=== PATIENT | female | born 1940 | race Caucasian/White ===

== ENCOUNTER 2018-05-27 18:06 | Emergency (ER) | payer MEDICARE, MEDICAID ==
--- NOTE | 2018-05-27 18:27 | EDM.PDOC ---
ED HPI GENERAL MEDICAL PROBLEM - General Chief Complaint: Head Injury Stated Complaint: PT FELL AND CUT HER HEAD Time Seen by Provider: 05/27/18 18:15 Source of Information: Reports: Patient History Limitations: Reports: No Limitations - History of Present Illness INITIAL COMMENTS - FREE TEXT/NARRATIVE: HISTORY AND PHYSICAL: History of present illness: Patient is a 77-year-old female who presents to the emergency room with her caregiver after falling and hitting her head. The patient was trying to take herself to the bathroom when she tripped while making a turn around the corner and fell and hit her head. The caregiver stated this was witnessed and she did not lose any consciousness. The patient does have a goose egg above the right eyebrow with a small 1 cm laceration. She is a resident at the [facility] as she does have some developmental delays. Unsure of her last tetanus. Denies any fever, chills, chest pain, shortness of breath or cough. Denies any abdominal pain, nausea, vomiting, diarrhea or constipation. Review of systems: As per history of present illness and below otherwise all systems reviewed and negative. Past medical history: As per history of present illness and as reviewed below otherwise noncontributory. Surgical history: As per history of present illness and as reviewed below otherwise noncontributory. Social history: No reported history of drug or alcohol abuse. Family history: As per history of present illness and as reviewed below otherwise noncontributory. Physical exam: General: Well-developed and well-nourished 77-year-old female. Alert and appropriate for self. Nontoxic appearing and in no acute distress. HEENT: Large goose egg noted above the right eyebrow with a 1 cm laceration in the center. normocephalic, pupils equal and reactive bilaterally, negative for conjunctival pallor or scleral icterus, mucous membranes moist, throat clear, neck supple, nontender, trachea midline. No drooling or trismus noted. No meningeal signs Lungs: Clear to auscultation, breath sounds equal bilaterally, chest nontender. Heart: S1S2, regular rate and rhythm without overt murmur Abdomen: Soft, nondistended, nontender. Negative for masses or hepatosplenomegaly. Negative for costovertebral tenderness. Pelvis: Stable nontender. Genitourinary: Deferred. Rectal: Deferred. Skin: 1 cm laceration noted above the right eyebrow. There is a large area of swelling with erythema, goose egg, above right eyebrow. Intact, warm, dry. No lesions or rashes noted. C-spine/Back: No pinpoint vertebral tenderness upon palpation. No crepitus, step -offs or obvious deformities. Patient does have kyphosis, normal variance. She is ambulatory into the emergency room using her 4 wheeled rolling walker. She denies any urinary or fecal incontinence. No numbness or tingling to her distal extremities. Extremities: Atraumatic, negative for cords or calf pain. Neurovascular unremarkable. Neuro: Awake, alert, oriented. Cranial nerves II through XII unremarkable. Cerebellum unremarkable. Motor and sensory unremarkable throughout. Exam nonfocal. Notes: Patient is alert and appropriate for self and does answer questions with yes and no. The caregiver that she has not been complaining of any pain other than the area which is swollen above the right eyebrow. Will CT the head and cervical spine. Head CT shows no acute intracranial findings. There is some right periorbital soft tissue swelling. No acute fracture or traumatic malalignment. There is some degenerative disc changes. Wound care provided with chlorahexadin. Applied Dermabond to the laceration without any difficulty. Head injury instructions were reviewed with the front elevator operator and patient. Discharged to home. Denies any further questions or concerns. Diagnostics: CT of the head and C-spine Therapeutics: Tdap, wound care, Dermabond Prescription: None Impression: Head Injury Laceration Plan: 1. Please continue to follow the head injury instructions that were reviewed with you and printed in your discharge packet. 2. Keep the area clean and dry. You may apply ice to the area for comfort. 3. Tylenol and/or ibuprofen as needed for pain management. 4. Follow-up with your primary care provider in the next 1-2 days. Return to the ED as needed and as discussed. Definitive disposition and diagnosis as appropriate pending reevaluation and review of above. - Related Data Allergies Allergy/AdvReac Type Severity Reaction Status Date / Time No Known Allergies Allergy Verified 03/30/18 04:57 Home Meds: Home Meds Alendronate Sodium [Fosamax] 70 mg PO WEEKLY 04/24/15 [History] Ascorbic Acid [Vitamin C] 500 mg PO DAILY 04/24/15 [History] Calcium Carbonate/Vitamin D3 [Calcium 600-Vit D3 400 Tablet] 2 tab PO DAILY [History] Lisinopril [Prinivil] 20 mg PO DAILY 04/24/15 [History] Multivitamin [Multi-Vitamin Daily] 1 tab PO DAILY 04/24/15 [History] Oxybutynin Chloride 5 mg PO DAILY 04/24/15 [History] predniSONE [Prednisone] 2.5 mg PO BID 12/14/15 [History] Past Medical History HEENT History: Reports: Impaired Vision, Other (See Below) Other HEENT History: wears glasses; recurrent nasal drainage; hyperopia; astigmatism Cardiovascular History: Reports: Hypertension Respiratory History: Reports: None Gastrointestinal History: Reports: None Genitourinary History: Reports: None Other Genitourinary History: Bladder hyperactivity VENDER History: Reports: None Musculoskeletal History: Reports: Other (See Below) Other Musculoskeletal History: drop foot Neurological History: Reports: Cerebral Palsy Psychiatric History: Reports: Other (See Below) Other Psychiatric History: speech impairment Endocrine/Metabolic History: Reports: None Hematologic History: Reports: None Immunologic History: Reports: None Oncologic (Cancer) History: Reports: Uterine Dermatologic History: Reports: None - Past Surgical History Cardiovascular Surgical History: Reports: None GI Surgical History: Reports: Appendectomy Female Surgical History: Reports: Breast Biopsy, Hysterectomy Endocrine Surgical History: Reports: None Musculoskeletal Surgical History: Reports: Arthroscopic Procedure, Hip Replacement, ORIF Other Oncologic Surgeries/Procedures: Hysterectomy Social & Family History - Family History Family Medical History: Noncontributory ED ROS GENERAL - Review of Systems Review Of Systems: ROS reveals no pertinent complaints other than HPI. ED EXAM, HEAD INJURY - Physical Exam Exam: See Below (See dictation) Course - Orders/Labs/Meds Orders: Active Orders 24 hr Category Date Time Status Vaccines to be Administered [RC] PER UNIT ROUTINE Care 05/27/18 18:33 Active Cervical Spine wo Cont [CT] Stat Exams 05/27/18 18:33 Taken Head wo Cont [CT] Stat Exams 05/27/18 18:33 Taken Meds: Medications Discontinued Medications Generic Name Dose Route Start Last Admin Trade Name Freq PRN Reason Stop Dose Admin Diphtheria/Tetanus/Acell Pertussis 0.5 ml 05/27/18 18:33 05/27/18 19:14 Adacel IM 09/21/18 18:34 0.5 ml .ONCE ONE Administration Octyl Cyanoacrylate 1 applic 05/27/18 18:33 05/27/18 19:14 Dermabond Mini TOP 05/27/18 18:34 1 applic ONETIME ONE Administration Departure - Departure Time of Disposition: 20:32 Disposition: Home, Self-Care 01 Clinical Impression: Head injury Qualifiers: Encounter type: initial encounter Qualified Code(s): S09.90XA - Unspecified injury of head, initial encounter Facial laceration Qualifiers: Encounter type: initial encounter Qualified Code(s): S01.81XA - Laceration without foreign body of other part of head, initial encounter - Discharge Information Instructions: Head Injury, Adult, [id number], Laceration Care, Adult, Easy-to -Read Referrals: PCP,None [Primary Care Provider] - Forms: ED Department Discharge Additional Instructions: The following information is given to patients seen in the emergency department who are being discharged to home. This information is to outline your options for follow-up care. We provide all patients seen in our emergency department with a follow-up referral. The need for follow-up, as well as the timing and circumstances, are variable depending upon the specifics of your emergency department visit. If you don't have a primary care physician on staff, we will provide you with a referral. We always advise you to contact your personal physician following an emergency department visit to inform them of the circumstance of the visit and for follow-up with them and/or the need for any referrals to a consulting specialist. The emergency department will also refer you to a specialist when appropriate. This referral assures that you have the opportunity for follow-up care with a specialist. All of these measure are taken in an effort to provide you with optimal care, which includes your follow-up. Under all circumstances we always encourage you to contact your private physician who remains a resource for coordinating your care. When calling for follow-up care, please make the office aware that this follow-up is from your recent emergency room visit. If for any reason you are refused follow-up, please contact the [facility] Emergency Department at and asked to speak to the emergency department charge nurse. [facility] [address] [place] [id number] [facility] [address] [place] [id number] 1. Please continue to follow the head injury instructions that were reviewed with you and printed in your discharge packet. 2. Keep the area clean and dry. You may apply ice to the area for comfort. 3. Tylenol and/or ibuprofen as needed for pain management. 4. Follow-up with your primary care provider in the next 1-2 days. Return to the ED as needed and as discussed. - My Orders Last 24 Hours: My Active Orders 05/27/18 18:33 Vaccines to be Administered [RC] PER UNIT ROUTINE Cervical Spine wo Cont [CT] Stat Head wo Cont [CT] Stat - Assessment/Plan Last 24 Hours: My Active Orders 05/27/18 18:33 Vaccines to be Administered [RC] PER UNIT ROUTINE Cervical Spine wo Cont [CT] Stat Head wo Cont [CT] Stat
[2018-05-27] MEDS ORDERED: Diphtheria,Pertussis(Acell),Tetanus Vaccine 0.5 ML Syringe IM ONE (18:33)
[2018-05-27] MEDS ORDERED: Octyl 2-Cyanoacrylate 1 APPLIC TUBE TOP ONE (18:33)
[2018-05-27 22:26] VITALS: BP 163/76
--- NOTE | 2018-05-30 10:36 | CT ---
EXAM DATE: 05/27/18 PATIENT'S AGE: 77 Patient: MYRA TOWNSEND Facility: [place], [place] Site . Site : 1940 Study: CT Head [id number]/21/2018 7:28:52 PM Ordering Physician: Doctor Morris Final Report: INDICATION: Fall. Right periorbital contusion. TECHNIQUE: Head CT without contrast. COMPARISON: [address] FINDINGS: CSF spaces: Moderately prominent for age sulci, particularly right frontal lobe. Ventricles are within normal limits. Brain parenchyma: There are nonspecific low attenuation white matter changes consistent with chronic microvascular disease. No sign of mass, hemorrhage, or midline shift. Skull base and calvarium: The visualized paranasal sinuses and mastoid air cells are clear. The visualized orbits are grossly unremarkable. No skull fractures. Right periorbital soft tissue swelling. IMPRESSION: 1. No acute intracranial findings. 2. Nonspecific white matter disease, typical of chronic microvascular disease. 3. Right periorbital soft tissue swelling. Please note that all CT scans at this facility use dose modulation, iterative reconstruction, and/or weight-based dosing when appropriate to reduce radiation dose to as low as reasonably achievable. Dictated by Fito Clancy MD @ May 27 2018 7:42PM (Electronic Signature) Report Signed by Proxy. MTDD
--- NOTE | 2018-05-30 10:37 | CT ---
EXAM DATE: 05/27/18 PATIENT'S AGE: 77 Patient: MYRA TOWNSEND Facility: [place], [place] Site . Site : 1940 Study: CT Spine Cervical [id number]/21/2018 7:29:31 PM Ordering Physician: Doctor Morris Final Report: INDICATION: Pain after fall. TECHNIQUE: Multi detector noncontrast images posterior fossa to thoracic inlet. FINDINGS: Diffuse moderately severe degenerative disk and facet changes. Mild grade 1 anterolisthesis C4 on C5. No acute fracture or traumatic malalignment. Multiple levels of neural foraminal narrowing due to osteophytes and facet arthrosis. This is more prominent on the right and most pronounced C3 for, C4-5 and C5-C6. No critical central canal stenosis appreciated. Lung apices are unremarkable. IMPRESSION: 1. No acute fracture or traumatic malalignment. 2. Moderately prominent degenerative disk and facet changes. Grade 1 anterolisthesis C4-5. Several foci of right-sided neural foraminal osteophytic narrowing. Please note that all CT scans at this facility use dose modulation, iterative reconstruction, and/or weight-based dosing when appropriate to reduce radiation dose to as low as reasonably achievable. Dictated by Fito Clancy MD @ May 27 2018 7:45PM (Electronic Signature) Report Signed by Proxy. RADHAMES
== END 2018-05-27 20:50 | disposition home or self-care (01) ==
LOC: MW.ED 18:06
DX: S09.90XA Unspecified injury of head, initial encounter (principal); S01.81XA Laceration without foreign body of other part of head, initial encounter; I10 Essential (primary) hypertension; Z23 Encounter for immunization; Z79.899 Other long term (current) drug therapy; W01.198A Fall on same level from slipping, tripping and stumbling with subsequent striking against other object, initial encounter; Y92.002 Bathroom of unspecified non-institutional (private) residence as the place of occurrence of the external cause
CPT/HCPCS: 12011; 70450; 72125; 90471; 90715; 99283; A9270

== ENCOUNTER 2019-12-03 09:14 | Observation (INO) | payer MEDICARE, MEDICAID ==
--- NOTE | 2019-12-03 09:42 | CR ---
Chest: Frontal portable view of the chest was obtained. Comparison: Prior chest x-ray of 12/14/15. Heart is slightly enlarged. Tortuous thoracic aorta is noted. Minimal left basilar atelectasis is present. Lungs show no acute parenchymal change. Bony structures are osteopenic. Impression: 1. Findings as described above. 2. Nothing acute is seen on portable chest x-ray. Diagnostic code #2 Study was dictated in MDT
[2019-12-03 10:01] LABS: BLOOD UREA NITROGEN,BUN 21 mg/dL (7.0-18.0); CARBON DIOXIDE,CO2 30.7 mmol/L (21.0-32.0); CHLORIDE,CL 97 mmol/L (98-107); GLUCOSE RANDOM 174 mg/dL (74-106); POTASSIUM,K 3.8 mmol/L (3.5-5.1); SODIUM,NA 135 mmol/L (136-145)
--- NOTE | 2019-12-03 10:14 | EDM.PDOC ---
ED HPI GENERAL MEDICAL PROBLEM - General Chief Complaint: Syncope Stated Complaint: SYNCOPAL EPISODE Time Seen by Provider: 12/03/19 09:21 Source of Information: Reports: Patient, Family Advocate History Limitations: Reports: No Limitations - History of Present Illness INITIAL COMMENTS - FREE TEXT/NARRATIVE: 79-year-old female presents to the emergency room history of being found unresponsive in the bathroom for about 4 minutes. Onset: Today Duration: Minutes:, Improving Location: Reports: Head Severity: Moderate Improves with: Reports: None Worsens with: Reports: None Context: Reports: Activity Associated Symptoms: Reports: No Other Symptoms, Syncope - Related Data Allergies Allergy/AdvReac Type Severity Reaction Status Date / Time No Known Allergies Allergy Verified 03/30/18 04:57 Home Meds: Home Meds Ascorbic Acid [Vitamin C] 500 mg PO DAILY 04/24/15 [History] Calcium Carbonate/Vitamin D3 [Calcium 600-Vit D3 400 Tablet] 2 tab PO DAILY [History] Lisinopril [Prinivil] 20 mg PO DAILY 04/24/15 [History] Multivitamin [Multi-Vitamin Daily] 1 tab PO DAILY 04/24/15 [History] predniSONE [Prednisone] 2.5 mg PO BID 12/14/15 [History] Past Medical History HEENT History: Reports: Impaired Vision, Other (See Below) Other HEENT History: wears glasses; recurrent nasal drainage; hyperopia; astigmatism Cardiovascular History: Reports: Hypertension Respiratory History: Reports: None Gastrointestinal History: Reports: None Genitourinary History: Reports: None Other Genitourinary History: Bladder hyperactivity [employer] History: Reports: None Musculoskeletal History: Reports: Other (See Below) Other Musculoskeletal History: drop foot Neurological History: Reports: Cerebral Palsy Psychiatric History: Reports: Other (See Below) Other Psychiatric History: speech impairment Endocrine/Metabolic History: Reports: None Hematologic History: Reports: None Immunologic History: Reports: None Oncologic (Cancer) History: Reports: Uterine Dermatologic History: Reports: None - Infectious Disease History Infectious Disease History: Reports: None - Past Surgical History Cardiovascular Surgical History: Reports: None GI Surgical History: Reports: Appendectomy Female Surgical History: Reports: Breast Biopsy, Hysterectomy Endocrine Surgical History: Reports: None Musculoskeletal Surgical History: Reports: Arthroscopic Procedure, Hip Replacement, ORIF Other Oncologic Surgeries/Procedures: Hysterectomy Social & Family History - Family History Family Medical History: Noncontributory ED ROS GENERAL - Review of Systems Review Of Systems: See Below Constitutional: Reports: Weakness HEENT: Reports: No Symptoms Respiratory: Reports: No Symptoms Cardiovascular: Reports: No Symptoms Endocrine: Reports: No Symptoms GI/Abdominal: Reports: No Symptoms : Reports: No Symptoms Musculoskeletal: Reports: No Symptoms Skin: Reports: No Symptoms Neurological: Reports: No Symptoms Psychiatric: Reports: No Symptoms Hematologic/Lymphatic: Reports: No Symptoms Immunologic: Reports: No Symptoms - Physical Exam Exam: See Below Exam Limited By: No Limitations General Appearance: Alert, WD/WN, No Apparent Distress Eye Exam: Bilateral Eye: Normal Fundi, Normal Inspection Ears: Normal External Exam, Normal Canal, Normal TMs Nose: Normal Inspection, Normal Mucosa Throat/Mouth: Normal Inspection, Normal Lips, Normal Oropharynx, Normal Voice Head Exam: Atraumatic, Normocephalic Neck: Normal Inspection, Supple Respiratory/Chest: No Respiratory Distress, Lungs Clear, No Accessory Muscle Use Cardiovascular: Normal Peripheral Pulses GI/Abdominal: Normal Bowel Sounds, Soft, No Distention, No Abnormal Bruit (Female) Exam: Normal External Exam, Normal Speculum Exam Rectal (Female) Exam: Deferred Neuro Exam (Abbreviated): Alert, Oriented, CN II-XII Intact, Normal Reflexes, No Motor/Sensory Deficits Back Exam: Normal Inspection, Full Range of Motion Extremities: Normal Inspection, Normal Range of Motion, No Pedal Edema, Normal Capillary Refill Psychiatric: Normal Affect, Normal Mood Skin Exam: Warm, Dry, Intact Course - Vital Signs Last Recorded V/S: Last Vital Signs Temp 96.7 F L 12/03/19 10:14 Pulse 78 12/03/19 11:11 Resp 14 12/03/19 11:11 BP 111/45 L 12/03/19 11:11 Pulse Ox 93 L 12/03/19 11:11 - Orders/Labs/Meds Orders: Active Orders 24 hr Category Date Time Status EKG Documentation Completion [RC] STAT Care 12/03/19 09:19 Active CULTURE URINE [RM] Stat Lab 12/03/19 09:40 Received cefTRIAXone [Rocephin in Dextrose,Iso-Osm 1 GM/50 ML] 1 Med 12/03/19 11:36 Active gm Premix Bag 1 bag IV ONETIME Medication Orders Ceftriaxone Sodium/Dextrose 1 (gm/ Premix) 50 mls @ 100 mls/hr IV ONETIME ONE Stop: 12/03/19 12:05 Labs: Laboratory Tests 12/03/19 12/03/19 12/03/19 Range/Units 09:13 09:13 09:13 WBC 13.43 H (4.0-11.0) K/uL RBC 4.47 (4.30-5.90) M/uL Hgb 14.0 (12.0-16.0) g/dL Hct 42.1 (36.0-46.0) % MCV 94.2 (80.0-98.0) fL MCH 31.3 (27.0-32.0) pg MCHC 33.3 (31.0-37.0) g/dL RDW Std Deviation 45.8 (28.0-62.0) fl RDW Coeff of Erik 13 (11.0-15.0) % Plt Count 258 (150-400) K/uL MPV 8.90 (7.40-12.00) fL Neut % (Auto) 30.9 L (48.0-80.0) % Lymph % (Auto) 59.3 H (16.0-40.0) % [place] % (Auto) 7.7 (0.0-15.0) % Eos % (Auto) 1.8 (0.0-7.0) % Baso % (Auto) 0.3 (0.0-1.5) % Neut # (Auto) 4.2 (1.4-5.7) K/uL Lymph # (Auto) 8.0 H (0.6-2.4) K/uL [place] # (Auto) 1.0 H (0.0-0.8) K/uL Eos # (Auto) 0.2 (0.0-0.7) K/uL Baso # (Auto) 0.0 (0.0-0.1) K/uL Nucleated RBC % 0.0 /100WBC Nucleated RBCs # 0 K/uL INR 0.93 Sodium 135 L (136-145) mmol/L Potassium 3.8 (3.5-5.1) mmol/L Chloride 97 L (98-107) mmol/L Carbon Dioxide 30.7 (21.0-32.0) mmol/L BUN 21 H (7.0-18.0) mg/dL Creatinine 0.8 (0.6-1.0) mg/dL Est Cr Clr Drug Dosing 46.40 mL/min Estimated GFR (MDRD) > 60.0 ml/min Glucose 174 H (74-106) mg/dL Calcium 9.5 (8.5-10.1) mg/dL Total Bilirubin 0.5 (0.2-1.0) mg/dL AST 17 (15-37) IU/L ALT 25 (14-63) IU/L Alkaline Phosphatase 52 (46-116) U/L Troponin I < 0.050 (0.000-0.056) ng/mL Total Protein 6.4 (6.4-8.2) g/dL Albumin 3.4 (3.4-5.0) g/dL Globulin 3.0 (2.6-4.0) g/dL Albumin/Globulin Ratio 1.1 (0.9-1.6) Urine Color Urine Appearance Urine pH (5.0-8.0) Ur Specific [place] (1.001-1.035) Urine Protein (NEGATIVE) mg/dL Urine Glucose (UA) (NEGATIVE) mg/dL Urine Ketones (NEGATIVE) mg/dL Urine Occult Blood (NEGATIVE) Urine Nitrite (NEGATIVE) Urine Bilirubin (NEGATIVE) Urine Urobilinogen (<2.0) EU/dL Ur Leukocyte Esterase (NEGATIVE) U Hyaline Cast (Auto) (0-2/LPF) Urine RBC (0-2/HPF) Urine WBC (0-5/HPF) Ur Epithelial Cells (NONE-FEW) Urine Bacteria (NEGATIVE) Urine Mucus (NONE-MOD) Urine Yeast 12/03/19 Range/Units 09:40 WBC (4.0-11.0) K/uL RBC (4.30-5.90) M/uL Hgb (12.0-16.0) g/dL Hct (36.0-46.0) % MCV (80.0-98.0) fL MCH (27.0-32.0) pg MCHC (31.0-37.0) g/dL RDW Std Deviation (28.0-62.0) fl RDW Coeff of Erik (11.0-15.0) % Plt Count (150-400) K/uL MPV (7.40-12.00) fL Neut % (Auto) (48.0-80.0) % Lymph % (Auto) (16.0-40.0) % [place] % (Auto) (0.0-15.0) % Eos % (Auto) (0.0-7.0) % Baso % (Auto) (0.0-1.5) % Neut # (Auto) (1.4-5.7) K/uL Lymph # (Auto) (0.6-2.4) K/uL [place] # (Auto) (0.0-0.8) K/uL Eos # (Auto) (0.0-0.7) K/uL Baso # (Auto) (0.0-0.1) K/uL Nucleated RBC % /100WBC Nucleated RBCs # K/uL INR Sodium (136-145) mmol/L Potassium (3.5-5.1) mmol/L Chloride (98-107) mmol/L Carbon Dioxide (21.0-32.0) mmol/L BUN (7.0-18.0) mg/dL Creatinine (0.6-1.0) mg/dL Est Cr Clr Drug Dosing mL/min Estimated GFR (MDRD) ml/min Glucose (74-106) mg/dL Calcium (8.5-10.1) mg/dL Total Bilirubin (0.2-1.0) mg/dL AST (15-37) IU/L ALT (14-63) IU/L Alkaline Phosphatase (46-116) U/L Troponin I (0.000-0.056) ng/mL Total Protein (6.4-8.2) g/dL Albumin (3.4-5.0) g/dL Globulin (2.6-4.0) g/dL Albumin/Globulin Ratio (0.9-1.6) Urine Color YELLOW Urine Appearance SLT CLOUDY Urine pH 6.0 (5.0-8.0) Ur Specific [place] 1.025 (1.001-1.035) Urine Protein NEGATIVE (NEGATIVE) mg/dL Urine Glucose (UA) NEGATIVE (NEGATIVE) mg/dL Urine Ketones NEGATIVE (NEGATIVE) mg/dL Urine Occult Blood TRACE-INTACT H (NEGATIVE) Urine Nitrite POSITIVE H (NEGATIVE) Urine Bilirubin NEGATIVE (NEGATIVE) Urine Urobilinogen 0.2 (<2.0) EU/dL Ur Leukocyte Esterase MODERATE H (NEGATIVE) U Hyaline Cast (Auto) RARE (0-2/LPF) Urine RBC 0-1 (0-2/HPF) Urine WBC 25-35 (0-5/HPF) Ur Epithelial Cells RARE (NONE-FEW) Urine Bacteria 1+ H (NEGATIVE) Urine Mucus LIGHT (NONE-MOD) Urine Yeast OCCASIONAL Meds: Medications Generic Name Dose Route Start Last Admin Trade Name Freq PRN Reason Stop Dose Admin Ceftriaxone Sodium/Dextrose 1 50 mls @ 100 mls/hr 12/03/19 11:36 gm/ Premix IV 12/03/19 12:05 ONETIME ONE Discontinued Medications Generic Name Dose Route Start Last Admin Trade Name Freq PRN Reason Stop Dose Admin Ceftriaxone Sodium 1 gm/ 50 mls @ 200 mls/hr 12/03/19 11:32 Sodium Chloride IV 12/03/19 11:46 ONETIME ONE Departure - Departure Time of Disposition: 11:39 Disposition: Refer to Observation Clinical Impression: Syncope - Discharge Information Referrals: PCP,None [Primary Care Provider] - Forms: ED Department Discharge Sepsis Event Note - Focused Exam Vital Signs: Vital Signs Temp Pulse Resp BP Pulse Ox 12/03/19 11:11 78 14 111/45 L 93 L 12/03/19 10:14 96.7 F L 78 14 111/44 L 95 12/03/19 09:19 96.3 F L 70 13 114/78 93 L Date Exam was Performed: 12/03/19 Time Exam was Performed: 11:37 - My Orders Last 24 Hours: My Active Orders 12/03/19 09:19 EKG Documentation Completion [RC] STAT 12/03/19 09:40 CULTURE URINE [RM] Stat 12/03/19 11:36 cefTRIAXone [Rocephin in Dextrose,Iso-Osm 1 GM/50 ML] 1 gm Premix Bag 1 bag IV ONETIME - Assessment/Plan Last 24 Hours: My Active Orders 12/03/19 09:19 EKG Documentation Completion [RC] STAT 12/03/19 09:40 CULTURE URINE [RM] Stat 12/03/19 11:36 cefTRIAXone [Rocephin in Dextrose,Iso-Osm 1 GM/50 ML] 1 gm Premix Bag 1 bag IV ONETIME
--- NOTE | 2019-12-03 11:00 | CT ---
Head CT Technique: Multiple axial sections through the brain were obtained. Intravenous contrast was not utilized. Comparison: Prior head CT study of 10/26/19. Findings: Ventricles along with basal cisterns and sulci over the convexities are moderately prominent. Mild diminished density is noted within the periventricular white matter which is felt compatible with small vessel ischemic demyelination change. No other abnormal parenchymal densities are seen. No evidence of intracranial hemorrhage. No midline shift or mass effect is seen. Owing window settings were reviewed. No acute findings are seen within the visualized paranasal sinuses or visualized mastoid sinuses. No acute calvarial abnormality is appreciated. Impression: 1. Senescent change as described above. 2. Nothing acute is appreciated on noncontrast head CT exam. 3. No significant change is appreciated from previous head CT exam. Diagnostic code #2 Study was dictated in MDT
[2019-12-03] MEDS ORDERED: cefTRIAXone 1 GM in Sodium Chloride 0.9% 50 ML IV ONE (11:32)
[2019-12-03] MEDS ORDERED: cefTRIAXone 1 GM in Premix Bag 1 BAG IV ONE (11:36)
[2019-12-03] MEDS ORDERED: Sodium Chloride 0.9% 1,000 ML IV ONE (12:39)
--- NOTE | 2019-12-03 12:43 | PCM.HP.2 ---
H&P History of Present Illness - General Date of Service: 12/03/19 Admit Problem/Dx: Admission Diagnosis/Problem Admission Diagnosis/Problem Syncope and collapse - History of Present Illness Initial Comments - Free Text/Narative: 79 yo female resident of [facility] who was brought to the ED after being found down in the bathroom and unresposive for 4 minutes. Patient ws noted to have a bruise over her left eye. She denies any fevers, shortness of breath or pain. - Related Data Allergies/Adverse Reactions: Allergies Allergy/AdvReac Type Severity Reaction Status Date / Time No Known Allergies Allergy Verified 12/03/19 12:39 Home Medications: Home Meds Ascorbic Acid [Vitamin C] 500 mg PO DAILY 04/24/15 [History] Calcium Carbonate/Vitamin D3 [Calcium 600-Vit D3 400 Tablet] 2 tab PO DAILY [History] Lisinopril [Prinivil] 20 mg PO DAILY 04/24/15 [History] Multivitamin [Multi-Vitamin Daily] 1 tab PO DAILY 04/24/15 [History] predniSONE [Prednisone] 2.5 mg PO BID 12/14/15 [History] Past Medical History HEENT History: Reports: Impaired Vision, Other (See Below) Other HEENT History: wears glasses; recurrent nasal drainage; hyperopia; astigmatism Cardiovascular History: Reports: Hypertension Respiratory History: Reports: None Gastrointestinal History: Reports: None Genitourinary History: Reports: None Other Genitourinary History: Bladder hyperactivity 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 Musculoskeletal History: Reports: Other (See Below) Other Musculoskeletal History: drop foot Neurological History: Reports: Cerebral Palsy Psychiatric History: Reports: Other (See Below) Other Psychiatric History: speech impairment Endocrine/Metabolic History: Reports: None Hematologic History: Reports: None Immunologic History: Reports: None Oncologic (Cancer) History: Reports: Uterine Dermatologic History: Reports: None - Infectious Disease History Infectious Disease History: Reports: None - Past Surgical History Cardiovascular Surgical History: Reports: None GI Surgical History: Reports: Appendectomy Female Surgical History: Reports: Breast Biopsy, Hysterectomy Endocrine Surgical History: Reports: None Musculoskeletal Surgical History: Reports: Arthroscopic Procedure, Hip Replacement, ORIF Other Oncologic Surgeries/Procedures: Hysterectomy Social & Family History - Family History Family Medical History: Noncontributory - Tobacco Use Smoking Status *Q: Never Smoker Second Hand Smoke Exposure: No - Recreational Drug Use Recreational Drug Use: No H&P Review of Systems - Review of Systems: Review Of Systems: Comprehensive ROS is negative, except as noted in HPI. Exam - Vital Signs Vital Signs: Last Vital Signs Temp 35.8 C L 12/03/19 12:40 Pulse 93 12/03/19 12:40 Resp 17 12/03/19 12:40 BP 155/69 H 12/03/19 12:40 Pulse Ox 96 12/03/19 12:40 Weight: 47.355 kg - Exam General: Alert, Cooperative HEENT: Mucosa Moist & [place], Other (mild edema above left eye) Cardiovascular: Regular Rate, Regular Rhythm GI/Abdominal Exam: Soft, Non-Tender Extremities: Non-Tender, No Pedal Edema Skin: Warm, Dry, Intact Neurological: Cranial Nerves Intact. No: Focal Deficit - Patient Data Lab Results Last 24 hrs: Laboratory Results - last 24 hr 12/03/19 12/03/19 12/03/19 Range/Units 09:13 09:13 09:13 WBC 13.43 H (4.0-11.0) K/uL RBC 4.47 (4.30-5.90) M/uL Hgb 14.0 (12.0-16.0) g/dL Hct 42.1 (36.0-46.0) % MCV 94.2 (80.0-98.0) fL MCH 31.3 (27.0-32.0) pg MCHC 33.3 (31.0-37.0) g/dL RDW Std Deviation 45.8 (28.0-62.0) fl RDW Coeff of Erik 13 (11.0-15.0) % Plt Count 258 (150-400) K/uL MPV 8.90 (7.40-12.00) fL Neut % (Auto) 30.9 L (48.0-80.0) % Lymph % (Auto) 59.3 H (16.0-40.0) % [place] % (Auto) 7.7 (0.0-15.0) % Eos % (Auto) 1.8 (0.0-7.0) % Baso % (Auto) 0.3 (0.0-1.5) % Neut # (Auto) 4.2 (1.4-5.7) K/uL Lymph # (Auto) 8.0 H (0.6-2.4) K/uL [place] # (Auto) 1.0 H (0.0-0.8) K/uL Eos # (Auto) 0.2 (0.0-0.7) K/uL Baso # (Auto) 0.0 (0.0-0.1) K/uL Nucleated RBC % 0.0 /100WBC Nucleated RBCs # 0 K/uL INR 0.93 Sodium 135 L (136-145) mmol/L Potassium 3.8 (3.5-5.1) mmol/L Chloride 97 L (98-107) mmol/L Carbon Dioxide 30.7 (21.0-32.0) mmol/L BUN 21 H (7.0-18.0) mg/dL Creatinine 0.8 (0.6-1.0) mg/dL Est Cr Clr Drug Dosing 46.40 mL/min Estimated GFR (MDRD) > 60.0 ml/min Glucose 174 H (74-106) mg/dL Calcium 9.5 (8.5-10.1) mg/dL Total Bilirubin 0.5 (0.2-1.0) mg/dL AST 17 (15-37) IU/L ALT 25 (14-63) IU/L Alkaline Phosphatase 52 (46-116) U/L Troponin I < 0.050 (0.000-0.056) ng/mL Total Protein 6.4 (6.4-8.2) g/dL Albumin 3.4 (3.4-5.0) g/dL Globulin 3.0 (2.6-4.0) g/dL Albumin/Globulin Ratio 1.1 (0.9-1.6) Urine Color Urine Appearance Urine pH (5.0-8.0) Ur Specific [place] (1.001-1.035) Urine Protein (NEGATIVE) mg/dL Urine Glucose (UA) (NEGATIVE) mg/dL Urine Ketones (NEGATIVE) mg/dL Urine Occult Blood (NEGATIVE) Urine Nitrite (NEGATIVE) Urine Bilirubin (NEGATIVE) Urine Urobilinogen (<2.0) EU/dL Ur Leukocyte Esterase (NEGATIVE) U Hyaline Cast (Auto) (0-2/LPF) Urine RBC (0-2/HPF) Urine WBC (0-5/HPF) Ur Epithelial Cells (NONE-FEW) Urine Bacteria (NEGATIVE) Urine Mucus (NONE-MOD) Urine Yeast 12/03/19 Range/Units 09:40 WBC (4.0-11.0) K/uL RBC (4.30-5.90) M/uL Hgb (12.0-16.0) g/dL Hct (36.0-46.0) % MCV (80.0-98.0) fL MCH (27.0-32.0) pg MCHC (31.0-37.0) g/dL RDW Std Deviation (28.0-62.0) fl RDW Coeff of Erik (11.0-15.0) % Plt Count (150-400) K/uL MPV (7.40-12.00) fL Neut % (Auto) (48.0-80.0) % Lymph % (Auto) (16.0-40.0) % [place] % (Auto) (0.0-15.0) % Eos % (Auto) (0.0-7.0) % Baso % (Auto) (0.0-1.5) % Neut # (Auto) (1.4-5.7) K/uL Lymph # (Auto) (0.6-2.4) K/uL [place] # (Auto) (0.0-0.8) K/uL Eos # (Auto) (0.0-0.7) K/uL Baso # (Auto) (0.0-0.1) K/uL Nucleated RBC % /100WBC Nucleated RBCs # K/uL INR Sodium (136-145) mmol/L Potassium (3.5-5.1) mmol/L Chloride (98-107) mmol/L Carbon Dioxide (21.0-32.0) mmol/L BUN (7.0-18.0) mg/dL Creatinine (0.6-1.0) mg/dL Est Cr Clr Drug Dosing mL/min Estimated GFR (MDRD) ml/min Glucose (74-106) mg/dL Calcium (8.5-10.1) mg/dL Total Bilirubin (0.2-1.0) mg/dL AST (15-37) IU/L ALT (14-63) IU/L Alkaline Phosphatase (46-116) U/L Troponin I (0.000-0.056) ng/mL Total Protein (6.4-8.2) g/dL Albumin (3.4-5.0) g/dL Globulin (2.6-4.0) g/dL Albumin/Globulin Ratio (0.9-1.6) Urine Color YELLOW Urine Appearance SLT CLOUDY Urine pH 6.0 (5.0-8.0) Ur Specific [place] 1.025 (1.001-1.035) Urine Protein NEGATIVE (NEGATIVE) mg/dL Urine Glucose (UA) NEGATIVE (NEGATIVE) mg/dL Urine Ketones NEGATIVE (NEGATIVE) mg/dL Urine Occult Blood TRACE-INTACT H (NEGATIVE) Urine Nitrite POSITIVE H (NEGATIVE) Urine Bilirubin NEGATIVE (NEGATIVE) Urine Urobilinogen 0.2 (<2.0) EU/dL Ur Leukocyte Esterase MODERATE H (NEGATIVE) U Hyaline Cast (Auto) RARE (0-2/LPF) Urine RBC 0-1 (0-2/HPF) Urine WBC 25-35 (0-5/HPF) Ur Epithelial Cells RARE (NONE-FEW) Urine Bacteria 1+ H (NEGATIVE) Urine Mucus LIGHT (NONE-MOD) Urine Yeast OCCASIONAL Result Diagrams: 12/03/19 09:13 12/03/19 09:13 Sepsis Event Note - Evaluation Sepsis Screening Result: No Definite Risk - Focused Exam Vital Signs: Vital Signs Temp Pulse Resp BP Pulse Ox 12/03/19 12:40 35.8 C L 93 17 155/69 H 96 12/03/19 11:11 78 14 111/45 L 93 L 12/03/19 10:14 35.9 C L 78 14 111/44 L 95 12/03/19 09:19 35.7 C L 70 13 114/78 93 L Date Exam was Performed: 12/03/19 Time Exam was Performed: 12:41 Problem List Initiated/Reviewed/Updated: Yes Orders Last 24hrs: Active Orders 24 hr Category Date Time Status Admission Status [Patient Status] [ADT] Stat ADT 12/03/19 11:40 Active Antiembolic Devices [RC] PER UNIT ROUTINE Care 12/03/19 12:40 Ordered EKG Documentation Completion [RC] STAT Care 12/03/19 09:19 Active Oxygen Therapy [RC] PRN Care 12/03/19 12:39 Ordered VTE/DVT Education [RC] PER UNIT ROUTINE Care 12/03/19 12:39 Ordered Vital Signs [RC] Q4H Care 12/03/19 12:39 Ordered Regular Diet [DIET] Diet 12/03/19 Breakfast Ordered BASIC METABOLIC PANEL,BMP [CHEM] AM Lab 12/04/19 05:11 Ordered CBC WITH AUTO DIFF [HEME] AM Lab 12/04/19 05:11 Ordered CULTURE URINE [RM] Stat Lab 12/03/19 09:40 Received Sodium Chloride 0.9% [Normal Saline] 1,000 ml Med 12/03/19 12:39 Ordered IV .Bolus Sequential Compression Device [OM.PC] Per Unit Routine Oth 12/03/19 12:40 Ordered Resuscitation Status Routine Resus Stat 12/03/19 12:39 Ordered Medication Orders Sodium Chloride (Normal Saline) 1,000 mls @ 125 mls/hr IV .Bolus ONE Stop: 12/03/19 20:38 Assessment/Plan Comment:: 79 yo female admitted for suspected fall and syncopal event. We will monitor overnight on telemetry. UTI was treated with Rocephin.
[2019-12-04 06:44] LABS: BLOOD UREA NITROGEN,BUN 18 mg/dL (7.0-18.0); CARBON DIOXIDE,CO2 27.4 mmol/L (21.0-32.0); CHLORIDE,CL 101 mmol/L (98-107); GLUCOSE RANDOM 87 mg/dL (74-106); POTASSIUM,K 3.6 mmol/L (3.5-5.1); SODIUM,NA 136 mmol/L (136-145)
[2019-12-04] MEDS ORDERED: cefTRIAXone 1 GM in Premix Bag 1 BAG IV SCH (10:00)
--- NOTE | 2019-12-04 10:09 | PCM.DCSUM1 ---
Discharge Summary - Hospital Course Brief History: 79 yo female resident of [facility] emergency department who was brought to the ED after being found down in the bathroom and unresposive for 4 minutes. Patient ws noted to have a bruise over her left eye. She denies any fevers, shortness of breath or pain. Diagnosis: Stroke: No - Discharge Data Discharge Date: 12/04/19 Discharge Disposition: DC/Tfer to [place] [id number] Condition: Stable - Referral to Home Health Primary Care Physician: PCP None - Discharge Plan Prescriptions/Med Rec: levoFLOXacin [Levaquin] 500 mg PO DAILY #3 tab Home Medications: Home Meds Ascorbic Acid [Vitamin C] 500 mg PO DAILY 04/24/15 [History] Calcium Carbonate/Vitamin D3 [Calcium 600-Vit D3 400 Tablet] 2 tab PO DAILY [History] Multivitamin [Multi-Vitamin Daily] 1 tab PO DAILY 04/24/15 [History] predniSONE [Prednisone] 2.5 mg PO BID 12/14/15 [History] Lisinopril/Hydrochlorothiazide [Lisinopril-Hctz 20-12.5 mg Tab] 1 each PO DAILY 12/03/19 [History] levoFLOXacin [Levaquin] 500 mg PO DAILY #3 tab 12/04/19 [Rx] Patient Handouts: Urinary Tract Infection, Adult, [id number], Levofloxacin tablets, Syncope, [id number] Referrals: [facility] [Outside] Jabari Teran MD [Physician] - 12/11/19 10:00 am - Discharge Summary/Plan Comment DC Time >30 min.: No Discharge Summary/Plan Comment: Admitting Diagonses: Syncope UTI Discharge Diagnoses: UTI Tracey was admitted after being found down in the bathroom. She was brought to the ED, found to have significant UTI, started on Rocephin. She was treated with IVFs. Today she is doing much better. UC is still pending. VS stable, NO orthostasis noted. BP elevated 160, will restart home medications. She will be continued on Levaquin 500 mg for 3 more days, will follow UC and if need to change therapy. She is to return to ED or clinic if concerns should arise. Follow up with PCP in 1 week. - Patient Data Vitals - Most Recent: Last Vital Signs Temp 97.6 F 12/04/19 08:00 Pulse 87 12/04/19 08:00 Resp 18 12/04/19 08:00 BP 163/74 H 12/04/19 08:00 Pulse Ox 96 12/04/19 08:00 Weight - Most Recent: 47.355 kg I&O - Last 24 hours: Intake & Output 12/03/19 12/04/19 12/04/19 22:59 06:59 14:59 Intake Total 200 30 Output Total 100 150 Balance 100 -120 Lab Results - Last 24 hrs: Laboratory Results - last 24 hr 12/04/19 12/04/19 Range/Units 05:55 05:55 WBC 10.58 (4.0-11.0) K/uL RBC 4.05 L (4.30-5.90) M/uL Hgb 12.7 (12.0-16.0) g/dL Hct 37.9 (36.0-46.0) % MCV 93.6 (80.0-98.0) fL MCH 31.4 (27.0-32.0) pg MCHC 33.5 (31.0-37.0) g/dL RDW Std Deviation 45.2 (28.0-62.0) fl RDW Coeff of Erik 13 (11.0-15.0) % Plt Count 222 (150-400) K/uL MPV 9.10 (7.40-12.00) fL Neut % (Auto) 48.3 (48.0-80.0) % Lymph % (Auto) 42.0 H (16.0-40.0) % [place] % (Auto) 7.6 (0.0-15.0) % Eos % (Auto) 1.6 (0.0-7.0) % Baso % (Auto) 0.5 (0.0-1.5) % Neut # (Auto) 5.1 (1.4-5.7) K/uL Lymph # (Auto) 4.4 H (0.6-2.4) K/uL [place] # (Auto) 0.8 (0.0-0.8) K/uL Eos # (Auto) 0.2 (0.0-0.7) K/uL Baso # (Auto) 0.1 (0.0-0.1) K/uL Nucleated RBC % 0.0 /100WBC Nucleated RBCs # 0 K/uL Sodium 136 (136-145) mmol/L Potassium 3.6 (3.5-5.1) mmol/L Chloride 101 (98-107) mmol/L Carbon Dioxide 27.4 (21.0-32.0) mmol/L BUN 18 (7.0-18.0) mg/dL Creatinine 0.6 (0.6-1.0) mg/dL Est Cr Clr Drug Dosing 55.90 mL/min Estimated GFR (MDRD) > 60.0 ml/min Glucose 87 (74-106) mg/dL Calcium 8.5 (8.5-10.1) mg/dL Med Orders - Current: Current Medications Ceftriaxone Sodium/Dextrose 1 (gm/ Premix) 50 mls @ 100 mls/hr IV Q24H [facility] Non-Formulary Medication (Lisinopril/Hydrochlorothiazide [Lisinopril-Hctz 20- 12.5 Mg Tab]) 1 each PO DAILY [facility] Prednisone (Prednisone) 2.5 mg PO BID SUE Discontinued Medications Ceftriaxone Sodium 1 gm/ (Sodium Chloride) 50 mls @ 200 mls/hr IV ONETIME ONE Stop: 12/03/19 11:46 Last Admin: 12/03/19 11:41 Dose: Not Given Ceftriaxone Sodium/Dextrose 1 (gm/ Premix) 50 mls @ 100 mls/hr IV ONETIME ONE Stop: 12/03/19 12:05 Last Admin: 12/03/19 11:41 Dose: 100 mls/hr Sodium Chloride (Normal Saline) 1,000 mls @ 125 mls/hr IV .Bolus ONE Stop: 12/03/19 20:38 Last Admin: 12/03/19 13:15 Dose: 125 mls/hr
[2019-12-04] MEDS ORDERED: predniSONE 20 MG Tab PO SCH (10:15)
[2019-12-04] MEDS ORDERED: Non-Formulary Medication 1 Each (Lisinopril/Hydrochlorothiazide [Lisinopril-Hctz 20-12.5 M PO SCH (10:15)
[2019-12-04] MEDS ORDERED: Lisinopril 10 MG Tab PO SCH (10:30)
[2019-12-04] MEDS ORDERED: Hydrochlorothiazide 12.5 MG Cap PO SCH (10:30)
[2019-12-04] MEDS ORDERED: predniSONE 5 MG Tab PO SCH (10:35)
[2019-12-04 11:50] VITALS: BP 159/83; PULSE 93
--- NOTE | 2019-12-05 11:48 | PCM.SN ---
- Free Text/Narrative Note: returns with E coli resistant to Levaquin. Called [facility], spoke with Janny. Laila sent to and pharmacy. They will stop using Levaquin.
== END 2019-12-04 13:18 ==
LOC: MW.ED 09:14 → MW.MS 12:08
PROVIDERS: ADMIT Internal Medicine; ATTEND Internal Medicine
DX: N39.0 Urinary tract infection, site not specified (principal); I10 Essential (primary) hypertension; Z79.899 Other long term (current) drug therapy
CPT/HCPCS: 36415; 70450; 71045; 80048; 80053; 81001; 84484; 85025; 85610; 87086; 87088; 87186; 93005; 96365; 99285; A9270; J0696; J7030; J7512; 96376; G0378

== ENCOUNTER 2020-01-14 08:28 | Inpatient (IN) | payer MEDICARE, MEDICAID ==
[2020-01-14] MEDS ORDERED: Sodium Chloride 0.9% 10 ML Syringe FLUSH PRN (08:45)
[2020-01-14] MEDS ORDERED: Sodium Chloride 0.9% 2.5 ML Syringe FLUSH PRN (08:45)
--- NOTE | 2020-01-14 09:08 | EDM.PDOC ---
ED HPI GENERAL MEDICAL PROBLEM - General Chief Complaint: Syncope Stated Complaint: PT PASSED OUT AT HOME. BROUGHT VIA AMBULANCE Time Seen by Provider: 01/14/20 09:05 Source of Information: Reports: Patient, Other (Home caregiver) History Limitations: Reports: No Limitations - History of Present Illness INITIAL COMMENTS - FREE TEXT/NARRATIVE: Patient was brushing her teeth and became unresponsive. Patient did not pass out but was unable to speak for a few minutes. The ambulance was called and by the time the ambulance presented the patient was back to her baseline. Duration: Minutes: Location: Reports: Head Quality: Reports: Ache Severity: Moderate Improves with: Reports: None Worsens with: Reports: None Context: Reports: Activity Associated Symptoms: Reports: Confusion - Related Data Allergies Allergy/AdvReac Type Severity Reaction Status Date / Time No Known Allergies Allergy Verified 01/14/20 08:38 Home Meds: Home Meds Calcium Carbonate/Vitamin D3 [Calcium 600-Vit D3 400 Tablet] 2 tab PO DAILY [History] Multivitamin [Multi-Vitamin Daily] 1 tab PO DAILY 04/24/15 [History] predniSONE [Prednisone] 2.5 mg PO ASDIRECTED 12/14/15 [History] Lisinopril/Hydrochlorothiazide [Lisinopril-Hctz 20-12.5 mg Tab] 1 each PO DAILY 12/03/19 [History] Calcium Carb, Citrate/Vit D3 [Citracal + D ER] 600 mg PO BID 01/14/20 [History] Polyethylene Glycol [Polyox Wsr-301] 1 dose PO ASDIRECTED 01/14/20 [History] Past Medical History HEENT History: Reports: Impaired Vision, Other (See Below) Other HEENT History: wears glasses; recurrent nasal drainage; hyperopia; astigmatism Cardiovascular History: Reports: Hypertension Respiratory History: Reports: None Gastrointestinal History: Reports: None Genitourinary History: Reports: None Other Genitourinary History: Bladder hyperactivity 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: 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: 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 Musculoskeletal History: Reports: Other (See Below) Other Musculoskeletal History: drop foot Neurological History: Reports: Cerebral Palsy Psychiatric History: Reports: Other (See Below) Other Psychiatric History: speech impairment Endocrine/Metabolic History: Reports: None Hematologic History: Reports: None Immunologic History: Reports: None Oncologic (Cancer) History: Reports: Uterine Dermatologic History: Reports: None - Infectious Disease History Infectious Disease History: Reports: None - Past Surgical History HEENT Surgical History: Reports: None Cardiovascular Surgical History: Reports: None Respiratory Surgical History: Reports: None GI Surgical History: Reports: Appendectomy Female Surgical History: Reports: Breast Biopsy, Hysterectomy Endocrine Surgical History: Reports: None Neurological Surgical History: Reports: None Musculoskeletal Surgical History: Reports: Arthroscopic Procedure, Hip Replacement, ORIF Oncologic Surgical History: Reports: Other (See Below) Other Oncologic Surgeries/Procedures: Hysterectomy Dermatological Surgical History: Reports: None Social & Family History - Family History Family Medical History: Noncontributory - Tobacco Use Smoking Status *Q: Never Smoker - Caffeine Use Caffeine Use: Reports: None - Recreational Drug Use Recreational Drug Use: No ED ROS GENERAL - Review of Systems Review Of Systems: See Below Constitutional: Reports: No Symptoms HEENT: Reports: No Symptoms Respiratory: Reports: No Symptoms Cardiovascular: Reports: No Symptoms Endocrine: Reports: No Symptoms GI/Abdominal: Reports: No Symptoms : Reports: No Symptoms Musculoskeletal: Reports: No Symptoms Skin: Reports: No Symptoms Neurological: Reports: Confusion, Syncope, Weakness Psychiatric: Reports: No Symptoms Hematologic/Lymphatic: Reports: No Symptoms Immunologic: Reports: No Symptoms - Physical Exam Exam: See Below Exam Limited By: No Limitations General Appearance: Alert, WD/WN, No Apparent Distress Eye Exam: Bilateral Eye: Normal Fundi, Normal Inspection Ears: Normal External Exam, Normal Canal Nose: Normal Inspection, Normal Mucosa Throat/Mouth: Normal Inspection, Normal Lips, Normal Teeth Head Exam: Atraumatic, Normocephalic Neck: Normal Inspection, Supple, Non-Tender Respiratory/Chest: No Respiratory Distress, Lungs Clear, Normal Breath Sounds, No Accessory Muscle Use, Chest Non-Tender Cardiovascular: Normal Peripheral Pulses, Regular Rate, Rhythm, No JVD, No Murmur GI/Abdominal: Normal Bowel Sounds, Soft, Non-Tender, No Distention, No Abnormal Bruit (Female) Exam: Deferred Rectal (Female) Exam: Deferred Neuro Exam (Abbreviated): Alert, Oriented, CN II-XII Intact, Normal Cognition Back Exam: Normal Inspection, Full Range of Motion Extremities: Normal Inspection, Normal Range of Motion Psychiatric: Normal Affect, Normal Mood Skin Exam: Warm, Intact, Normal Color EKG INTERPRETATION EKG Date: 01/14/20 Time: 10:34 [place]: Normal QRS: Normal ST-T: Normal QT: Normal Course - Vital Signs Text/Narrative:: 79-year-old female presents to the emergency room with syncopal episode. Patient became unresponsive approximately 5 minutes was taken to the emergency room. Patient is now at her baseline. Patient has a history of multiple falls and is followed by neurologist. At this time she did not fall. Patient's CAT scan shows no acute changes. Patient CBC, electrolytes, EKG are all normal as well as chest x-ray. I have discussed the case with the hospitalist on-call patient will be admitted for observation/telemetry with a diagnosis of syncope possible TIA Last Recorded V/S: Last Vital Signs Temp 96.7 F L 01/14/20 08:36 Pulse 73 01/14/20 10:00 Resp 18 01/14/20 10:00 BP 120/56 L 01/14/20 10:00 Pulse Ox 97 01/14/20 10:00 - Orders/Labs/Meds Orders: Active Orders 24 hr Category Date Time Status EKG Documentation Completion [RC] STAT Care 01/14/20 08:44 Active UA RFX RHEA AND CULT IF INDIC [URIN] Stat Lab 01/14/20 08:43 Ordered Sodium Chloride 0.9% [Saline Flush] Med 01/14/20 08:45 Active 10 ml FLUSH ASDIRECTED PRN Sodium Chloride 0.9% [Saline Flush] Med 01/14/20 08:45 Active 2.5 ml FLUSH ASDIRECTED PRN Saline Lock Insert [OM.PC] Stat Oth 01/14/20 08:45 Ordered Medication Orders Sodium Chloride (Saline Flush) 10 ml FLUSH ASDIRECTED PRN PRN Reason: Keep Vein Open Sodium Chloride (Saline Flush) 2.5 ml FLUSH ASDIRECTED PRN PRN Reason: Keep Vein Open Labs: Laboratory Tests 01/14/20 01/14/20 Range/Units 08:47 08:47 WBC 10.80 (4.0-11.0) K/uL RBC 4.55 (4.30-5.90) M/uL Hgb 14.4 (12.0-16.0) g/dL Hct 41.6 (36.0-46.0) % MCV 91.4 (80.0-98.0) fL MCH 31.6 (27.0-32.0) pg MCHC 34.6 (31.0-37.0) g/dL RDW Std Deviation 43.3 (28.0-62.0) fl RDW Coeff of Erik 13 (11.0-15.0) % Plt Count 216 (150-400) K/uL MPV 9.70 (7.40-12.00) fL Add Manual Diff YES Neutrophils % (Manual) 42 L (48.0-80.0) % Lymphocytes % (Manual) 45 H (16.0-40.0) % Monocytes % (Manual) 9 (0.0-15.0) % Eosinophils % (Manual) 4 (0.0-7.0) % Nucleated RBC % 0.0 /100WBC Absolute Seg Neuts 4.5 (1.4-5.7) Lymphocytes # (Manual) 4.9 H (0.6-2.4) Monocytes # (Manual) 1.0 H (0.0-0.8) Eosinophils # (Manual) 0.4 (0.0-0.7) Nucleated RBCs # 0 K/uL Reactive Lymphocytes FEW Clumped Platelets FEW Sodium 130 L (136-145) mmol/L Potassium 3.6 (3.5-5.1) mmol/L Chloride 95 L (98-107) mmol/L Carbon Dioxide 25.5 (21.0-32.0) mmol/L BUN 21 H (7.0-18.0) mg/dL Creatinine 0.7 (0.6-1.0) mg/dL Est Cr Clr Drug Dosing 46.04 mL/min Estimated GFR (MDRD) > 60.0 ml/min Glucose 127 H (74-106) mg/dL Calcium 9.1 (8.5-10.1) mg/dL Total Bilirubin 0.6 (0.2-1.0) mg/dL AST 23 (15-37) IU/L ALT 26 (14-63) IU/L Alkaline Phosphatase 58 (46-116) U/L Troponin I < 0.050 (0.000-0.056) ng/mL Total Protein 6.4 (6.4-8.2) g/dL Albumin 3.3 L (3.4-5.0) g/dL Globulin 3.1 (2.6-4.0) g/dL Albumin/Globulin Ratio 1.1 (0.9-1.6) Meds: Medications Generic Name Dose Route Start Last Admin Trade Name Freq PRN Reason Stop Dose Admin Sodium Chloride 10 ml 01/14/20 08:45 Saline Flush FLUSH ASDIRECTED PRN Keep Vein Open Sodium Chloride 2.5 ml 01/14/20 08:45 Saline Flush FLUSH ASDIRECTED PRN Keep Vein Open Departure - Departure Time of Disposition: 10:35 Disposition: Refer to Observation Condition: Good Clinical Impression: Syncope, TIA (transient ischemic attack) - Discharge Information Referrals: PCP,None [Primary Care Provider] - Forms: ED Department Discharge Sepsis Event Note - Evaluation Sepsis Screening Result: No Definite Risk - Focused Exam Vital Signs: Vital Signs Temp Pulse Resp BP Pulse Ox 01/14/20 10:00 73 18 120/56 L 97 01/14/20 09:30 76 18 138/75 97 01/14/20 09:00 72 18 120/73 98 01/14/20 08:36 96.7 F L 75 17 146/77 H 95 Date Exam was Performed: 01/14/20 Time Exam was Performed: 10:34 - My Orders Last 24 Hours: My Active Orders 01/14/20 08:43 UA RFX RHEA AND CULT IF INDIC [URIN] Stat 01/14/20 08:44 EKG Documentation Completion [RC] STAT 01/14/20 08:45 Sodium Chloride 0.9% [Saline Flush] 10 ml FLUSH ASDIRECTED PRN Sodium Chloride 0.9% [Saline Flush] 2.5 ml FLUSH ASDIRECTED PRN Saline Lock Insert [OM.PC] Stat - Assessment/Plan Last 24 Hours: My Active Orders 01/14/20 08:43 UA RFX RHEA AND CULT IF INDIC [URIN] Stat 01/14/20 08:44 EKG Documentation Completion [RC] STAT 01/14/20 08:45 Sodium Chloride 0.9% [Saline Flush] 10 ml FLUSH ASDIRECTED PRN Sodium Chloride 0.9% [Saline Flush] 2.5 ml FLUSH ASDIRECTED PRN Saline Lock Insert [OM.PC] Stat
--- NOTE | 2020-01-14 09:18 | CR ---
Chest: Portable view of the chest was obtained. Comparison: Prior chest x-ray of 12/03/19. Heart size is slightly enlarged. Tortuous thoracic aorta is noted. Lungs show no acute parenchymal change. Old right-sided rib fracture is noted. Scoliosis is noted within the spine. Impression: 1. Findings as noted above. 2. Nothing acute is seen. Diagnostic code #2 This report was dictated in MDT
[2020-01-14 09:22] LABS: BLOOD UREA NITROGEN,BUN 21 mg/dL (7.0-18.0); CARBON DIOXIDE,CO2 25.5 mmol/L (21.0-32.0); CHLORIDE,CL 95 mmol/L (98-107); GLUCOSE RANDOM 127 mg/dL (74-106); POTASSIUM,K 3.6 mmol/L (3.5-5.1); SODIUM,NA 130 mmol/L (136-145)
--- NOTE | 2020-01-14 09:40 | CT ---
Head CT Technique: Multiple axial sections through the brain were obtained. Intravenous contrast was not utilized. Comparison: Prior head CT study of 10/26/19. Findings: Ventricles along with basal cisterns and sulci over the convexities are moderately prominent. Mild diminished density is noted within the periventricular white matter compatible with small vessel ischemic demyelination change. No evidence of intracranial hemorrhage. No midline shift or mass-effect is appreciated. Bone window settings were reviewed. Defect noted within the inferior right orbital floor compatible with blowout fracture. This appears to be old. No acute calvarial abnormality is appreciated. Impression: 1. Senescent change as noted above. 2. Old inferior orbital floor blowout fracture. 3. No acute intracranial abnormality is appreciated. Diagnostic code #2 This report was dictated in MDT
--- NOTE | 2020-01-14 11:22 | PCM.HP.2 ---
H&P History of Present Illness - General Date of Service: 01/14/20 Admit Problem/Dx: Admission Diagnosis/Problem Admission Diagnosis/Problem Syncope - History of Present Illness Initial Comments - Free Text/Narative: 79-year-old female with PMH of frequent falls, cerebral palsy, HTN, UTI presents to the emergency room with syncopal episode. Patient became unresponsive approximately 5 minutes while she was brushing her teeth this AM, no falls were noted.. EMS was called and patient was taken to the emergency room. Patient was at her baseline by the time she was in the ER. Patient has a history of multiple falls and is followed by neurologist. At this time she did not fall. Patient's CAT scan shows no acute changes. Patient CBC, electrolytes, EKG are all normal as well as chest x-ray. Patient was admitted for observation/telemetry for further management. - Related Data Allergies/Adverse Reactions: Allergies Allergy/AdvReac Type Severity Reaction Status Date / Time No Known Allergies Allergy Verified 01/14/20 15:27 Home Medications: Home Meds Calcium Carbonate/Vitamin D3 [Calcium 600-Vit D3 400 Tablet] 2 tab PO DAILY [History] Multivitamin [Multi-Vitamin Daily] 1 tab PO DAILY 04/24/15 [History] predniSONE [Prednisone] 2.5 mg PO ASDIRECTED 12/14/15 [History] Lisinopril/Hydrochlorothiazide [Lisinopril-Hctz 20-12.5 mg Tab] 1 each PO DAILY 12/03/19 [History] Calcium Carb, Citrate/Vit D3 [Citracal + D ER] 600 mg PO BID 01/14/20 [History] Polyethylene Glycol [Polyox Wsr-301] 1 dose PO ASDIRECTED 01/14/20 [History] Past Medical History HEENT History: Reports: Impaired Vision, Other (See Below) Other HEENT History: wears glasses; recurrent nasal drainage; hyperopia; astigmatism Cardiovascular History: Reports: Hypertension Respiratory History: Reports: None Gastrointestinal History: Reports: None Genitourinary History: Reports: None Other Genitourinary History: Bladder hyperactivity VASCULAR RADIOLOGIST History: Reports: None Musculoskeletal History: Reports: Other (See Below) Other Musculoskeletal History: drop foot Neurological History: Reports: Cerebral Palsy Psychiatric History: Reports: Other (See Below) Other Psychiatric History: speech impairment Endocrine/Metabolic History: Reports: None Hematologic History: Reports: None Immunologic History: Reports: None Oncologic (Cancer) History: Reports: Uterine Dermatologic History: Reports: None - Infectious Disease History Infectious Disease History: Reports: None - Past Surgical History HEENT Surgical History: Reports: None Cardiovascular Surgical History: Reports: None Respiratory Surgical History: Reports: None GI Surgical History: Reports: Appendectomy Female Surgical History: Reports: Breast Biopsy, Hysterectomy Endocrine Surgical History: Reports: None Neurological Surgical History: Reports: None Musculoskeletal Surgical History: Reports: Arthroscopic Procedure, Hip Replacement, ORIF Oncologic Surgical History: Reports: Other (See Below) Other Oncologic Surgeries/Procedures: Hysterectomy Dermatological Surgical History: Reports: None Social & Family History - Family History Family Medical History: Noncontributory - Tobacco Use Smoking Status *Q: Never Smoker - Caffeine Use Caffeine Use: Reports: None - Recreational Drug Use Recreational Drug Use: No H&P Review of Systems - Review of Systems: Review Of Systems: See Below General: Denies: Fever, Chills, Malaise Pulmonary: Denies: Shortness of Breath, Wheezing, Pleuritic Chest Pain Cardiovascular: Denies: Chest Pain, Palpitations, Dyspnea on Exertion Gastrointestinal: Denies: Abdominal Pain, Anorexia, Black Stool Genitourinary: Denies: Dysuria, Frequency, Burning Musculoskeletal: Denies: Neck Pain, Shoulder Pain, Arm Pain Skin: Denies: Cyanosis, Jaundice, Mottled Psychiatric: Denies: Confusion, Depression, Mood Lability, Anxiety Exam - Exam Exam: See Below - Vital Signs Vital Signs: Last Vital Signs Temp 35.9 C L 01/14/20 08:36 Pulse 73 01/14/20 10:00 Resp 18 01/14/20 10:00 BP 120/56 L 01/14/20 10:00 Pulse Ox 97 01/14/20 10:00 Weight: 50.3 kg - Exam General: Alert, Oriented Neck: Supple, Trachea Midline Cardiovascular: Regular Rate, Regular Rhythm, Normal S1, Normal S2 GI/Abdominal Exam: Normal Bowel Sounds, Soft, Non-Tender Back Exam: Normal Inspection, Full Range of Motion Neuro Extensive - Mental Status: Alert, Oriented x3, Normal Mood/Affect, Normal Cognition Neuro Extensive - Motor, Sensory, Reflexes: CN II-XII Intact, Normal Reflexes - Patient Data Lab Results Last 24 hrs: Laboratory Results - last 24 hr 05/06/2501/14/20 01/14/20 Range/Units 08:47 08:47 10:06 WBC 10.80 (4.0-11.0) K/uL RBC 4.55 (4.30-5.90) M/uL Hgb 14.4 (12.0-16.0) g/dL Hct 41.6 (36.0-46.0) % MCV 91.4 (80.0-98.0) fL MCH 31.6 (27.0-32.0) pg MCHC 34.6 (31.0-37.0) g/dL RDW Std Deviation 43.3 (28.0-62.0) fl RDW Coeff of Erik 13 (11.0-15.0) % Plt Count 216 (150-400) K/uL MPV 9.70 (7.40-12.00) fL Add Manual Diff YES Neutrophils % (Manual) 42 L (48.0-80.0) % Lymphocytes % (Manual) 45 H (16.0-40.0) % Monocytes % (Manual) 9 (0.0-15.0) % Eosinophils % (Manual) 4 (0.0-7.0) % Nucleated RBC % 0.0 /100WBC Absolute Seg Neuts 4.5 (1.4-5.7) Lymphocytes # (Manual) 4.9 H (0.6-2.4) Monocytes # (Manual) 1.0 H (0.0-0.8) Eosinophils # (Manual) 0.4 (0.0-0.7) Nucleated RBCs # 0 K/uL Reactive Lymphocytes FEW Clumped Platelets FEW Sodium 130 L (136-145) mmol/L Potassium 3.6 (3.5-5.1) mmol/L Chloride 95 L (98-107) mmol/L Carbon Dioxide 25.5 (21.0-32.0) mmol/L BUN 21 H (7.0-18.0) mg/dL Creatinine 0.7 (0.6-1.0) mg/dL Est Cr Clr Drug Dosing 46.04 mL/min Estimated GFR (MDRD) > 60.0 ml/min Glucose 127 H (74-106) mg/dL Calcium 9.1 (8.5-10.1) mg/dL Total Bilirubin 0.6 (0.2-1.0) mg/dL AST 23 (15-37) IU/L ALT 26 (14-63) IU/L Alkaline Phosphatase 58 (46-116) U/L Troponin I < 0.050 (0.000-0.056) ng/mL Total Protein 6.4 (6.4-8.2) g/dL Albumin 3.3 L (3.4-5.0) g/dL Globulin 3.1 (2.6-4.0) g/dL Albumin/Globulin Ratio 1.1 (0.9-1.6) Urine Color YELLOW Urine Appearance SLT CLOUDY Urine pH 6.0 (5.0-8.0) Ur Specific [place] 1.025 (1.001-1.035) Urine Protein NEGATIVE (NEGATIVE) mg/dL Urine Glucose (UA) NEGATIVE (NEGATIVE) mg/dL Urine Ketones NEGATIVE (NEGATIVE) mg/dL Urine Occult Blood NEGATIVE (NEGATIVE) Urine Nitrite POSITIVE H (NEGATIVE) Urine Bilirubin NEGATIVE (NEGATIVE) Urine Urobilinogen 0.2 (<2.0) EU/dL Ur Leukocyte Esterase TRACE H (NEGATIVE) Urine RBC 0-3 (0-2/HPF) Urine WBC 8-12 (0-5/HPF) Ur Epithelial Cells OCCASIONAL (NONE-FEW) Urine Bacteria 3+ H (NEGATIVE) Result Diagrams: 01/14/20 08:47 01/14/20 08:47 Sepsis Event Note - Evaluation Sepsis Screening Result: No Definite Risk - Focused Exam Vital Signs: Vital Signs Temp Pulse Resp BP Pulse Ox 01/14/20 10:00 73 18 120/56 L 97 01/14/20 09:30 76 18 138/75 97 01/14/20 09:00 72 18 120/73 98 01/14/20 08:36 35.9 C L 75 17 146/77 H 95 Date Exam was Performed: 01/14/20 Time Exam was Performed: 18:52 - Problem List (1) Unresponsive SNOMED Code(s): 446611650 ICD Code: R41.89 - OTH SYMPTOMS AND SIGNS W COGNITIVE FUNCTIONS AND AWARENESS Status: Acute Current Visit: Yes (2) UTI (urinary tract infection) SNOMED Code(s): 66478353 ICD Code: N39.0 - URINARY TRACT INFECTION, SITE NOT SPECIFIED Status: Acute Current Visit: Yes Problem List Initiated/Reviewed/Updated: Yes Orders Last 24hrs: Active Orders 24 hr Category Date Time Status Admission Status [Patient Status] [ADT] Stat ADT 01/14/20 10:36 Active Ambulate [RC] PER UNIT ROUTINE Care 01/14/20 11:15 Ordered Antiembolic Devices [RC] PER UNIT ROUTINE Care 01/14/20 11:16 Ordered EKG Documentation Completion [RC] STAT Care 01/14/20 08:44 Active Oxygen Therapy [RC] PRN Care 01/14/20 11:14 Ordered VTE/DVT Education [RC] PER UNIT ROUTINE Care 01/14/20 11:14 Ordered Vital Signs [RC] Q4H Care 01/14/20 11:14 Ordered Regular Diet [DIET] Diet 01/14/20 Lunch Ordered Ang Head wo Cont [MR] Routine Exams 01/14/20 11:20 Ordered Ang Neck w Cont [MR] Routine Exams 01/14/20 11:21 Ordered Brain wo Cont [MR] Routine Exams 01/14/20 11:20 Ordered CULTURE BLOOD [BC] Routine Lab 01/14/20 11:19 Ordered CULTURE URINE [RM] Routine Lab 01/14/20 11:17 Ordered CULTURE URINE [RM] Stat Lab 01/14/20 10:06 Received Sodium Chloride 0.9% [Saline Flush] Med 01/14/20 08:45 Active 10 ml FLUSH ASDIRECTED PRN Sodium Chloride 0.9% [Saline Flush] Med 01/14/20 08:45 Active 2.5 ml FLUSH ASDIRECTED PRN cefTRIAXone [Rocephin] 1 gm Med 01/14/20 11:30 Ordered Sodium Chloride 0.9% [Normal Saline] 50 ml IV Q24H Saline Lock Insert [OM.PC] Stat Oth 01/14/20 08:45 Ordered Sequential Compression Device [OM.PC] Per Unit Routine Oth 01/14/20 11:15 Ordered Medication Orders Ceftriaxone Sodium/Dextrose 1 (gm/ Premix) 50 mls @ 100 mls/hr IV Q24H SUE Sodium Chloride (Saline Flush) 10 ml FLUSH ASDIRECTED PRN PRN Reason: Keep Vein Open Sodium Chloride (Saline Flush) 2.5 ml FLUSH ASDIRECTED PRN PRN Reason: Keep Vein Open Assessment/Plan Comment:: 79 y/o F admitted for transient unresponsiveness, unclear if she actually had an syncopal episode, denied any falls Patient had similar presentation during last admission, bowles she was treated for UTI Patients UA is significant for UTI, troponin negative Will start IV Rocephin, start IV fluids for hydration Obtain urine and blood cultures Given her presentation there is an concern for TIA, CT head negative, will obtain MRI brain and head to r/o stroke. Puree diet Fall precautions
[2020-01-14] MEDS: Sodium Chloride 0.9% 1,000 ML IV SCH (12:27)
[2020-01-14] MEDS: cefTRIAXone 1 GM in Premix Bag 1 BAG IV SCH (12:30)
[2020-01-14] MEDS ORDERED: Polyethylene Glycol 3350 Powder 17 GM Packet PO PRN (13:15)
[2020-01-14 13:37] LABS: HEMOGLOBIN A1C 5.3 % (4.5-6.2)
[2020-01-14] MEDS: Aspirin 81 MG Tab.Chew PO SCH (14:55)
[2020-01-14] MEDS ORDERED: CALCIUM CARB CITRATE PO SCH (21:00)
[2020-01-14] MEDS ORDERED: VIT D3 PO SCH (21:00)
[2020-01-15] MEDS: Sodium Chloride 0.9% 1,000 ML IV SCH ×2 (02:49→14:07)
[2020-01-15 06:35] LABS: BLOOD UREA NITROGEN,BUN 17 mg/dL (7.0-18.0); CHLORIDE,CL 100 mmol/L (98-107); GLUCOSE RANDOM 92 mg/dL (74-106); POTASSIUM,K 3.6 mmol/L (3.5-5.1); SODIUM,NA 134 mmol/L (136-145)
[2020-01-15] MEDS ORDERED: Magnesium Sulfate/Water 4 GM in Premix Bag 1 BAG IV ONE (07:55)
--- NOTE | 2020-01-15 09:29 | PCM.PN ---
- General Info Date of Service: 01/15/20 Admission Dx/Problem (Free Text): Admission Diagnosis/Problem Admission Diagnosis/Problem Syncope Subjective Update: Alert and doing well this morning, no complaints. Functional Status: Reports: Pain Controlled, Tolerating Diet, Ambulating - Review of Systems HEENT: Reports: No Symptoms. Denies: Headaches Pulmonary: Reports: No Symptoms. Denies: Shortness of Breath Cardiovascular: Reports: No Symptoms. Denies: Chest Pain Gastrointestinal: Reports: No Symptoms. Denies: Abdominal Pain, Nausea, Vomiting Genitourinary: Reports: No Symptoms. Denies: Dysuria, Frequency, Burning Skin: Reports: No Symptoms Neurological: Reports: No Symptoms Psychiatric: Reports: No Symptoms - Patient Data Vitals - Most Recent: Last Vital Signs Temp 97.7 F 01/15/20 08:00 Pulse 78 01/15/20 08:00 Resp 18 01/15/20 08:00 BP 138/64 01/15/20 08:00 Pulse Ox 94 L 01/15/20 08:00 Weight - Most Recent: 50.3 kg I&O - Last 24 Hours: Intake & Output 01/14/20 01/15/20 01/15/20 22:59 06:59 14:59 Intake Total 480 1437 Output Total 100 Balance 480 1337 Lab Results Last 24 Hours: Laboratory Results - last 24 hr 01/14/20 01/14/20 01/14/20 Range/Units 08:47 08:47 08:47 WBC (4.0-11.0) K/uL RBC (4.30-5.90) M/uL Hgb (12.0-16.0) g/dL Hct (36.0-46.0) % MCV (80.0-98.0) fL MCH (27.0-32.0) pg MCHC (31.0-37.0) g/dL RDW Std Deviation (28.0-62.0) fl RDW Coeff of Erik (11.0-15.0) % Plt Count (150-400) K/uL MPV (7.40-12.00) fL Neut % (Auto) (48.0-80.0) % Lymph % (Auto) (16.0-40.0) % [place] % (Auto) (0.0-15.0) % Eos % (Auto) (0.0-7.0) % Baso % (Auto) (0.0-1.5) % Neut # (Auto) (1.4-5.7) K/uL Lymph # (Auto) (0.6-2.4) K/uL [place] # (Auto) (0.0-0.8) K/uL Eos # (Auto) (0.0-0.7) K/uL Baso # (Auto) (0.0-0.1) K/uL Neutrophils % (Manual) 42 L (48.0-80.0) % Lymphocytes % (Manual) 45 H (16.0-40.0) % Monocytes % (Manual) 9 (0.0-15.0) % Eosinophils % (Manual) 4 (0.0-7.0) % Nucleated RBC % /100WBC Absolute Seg Neuts 4.5 (1.4-5.7) Lymphocytes # (Manual) 4.9 H (0.6-2.4) Monocytes # (Manual) 1.0 H (0.0-0.8) Eosinophils # (Manual) 0.4 (0.0-0.7) Nucleated RBCs # K/uL Reactive Lymphocytes FEW Clumped Platelets FEW Sodium (136-145) mmol/L Potassium (3.5-5.1) mmol/L Chloride (98-107) mmol/L Carbon Dioxide (21.0-32.0) mmol/L BUN (7.0-18.0) mg/dL Creatinine (0.6-1.0) mg/dL Est Cr Clr Drug Dosing mL/min Estimated GFR (MDRD) ml/min Glucose (74-106) mg/dL Hemoglobin A1c 5.3 (4.5-6.2) % Calcium (8.5-10.1) mg/dL Phosphorus (2.6-4.7) mg/dL Magnesium (1.8-2.4) mg/dL TSH 3rd Generation 2.76 (0.36-3.74) uIU/mL Urine Color Urine Appearance Urine pH (5.0-8.0) Ur Specific [place] (1.001-1.035) Urine Protein (NEGATIVE) mg/dL Urine Glucose (UA) (NEGATIVE) mg/dL Urine Ketones (NEGATIVE) mg/dL Urine Occult Blood (NEGATIVE) Urine Nitrite (NEGATIVE) Urine Bilirubin (NEGATIVE) Urine Urobilinogen (<2.0) EU/dL Ur Leukocyte Esterase (NEGATIVE) Urine RBC (0-2/HPF) Urine WBC (0-5/HPF) Ur Epithelial Cells (NONE-FEW) Urine Bacteria (NEGATIVE) 01/14/20 01/15/20 01/15/20 Range/Units 10:06 05:19 05:19 WBC 9.03 (4.0-11.0) K/uL RBC 3.99 L (4.30-5.90) M/uL Hgb 12.5 (12.0-16.0) g/dL Hct 37.3 (36.0-46.0) % MCV 93.5 (80.0-98.0) fL MCH 31.3 (27.0-32.0) pg MCHC 33.5 (31.0-37.0) g/dL RDW Std Deviation 45.0 (28.0-62.0) fl RDW Coeff of Erik 13 (11.0-15.0) % Plt Count 210 (150-400) K/uL MPV 9.00 (7.40-12.00) fL Neut % (Auto) 35.0 L (48.0-80.0) % Lymph % (Auto) 54.2 H (16.0-40.0) % [place] % (Auto) 9.1 (0.0-15.0) % Eos % (Auto) 1.6 (0.0-7.0) % Baso % (Auto) 0.1 (0.0-1.5) % Neut # (Auto) 3.2 (1.4-5.7) K/uL Lymph # (Auto) 4.9 H (0.6-2.4) K/uL [place] # (Auto) 0.8 (0.0-0.8) K/uL Eos # (Auto) 0.1 (0.0-0.7) K/uL Baso # (Auto) 0.0 (0.0-0.1) K/uL Neutrophils % (Manual) (48.0-80.0) % Lymphocytes % (Manual) (16.0-40.0) % Monocytes % (Manual) (0.0-15.0) % Eosinophils % (Manual) (0.0-7.0) % Nucleated RBC % 0.0 /100WBC Absolute Seg Neuts (1.4-5.7) Lymphocytes # (Manual) (0.6-2.4) Monocytes # (Manual) (0.0-0.8) Eosinophils # (Manual) (0.0-0.7) Nucleated RBCs # 0 K/uL Reactive Lymphocytes Clumped Platelets Sodium 134 L (136-145) mmol/L Potassium 3.6 (3.5-5.1) mmol/L Chloride 100 (98-107) mmol/L Carbon Dioxide 28.0 (21.0-32.0) mmol/L BUN 17 (7.0-18.0) mg/dL Creatinine 0.6 (0.6-1.0) mg/dL Est Cr Clr Drug Dosing 59.15 mL/min Estimated GFR (MDRD) > 60.0 ml/min Glucose 92 (74-106) mg/dL Hemoglobin A1c (4.5-6.2) % Calcium 7.9 L (8.5-10.1) mg/dL Phosphorus 3.3 (2.6-4.7) mg/dL Magnesium 1.5 L (1.8-2.4) mg/dL TSH 3rd Generation (0.36-3.74) uIU/mL Urine Color YELLOW Urine Appearance SLT CLOUDY Urine pH 6.0 (5.0-8.0) Ur Specific [place] 1.025 (1.001-1.035) Urine Protein NEGATIVE (NEGATIVE) mg/dL Urine Glucose (UA) NEGATIVE (NEGATIVE) mg/dL Urine Ketones NEGATIVE (NEGATIVE) mg/dL Urine Occult Blood NEGATIVE (NEGATIVE) Urine Nitrite POSITIVE H (NEGATIVE) Urine Bilirubin NEGATIVE (NEGATIVE) Urine Urobilinogen 0.2 (<2.0) EU/dL Ur Leukocyte Esterase TRACE H (NEGATIVE) Urine RBC 0-3 (0-2/HPF) Urine WBC 8-12 (0-5/HPF) Ur Epithelial Cells OCCASIONAL (NONE-FEW) Urine Bacteria 3+ H (NEGATIVE) Med Orders - Current: Current Medications Aspirin (Aspirin) 81 mg PO DAILY [facility] Last Admin: 01/14/20 14:55 Dose: 81 mg Calcium Carbonate (Caltrate 600+D 1500 Mg-400 Units) 2 tab PO BID [facility] Ceftriaxone Sodium/Dextrose 1 (gm/ Premix) 50 mls @ 100 mls/hr IV Q24H SUE Last Admin: 01/14/20 12:30 Dose: 100 mls/hr Sodium Chloride (Normal Saline) 1,000 mls @ 100 mls/hr IV ASDIRECTED SUE Last Admin: 01/15/20 02:49 Dose: 100 mls/hr Magnesium Sulfate 4 gm/ Premix 100 mls @ 50 mls/hr IV ONETIME ONE Stop: 01/15/20 09:54 Last Admin: 01/15/20 08:42 Dose: 50 mls/hr Multivitamins/Minerals/Vitamin C (Tab-A-Cris) 1 tab PO DAILY SUE Polyethylene Glycol (Miralax) 17 gm PO DAILY PRN PRN Reason: CONSTIPATION Sodium Chloride (Saline Flush) 10 ml FLUSH ASDIRECTED PRN PRN Reason: Keep Vein Open Sodium Chloride (Saline Flush) 2.5 ml FLUSH ASDIRECTED PRN PRN Reason: Keep Vein Open - Exam General: Alert, Oriented, Cooperative, No Acute Distress Neck: Supple Lungs: Clear to Auscultation, Normal Respiratory Effort Cardiovascular: Regular Rate, Regular Rhythm GI/Abdominal Exam: Normal Bowel Sounds, Soft, Non-Tender Extremities: Normal Inspection, Normal Range of Motion, Non-Tender, No Pedal Edema Neurological: No New Focal Deficit Psy/Mental Status: Alert, Normal Affect, Normal Mood Sepsis Event Note - Evaluation Sepsis Screening Result: No Definite Risk - Focused Exam Vital Signs: Vital Signs Temp Pulse Resp BP Pulse Ox 01/15/20 08:00 97.7 F 78 18 138/64 94 L 01/15/20 04:00 97.7 F 84 16 149/70 H 95 01/14/20 23:51 97.5 F 86 16 135/90 95 Date Exam was Performed: 01/15/20 Time Exam was Performed: 11:27 - Problem List & Annotations (1) Syncope SNOMED Code(s): 055812134 Code(s): R55 - SYNCOPE AND COLLAPSE Status: Acute Current Visit: Yes (2) UTI (urinary tract infection) SNOMED Code(s): 99352028 Code(s): N39.0 - URINARY TRACT INFECTION, SITE NOT SPECIFIED Status: Acute Current Visit: Yes (3) Cerebral palsy SNOMED Code(s): 012653303 Code(s): G80.9 - CEREBRAL PALSY, UNSPECIFIED Status: Chronic Current Visit: Yes (4) HTN (hypertension) SNOMED Code(s): 14053085 Code(s): I10 - ESSENTIAL (PRIMARY) HYPERTENSION Status: Chronic Current Visit: Yes - Problem List Review Problem List Initiated/Reviewed/Updated: Yes - My Orders Last 24 Hours: My Active Orders 01/15/20 07:55 Magnesium Sulfate/Water [Magnesium Sulfate in Water Premix] 4 gm Premix Bag 1 bag IV ONETIME - Plan Plan:: 79 y/o F admitted for transient unresponsiveness, unclear if she actually had an syncopal episode, denied any falls 1. Syncopal episode - MRI, MRA brain and neck ordered for this morning. - No focal neurological deficits noted - ECHO pending as well - Syncope likely related to dehydration and UTI 2. UTI - Continue Rocephin - UC pending 3. Dehydration - IVFs given overnight. Will DC today, appears euvolemic 4. HTN: - Stable, holding Lisinopril/ HCTZ today. - Likely stop HCTZ due to dehydration and hyponatremia. May be contributing to syncope. VTE prophylaxis: SCDs Dispo: likely in am, awaiting UC results and MRI studies.
[2020-01-15] MEDS: Aspirin 81 MG Tab.Chew PO SCH (09:31)
[2020-01-15] MEDS: Calcium Carbonate/Vitamin D3 1500 MG-400 Units Tab PO SCH ×2 (09:32→20:39)
[2020-01-15] MEDS: Multivitamin Tab PO SCH (09:32)
[2020-01-15] MEDS: cefTRIAXone 1 GM in Premix Bag 1 BAG IV SCH (11:34)
--- NOTE | 2020-01-15 12:37 | PCM.SN.2 ---
- Free Text/Narrative Note: Notified by nursing, 09/09 BC returned positive. Will Add Vancomycin now. Re draw BC and make inpatient as length of stay to be greater than 2 days and need for continued IV antibiotics for bacteremia. new treatment plan discussed with Dr Rai.
[2020-01-15] MEDS ORDERED: Gadobenate Dimeglumine 529 MG/ML 20 ML SDV IVPUSH STA (13:54)
--- NOTE | 2020-01-15 15:26 | MR ---
MR angiogram of brain Technique: [id number] MR angiogram study was obtained centered to the [place]. Reconstructed MIP images were obtained in multiple planes. Findings: Dominant left vertebral artery is noted. Basilar artery is supplied by the left vertebral artery. Left side of the posterior cerebral artery supplied by the basilar artery. Posterior cerebral artery on the right side is supplied by the anterior circulation. Both middle cerebral arteries appear to be patent. Anterior cerebral arteries appear to be patent. Impression: 1. Normal variant involving the posterior circulation as described above. 2. Other portions of the MR angiogram study of the brain centered to the [place] appear within normal limits. Diagnostic code #2 This report was dictated in MDT
--- NOTE | 2020-01-15 15:26 | MR ---
MR angiogram of neck Technique: MR angiogram study was obtained of the neck. Intravenous contrast was utilized. Motion artifact is present. Findings: Common carotid arteries appear patent. Carotid bulbs appear patent. Internal cerebral arteries are patent into the carotid siphon. Proximal external carotid arteries are also patent. Dominant left vertebral artery is seen with smaller right vertebral artery. No discrete stenosis is seen within the dominant vertebral artery. Size of the right vertebral artery is too small to completely exclude stenosis. Impression: 1. Small right vertebral artery believed to be normal variant. Size of this artery interferes with good visualization on the MR angiogram and difficult to exclude stenosis within this artery. 2. Other portions of the MR angiogram study of the neck are unremarkable. Diagnostic code #2 This report was dictated in MDT
--- NOTE | 2020-01-15 15:26 | MR ---
MRI brain Technique: T1 sagittal and coronal; T1, T2and diffusion axial. No FLAIR axial images were obtained. Comparison: Prior head CT study of 01/14/20. Findings: Ventricles along with basal cisterns and sulci over the convexities are moderately prominent. Dominant left vertebral artery is again seen. Normal flow void is seen within the major cerebral arteries within the skull base. No acute diffusion abnormalities are appreciated. Minimal increased signal within the periventricular white matter seen compatible with small vessel ischemic demyelination change. No other abnormal signal is appreciated within the brain parenchyma. Impression: 1. Senescent change as noted above. 2. No acute diffusion abnormalities are appreciated. Diagnostic code #2 This report was dictated in MDT
[2020-01-15] MEDS ORDERED: Lisinopril 10 MG Tab PO ONE (22:59)
[2020-01-16 06:05] LABS: BLOOD UREA NITROGEN,BUN 10 mg/dL (7.0-18.0); CARBON DIOXIDE,CO2 25.8 mmol/L (21.0-32.0); CHLORIDE,CL 102 mmol/L (98-107); GLUCOSE RANDOM 89 mg/dL (74-106); POTASSIUM,K 3.7 mmol/L (3.5-5.1); SODIUM,NA 133 mmol/L (136-145)
--- NOTE | 2020-01-16 07:51 | PCM.PN ---
- General Info Date of Service: 01/16/20 Admission Dx/Problem (Free Text): Admission Diagnosis/Problem Admission Diagnosis/Problem Syncope Subjective Update: Sitting up in the chair, denies pain. Watching TV. No concerns today. - Review of Systems General: Reports: No Symptoms. Denies: Weakness, Fatigue HEENT: Reports: No Symptoms Pulmonary: Reports: No Symptoms. Denies: Shortness of Breath, Cough Cardiovascular: Reports: No Symptoms. Denies: Chest Pain Gastrointestinal: Reports: No Symptoms. Denies: Abdominal Pain, Nausea, Vomiting Musculoskeletal: Reports: No Symptoms Skin: Reports: No Symptoms Neurological: Reports: No Symptoms Psychiatric: Reports: No Symptoms - Patient Data Vitals - Most Recent: Last Vital Signs Temp 98.0 F 01/16/20 03:53 Pulse 80 01/16/20 03:53 Resp 16 01/16/20 03:53 BP 137/63 01/16/20 03:53 Pulse Ox 96 01/16/20 03:53 Weight - Most Recent: 50.3 kg I&O - Last 24 Hours: Intake & Output 01/15/20 01/16/20 01/16/20 22:59 06:59 14:59 Intake Total 240 737 Output Total 340 250 Balance -100 487 Lab Results Last 24 Hours: Laboratory Results - last 24 hr 01/16/20 01/16/20 Range/Units 05:23 05:23 WBC 8.82 (4.0-11.0) K/uL RBC 3.75 L (4.30-5.90) M/uL Hgb 11.9 L (12.0-16.0) g/dL Hct 35.3 L (36.0-46.0) % MCV 94.1 (80.0-98.0) fL MCH 31.7 (27.0-32.0) pg MCHC 33.7 (31.0-37.0) g/dL RDW Std Deviation 45.6 (28.0-62.0) fl RDW Coeff of Erik 13 (11.0-15.0) % Plt Count 195 (150-400) K/uL MPV 8.90 (7.40-12.00) fL Add Manual Diff YES Neutrophils % (Manual) 53 (48.0-80.0) % Lymphocytes % (Manual) 42 H (16.0-40.0) % Monocytes % (Manual) 5 (0.0-15.0) % Nucleated RBC % 0.0 /100WBC Absolute Seg Neuts 4.7 (1.4-5.7) Lymphocytes # (Manual) 3.7 H (0.6-2.4) Monocytes # (Manual) 0.4 (0.0-0.8) Nucleated RBCs # 0 K/uL Sodium 133 L (136-145) mmol/L Potassium 3.7 (3.5-5.1) mmol/L Chloride 102 (98-107) mmol/L Carbon Dioxide 25.8 (21.0-32.0) mmol/L BUN 10 (7.0-18.0) mg/dL Creatinine 0.6 (0.6-1.0) mg/dL Est Cr Clr Drug Dosing 59.15 mL/min Estimated GFR (MDRD) > 60.0 ml/min Glucose 89 (74-106) mg/dL Calcium 7.2 L (8.5-10.1) mg/dL Magnesium 2.1 (1.8-2.4) mg/dL Darrion Results Last 24 Hours: Microbiology 01/14/20 10:06 Urine Culture - Final Urine, Voided Escherichia Coli Normal Urogenital Leslie 01/14/20 11:56 Aerobic Blood Culture - Preliminary Blood Anaerobic Blood Culture - Final 01/14/20 11:44 Aerobic Blood Culture - Preliminary Blood NO GROWTH AFTER 1 DAY Anaerobic Blood Culture - Preliminary NO GROWTH AFTER 1 DAY Med Orders - Current: Current Medications Aspirin (Aspirin) 81 mg PO DAILY [facility] Last Admin: 01/15/20 09:31 Dose: 81 mg Calcium Carbonate (Caltrate 600+D 1500 Mg-400 Units) 2 tab PO BID [facility] Last Admin: 01/15/20 20:39 Dose: 2 tab Ceftriaxone Sodium/Dextrose 1 (gm/ Premix) 50 mls @ 100 mls/hr IV Q24H [facility] Last Admin: 01/15/20 11:34 Dose: 100 mls/hr Sodium Chloride (Normal Saline) 1,000 mls @ 30 mls/hr IV ASDIRECTED [facility] Last Admin: 01/15/20 14:07 Dose: 30 mls/hr Vancomycin HCl 0.75 gm/ Sodium (Chloride) 250 mls @ 166.667 mls/hr IV Q12H [facility] Last Admin: 01/16/20 01:01 Dose: 166.667 mls/hr Lisinopril (Prinivil) 20 mg PO DAILY [facility] Multivitamins/Minerals/Vitamin C (Tab-A-Cris) 1 tab PO DAILY [facility] Last Admin: 01/15/20 09:32 Dose: 1 tab Polyethylene Glycol (Miralax) 17 gm PO DAILY PRN PRN Reason: CONSTIPATION Sodium Chloride (Saline Flush) 10 ml FLUSH ASDIRECTED PRN PRN Reason: Keep Vein Open Sodium Chloride (Saline Flush) 2.5 ml FLUSH ASDIRECTED PRN PRN Reason: Keep Vein Open Vancomycin HCl (Pharmacy To Dose - Vancomycin) 1 dose .XX ASDIRECTED [facility] Discontinued Medications Gadobenate Dimeglumine (Multihance) 20 ml IVPUSH ONETIME STA Stop: 01/15/20 13:55 Last Admin: 01/15/20 13:55 Dose: 10 ml Sodium Chloride (Normal Saline) 1,000 mls @ 100 mls/hr IV ASDIRECTED [facility] Last Admin: 01/15/20 02:49 Dose: 100 mls/hr Magnesium Sulfate 4 gm/ Premix 100 mls @ 50 mls/hr IV ONETIME ONE Stop: 01/15/20 09:54 Last Admin: 01/15/20 08:42 Dose: 50 mls/hr Vancomycin HCl 0.75 gm/ Sodium (Chloride) 250 mls @ 166.667 mls/hr IV Q12H [facility] Last Admin: 01/15/20 14:02 Dose: 166.667 mls/hr Vancomycin HCl 0.75 gm/ Sodium (Chloride) 250 mls @ 166.667 mls/hr IV Q12H [facility] Last Admin: 01/15/20 16:13 Dose: Not Given Lisinopril (Prinivil) 20 mg PO ONETIME ONE Stop: 01/15/20 23:00 Last Admin: 01/16/20 00:38 Dose: 20 mg - Exam General: Alert, Cooperative, No Acute Distress. No: Oriented (at baseline) Lungs: Clear to Auscultation, Normal Respiratory Effort Cardiovascular: Regular Rate, Regular Rhythm GI/Abdominal Exam: Normal Bowel Sounds, Soft, Non-Tender Extremities: Normal Inspection, Normal Range of Motion, Non-Tender, No Pedal Edema Neurological: No New Focal Deficit Psy/Mental Status: Alert, Normal Affect, Normal Mood Sepsis Event Note - Evaluation Sepsis Screening Result: No Definite Risk - Focused Exam Vital Signs: Vital Signs Temp Pulse Resp BP BP Pulse Ox 01/16/20 03:53 98.0 F 80 16 137/63 96 01/16/20 00:38 150/98 H 01/15/20 23:14 97.6 F 84 17 150/98 H 95 01/15/20 20:30 88 17 191/89 H 96 Date Exam was Performed: 01/16/20 Time Exam was Performed: 08:32 - Problem List & Annotations (1) Bacteremia SNOMED Code(s): 9694913 Code(s): R78.81 - BACTEREMIA Status: Acute Current Visit: Yes (2) Syncope SNOMED Code(s): 607059581 Code(s): R55 - SYNCOPE AND COLLAPSE Status: Acute Current Visit: Yes (3) UTI (urinary tract infection) SNOMED Code(s): 41533199 Code(s): N39.0 - URINARY TRACT INFECTION, SITE NOT SPECIFIED Status: Acute Current Visit: Yes (4) Cerebral palsy SNOMED Code(s): 831901780 Code(s): G80.9 - CEREBRAL PALSY, UNSPECIFIED Status: Chronic Current Visit: Yes (5) HTN (hypertension) SNOMED Code(s): 28219768 Code(s): I10 - ESSENTIAL (PRIMARY) HYPERTENSION Status: Chronic Current Visit: Yes - Problem List Review Problem List Initiated/Reviewed/Updated: Yes - My Orders Last 24 Hours: My Active Orders 01/15/20 12:30 Sodium Chloride 0.9% [Normal Saline] 1,000 ml IV ASDIRECTED 01/15/20 12:32 Patient Status [ADT] Stat 01/15/20 12:34 Blood Culture x2 Reflex Set [OM.PC] Stat 01/15/20 12:45 Pharmacy to Dose - Vancomycin 1 dose .XX ASDIRECTED 01/15/20 14:10 CULTURE BLOOD [BC] Stat 01/15/20 14:30 CULTURE BLOOD [BC] Stat 01/16/20 02:00 Vancomycin 0.75 gm Sodium Chloride 0.9% [Normal Saline] 250 ml IV Q12H 01/16/20 09:00 lisinopriL [Prinivil] 20 mg PO DAILY - Plan Plan:: 79 y/o F admitted for transient unresponsiveness, unclear if she actually had an syncopal episode, denied any falls 1. Syncopal episode - MRI, MRA brain and neck negative for stroke or stenosis. - No focal neurological deficits noted - ECHO pending as well - Syncope likely related to dehydration and UTI 2. Bacteremia - 1/4 bottles positive with gram positive cocci in clusters. - Repeat BC obtained - Continue Vancomycin - Could be contaminated sample will monitor. 3. UTI - Continue Rocephin - UC Flouroquinolone resistant E coli. 4. HTN: - Elevated overnight Lisinopril 20 restarted - Likely stop HCTZ due to dehydration and hyponatremia. May be contributing to syncope. VTE prophylaxis: SCDs Dispo: 1-2 days pending repeat BC
[2020-01-16] MEDS: Calcium Carbonate/Vitamin D3 1500 MG-400 Units Tab PO SCH ×2 (08:40→20:59)
[2020-01-16] MEDS: Multivitamin Tab PO SCH (08:42)
[2020-01-16] MEDS: Aspirin 81 MG Tab.Chew PO SCH (08:42)
[2020-01-16] MEDS: Lisinopril 10 MG Tab PO SCH (08:44)
[2020-01-16] MEDS: cefTRIAXone 1 GM in Premix Bag 1 BAG IV SCH (11:20)
[2020-01-16] MEDS ORDERED: Ondansetron 4 MG/2 ML SDV IVPUSH PRN (13:48)
[2020-01-17] MEDS: Sodium Chloride 0.9% 1,000 ML IV SCH (05:16)
[2020-01-17 06:39] LABS: BLOOD UREA NITROGEN,BUN 4 mg/dL (7.0-18.0); CHLORIDE,CL 102 mmol/L (98-107); GLUCOSE RANDOM 93 mg/dL (74-106); POTASSIUM,K 3.9 mmol/L (3.5-5.1); SODIUM,NA 134 mmol/L (136-145)
--- NOTE | 2020-01-17 08:56 | PCM.PN ---
- General Info Date of Service: 01/17/20 Admission Dx/Problem (Free Text): Admission Diagnosis/Problem Admission Diagnosis/Problem Syncope Subjective Update: Doing well this morning, no concerns. Waiting for breakfast. Functional Status: Reports: Pain Controlled, Tolerating Diet - Review of Systems General: Reports: No Symptoms. Denies: Fatigue, Malaise HEENT: Reports: No Symptoms Pulmonary: Reports: No Symptoms. Denies: Shortness of Breath Cardiovascular: Reports: No Symptoms. Denies: Chest Pain Gastrointestinal: Reports: No Symptoms. Denies: Abdominal Pain, Nausea, Vomiting Musculoskeletal: Reports: No Symptoms Skin: Reports: No Symptoms Neurological: Reports: No Symptoms Psychiatric: Reports: No Symptoms - Patient Data Vitals - Most Recent: Last Vital Signs Temp 97.0 F 01/17/20 03:00 Pulse 83 01/17/20 03:00 Resp 18 01/17/20 03:00 BP 160/77 H 01/17/20 03:00 Pulse Ox 95 01/17/20 03:00 Weight - Most Recent: 50.3 kg I&O - Last 24 Hours: Intake & Output 01/16/20 01/17/20 01/17/20 22:59 06:59 14:59 Intake Total 730 750 Output Total 200 200 Balance 530 550 Lab Results Last 24 Hours: Laboratory Results - last 24 hr 01/17/20 01/17/20 Range/Units 05:37 05:37 WBC 7.44 (4.0-11.0) K/uL RBC 3.62 L (4.30-5.90) M/uL Hgb 11.1 L (12.0-16.0) g/dL Hct 34.3 L (36.0-46.0) % MCV 94.8 (80.0-98.0) fL MCH 30.7 (27.0-32.0) pg MCHC 32.4 (31.0-37.0) g/dL RDW Std Deviation 45.6 (28.0-62.0) fl RDW Coeff of Erik 13 (11.0-15.0) % Plt Count 184 (150-400) K/uL MPV 9.20 (7.40-12.00) fL Neut % (Auto) 40.8 L (48.0-80.0) % Lymph % (Auto) 47.3 H (16.0-40.0) % Ashley % (Auto) 9.8 (0.0-15.0) % Eos % (Auto) 2.0 (0.0-7.0) % Baso % (Auto) 0.1 (0.0-1.5) % Neut # (Auto) 3.0 (1.4-5.7) K/uL Lymph # (Auto) 3.5 H (0.6-2.4) K/uL Ashley # (Auto) 0.7 (0.0-0.8) K/uL Eos # (Auto) 0.2 (0.0-0.7) K/uL Baso # (Auto) 0.0 (0.0-0.1) K/uL Nucleated RBC % 0.0 /100WBC Nucleated RBCs # 0 K/uL Sodium 134 L (136-145) mmol/L Potassium 3.9 (3.5-5.1) mmol/L Chloride 102 (98-107) mmol/L Carbon Dioxide 25.0 (21.0-32.0) mmol/L BUN 4 L (7.0-18.0) mg/dL Creatinine 0.5 L (0.6-1.0) mg/dL Est Cr Clr Drug Dosing 70.98 mL/min Estimated GFR (MDRD) > 60.0 ml/min Glucose 93 (74-106) mg/dL Calcium 7.8 L (8.5-10.1) mg/dL Darrion Results Last 24 Hours: Microbiology 01/15/20 14:30 Aerobic Blood Culture - Preliminary Blood - Venous - Lab Draw Anaerobic Blood Culture - Preliminary NO GROWTH AFTER 1 DAY 01/15/20 14:10 Aerobic Blood Culture - Preliminary Blood - Venous NO GROWTH AFTER 1 DAY Anaerobic Blood Culture - Preliminary NO GROWTH AFTER 1 DAY 01/16/20 16:58 Anaerobic Blood Culture - Final Blood - Venous - Lab Draw 01/16/20 16:47 Anaerobic Blood Culture - Final Blood - Venous 01/14/20 11:44 Aerobic Blood Culture - Preliminary Blood NO GROWTH AFTER 2 DAYS Anaerobic Blood Culture - Preliminary NO GROWTH AFTER 2 DAYS 01/14/20 11:56 Aerobic Blood Culture - Preliminary Blood Anaerobic Blood Culture - Final 01/14/20 10:06 Urine Culture - Final Urine, Voided Escherichia Coli Normal Urogenital Leslie Med Orders - Current: Current Medications Aspirin (Aspirin) 81 mg PO DAILY [facility] Last Admin: 01/16/20 08:42 Dose: 81 mg Calcium Carbonate (Caltrate 600+D 1500 Mg-400 Units) 2 tab PO BID [facility] Last Admin: 01/16/20 20:59 Dose: 2 tab Ceftriaxone Sodium/Dextrose 1 (gm/ Premix) 50 mls @ 100 mls/hr IV Q24H [facility] Last Admin: 01/16/20 11:20 Dose: 100 mls/hr Sodium Chloride (Normal Saline) 1,000 mls @ 30 mls/hr IV ASDIRECTED [facility] Last Admin: 01/17/20 05:16 Dose: 30 mls/hr Vancomycin HCl 0.75 gm/ Sodium (Chloride) 250 mls @ 166.667 mls/hr IV Q12H [facility] Last Admin: 01/17/20 01:39 Dose: 166.667 mls/hr Lisinopril (Prinivil) 20 mg PO DAILY [facility] Last Admin: 01/16/20 08:44 Dose: 20 mg Multivitamins/Minerals/Vitamin C (Tab-A-Cris) 1 tab PO DAILY [facility] Last Admin: 01/16/20 08:42 Dose: 1 tab Ondansetron HCl (Zofran) 4 mg IVPUSH Q4H PRN PRN Reason: Nausea Polyethylene Glycol (Miralax) 17 gm PO DAILY PRN PRN Reason: CONSTIPATION Sodium Chloride (Saline Flush) 10 ml FLUSH ASDIRECTED PRN PRN Reason: Keep Vein Open Sodium Chloride (Saline Flush) 2.5 ml FLUSH ASDIRECTED PRN PRN Reason: Keep Vein Open Vancomycin HCl (Pharmacy To Dose - Vancomycin) 1 dose .XX ASDIRECTED [facility] Discontinued Medications Gadobenate Dimeglumine (Multihance) 20 ml IVPUSH ONETIME STA Stop: 01/15/20 13:55 Last Admin: 01/15/20 13:55 Dose: 10 ml Sodium Chloride (Normal Saline) 1,000 mls @ 100 mls/hr IV ASDIRECTED [facility] Last Admin: 01/15/20 02:49 Dose: 100 mls/hr Magnesium Sulfate 4 gm/ Premix 100 mls @ 50 mls/hr IV ONETIME ONE Stop: 01/15/20 09:54 Last Admin: 01/15/20 08:42 Dose: 50 mls/hr Vancomycin HCl 0.75 gm/ Sodium (Chloride) 250 mls @ 166.667 mls/hr IV Q12H [facility] Last Admin: 01/15/20 14:02 Dose: 166.667 mls/hr Vancomycin HCl 0.75 gm/ Sodium (Chloride) 250 mls @ 166.667 mls/hr IV Q12H [facility] Last Admin: 01/15/20 16:13 Dose: Not Given Lisinopril (Prinivil) 20 mg PO ONETIME ONE Stop: 01/15/20 23:00 Last Admin: 01/16/20 00:38 Dose: 20 mg Vancomycin HCl (Pharmacy To Dose - Vancomycin) 1 dose .XX ASDIRECTED [facility] - Exam General: Alert, Oriented, Cooperative, No Acute Distress Lungs: Clear to Auscultation, Normal Respiratory Effort Cardiovascular: Regular Rate, Regular Rhythm GI/Abdominal Exam: Normal Bowel Sounds, Soft, Non-Tender Extremities: Normal Inspection, Normal Range of Motion, Non-Tender, No Pedal Edema Psy/Mental Status: Alert, Normal Affect, Normal Mood Sepsis Event Note - Evaluation Sepsis Screening Result: No Definite Risk - Focused Exam Vital Signs: Vital Signs Temp Pulse Resp BP Pulse Ox 01/17/20 03:00 97.0 F 83 18 160/77 H 95 01/16/20 23:48 98.6 F 73 20 157/69 H 95 Date Exam was Performed: 01/17/20 Time Exam was Performed: 09:15 - Problem List & Annotations (1) Bacteremia SNOMED Code(s): 7701731 Code(s): R78.81 - BACTEREMIA Status: Acute Current Visit: Yes (2) Syncope SNOMED Code(s): 186056357 Code(s): R55 - SYNCOPE AND COLLAPSE Status: Acute Current Visit: Yes (3) UTI (urinary tract infection) SNOMED Code(s): 77925209 Code(s): N39.0 - URINARY TRACT INFECTION, SITE NOT SPECIFIED Status: Acute Current Visit: Yes (4) Cerebral palsy SNOMED Code(s): 738785811 Code(s): G80.9 - CEREBRAL PALSY, UNSPECIFIED Status: Chronic Current Visit: Yes (5) HTN (hypertension) SNOMED Code(s): 19411584 Code(s): I10 - ESSENTIAL (PRIMARY) HYPERTENSION Status: Chronic Current Visit: Yes - Problem List Review Problem List Initiated/Reviewed/Updated: Yes - My Orders Last 24 Hours: My Active Orders 01/16/20 09:00 lisinopriL [Prinivil] 20 mg PO DAILY 01/16/20 10:07 Lead Presser Discontinue [Cardiac Monitoring Discontinue] [RC] Click to Edit 01/16/20 13:48 Ondansetron [Zofran] 4 mg IVPUSH Q4H PRN 01/16/20 16:15 Pharmacy to Dose - Vancomycin 1 dose .XX ASDIRECTED 01/16/20 16:31 Blood Culture x2 Reflex Set [OM.PC] Stat 01/16/20 16:47 CULTURE BLOOD [BC] Stat 01/16/20 16:58 CULTURE BLOOD [BC] Stat 01/17/20 08:37 UA RFX DARRION AND CULT IF INDIC [URIN] Routine - Plan Plan:: 79 y/o F admitted for transient unresponsiveness, unclear if she actually had an syncopal episode, denied any falls 1. Syncopal episode - MRI, MRA brain and neck negative for stroke or stenosis. - No focal neurological deficits noted - ECHO pending as well - Syncope likely related to dehydration and UTI 2. Bacteremia - First set, likely contaminated, repeatd appear like possible contaminated sample as well. repeat set x 2 again. - Continue Vancomycin 3. UTI - Continue Rocephin - UC Flouroquinolone resistant E coli. 4. HTN: - Elevated overnight Lisinopril 20 restarted - Likely stop HCTZ due to dehydration and hyponatremia. May be contributing to syncope. VTE prophylaxis: SCDs Dispo: 1-2 days pending repeat BC
[2020-01-17] MEDS: Aspirin 81 MG Tab.Chew PO SCH (09:13)
[2020-01-17] MEDS: Lisinopril 10 MG Tab PO SCH (09:13)
[2020-01-17] MEDS: Calcium Carbonate/Vitamin D3 1500 MG-400 Units Tab PO SCH ×2 (09:14→21:07)
[2020-01-17] MEDS: Multivitamin Tab PO SCH (09:14)
[2020-01-17] MEDS: cefTRIAXone 1 GM in Premix Bag 1 BAG IV SCH (12:54)
[2020-01-18] MEDS: Lisinopril 10 MG Tab PO SCH (09:33)
[2020-01-18] MEDS: Calcium Carbonate/Vitamin D3 1500 MG-400 Units Tab PO SCH (09:36)
[2020-01-18] MEDS: Multivitamin Tab PO SCH (09:39)
[2020-01-18] MEDS: Aspirin 81 MG Tab.Chew PO SCH (09:39)
--- NOTE | 2020-01-18 09:49 | PCM.DCSUM1 ---
Discharge Summary - Hospital Course Brief History: 79-year-old female with PMH of frequent falls, cerebral palsy, HTN, UTI presents to the emergency room with syncopal episode. Patient became unresponsive approximately 5 minutes while she was brushing her teeth this AM, no falls were noted.. EMS was called and patient was taken to the emergency room. Patient was at her baseline by the time she was in the ER. Patient has a history of multiple falls and is followed by neurologist. At this time she did not fall. Patient's CAT scan shows no acute changes. Patient CBC, electrolytes, EKG are all normal as well as chest x-ray. Patient was admitted for observation/telemetry for further management. Diagnosis: Stroke: No Modified Dallas Scale: No Symptoms at All Modified Dallas Scale Score: 0 - Discharge Data Discharge Date: 01/18/20 Discharge Disposition: DC/Tfer to [facility] Condition: Good - Referral to Home Health Primary Care Physician: PCP None - Discharge Diagnosis/Problem(s) (1) Bacteremia SNOMED Code(s): 7687403 ICD Code: R78.81 - BACTEREMIA Status: Acute Current Visit: Yes (2) Syncope SNOMED Code(s): 868973847 ICD Code: R55 - SYNCOPE AND COLLAPSE Status: Acute Current Visit: Yes (3) UTI (urinary tract infection) SNOMED Code(s): 72952735 ICD Code: N39.0 - URINARY TRACT INFECTION, SITE NOT SPECIFIED Status: Acute Current Visit: Yes (4) Cerebral palsy SNOMED Code(s): 034123929 ICD Code: G80.9 - CEREBRAL PALSY, UNSPECIFIED Status: Chronic Current Visit: Yes (5) HTN (hypertension) SNOMED Code(s): 16953123 ICD Code: I10 - ESSENTIAL (PRIMARY) HYPERTENSION Status: Chronic Current Visit: Yes - Patient Summary/Data Hospital Course: Admitting Diagnoses: Syncope UTI Dehydration Discharge Diagnoses: UTI- E coli Dehydration- resolved Tracey was admitted secondary to syncopal episode at the [facility], she was then her normal self. Brought to the ED for further evaluation. Similar episode happened a month ago and resulted in an admission. She was found to have UTI, treated with Rocephin. BC grew out grain positive cocci, started on Vancomycin, BC further evaluated and it was noted to be contamination, no bacteremia noted and no further treatment needed for this.. Full TIA work up obtained due to syncope, which was negative. MRI/MRA head and neck no signs of CVA or stenosis. Syncope likely related to UTI and dehydration. HCTZ stopped due to hyponatremia and dehydration. Lisinopril continued, blood pressure elevates still to 180s, so Lisinopril increased to 40 mg daily. She had 5 days of Rocephin during her stay, no further antibiotics needed on discharge. She is to continue other home medications, but DC combination Lisinopril/HCTZ, taking plain Lisinopril from now on. Followup with PCP in 1 week. Return to ED or clinic if concerns should arise. - Patient Instructions Diet: Regular Diet as Tolerated Activity: As Tolerated, No Strenuous Activities Driving: Do Not Drive Showering/Bathing: May Shower Notify Provider of: Fever, Increased Pain, Swelling and Redness, Drainage, Nausea and/or Vomiting - Discharge Plan *PRESCRIPTION DRUG MONITORING PROGRAM REVIEWED*: No *COPY OF PRESCRIPTION DRUG MONITORING REPORT IN PATIENT TORIN: No Prescriptions/Med Rec: lisinopriL [Lisinopril] 40 mg PO DAILY #30 tablet Home Medications: Home Meds Calcium Carbonate/Vitamin D3 [Calcium 600-Vit D3 400 Tablet] 2 tab PO DAILY [History] Multivitamin [Multi-Vitamin Daily] 1 tab PO DAILY 04/24/15 [History] predniSONE [Prednisone] 2.5 mg PO ASDIRECTED 12/14/15 [History] Calcium Carb, Citrate/Vit D3 [Citracal + D ER] 600 mg PO BID 01/14/20 [History] Polyethylene Glycol [Polyox [id number]] 1 dose PO ASDIRECTED 01/14/20 [History] lisinopriL [Lisinopril] 40 mg PO DAILY #30 tablet 01/18/20 [Rx] Oxygen Therapy Mode: Room Air Patient Handouts: Urinary Tract Infection, Adult, [id number], Lisinopril tablets, Syncope, [id number] Referrals: Jabari Teran MD [Physician] - 01/24/20 1:45 pm ( Arrive 15 minutes early with a photo ID and insurance card. If you are not early , they will not see you. ) - Discharge Summary/Plan Comment DC Time >30 min.: No - Patient Data Vitals - Most Recent: Last Vital Signs Temp 97.7 F 01/18/20 03:00 Pulse 74 01/18/20 03:00 Resp 18 01/18/20 03:00 BP 153/67 H 01/18/20 09:33 Pulse Ox 94 L 01/18/20 03:00 Weight - Most Recent: 50.3 kg I&O - Last 24 hours: Intake & Output 01/17/20 01/18/20 01/18/20 22:59 06:59 14:59 Intake Total 780 400 Output Total 250 360 Balance 530 40 Lab Results - Last 24 hrs: Laboratory Results - last 24 hr 01/17/20 Range/Units 13:47 Vancomycin Trough 14.2 H (5.0-10.0) ug/mL RHEA Results - Last 24 hrs: Microbiology 01/15/20 14:30 Aerobic Blood Culture - Final Blood - Venous - Lab Draw Staphylococcus Haemolyticus Anaerobic Blood Culture - Preliminary NO GROWTH AFTER 2 DAYS 01/16/20 16:58 Aerobic Blood Culture - Preliminary Blood - Venous - Lab Draw NO GROWTH AFTER 1 DAY Anaerobic Blood Culture - Final 01/16/20 16:47 Aerobic Blood Culture - Preliminary Blood - Venous NO GROWTH AFTER 1 DAY Anaerobic Blood Culture - Final 01/15/20 14:10 Aerobic Blood Culture - Preliminary Blood - Venous NO GROWTH AFTER 2 DAYS Anaerobic Blood Culture - Preliminary NO GROWTH AFTER 2 DAYS 01/14/20 11:44 Aerobic Blood Culture - Preliminary Blood NO GROWTH AFTER 3 DAYS Anaerobic Blood Culture - Preliminary NO GROWTH AFTER 3 DAYS 01/14/20 11:56 Aerobic Blood Culture - Final Blood Anaerobic Blood Culture - Final Med Orders - Current: Current Medications Aspirin (Aspirin) 81 mg PO DAILY [facility] Last Admin: 01/18/20 09:39 Dose: 81 mg Calcium Carbonate (Caltrate 600+D 1500 Mg-400 Units) 2 tab PO BID [facility] Last Admin: 01/18/20 09:36 Dose: 2 tab Ceftriaxone Sodium/Dextrose 1 (gm/ Premix) 50 mls @ 100 mls/hr IV Q24H [facility] Last Admin: 01/17/20 12:54 Dose: 100 mls/hr Lisinopril (Prinivil) 20 mg PO DAILY [facility] Last Admin: 01/18/20 09:33 Dose: 20 mg Multivitamins/Minerals/Vitamin C (Tab-A-Cris) 1 tab PO DAILY [facility] Last Admin: 01/18/20 09:39 Dose: 1 tab Ondansetron HCl (Zofran) 4 mg IVPUSH Q4H PRN PRN Reason: Nausea Polyethylene Glycol (Miralax) 17 gm PO DAILY PRN PRN Reason: CONSTIPATION Sodium Chloride (Saline Flush) 10 ml FLUSH ASDIRECTED PRN PRN Reason: Keep Vein Open Sodium Chloride (Saline Flush) 2.5 ml FLUSH ASDIRECTED PRN PRN Reason: Keep Vein Open Discontinued Medications Gadobenate Dimeglumine (Multihance) 20 ml IVPUSH ONETIME STA Stop: 01/15/20 13:55 Last Admin: 01/15/20 13:55 Dose: 10 ml Sodium Chloride (Normal Saline) 1,000 mls @ 100 mls/hr IV ASDIRECTED [facility] Last Admin: 01/15/20 02:49 Dose: 100 mls/hr Magnesium Sulfate 4 gm/ Premix 100 mls @ 50 mls/hr IV ONETIME ONE Stop: 01/15/20 09:54 Last Admin: 01/15/20 08:42 Dose: 50 mls/hr Sodium Chloride (Normal Saline) 1,000 mls @ 30 mls/hr IV ASDIRECTED [facility] Last Admin: 01/17/20 05:16 Dose: 30 mls/hr Vancomycin HCl 0.75 gm/ Sodium (Chloride) 250 mls @ 166.667 mls/hr IV Q12H [facility] Last Admin: 01/15/20 14:02 Dose: 166.667 mls/hr Vancomycin HCl 0.75 gm/ Sodium (Chloride) 250 mls @ 166.667 mls/hr IV Q12H [facility] Last Admin: 01/15/20 16:13 Dose: Not Given Vancomycin HCl 0.75 gm/ Sodium (Chloride) 250 mls @ 166.667 mls/hr IV Q12H [facility] Last Admin: 01/17/20 14:57 Dose: Not Given Vancomycin HCl 1 gm/ Sodium (Chloride) 250 mls @ 166.667 mls/hr IV Q12H [facility] Last Admin: 01/18/20 01:56 Dose: 166.667 mls/hr Lisinopril (Prinivil) 20 mg PO ONETIME ONE Stop: 01/15/20 23:00 Last Admin: 01/16/20 00:38 Dose: 20 mg Vancomycin HCl (Pharmacy To Dose - Vancomycin) 1 dose .XX ASDIRECTED [facility] Vancomycin HCl (Pharmacy To Dose - Vancomycin) 1 dose .XX ASDIRECTED [facility] - Exam General: Reports: Alert, Cooperative, No Acute Distress. Denies: Oriented Lungs: Reports: Clear to Auscultation, Normal Respiratory Effort Cardiovascular: Reports: Regular Rate, Regular Rhythm GI/Abdominal Exam: Normal Bowel Sounds, Soft, Non-Tender Neurological: Reports: No New Focal Deficit Psy/Mental Status: Reports: Alert, Normal Affect, Normal Mood
[2020-01-18] MEDS: cefTRIAXone 1 GM in Premix Bag 1 BAG IV SCH (10:54)
[2020-01-18 12:26] VITALS: BP 140/63; PULSE 88
--- NOTE | 2020-01-18 15:32 | ECHO ---
EXAM DATE: 01/15/20 PATIENT'S AGE: 79 The ECHO report can be seen in this patient's EMR (Electronic Medical Record) in the REPORTS section. The report has also been scanned into PACS. [facility]
== END 2020-01-18 13:20 | DRG 690 ==
LOC: MW.ED 08:28 → MW.MS 10:56 → OBSVTOIN 01-15 12:32 → MW.MS 01-15 12:39
PROVIDERS: ADMIT Student in an Organized Health Care Education/Training Program; ATTEND Student in an Organized Health Care Education/Training Program
DX: R40.4 Transient alteration of awareness (principal); E87.1 Hypo-osmolality and hyponatremia; N39.0 Urinary tract infection, site not specified; E86.0 Dehydration; B96.20 Unspecified Escherichia coli [E. coli] as the cause of diseases classified elsewhere; H54.7 Unspecified visual loss; I10 Essential (primary) hypertension; N32.81 Overactive bladder; G80.9 Cerebral palsy, unspecified; Z90.49 Acquired absence of other specified parts of digestive tract; R47.9 Unspecified speech disturbances; Z85.42 Personal history of malignant neoplasm of other parts of uterus; Z90.710 Acquired absence of both cervix and uterus; Z96.649 Presence of unspecified artificial hip joint; Z79.52 Long term (current) use of systemic steroids; Z79.899 Other long term (current) drug therapy
CPT/HCPCS: 36415 ×2; 70450; 70544; 70548; 70551; 71045; 80048; 80053; 81001; 83036; 83735; 84100; 84443; 84484; 85025 ×2; 87040 ×2; 87077; 87086; 87186; 93005; 93306; 99285; A9270 ×4; J0696 ×2; J3475; J7030 ×2; 80202; 81003; 96361; 96365; 96366; 96367; 99284; A9577; G0378; J3370; J7050

== ENCOUNTER 2020-03-12 10:24 | Emergency (ER) | payer MEDICARE, MEDICAID ==
[2020-03-12] MEDS ORDERED: Sodium Chloride 0.9% 10 ML Syringe FLUSH PRN (10:50)
[2020-03-12] MEDS ORDERED: Sodium Chloride 0.9% 2.5 ML Syringe FLUSH PRN (10:50)
--- NOTE | 2020-03-12 11:14 | EDM.PDOC ---
ED HPI GENERAL MEDICAL PROBLEM - General History Limitations: Reports: Other (CP; non-verbal; ) <Eleanor Brand - Last Filed: 03/12/20 11:27> <Levy Rojas - Last Filed: 03/12/20 12:41> - General Chief Complaint: Syncope Stated Complaint: FELL/ HIT HEAD Time Seen by Provider: 03/12/20 10:32 - History of Present Illness INITIAL COMMENTS - FREE TEXT/NARRATIVE: 79-year-old female with significant past medical history of cerebral palsy, hypertension, frequent falls with history of UTI presenting this morning secondary to falling out of her chair while seated. Patient fell and was unwitnessed. However coworkers at [employer] suggested she was down for less than 1 minute and is concerned about hitting her head because "they heard it" . Patient was transferred here via EMS, c-collar placed, blood sugar in the field was 120; blood pressure was stable. At baseline patient does wear depends and has chronic history of incontinence. History: Patient has had numerous falls in the past year ; the last significant fall happening in January 23 of this year requiring admission; full work-up including head CT MRI brain MRI neck head; chest x-ray yielded no acute pathologies. 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 Echocardiogram also performed: Ejection fraction of 60 to 65%; grade 2 left ventricular diastolic filling; trace tricuspid valve regurg Right ventricular pressure 36.6 UTI + :treated w. Rocephin in-patient HCTZ dc...continued on Lisinopril per previous discharge BP this AM stable ER course: Patient mentating at baseline; not confused (Eleanor Brand) - Related Data Allergies Allergy/AdvReac Type Severity Reaction Status Date / Time No Known Allergies Allergy Verified 03/12/20 10:38 Home Meds: Home Meds Calcium Carbonate/Vitamin D3 [Calcium 600-Vit D3 400 Tablet] 2 tab PO DAILY 04/24/15 [History] Multivitamin [Multi-Vitamin Daily] 1 tab PO DAILY 04/24/15 [History] predniSONE [Prednisone] 2.5 mg PO ASDIRECTED 12/14/15 [History] Calcium Carb, Citrate/Vit D3 [Citracal + D ER] 600 mg PO BID 01/14/20 [History] Polyethylene Glycol [Polyox [id number]] 1 dose PO ASDIRECTED 01/14/20 [History] lisinopriL [Lisinopril] 40 mg PO DAILY #30 tablet 01/18/20 [Rx] Nitrofurantoin Monohyd/M-Cryst [Macrobid 100 mg Capsule] 100 mg PO BID #20 capsule 03/12/20 [Rx] Past Medical History HEENT History: Reports: Impaired Vision, Other (See Below) Other HEENT History: wears glasses; recurrent nasal drainage; hyperopia; astigmatism Cardiovascular History: Reports: Hypertension Respiratory History: Reports: None Gastrointestinal History: Reports: None Genitourinary History: Reports: None Other Genitourinary History: Bladder hyperactivity STRAIGHT CUTTER MACHINE History: Reports: None Musculoskeletal History: Reports: Other (See Below) Other Musculoskeletal History: drop foot Neurological History: Reports: Cerebral Palsy Psychiatric History: Reports: Other (See Below) Other Psychiatric History: speech impairment Endocrine/Metabolic History: Reports: None Hematologic History: Reports: None Immunologic History: Reports: None Oncologic (Cancer) History: Reports: Uterine Dermatologic History: Reports: None - Infectious Disease History Infectious Disease History: Reports: None - Past Surgical History HEENT Surgical History: Reports: None Cardiovascular Surgical History: Reports: None Respiratory Surgical History: Reports: None GI Surgical History: Reports: Appendectomy Female Surgical History: Reports: Breast Biopsy, Hysterectomy Endocrine Surgical History: Reports: None Neurological Surgical History: Reports: None Musculoskeletal Surgical History: Reports: Arthroscopic Procedure, Hip Replacement, ORIF Oncologic Surgical History: Reports: Other (See Below) Other Oncologic Surgeries/Procedures: Hysterectomy Dermatological Surgical History: Reports: None <Eleanor Brand - Last Filed: 03/12/20 11:27> Social & Family History - Family History Family Medical History: Noncontributory - Tobacco Use Smoking Status *Q: Unknown Ever Smoked - Caffeine Use Caffeine Use: Reports: None <Eleanor Brand - Last Filed: 03/12/20 11:27> ED ROS GENERAL - Review of Systems Review Of Systems: See Below Constitutional: Denies: Fever, Chills, Malaise HEENT: Reports: No Symptoms Respiratory: Reports: No Symptoms. Denies: Shortness of Breath, Wheezing, Pleuritic Chest Pain, Cough Cardiovascular: Reports: No Symptoms. Denies: Chest Pain, Edema Endocrine: Reports: No Symptoms GI/Abdominal: Denies: Abdominal Pain, Constipation, Diarrhea : Reports: Incontinence. Denies: Dysuria, Frequency, Pain, Urgency Musculoskeletal: Denies: Neck Pain, Shoulder Pain, Back Pain, Muscle Stiffness Skin: Denies: Rash Neurological: Reports: Pre-Existing Deficit, Trouble Speaking (baseline ). Denies: Headache Psychiatric: Reports: Other (baseline behavior and affect; consistent w. bedside social work report ). Denies: Agitation <Eleanor Brand - Last Filed: 03/12/20 11:27> ED EXAM, HEAD INJURY - Physical Exam Exam: See Below Exam Limited By: Other (baseline CP) General Appearance: Alert, No Apparent Distress Head: Atraumatic, Normocephalic. No: Scalp Lacerations, Scalp Swelling, Scalp Tenderness, Facial Ecchymosis, Facial Lacerations, Raccoon Eyes Nexus Criteria: No: Posterior, Midline Cervical Tenderness, Evidence of Intoxication, Altered Level of Consciousness, Focal Neurological Deficit, Painful Distraction Injuries Eyes: Bilateral Eye: PERRL Ears: Normal External Exam, Normal Canal, Hearing Grossly Normal, Normal TMs Nose: Normal Inspection, Normal Mucousa, No Blood Throat/Mouth: Normal Lips, Normal Teeth Neck: Non-Tender, Full Range of Motion, Normal Alignment, Normal Inspection Respiratory: No Respiratory Distress, Lungs Clear, Normal Breath Sounds Cardiovascular: Regular Rate, Rhythm, No Murmur GI/Abdominal Exam: Soft, Non-Tender (Female) Exam: Other (depends diaper on ; hx of incontinence ) Back Exam: Normal Inspection, Full Range of Motion Extremities: Normal Range of Motion, Non-Tender, No Pedal Edema, Other (left lower extremity :ankle support brace in place ) Neurologic: No Motor/Sensory Deficits, Alert, Other (no focal neurological dcecits appreciated ) - Jessy Coma Score Best Eye Response (Jessy): (4) Open Spontaneously Best Verbal Response (Jessy): (5) Oriented Best Motor Response ([place]): (6) Obeys Commands <Eleanor Brand - Last Filed: 03/12/20 11:27> EKG INTERPRETATION EKG Date: 07/07/20 Time: 11:16 Rhythm: NSR Rate (Beats/Min): 83 P-Wave: Present QRS: Normal ST-T: Normal QT: Normal <Eleanor Brand - Last Filed: 03/12/20 11:27> EKG Interpretation Comments: Mild LVH (Eleanor Brand) Course <Eleanor Brand - Last Filed: 03/12/20 11:27> <Levy Rojas - Last Filed: 03/12/20 12:41> - Vital Signs Text/Narrative:: Head CT ordered Per Nexus criteria : c-collar removed ; no midline and or paraspinal process/tenderness/step off appreciated (Eleanor Brand) I saw and examined the patient. I agree with the note written by the resident. Patient has negative CT per radiology normal H&H she had a recent echo that was unremarkable she has a urinary tract infection I will treat that with Macrobid she will be discharged home follow-up with primary care (Levy Rojas) Last Recorded V/S: Last Vital Signs Temp 35.8 C L 03/12/20 10:35 Pulse 82 03/12/20 10:35 Resp 17 03/12/20 10:35 BP 147/79 H 03/12/20 10:35 Pulse Ox 92 L 03/12/20 10:35 - Orders/Labs/Meds Orders: Active Orders 24 hr Category Date Time Status EKG 12 Lead [EKG Documentation Completion] [RC] ROUTINE Care 03/12/20 10:50 Active Sodium Chloride 0.9% [Saline Flush] Med 03/12/20 10:50 Active 10 ml FLUSH ASDIRECTED PRN Sodium Chloride 0.9% [Saline Flush] Med 03/12/20 10:50 Active 2.5 ml FLUSH ASDIRECTED PRN Saline Lock Insert [OM.PC] Stat Oth 03/12/20 10:51 Ordered Medication Orders Sodium Chloride (Saline Flush) 10 ml FLUSH ASDIRECTED PRN PRN Reason: Keep Vein Open Sodium Chloride (Saline Flush) 2.5 ml FLUSH ASDIRECTED PRN PRN Reason: Keep Vein Open Labs: Laboratory Tests 03/12/20 03/12/20 03/12/20 Range/Units 10:38 10:38 12:00 WBC 14.86 H (4.0-11.0) K/uL RBC 4.56 (4.30-5.90) M/uL Hgb 14.2 (12.0-16.0) g/dL Hct 42.7 (36.0-46.0) % MCV 93.6 (80.0-98.0) fL MCH 31.1 (27.0-32.0) pg MCHC 33.3 (31.0-37.0) g/dL RDW Std Deviation 46.6 (28.0-62.0) fl RDW Coeff of Erik 14 (11.0-15.0) % Plt Count 248 (150-400) K/uL MPV 9.60 (7.40-12.00) fL Neut % (Auto) 45.5 L (48.0-80.0) % Lymph % (Auto) 45.6 H (16.0-40.0) % [place] % (Auto) 7.5 (0.0-15.0) % Eos % (Auto) 1.1 (0.0-7.0) % Baso % (Auto) 0.3 (0.0-1.5) % Neut # (Auto) 6.7 H (1.4-5.7) K/uL Lymph # (Auto) 6.8 H (0.6-2.4) K/uL [place] # (Auto) 1.1 H (0.0-0.8) K/uL Eos # (Auto) 0.2 (0.0-0.7) K/uL Baso # (Auto) 0.1 (0.0-0.1) K/uL Nucleated RBC % 0.0 /100WBC Nucleated RBCs # 0 K/uL Sodium 133 L (136-145) mmol/L Potassium 4.4 (3.5-5.1) mmol/L Chloride 96 L (98-107) mmol/L Carbon Dioxide 30.7 (21.0-32.0) mmol/L BUN 34 H (7.0-18.0) mg/dL Creatinine 0.9 (0.6-1.0) mg/dL Est Cr Clr Drug Dosing 35.81 mL/min Estimated GFR (MDRD) > 60.0 ml/min Glucose 108 H (74-106) mg/dL Calcium 10.0 (8.5-10.1) mg/dL Total Bilirubin 0.3 (0.2-1.0) mg/dL AST 18 (15-37) IU/L ALT 27 (14-63) IU/L Alkaline Phosphatase 57 (46-116) U/L Total Protein 6.7 (6.4-8.2) g/dL Albumin 3.5 (3.4-5.0) g/dL Globulin 3.2 (2.6-4.0) g/dL Albumin/Globulin Ratio 1.1 (0.9-1.6) Urine Color YELLOW Urine Appearance SLT CLOUDY Urine pH 7.0 (5.0-8.0) Ur Specific [place] 1.020 (1.001-1.035) Urine Protein NEGATIVE (NEGATIVE) mg/dL Urine Glucose (UA) NEGATIVE (NEGATIVE) mg/dL Urine Ketones NEGATIVE (NEGATIVE) mg/dL Urine Occult Blood TRACE-INTACT H (NEGATIVE) Urine Nitrite POSITIVE H (NEGATIVE) Urine Bilirubin NEGATIVE (NEGATIVE) Urine Urobilinogen 0.2 (<2.0) EU/dL Ur Leukocyte Esterase SMALL H (NEGATIVE) Urine RBC 2-3 (0-2/HPF) Urine WBC 10-16 (0-5/HPF) Ur Epithelial Cells OCCASIONAL (NONE-FEW) Amorphous Sediment FEW (NEGATIVE) Urine Bacteria 3+ H (NEGATIVE) Urine Mucus FEW (NONE-MOD) Meds: Medications Generic Name Dose Route Start Last Admin Trade Name Freq PRN Reason Stop Dose Admin Sodium Chloride 10 ml 03/12/20 10:50 Saline Flush FLUSH ASDIRECTED PRN Keep Vein Open Sodium Chloride 2.5 ml 03/12/20 10:50 Saline Flush FLUSH ASDIRECTED PRN Keep Vein Open Departure <Eleanor Brand - Last Filed: 03/12/20 11:27> - Departure Time of Disposition: 12:39 Condition: Good - Discharge Information *PRESCRIPTION DRUG MONITORING PROGRAM REVIEWED*: Not Applicable *COPY OF PRESCRIPTION DRUG MONITORING REPORT IN PATIENT TORIN: Not Applicable <Levy Rojas - Last Filed: 03/12/20 12:41> - Departure Disposition: Home, Self-Care 01 Clinical Impression: UTI (urinary tract infection) Qualifiers: Urinary tract infection type: site unspecified - Discharge Information Prescriptions: Nitrofurantoin Monohyd/M-Cryst [Macrobid 100 mg Capsule] 100 mg PO BID #20 capsule Instructions: Syncope, [id number] Referrals: Jabari Teran MD [Primary Care Provider] - Forms: ED Department Discharge Additional Instructions: The following information is given to patients seen in the emergency department who are being discharged to home. This information is to outline your options for follow-up care. We provide all patients seen in our emergency department with a follow-up referral. The need for follow-up, as well as the timing and circumstances, are variable depending upon the specifics of your emergency department visit. If you don't have a primary care physician on staff, we will provide you with a referral. We always advise you to contact your personal physician following an emergency department visit to inform them of the circumstance of the visit and for follow-up with them and/or the need for any referrals to a consulting specialist. The emergency department will also refer you to a specialist when appropriate. This referral assures that you have the opportunity for follow-up care with a specialist. All of these measure are taken in an effort to provide you with optimal care, which includes your follow-up. Under all circumstances we always encourage you to contact your private physician who remains a resource for coordinating your care. When calling for follow-up care, please make the office aware that this follow-up is from your recent emergency room visit. If for any reason you are refused follow-up, please contact the [facility] Emergency Department at and asked to speak to the emergency department charge nurse. Sepsis Event Note (ED) - Evaluation Sepsis Screening Result: No Definite Risk <Eleanor Brand - Last Filed: 03/12/20 11:27> - Focused Exam Vital Signs: Vital Signs Temp Pulse Resp BP Pulse Ox 03/12/20 10:35 35.8 C L 82 17 147/79 H 92 L - My Orders Last 24 Hours: My Active Orders 03/12/20 10:50 Sodium Chloride 0.9% [Saline Flush] 10 ml FLUSH ASDIRECTED PRN Sodium Chloride 0.9% [Saline Flush] 2.5 ml FLUSH ASDIRECTED PRN 03/12/20 10:51 Saline Lock Insert [OM.PC] Stat - Assessment/Plan Last 24 Hours: My Active Orders 03/12/20 10:50 Sodium Chloride 0.9% [Saline Flush] 10 ml FLUSH ASDIRECTED PRN Sodium Chloride 0.9% [Saline Flush] 2.5 ml FLUSH ASDIRECTED PRN 03/12/20 10:51 Saline Lock Insert [OM.PC] Stat
[2020-03-12 11:18] LABS: BLOOD UREA NITROGEN,BUN 34 mg/dL (7.0-18.0); CARBON DIOXIDE,CO2 30.7 mmol/L (21.0-32.0); CHLORIDE,CL 96 mmol/L (98-107); GLUCOSE RANDOM 108 mg/dL (74-106); POTASSIUM,K 4.4 mmol/L (3.5-5.1); SODIUM,NA 133 mmol/L (136-145)
--- NOTE | 2020-03-12 11:45 | CT ---
Head CT Technique: Multiple axial sections through the brain were obtained. Intravenous contrast was not utilized. Comparison: Prior head CT study of 01/14/20. Findings: Ventricles along with basal cisterns and sulci over the convexities are moderately prominent. Mild diminished density is noted within the periventricular white matter most likely due to small vessel ischemic demyelination change. No other abnormal parenchymal densities are seen. No evidence of intracranial hemorrhage. No midline shift or mass-effect is seen. Bone window settings were reviewed. Visualized mastoid sinuses and visualized paranasal sinuses show nothing acute. No acute calvarial finding is appreciated. Impression: 1. Stable senescent change as noted above. 2. Nothing acute is appreciated. Diagnostic code #2 This report was dictated in MDT
[2020-03-12 13:24] VITALS: BP 118/60; PULSE 83
== END 2020-03-12 13:25 | disposition home or self-care (01) ==
LOC: MW.ED 10:24
DX: N39.0 Urinary tract infection, site not specified (principal); I10 Essential (primary) hypertension; Z79.899 Other long term (current) drug therapy; Z91.81 History of falling
CPT/HCPCS: 36415; 70450; 70450-26; 80053; 81001; 85025; 93005; 93010; 99284; 99284-25

== ENCOUNTER 2020-05-25 08:42 | Emergency (ER) | payer MEDICARE, MEDICAID ==
[2020-05-25] MEDS ORDERED: Sodium Chloride 0.9% 10 ML Syringe FLUSH PRN (08:48)
[2020-05-25] MEDS ORDERED: Sodium Chloride 0.9% 2.5 ML Syringe FLUSH PRN ×2 (08:48)
--- NOTE | 2020-05-25 08:54 | EDM.PDOC ---
ED HPI GENERAL MEDICAL PROBLEM - General Chief Complaint: Syncope Stated Complaint: PASSED OUT Time Seen by Provider: 05/25/20 08:45 - History of Present Illness INITIAL COMMENTS - FREE TEXT/NARRATIVE: History of present illness: Patient presents the ED via EMS for a syncopal episode she was seated on the toilet when she had approximately 1 minute of being unresponsive. This is happened to her before I saw her approximately a month and a half ago for a similar episode and she ended up having a urinary tract infection she currently has no complaints she is at her baseline mental status she is at an assisted living for people with cognitive issues. She is minimally verbal. 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 Review of systems: As per history of present illness and below otherwise all systems reviewed and negative. Past medical history: As per history of present illness and as reviewed below otherwise noncontributory. Surgical history: As per history of present illness and as reviewed below otherwise noncontributory. Social history: No reported history of drug or alcohol abuse. Family history: As per history of present illness and as reviewed below otherwise noncontributory. Physical exam: HEENT: Atraumatic, normocephalic, pupils reactive, negative for conjunctival pallor or scleral icterus, mucous membranes moist, throat clear, neck supple, nontender, trachea midline. Lungs: Clear to auscultation, breath sounds equal bilaterally, chest nontender. Heart: S1S2, regular, negative for clicks, rubs, or JVD. Abdomen: Soft, nondistended, nontender. Negative for masses or hepatosplenomegaly. Negative for costovertebral tenderness. Pelvis: Stable nontender. Genitourinary: Deferred. Rectal: Deferred. Extremities: Atraumatic, negative for cords or calf pain. Neurovascular unremarkable. Neuro: Awake, alert, oriented. Cranial nerves II through XII unremarkable. Cerebellum unremarkable. Motor and sensory unremarkable throughout. Exam nonfocal. Diagnostics: [] Therapeutics: [] Impression: Syncope Plan: EKG cardiac work-up urine and reassess [] Definitive disposition and diagnosis as appropriate pending reevaluation and review of above. - Related Data Allergies Allergy/AdvReac Type Severity Reaction Status Date / Time No Known Allergies Allergy Verified 03/12/20 10:38 Home Meds: Home Meds Multivitamin [Multi-Vitamin Daily] 1 tab PO DAILY 04/24/15 [History] predniSONE [Prednisone] 2.5 mg PO ASDIRECTED 12/14/15 [History] Calcium Carb, Citrate/Vit D3 [Citracal + D ER] 600 mg PO BID 01/14/20 [History] Polyethylene Glycol [Polyox [id number]] 1 dose PO ASDIRECTED 01/14/20 [History] lisinopriL [Lisinopril] 40 mg PO DAILY #30 tablet 01/18/20 [Rx] Nitrofurantoin Monohyd/M-Cryst [Macrobid 100 mg Capsule] 100 mg PO BID #20 capsule 05/25/20 [Rx] Past Medical History HEENT History: Reports: Impaired Vision, Other (See Below) Other HEENT History: wears glasses; recurrent nasal drainage; hyperopia; astigmatism Cardiovascular History: Reports: Hypertension Respiratory History: Reports: None Gastrointestinal History: Reports: None Genitourinary History: Reports: None Other Genitourinary History: Bladder hyperactivity RETICLE PRINTER History: 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: 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 Musculoskeletal History: Reports: Other (See Below) Other Musculoskeletal History: drop foot Neurological History: Reports: Cerebral Palsy Psychiatric History: Reports: Other (See Below) Other Psychiatric History: speech impairment Endocrine/Metabolic History: Reports: None Hematologic History: Reports: None Immunologic History: Reports: None Oncologic (Cancer) History: Reports: Uterine Dermatologic History: Reports: None - Infectious Disease History Infectious Disease History: Reports: None - Past Surgical History HEENT Surgical History: Reports: None Cardiovascular Surgical History: Reports: None Respiratory Surgical History: Reports: None GI Surgical History: Reports: Appendectomy Female Surgical History: Reports: Breast Biopsy, Hysterectomy Endocrine Surgical History: Reports: None Neurological Surgical History: Reports: None Musculoskeletal Surgical History: Reports: Arthroscopic Procedure, Hip Replacement, ORIF Oncologic Surgical History: Reports: Other (See Below) Other Oncologic Surgeries/Procedures: Hysterectomy Dermatological Surgical History: Reports: None Social & Family History - Family History Family Medical History: Noncontributory - Caffeine Use Caffeine Use: Reports: None ED ROS GENERAL - Review of Systems Review Of Systems: See Below ED EXAM, GENERAL - Physical Exam Exam: See Below EKG INTERPRETATION EKG Interpretation Comments: EKG is normal sinus rhythm rate of 70 bpm normal axis normal intervals normal EKG. read and interpreted by me Course - Vital Signs Text/Narrative:: Is a normal EKG her labs are unremarkable with the exception of what appears to be a urinary tract infection I will start on Macrobid return her home follow-up with primary care. Last Recorded V/S: Last Vital Signs Temp 35.7 C L 05/25/20 08:53 Pulse 80 05/25/20 09:25 Resp 16 05/25/20 09:25 BP 134/63 05/25/20 09:25 Pulse Ox 96 05/25/20 09:25 - Orders/Labs/Meds Orders: Active Orders 24 hr Category Date Time Status EKG Documentation Completion [RC] STAT Care 05/25/20 08:48 Active Sodium Chloride 0.9% [Saline Flush] Med 05/25/20 08:48 Active 10 ml FLUSH ASDIRECTED PRN Sodium Chloride 0.9% [Saline Flush] Med 05/25/20 08:48 Active 2.5 ml FLUSH ASDIRECTED PRN Sodium Chloride 0.9% [Saline Flush] Med 05/25/20 08:48 Active 2.5 ml FLUSH ASDIRECTED PRN Saline Lock Insert [OM.PC] Stat Oth 05/25/20 08:48 Ordered Medication Orders Sodium Chloride (Saline Flush) 2.5 ml FLUSH ASDIRECTED PRN PRN Reason: Keep Vein Open Last Admin: 05/25/20 09:12 Dose: 2.5 ml Documented by: [id number] Sodium Chloride (Saline Flush) 2.5 ml FLUSH ASDIRECTED PRN PRN Reason: Keep Vein Open Last Admin: 05/25/20 09:12 Dose: 2.5 ml Documented by: [id number] Sodium Chloride (Saline Flush) 10 ml FLUSH ASDIRECTED PRN PRN Reason: Keep Vein Open Last Admin: 05/25/20 09:12 Dose: 10 ml Documented by: [id number] Labs: Laboratory Tests 05/25/20 05/25/20 05/25/20 Range/Units 09:08 09:08 09:08 WBC 9.74 (4.0-11.0) K/uL RBC 4.37 (4.30-5.90) M/uL Hgb 13.5 (12.0-16.0) g/dL Hct 40.2 (36.0-46.0) % MCV 92.0 (80.0-98.0) fL MCH 30.9 (27.0-32.0) pg MCHC 33.6 (31.0-37.0) g/dL RDW Std Deviation 45.0 (28.0-62.0) fl RDW Coeff of Erik 14 (11.0-15.0) % Plt Count 216 (150-400) K/uL MPV 8.80 (7.40-12.00) fL Add Manual Diff YES Neutrophils % (Manual) 36 L (48.0-80.0) % Lymphocytes % (Manual) 52 H (16.0-40.0) % Monocytes % (Manual) 10 (0.0-15.0) % Eosinophils % (Manual) 2 (0.0-7.0) % Nucleated RBC % 0.0 /100WBC Absolute Seg Neuts 3.5 (1.4-5.7) Lymphocytes # (Manual) 5.1 H (0.6-2.4) Monocytes # (Manual) 1.0 H (0.0-0.8) Eosinophils # (Manual) 0.2 (0.0-0.7) Nucleated RBCs # 0 K/uL Sodium 131 L (136-145) mmol/L Potassium 3.8 (3.5-5.1) mmol/L Chloride 97 L (98-107) mmol/L Carbon Dioxide 25.3 (21.0-32.0) mmol/L BUN 19 H (7.0-18.0) mg/dL Creatinine 0.7 (0.6-1.0) mg/dL Est Cr Clr Drug Dosing 55.35 mL/min Estimated GFR (MDRD) > 60.0 ml/min Glucose 124 H (74-106) mg/dL Calcium 9.1 (8.5-10.1) mg/dL Total Bilirubin 0.5 (0.2-1.0) mg/dL AST 22 (15-37) IU/L ALT 35 (14-63) IU/L Alkaline Phosphatase 62 (46-116) U/L Troponin I < 0.050 (0.000-0.056) ng/mL Total Protein 6.2 L (6.4-8.2) g/dL Albumin 3.3 L (3.4-5.0) g/dL Globulin 2.9 (2.6-4.0) g/dL Albumin/Globulin Ratio 1.1 (0.9-1.6) Urine Color YELLOW Urine Appearance CLEAR Urine pH 6.5 (5.0-8.0) Ur Specific [place] 1.020 (1.001-1.035) Urine Protein TRACE H (NEGATIVE) mg/dL Urine Glucose (UA) NEGATIVE (NEGATIVE) mg/dL Urine Ketones NEGATIVE (NEGATIVE) mg/dL Urine Occult Blood TRACE-INTACT H (NEGATIVE) Urine Nitrite NEGATIVE (NEGATIVE) Urine Bilirubin NEGATIVE (NEGATIVE) Urine Urobilinogen 0.2 (<2.0) EU/dL Ur Leukocyte Esterase MODERATE H (NEGATIVE) Urine RBC 1-2 (0-2/HPF) Urine WBC 8-10 (0-5/HPF) Ur Epithelial Cells FEW (NONE-FEW) Urine Bacteria 1+ H (NEGATIVE) Meds: Medications Generic Name Dose Route Start Last Admin Trade Name Freq PRN Reason Stop Dose Admin Sodium Chloride 2.5 ml 05/25/20 08:48 05/25/20 09:12 Saline Flush FLUSH 2.5 ml ASDIRECTED PRN Administration Keep Vein Open Sodium Chloride 2.5 ml 05/25/20 08:48 05/25/20 09:12 Saline Flush FLUSH 2.5 ml ASDIRECTED PRN Administration Keep Vein Open Sodium Chloride 10 ml 05/25/20 08:48 05/25/20 09:12 Saline Flush FLUSH 10 ml ASDIRECTED PRN Administration Keep Vein Open Departure - Departure Time of Disposition: 10:11 Disposition: Home, Self-Care 01 Condition: Good Clinical Impression: Vasovagal syncope UTI (urinary tract infection) Qualifiers: Urinary tract infection type: site unspecified - Discharge Information *PRESCRIPTION DRUG MONITORING PROGRAM REVIEWED*: Not Applicable *COPY OF PRESCRIPTION DRUG MONITORING REPORT IN PATIENT TORIN: Not Applicable Prescriptions: Nitrofurantoin Monohyd/M-Cryst [Macrobid 100 mg Capsule] 100 mg PO BID #20 capsule Instructions: Urinary Tract Infection, Adult, Syncope Referrals: Mickey Shearer MD [Primary Care Provider] - Forms: ED Department Discharge Additional Instructions: The following information is given to patients seen in the emergency department who are being discharged to home. This information is to outline your options for follow-up care. We provide all patients seen in our emergency department with a follow-up referral. The need for follow-up, as well as the timing and circumstances, are variable depending upon the specifics of your emergency department visit. If you don't have a primary care physician on staff, we will provide you with a referral. We always advise you to contact your personal physician following an emergency department visit to inform them of the circumstance of the visit and for follow-up with them and/or the need for any referrals to a consulting specialist. The emergency department will also refer you to a specialist when appropriate. This referral assures that you have the opportunity for follow-up care with a specialist. All of these measure are taken in an effort to provide you with optimal care, which includes your follow-up. Under all circumstances we always encourage you to contact your private physician who remains a resource for coordinating your care. When calling for follow-up care, please make the office aware that this follow-up is from your recent emergency room visit. If for any reason you are refused follow-up, please contact the [facility] Emergency Department at and asked to speak to the emergency department charge nurse. Sepsis Event Note (ED) - Focused Exam Vital Signs: Vital Signs Temp Pulse Resp BP Pulse Ox 05/25/20 09:25 80 16 134/63 96 05/25/20 08:53 35.7 C L 75 14 132/77 94 L - My Orders Last 24 Hours: My Active Orders 05/25/20 08:48 EKG Documentation Completion [RC] STAT Sodium Chloride 0.9% [Saline Flush] 10 ml FLUSH ASDIRECTED PRN Sodium Chloride 0.9% [Saline Flush] 2.5 ml FLUSH ASDIRECTED PRN Sodium Chloride 0.9% [Saline Flush] 2.5 ml FLUSH ASDIRECTED PRN Saline Lock Insert [OM.PC] Stat - Assessment/Plan Last 24 Hours: My Active Orders 05/25/20 08:48 EKG Documentation Completion [RC] STAT Sodium Chloride 0.9% [Saline Flush] 10 ml FLUSH ASDIRECTED PRN Sodium Chloride 0.9% [Saline Flush] 2.5 ml FLUSH ASDIRECTED PRN Sodium Chloride 0.9% [Saline Flush] 2.5 ml FLUSH ASDIRECTED PRN Saline Lock Insert [OM.PC] Stat
--- NOTE | 2020-05-25 09:24 | CR ---
Chest: Portable view of the chest was obtained. Comparison: Prior chest x-ray of 01/14/20. Slight atelectasis within the lateral left costophrenic angle is noted. Increased density is noted within the right lung base most likely representing callus from healing right lower rib fracture. No acute parenchymal change is otherwise appreciated. Heart size is normal. Upper mediastinum is normal. Bony structures are osteopenic. Impression: 1. Nothing acute is appreciated. 2. Other findings as noted above. Diagnostic code #2 This report was dictated in MDT
[2020-05-25 09:47] LABS: BLOOD UREA NITROGEN,BUN 19 mg/dL (7.0-18.0); CARBON DIOXIDE,CO2 25.3 mmol/L (21.0-32.0); CHLORIDE,CL 97 mmol/L (98-107); GLUCOSE RANDOM 124 mg/dL (74-106); POTASSIUM,K 3.8 mmol/L (3.5-5.1); SODIUM,NA 131 mmol/L (136-145)
[2020-05-25 10:35] VITALS: BP 96/42; PULSE 78
== END 2020-05-25 10:25 | disposition home or self-care (01) ==
LOC: MW.ED 08:42
DX: R55 Syncope and collapse (principal); N39.0 Urinary tract infection, site not specified; I10 Essential (primary) hypertension; Z79.899 Other long term (current) drug therapy; G80.9 Cerebral palsy, unspecified
CPT/HCPCS: 36415; 71045; 71045-26; 80053; 81001; 84484; 85025; 93005; 99284-25

== ENCOUNTER 2020-08-21 09:58 | Observation (INO) | payer MEDICARE, MEDICAID ==
--- NOTE | 2020-08-21 10:19 | EDM.PDOC ---
ED HPI GENERAL MEDICAL PROBLEM - General Chief Complaint: General Stated Complaint: DEHYDRATION, NOT EATING Time Seen by Provider: 08/21/20 10:08 Source of Information: Reports: Patient History Limitations: Reports: No Limitations - History of Present Illness INITIAL COMMENTS - FREE TEXT/NARRATIVE: HISTORY AND PHYSICAL: History of present illness: Patient is an 79-year-old female who presents to the emergency room with her caregiver with complaints of decreased appetite/oral intake and generalized abdominal pain. The caregiver states she has not been eating or drinking much over the past 2 days and seems to have tenderness with palpation or touching of the abdomen. Caregiver also states that she will take her oral pills although it is taking her a long time to swallowing get things down. She is on a pured thickened diet, and has been having difficulty -versus possible concern of aspiration. Patient denies any fever, chills, headache, change in vision, syncope or near syncope. Denies any chest pain, back pain, shortness of breath or cough. Denies any abdominal pain, nausea, vomiting, diarrhea, constipation or dysuria. Has not noted any blood in urine or stool. Patient has been eating and drinking appropriately. History of cerebral palsy and hypertension. Lives at the [facility] Review of systems: As per history of present illness and below otherwise all systems reviewed and negative. Past medical history: As per history of present illness and as reviewed below otherwise noncontributory. Surgical history: As per history of present illness and as reviewed below otherwise noncontributory. Social history: See social history for further information Family history: As per history of present illness and as reviewed below otherwise noncontributory. Physical exam: General: Well developed and well nourished 79-year-old female. Alert and appropriate for self, nonverbal does live in a assisted. Nontoxic in appearance and in no acute distress. Vital signs are stable and have been reviewed by me. Nursing notes were reviewed. HEENT: Atraumatic, normocephalic, pupils equal and reactive bilaterally, negativ e for conjunctival pallor or scleral icterus, mucous membranes moist, TMs normal bilaterally, throat clear, neck supple, nontender, trachea midline. No drooling or trismus noted. No meningeal signs. No hot potato voice noted. Lungs: Diminished bases otherwise clear to auscultation, breath sounds equal bilaterally, chest nontender. Normal work of breathing, no accessory muscles used. Heart: S1S2, regular rate and rhythm without overt murmur Abdomen: Semi firm, nondistended, LUQ and epigastric tenderness (grimaces and moans with palpation). Negative for masses or hepatosplenomegaly. Negative for costovertebral tenderness. Pelvis: Stable nontender. Skin: Intact, warm, dry. No lesions or rashes noted. Hematologic: No petechiae or purpra. Mucosa appropriate color and normal nail bed color and refill. Extremities: Atraumatic, moves all extremities per self without difficulty or deficits, negative for cords or calf pain. Neurovascular unremarkable. Neuro: Awake, alert, oriented. Cranial nerves II through XII unremarkable. Cerebellum unremarkable. Motor and sensory unremarkable throughout. Exam nonfocal. Psychiatric: Mood and affect are appropriate. Normal thought process. Answering questions appropriately. Notes: Chest x-ray shows moderate patchy multifocal groundglass opacification, left greater than right. Possible small left effusion. The lung findings are new since the prior study and are probably inflammatory. Consider viral pneumonia including COVID-19 pneumonia if clinically appropriate. CT abdomen/pelvis shows bibasilar opacities could represent atelectasis, aspirat ion or inflammatory process such as pneumonia. The gallbladder is distended. There is numerous gallstones that appear to be within the gallbladder neck and cystic duct. However no definitive wall thickening or pericholecystic fluid. There is no extra hepatic duct dilatation. Influenza and COVID are negative. U/S shows lithiasis with stone in the gallbladder neck. No gallbladder wall thickening or pericholecystic fluid is demonstrated. Patient is reportedly nontender over the gallbladder. Horace Ziegler hospitalist on-call was consulted. She is agreeable to keeping this patient for further care and management of pneumonia. Will place patient on telemetry. Diagnostics: CBC, CMP, Lipase, Troponin, EKG, CXR, CT abd/pelvis, UA, gallbladder U/S, COVID/Influenza Therapeutics: IV fluids at 150 mls/hr, Rocephin, Toradol Impression: Pneumonia Cholelithiasis Plan: Observation admission to Med/Surg with telemetry Definitive disposition and diagnosis as appropriate pending reevaluation and review of above. Abdomen Pain Score (Numeric/FACES): 7 - Related Data Allergies Allergy/AdvReac Type Severity Reaction Status Date / Time No Known Allergies Allergy Verified 08/21/20 10:17 Home Meds: Home Meds Multivitamin [Multi-Vitamin Daily] 1 tab PO DAILY 04/24/15 [History] predniSONE [Prednisone] 2.5 mg PO BID 12/14/15 [History] Calcium Carb, Citrate/Vit D3 [Citracal + D ER] 1,200 mg PO DAILY 01/14/20 [History] Polyethylene Glycol [Polyox Wsr-301] 17 gm PO DAILY 01/14/20 [History] Ascorbic Acid [Vitamin C] 500 mg PO DAILY 08/21/20 [History] Celecoxib 200 mg PO DAILY PRN 08/21/20 [History] lisinopriL [Lisinopril] 20 mg PO DAILY 08/21/20 [History] Past Medical History HEENT History: Reports: Impaired Vision, Other (See Below) Other HEENT History: wears glasses; recurrent nasal drainage; hyperopia; astigmatism Cardiovascular History: Reports: Hypertension Respiratory History: Reports: None Gastrointestinal History: Reports: None Genitourinary History: Reports: None Other Genitourinary History: Bladder hyperactivity [employer] WORK[employer] History: Reports: None Musculoskeletal History: Reports: Other (See Below) Other Musculoskeletal History: drop foot Neurological History: Reports: Cerebral Palsy Psychiatric History: Reports: Other (See Below) Other Psychiatric History: speech impairment Endocrine/Metabolic History: Reports: None Hematologic History: Reports: None Immunologic History: Reports: None Oncologic (Cancer) History: Reports: Uterine Dermatologic History: Reports: None - Infectious Disease History Infectious Disease History: Reports: None - Past Surgical History HEENT Surgical History: Reports: None Cardiovascular Surgical History: Reports: None Respiratory Surgical History: Reports: None GI Surgical History: Reports: Appendectomy Female Surgical History: Reports: Breast Biopsy, Hysterectomy Endocrine Surgical History: Reports: None Neurological Surgical History: Reports: None Musculoskeletal Surgical History: Reports: Arthroscopic Procedure, Hip Replacement, ORIF Oncologic Surgical History: Reports: Other (See Below) Other Oncologic Surgeries/Procedures: Hysterectomy Dermatological Surgical History: Reports: None Social & Family History - Family History Family Medical History: No Pertinent Family History - Caffeine Use Caffeine Use: Reports: None ED ROS GENERAL - Review of Systems Review Of Systems: Comprehensive ROS is negative, except as noted in HPI. ED EXAM, GENERAL - Physical Exam Exam: See Below (See dictation) Course - Vital Signs Last Recorded V/S: Last Vital Signs Temp 98 F 08/21/20 10:17 Pulse 81 08/21/20 14:29 Resp 18 08/21/20 14:29 BP 158/66 H 08/21/20 14:29 Pulse Ox 95 08/21/20 14:29 - Orders/Labs/Meds Orders: Active Orders 24 hr Category Date Time Status Admission Status [Patient Status] [ADT] Stat ADT 08/21/20 15:47 Ordered EKG Documentation Completion [RC] AM Care 08/21/20 10:58 Active Sodium Chloride 0.9% [Normal Saline] 1,000 ml Med 08/21/20 10:58 Active IV STAT Sodium Chloride 0.9% [Saline Flush] Med 08/21/20 10:58 Active 10 ml FLUSH ASDIRECTED PRN Sodium Chloride 0.9% [Saline Flush] Med 08/21/20 10:58 Active 2.5 ml FLUSH ASDIRECTED PRN Saline Lock Insert [OM.PC] Stat Oth 08/21/20 10:58 Ordered Medication Orders Sodium Chloride (Normal Saline) 1,000 mls @ 125 mls/hr IV STAT ONE Stop: 08/21/20 18:57 Last Admin: 08/21/20 11:44 Dose: 125 mls/hr Documented by: ROSANA Sodium Chloride (Saline Flush) 10 ml FLUSH ASDIRECTED PRN PRN Reason: Keep Vein Open Last Admin: 08/21/20 11:44 Dose: 10 ml Documented by: ROSANA Sodium Chloride (Saline Flush) 2.5 ml FLUSH ASDIRECTED PRN PRN Reason: Keep Vein Open Last Admin: 08/21/20 11:44 Dose: 2.5 ml Documented by: ROSANA Labs: Laboratory Tests 08/21/20 08/21/20 08/21/20 Range/Units 11:25 11:25 11:25 WBC 13.11 H (4.0-11.0) K/uL RBC 3.98 L (4.30-5.90) M/uL Hgb 12.4 (12.0-16.0) g/dL Hct 38.0 (36.0-46.0) % MCV 95.5 (80.0-98.0) fL MCH 31.2 (27.0-32.0) pg MCHC 32.6 (31.0-37.0) g/dL RDW Std Deviation 53.3 (28.0-62.0) fl RDW Coeff of Erik 16 H (11.0-15.0) % Plt Count 229 (150-400) K/uL MPV 9.00 (7.40-12.00) fL Neut % (Auto) 66.3 (48.0-80.0) % Lymph % (Auto) 21.4 (16.0-40.0) % Tyler % (Auto) 12.0 (0.0-15.0) % Eos % (Auto) 0.2 (0.0-7.0) % Baso % (Auto) 0.1 (0.0-1.5) % Neut # (Auto) 8.7 H (1.4-5.7) K/uL Lymph # (Auto) 2.8 H (0.6-2.4) K/uL Tyler # (Auto) 1.6 H (0.0-0.8) K/uL Eos # (Auto) 0.0 (0.0-0.7) K/uL Baso # (Auto) 0.0 (0.0-0.1) K/uL Nucleated RBC % 0.0 /100WBC Nucleated RBCs # 0 K/uL Sodium 134 L (136-145) mmol/L Potassium 4.6 (3.5-5.1) mmol/L Chloride 96 L (98-107) mmol/L Carbon Dioxide 30.2 (21.0-32.0) mmol/L BUN 24 H (7.0-18.0) mg/dL Creatinine 1.0 (0.6-1.0) mg/dL Est Cr Clr Drug Dosing 30.52 mL/min Estimated GFR (MDRD) 53.3 ml/min Glucose 113 H (74-106) mg/dL Calcium 10.5 H (8.5-10.1) mg/dL Total Bilirubin 0.7 (0.2-1.0) mg/dL AST 31 (15-37) IU/L ALT 50 (14-63) IU/L Alkaline Phosphatase 95 (46-116) U/L Troponin I < 0.050 (0.000-0.056) ng/mL Total Protein 7.2 (6.4-8.2) g/dL Albumin 3.3 L (3.4-5.0) g/dL Globulin 3.9 (2.6-4.0) g/dL Albumin/Globulin Ratio 0.9 (0.9-1.6) Lipase 176 (73-393) U/L Urine Color Urine Appearance Urine pH (5.0-8.0) Ur Specific P[place] (1.001-1.035) Urine Protein (NEGATIVE) mg/dL Urine Glucose (UA) (NEGATIVE) mg/dL Urine Ketones (NEGATIVE) mg/dL Urine Occult Blood (NEGATIVE) Urine Nitrite (NEGATIVE) Urine Bilirubin (NEGATIVE) Urine Urobilinogen (<2.0) EU/dL Ur Leukocyte Esterase (NEGATIVE) Influenza Type A RNA (NEGATIVE) Influenza Type B RNA (NEGATIVE) SARS-CoV-2 RNA (JAE) (NEGATIVE) 08/21/20 08/21/20 Range/Units 12:20 14:13 WBC (4.0-11.0) K/uL RBC (4.30-5.90) M/uL Hgb (12.0-16.0) g/dL Hct (36.0-46.0) % MCV (80.0-98.0) fL MCH (27.0-32.0) pg MCHC (31.0-37.0) g/dL RDW Std Deviation (28.0-62.0) fl RDW Coeff of Erik (11.0-15.0) % Plt Count (150-400) K/uL MPV (7.40-12.00) fL Neut % (Auto) (48.0-80.0) % Lymph % (Auto) (16.0-40.0) % Tyler % (Auto) (0.0-15.0) % Eos % (Auto) (0.0-7.0) % Baso % (Auto) (0.0-1.5) % Neut # (Auto) (1.4-5.7) K/uL Lymph # (Auto) (0.6-2.4) K/uL Tyler # (Auto) (0.0-0.8) K/uL Eos # (Auto) (0.0-0.7) K/uL Baso # (Auto) (0.0-0.1) K/uL Nucleated RBC % /100WBC Nucleated RBCs # K/uL Sodium (136-145) mmol/L Potassium (3.5-5.1) mmol/L Chloride (98-107) mmol/L Carbon Dioxide (21.0-32.0) mmol/L BUN (7.0-18.0) mg/dL Creatinine (0.6-1.0) mg/dL Est Cr Clr Drug Dosing mL/min Estimated GFR (MDRD) ml/min Glucose (74-106) mg/dL Calcium (8.5-10.1) mg/dL Total Bilirubin (0.2-1.0) mg/dL AST (15-37) IU/L ALT (14-63) IU/L Alkaline Phosphatase (46-116) U/L Troponin I (0.000-0.056) ng/mL Total Protein (6.4-8.2) g/dL Albumin (3.4-5.0) g/dL Globulin (2.6-4.0) g/dL Albumin/Globulin Ratio (0.9-1.6) Lipase (73-393) U/L Urine Color YELLOW Urine Appearance CLEAR Urine pH 7.0 (5.0-8.0) Ur Specific P[place] 1.020 (1.001-1.035) Urine Protein NEGATIVE (NEGATIVE) mg/dL Urine Glucose (UA) NEGATIVE (NEGATIVE) mg/dL Urine Ketones 15 H (NEGATIVE) mg/dL Urine Occult Blood NEGATIVE (NEGATIVE) Urine Nitrite NEGATIVE (NEGATIVE) Urine Bilirubin NEGATIVE (NEGATIVE) Urine Urobilinogen 1.0 (<2.0) EU/dL Ur Leukocyte Esterase NEGATIVE (NEGATIVE) Influenza Type A RNA NEGATIVE (NEGATIVE) Influenza Type B RNA NEGATIVE (NEGATIVE) SARS-CoV-2 RNA (JAE) NEGATIVE (NEGATIVE) Meds: Medications Generic Name Dose Route Start Last Admin Trade Name Freq PRN Reason Stop Dose Admin Sodium Chloride 1,000 mls @ 125 mls/hr 08/21/20 10:58 08/21/20 11:44 Normal Saline IV 08/21/20 18:57 125 mls/hr STAT ONE Administration Sodium Chloride 10 ml 08/21/20 10:58 08/21/20 11:44 Saline Flush FLUSH 10 ml ASDIRECTED PRN Administration Keep Vein Open Sodium Chloride 2.5 ml 08/21/20 10:58 08/21/20 11:44 Saline Flush FLUSH 2.5 ml ASDIRECTED PRN Administration Keep Vein Open Discontinued Medications Generic Name Dose Route Start Last Admin Trade Name Freq PRN Reason Stop Dose Admin Ceftriaxone Sodium/Dextrose 1 50 mls @ 100 mls/hr 08/21/20 15:28 gm/ Premix IV 08/21/20 15:57 ONETIME ONE Iopamidol 100 ml 08/21/20 13:55 08/21/20 13:55 Isovue Multipack-370 (76%) IVPUSH 08/21/20 13:56 100 ml ONETIME STA Administration Ketorolac Tromethamine 15 mg 08/21/20 15:28 Toradol IVPUSH 08/21/20 15:29 NOW STA Departure - Departure Time of Disposition: 16:06 Disposition: Refer to Observation Clinical Impression: Pneumonia Qualifiers: Pneumonia type: due to unspecified organism Laterality: bilateral Lung location: lower lobe of lung Qualified Code(s): J18.9 - Pneumonia, unspecified organism Cholelithiasis Qualifiers: Cholelithiasis location: gallbladder Cholecystitis presence: without cholecystitis Biliary obstruction: without biliary obstruction Qualified Code(s): K80.20 - Calculus of gallbladder without cholecystitis without obstruction - Discharge Information Referrals: PCP,None [Primary Care Provider] - Forms: ED Department Discharge Sepsis Event Note (ED) - Focused Exam Vital Signs: Vital Signs Temp Pulse Resp BP Pulse Ox 08/21/20 14:29 81 18 158/66 H 95 08/21/20 11:46 96 16 150/53 H 95 08/21/20 10:17 98 F 97 16 91 L - My Orders Last 24 Hours: My Active Orders 08/21/20 10:58 EKG Documentation Completion [RC] AM Sodium Chloride 0.9% [Normal Saline] 1,000 ml IV STAT Sodium Chloride 0.9% [Saline Flush] 10 ml FLUSH ASDIRECTED PRN Sodium Chloride 0.9% [Saline Flush] 2.5 ml FLUSH ASDIRECTED PRN Saline Lock Insert [OM.PC] Stat 08/21/20 15:47 Admission Status [Patient Status] [ADT] Stat - Assessment/Plan Last 24 Hours: My Active Orders 08/21/20 10:58 EKG Documentation Completion [RC] AM Sodium Chloride 0.9% [Normal Saline] 1,000 ml IV STAT Sodium Chloride 0.9% [Saline Flush] 10 ml FLUSH ASDIRECTED PRN Sodium Chloride 0.9% [Saline Flush] 2.5 ml FLUSH ASDIRECTED PRN Saline Lock Insert [OM.PC] Stat 08/21/20 15:47 Admission Status [Patient Status] [ADT] Stat
[2020-08-21] MEDS ORDERED: Sodium Chloride 0.9% 1,000 ML IV ONE (10:58)
[2020-08-21] MEDS ORDERED: Sodium Chloride 0.9% 2.5 ML Syringe FLUSH PRN (10:58)
[2020-08-21] MEDS ORDERED: Sodium Chloride 0.9% 10 ML Syringe FLUSH PRN (10:58)
--- NOTE | 2020-08-21 11:53 | CR ---
INDICATION: Abdominal pain. No appetite COMPARISON: May 25, 2020 TECHNIQUE: Single-view portable chest radiograph FINDINGS: TUBES AND LINES: None. HEART AND MEDIASTINUM: Mildly enlarged heart unchanged appearance.. LUNGS AND PLEURAL SPACES: Moderate patchy multifocal ground-glass, left greater than right.Possible small left effusion. No pneumothorax. OSSEOUS STRUCTURES: Age-appropriate appearance. No acute focal finding. IMPRESSION: Moderate patchy multifocal ground-glass opacification, left greater than right. Possible small left effusion. The lung findings are new since the prior study and are probably inflammatory. Consider viral pneumonia including COVID-19 pneumonia if clinically appropriate. Dictated by John Lua MD @ Aug 21 2020 11:49AM Signed by Dr. John Lua @ Aug 21 2020 11:51AM
[2020-08-21 12:09] LABS: BLOOD UREA NITROGEN,BUN 24 mg/dL (7.0-18.0); CARBON DIOXIDE,CO2 30.2 mmol/L (21.0-32.0); CHLORIDE,CL 96 mmol/L (98-107); GLUCOSE RANDOM 113 mg/dL (74-106); POTASSIUM,K 4.6 mmol/L (3.5-5.1); SODIUM,NA 134 mmol/L (136-145)
[2020-08-21] MEDS ORDERED: Iopamidol 755 MG/ML 500 ML Multipack Bottle IVPUSH STA (13:55)
--- NOTE | 2020-08-21 13:57 | CT ---
INDICATION: Pain COMPARISON: None TECHNIQUE: CT examination of the abdomen and pelvis was performed following the uneventful intravenous administration of 100 cc of Isovue 370. Thin section axial images were obtained from the lung bases through the pubic symphysis. Oral contrast was not administered. Please note that all CT scans at this facility use dose modulation, iterative reconstruction, and/or weight-based dosing when appropriate to reduce radiation dose to as low as reasonably achievable. FINDINGS: LUNG BASES: Bibasilar opacities posteriorly could represent atelectasis, aspiration or pneumonia.Heart is enlarged with the lung bases. Hiatal hernia. LIVER/BILIARY SYSTEM:Liver normal in size. No biliary ductal dilatation. Gallbladder distended. There are stones identified in the gallbladder neck and possibly the cystic duct. No wall thickening or pericholecystic fluid. However, sonography is recommended for further evaluation. The extrahepatic duct is of normal caliber ADRENALS: Normal KIDNEYS, URETERS and BLADDER:A few tiny low-density lesions too small to characterize but likely small renal cysts. The bladder as visualized appears normal SPLEEN:Normal appearance. PANCREAS: Appears normal. RETROPERITONEUM and MESENTERY: There is no mass, adenopathy or aortic aneurysm. GASTROINTESTINAL SYSTEM: There is no evidence of diverticulitis, colitis, mechanical obstruction, or appendicitis. The small bowel as visualized appears normal.Fecal retention. Diverticulosis. PELVIS: Poorly seen due to streak artifact associated with left hip arthroplasty.. OSSEOUS STRUCTURES and ABDOMINAL WALL: Demineralization and degenerative change without acute fracture or destructive process.No significant anterior abdominal wall defect. OTHER: No free fluid or free air. IMPRESSION: 1. Bibasilar opacities could represent atelectasis, aspiration or an inflammatory process such as pneumonia. Enlarged heart. Hiatal hernia. 2. The gallbladder is distended. There are numerous stones that appear to be within the gallbladder neck and cystic duct. However, no definite wall thickening or pericholecystic fluid. No extrahepatic ductal dilatation. Sonography is advised to further evaluate this area. 3. Other incidental nonacute appearing findings in the abdomen and pelvis as discussed in the body of the report. Please note that all CT scans at this facility use dose modulation, iterative reconstruction, and/or weight-based dosing when appropriate to reduce radiation dose to as low as reasonably achievable. Dictated by John Lua MD @ Aug 21 2020 1:47PM Signed by Dr. John Lua @ Aug 21 2020 1:56PM
[2020-08-21 14:54] LABS: CORONAVIRUS COVID-19 NAA NEGATIVE (NEGATIVE); INFLUENZA A NAA NEGATIVE (NEGATIVE); INFLUENZA B NAA NEGATIVE (NEGATIVE)
[2020-08-21] MEDS ORDERED: Ketorolac 15 MG/ML SDV IVPUSH STA (15:28)
[2020-08-21] MEDS ORDERED: cefTRIAXone 1 GM in Premix Bag 1 BAG IV ONE (15:28)
--- NOTE | 2020-08-21 15:40 | US ---
INDICATION: Gallstones seen on CT. TECHNIQUE: Conventional two-dimensional grayscale ultrasound of the right upper quadrant. COMPARISON: Abdomen/pelvis CT of 08/21/2020. FINDINGS: Gallstones are again demonstrated, including a stone in the gallbladder neck. No gallbladder wall thickening or pericholecystic fluid is demonstrated. The patient is reportedly not tender over the gallbladder. No biliary ductal dilation is evident. The common bile duct measures 2 mm. The liver is normal in size, shape and echogenicity. The pancreas is obscured by gas. The right kidney is unremarkable. The visualized portion of the abdominal aorta and inferior vena cava are negative. IMPRESSION: 1. Cholelithiasis with stone in the gallbladder neck. 2. Pancreas obscured by gas. Dictated by Timoteo Payne MD @ Aug 21 2020 3:33PM Signed by Dr. Timoteo Payne @ Aug 21 2020 3:38PM
[2020-08-21] MEDS ORDERED: Celecoxib 100 MG Cap PO PRN (16:26)
--- NOTE | 2020-08-21 16:28 | PCM.HP.2 ---
<Eleanor Brand - Last Filed: 08/21/20 18:11> H&P History of Present Illness - General Date of Service: 08/21/20 Admit Problem/Dx: Admission Diagnosis/Problem Admission Diagnosis/Problem Pneumonia - History of Present Illness Initial Comments - Free Text/Narative: ED notes: 79-year-old female resident at [facility] , presented to the emergency room thia AM with her caregiver with complaints of decreased appetite/oral intake and generalized abdominal pain x . The caregiver states she has not been eating or drinking much over the past 2 days and seems to have tenderness with palpation or touching of the abdomen. Caregiver also states that she will take her oral pills although it is taking her a long time to swallowing get things down. She is on a pureed thickened diet, and has been having difficulty -versus possible concern of aspiration. Patient denies any fever, chills, headache, change in vision, syncope or near syncope. Denies any chest pain, back pain, shortness of breath or cough. Denies any abdominal pain, nausea, vomiting, diarrhea, constipation or dysuria. Has not noted any blood in urine or stool. Patient has been eating and drinking appropriately. ED course: Chest x-ray : moderate patchy multifocal groundglass opacification, left gr eater than right. COVID negative CT abdomen/pelvis shows bibasilar opacities could represent atelectasis, aspiration or inflammatory process such as pneumonia. The gallbladder is distended. There is numerous gallstones that appear to be within the gallbladder neck and cystic duct. However no definitive wall thickening or pericholecystic fluid. There is no extra hepatic duct dilatation. U/S shows lithiasis with stone in the gallbladder neck. No gallbladder wall thickening or pericholecystic fluid is demonstrated. Received Rocephin, Toradol Bedside: Abdomen Pain Score (Numeric/FACES): 7 - Related Data Allergies/Adverse Reactions: Allergies Allergy/AdvReac Type Severity Reaction Status Date / Time No Known Allergies Allergy Verified 08/21/20 17:30 Home Medications: Home Meds Multivitamin [Multi-Vitamin Daily] 1 tab PO DAILY 04/24/15 [History] Calcium Carb, Citrate/Vit D3 [Citracal + D ER] 1,200 mg PO DAILY 01/14/20 [History] Polyethylene Glycol [Polyox [id number]] 17 gm PO DAILY 01/14/20 [History] Ascorbic Acid [Vitamin C] 500 mg PO DAILY 08/21/20 [History] Celecoxib 200 mg PO DAILY PRN 08/21/20 [History] lisinopriL [Lisinopril] 20 mg PO DAILY 08/21/20 [History] predniSONE 2.5 mg PO BID 08/21/20 [History] Past Medical History HEENT History: Reports: Impaired Vision, Other (See Below) Other HEENT History: wears glasses; recurrent nasal drainage; hyperopia; astigmatism Cardiovascular History: Reports: Hypertension Respiratory History: Reports: None Gastrointestinal History: Reports: None Genitourinary History: Reports: None Other Genitourinary History: Bladder hyperactivity [employer] History: Reports: None Musculoskeletal History: Reports: Other (See Below) Other Musculoskeletal History: drop foot Neurological History: Reports: Cerebral Palsy Psychiatric History: Reports: Other (See Below) Other Psychiatric History: speech impairment Endocrine/Metabolic History: Reports: None Hematologic History: Reports: None Immunologic History: Reports: None Oncologic (Cancer) History: Reports: Uterine Dermatologic History: Reports: None - Infectious Disease History Infectious Disease History: Reports: None - Past Surgical History HEENT Surgical History: Reports: None Cardiovascular Surgical History: Reports: None Respiratory Surgical History: Reports: None GI Surgical History: Reports: Appendectomy Female Surgical History: Reports: Breast Biopsy, Hysterectomy Endocrine Surgical History: Reports: None Neurological Surgical History: Reports: None Musculoskeletal Surgical History: Reports: Arthroscopic Procedure, Hip Replacement, ORIF Oncologic Surgical History: Reports: Other (See Below) Other Oncologic Surgeries/Procedures: Hysterectomy Dermatological Surgical History: Reports: None Social & Family History - Family History Family Medical History: No Pertinent Family History - Tobacco Use Tobacco Use Status *Q: Never Tobacco User - Caffeine Use Caffeine Use: Reports: None - Recreational Drug Use Recreational Drug Use: No Exam - Vital Signs Vital Signs: Last Vital Signs Temp 98 F 08/21/20 10:17 Pulse 86 08/21/20 16:18 Resp 18 08/21/20 16:18 BP 153/64 H 08/21/20 16:18 Pulse Ox 95 08/21/20 16:18 Weight: 43.091 kg - Patient Data Lab Results Last 24 hrs: Laboratory Results - last 24 hr 08/21/20 08/21/20 08/21/20 Range/Units 11:25 11:25 11:25 WBC 13.11 H (4.0-11.0) K/uL RBC 3.98 L (4.30-5.90) M/uL Hgb 12.4 (12.0-16.0) g/dL Hct 38.0 (36.0-46.0) % MCV 95.5 (80.0-98.0) fL MCH 31.2 (27.0-32.0) pg MCHC 32.6 (31.0-37.0) g/dL RDW Std Deviation 53.3 (28.0-62.0) fl RDW Coeff of Erik 16 H (11.0-15.0) % Plt Count 229 (150-400) K/uL MPV 9.00 (7.40-12.00) fL Neut % (Auto) 66.3 (48.0-80.0) % Lymph % (Auto) 21.4 (16.0-40.0) % [place] % (Auto) 12.0 (0.0-15.0) % Eos % (Auto) 0.2 (0.0-7.0) % Baso % (Auto) 0.1 (0.0-1.5) % Neut # (Auto) 8.7 H (1.4-5.7) K/uL Lymph # (Auto) 2.8 H (0.6-2.4) K/uL [place] # (Auto) 1.6 H (0.0-0.8) K/uL Eos # (Auto) 0.0 (0.0-0.7) K/uL Baso # (Auto) 0.0 (0.0-0.1) K/uL Nucleated RBC % 0.0 /100WBC Nucleated RBCs # 0 K/uL Sodium 134 L (136-145) mmol/L Potassium 4.6 (3.5-5.1) mmol/L Chloride 96 L (98-107) mmol/L Carbon Dioxide 30.2 (21.0-32.0) mmol/L BUN 24 H (7.0-18.0) mg/dL Creatinine 1.0 (0.6-1.0) mg/dL Est Cr Clr Drug Dosing 30.52 mL/min Estimated GFR (MDRD) 53.3 ml/min Glucose 113 H (74-106) mg/dL Calcium 10.5 H (8.5-10.1) mg/dL Total Bilirubin 0.7 (0.2-1.0) mg/dL AST 31 (15-37) IU/L ALT 50 (14-63) IU/L Alkaline Phosphatase 95 (46-116) U/L Troponin I < 0.050 (0.000-0.056) ng/mL Total Protein 7.2 (6.4-8.2) g/dL Albumin 3.3 L (3.4-5.0) g/dL Globulin 3.9 (2.6-4.0) g/dL Albumin/Globulin Ratio 0.9 (0.9-1.6) Lipase 176 (73-393) U/L Urine Color Urine Appearance Urine pH (5.0-8.0) Ur Specific [place] (1.001-1.035) Urine Protein (NEGATIVE) mg/dL Urine Glucose (UA) (NEGATIVE) mg/dL Urine Ketones (NEGATIVE) mg/dL Urine Occult Blood (NEGATIVE) Urine Nitrite (NEGATIVE) Urine Bilirubin (NEGATIVE) Urine Urobilinogen (<2.0) EU/dL Ur Leukocyte Esterase (NEGATIVE) Influenza Type A RNA (NEGATIVE) Influenza Type B RNA (NEGATIVE) SARS-CoV-2 RNA (JAE) (NEGATIVE) 08/21/20 08/21/20 Range/Units 12:20 14:13 WBC (4.0-11.0) K/uL RBC (4.30-5.90) M/uL Hgb (12.0-16.0) g/dL Hct (36.0-46.0) % MCV (80.0-98.0) fL MCH (27.0-32.0) pg MCHC (31.0-37.0) g/dL RDW Std Deviation (28.0-62.0) fl RDW Coeff of Erik (11.0-15.0) % Plt Count (150-400) K/uL MPV (7.40-12.00) fL Neut % (Auto) (48.0-80.0) % Lymph % (Auto) (16.0-40.0) % [place] % (Auto) (0.0-15.0) % Eos % (Auto) (0.0-7.0) % Baso % (Auto) (0.0-1.5) % Neut # (Auto) (1.4-5.7) K/uL Lymph # (Auto) (0.6-2.4) K/uL [place] # (Auto) (0.0-0.8) K/uL Eos # (Auto) (0.0-0.7) K/uL Baso # (Auto) (0.0-0.1) K/uL Nucleated RBC % /100WBC Nucleated RBCs # K/uL Sodium (136-145) mmol/L Potassium (3.5-5.1) mmol/L Chloride (98-107) mmol/L Carbon Dioxide (21.0-32.0) mmol/L BUN (7.0-18.0) mg/dL Creatinine (0.6-1.0) mg/dL Est Cr Clr Drug Dosing mL/min Estimated GFR (MDRD) ml/min Glucose (74-106) mg/dL Calcium (8.5-10.1) mg/dL Total Bilirubin (0.2-1.0) mg/dL AST (15-37) IU/L ALT (14-63) IU/L Alkaline Phosphatase (46-116) U/L Troponin I (0.000-0.056) ng/mL Total Protein (6.4-8.2) g/dL Albumin (3.4-5.0) g/dL Globulin (2.6-4.0) g/dL Albumin/Globulin Ratio (0.9-1.6) Lipase (73-393) U/L Urine Color YELLOW Urine Appearance CLEAR Urine pH 7.0 (5.0-8.0) Ur Specific [place] 1.020 (1.001-1.035) Urine Protein NEGATIVE (NEGATIVE) mg/dL Urine Glucose (UA) NEGATIVE (NEGATIVE) mg/dL Urine Ketones 15 H (NEGATIVE) mg/dL Urine Occult Blood NEGATIVE (NEGATIVE) Urine Nitrite NEGATIVE (NEGATIVE) Urine Bilirubin NEGATIVE (NEGATIVE) Urine Urobilinogen 1.0 (<2.0) EU/dL Ur Leukocyte Esterase NEGATIVE (NEGATIVE) Influenza Type A RNA NEGATIVE (NEGATIVE) Influenza Type B RNA NEGATIVE (NEGATIVE) SARS-CoV-2 RNA (JAE) NEGATIVE (NEGATIVE) Result Diagrams: 08/21/20 11:25 08/21/20 11:25 Sepsis Event Note - Evaluation Sepsis Screening Result: No Definite Risk - Focused Exam Vital Signs: Vital Signs Temp Pulse Resp BP Pulse Ox 08/21/20 16:18 86 18 153/64 H 95 08/21/20 14:29 81 18 158/66 H 95 08/21/20 11:46 96 16 150/53 H 95 08/21/20 10:17 98 F 97 16 91 L Problem List Initiated/Reviewed/Updated: Yes Orders Last 24hrs: Active Orders 24 hr Category Date Time Status Admission Status [Patient Status] [ADT] Stat ADT 08/21/20 15:47 Active EKG Documentation Completion [RC] AM Care 08/21/20 10:58 Active Oxygen Therapy [RC] PRN Care 08/21/20 16:25 Ordered Up With Assistance [RC] ASDIRECTED Care 08/21/20 16:25 Ordered VTE/DVT Education [RC] PER UNIT ROUTINE Care 08/21/20 16:25 Ordered Vital Signs [RC] Q4H Care 08/21/20 16:25 Ordered Celecoxib [Celecoxib] Med 08/21/20 16:26 Ordered 200 mg PO DAILY PRN Sodium Chloride 0.9% [Normal Saline] 1,000 ml Med 08/21/20 10:58 Active IV STAT Sodium Chloride 0.9% [Saline Flush] Med 08/21/20 10:58 Active 10 ml FLUSH ASDIRECTED PRN Sodium Chloride 0.9% [Saline Flush] Med 08/21/20 10:58 Active 2.5 ml FLUSH ASDIRECTED PRN lisinopriL [Lisinopril] Med 08/22/20 09:00 Ordered 20 mg PO DAILY predniSONE Med 08/21/20 21:00 Ordered 2.5 mg PO BID Saline Lock Insert [OM.PC] Stat Oth 08/21/20 10:58 Ordered Medication Orders Sodium Chloride (Normal Saline) 1,000 mls @ 125 mls/hr IV STAT ONE Stop: 08/21/20 18:57 Last Admin: 08/21/20 11:44 Dose: 125 mls/hr Documented by: ROSANA Sodium Chloride (Saline Flush) 10 ml FLUSH ASDIRECTED PRN PRN Reason: Keep Vein Open Last Admin: 08/21/20 11:44 Dose: 10 ml Documented by: WUMAC Sodium Chloride (Saline Flush) 2.5 ml FLUSH ASDIRECTED PRN PRN Reason: Keep Vein Open Last Admin: 08/21/20 11:44 Dose: 2.5 ml Documented by: ROSANA Assessment/Plan Comment:: Assessment: 1. Leukocytosis in setting of CAP 2. Abdominal pain w. non-obstructing cholelithiasis 3. Mild hyponatremia 4. PMH: cerebral palsy, HTN, chronic UTI , frequent falls Plan Admit to observation. Full code. I/o;s per routine. Up with assistance Diet: pureed vitals per routine. IV fluids: NS 125 cc/hr 1. CAP: CXR: moderate patchy multifocal groundglass opacification ; Left > right COVID negative Received 1 gram of Rocephin in ED; add on IV azithromycin; continue to monitor o2 status requiring 0.5 Liter o2 2. Non-obstruction cholelithiasis: continue to monitor. no RUQ tenderness, negative Welch. LFT's unremarkble. Bilirubin nominal If pain worsens may consider repeat imaging <Sarah Ziegler - Last Filed: 08/21/20 23:14> H&P History of Present Illness - General Admit Problem/Dx: Admission Diagnosis/Problem Admission Diagnosis/Problem Pneumonia H&P Review of Systems - Review of Systems: Review Of Systems: See Below Exam - Exam Exam: See Below - Vital Signs Vital Signs: Last Vital Signs Temp 36.8 C 08/21/20 21:00 Pulse 58 L 08/21/20 21:00 Resp 18 08/21/20 21:00 BP 113/36 L 08/21/20 21:00 Pulse Ox 94 L 08/21/20 21:00 - Patient Data Lab Results Last 24 hrs: Laboratory Results - last 24 hr 08/21/20 08/21/20 08/21/20 Range/Units 11:25 11:25 11:25 WBC 13.11 H (4.0-11.0) K/uL RBC 3.98 L (4.30-5.90) M/uL Hgb 12.4 (12.0-16.0) g/dL Hct 38.0 (36.0-46.0) % MCV 95.5 (80.0-98.0) fL MCH 31.2 (27.0-32.0) pg MCHC 32.6 (31.0-37.0) g/dL RDW Std Deviation 53.3 (28.0-62.0) fl RDW Coeff of Erik 16 H (11.0-15.0) % Plt Count 229 (150-400) K/uL MPV 9.00 (7.40-12.00) fL Neut % (Auto) 66.3 (48.0-80.0) % Lymph % (Auto) 21.4 (16.0-40.0) % [place] % (Auto) 12.0 (0.0-15.0) % Eos % (Auto) 0.2 (0.0-7.0) % Baso % (Auto) 0.1 (0.0-1.5) % Neut # (Auto) 8.7 H (1.4-5.7) K/uL Lymph # (Auto) 2.8 H (0.6-2.4) K/uL [place] # (Auto) 1.6 H (0.0-0.8) K/uL Eos # (Auto) 0.0 (0.0-0.7) K/uL Baso # (Auto) 0.0 (0.0-0.1) K/uL Nucleated RBC % 0.0 /100WBC Nucleated RBCs # 0 K/uL Sodium 134 L (136-145) mmol/L Potassium 4.6 (3.5-5.1) mmol/L Chloride 96 L (98-107) mmol/L Carbon Dioxide 30.2 (21.0-32.0) mmol/L BUN 24 H (7.0-18.0) mg/dL Creatinine 1.0 (0.6-1.0) mg/dL Est Cr Clr Drug Dosing 30.52 mL/min Estimated GFR (MDRD) 53.3 ml/min Glucose 113 H (74-106) mg/dL Calcium 10.5 H (8.5-10.1) mg/dL Total Bilirubin 0.7 (0.2-1.0) mg/dL AST 31 (15-37) IU/L ALT 50 (14-63) IU/L Alkaline Phosphatase 95 (46-116) U/L Troponin I < 0.050 (0.000-0.056) ng/mL Total Protein 7.2 (6.4-8.2) g/dL Albumin 3.3 L (3.4-5.0) g/dL Globulin 3.9 (2.6-4.0) g/dL Albumin/Globulin Ratio 0.9 (0.9-1.6) Lipase 176 (73-393) U/L Urine Color Urine Appearance Urine pH (5.0-8.0) Ur Specific [place] (1.001-1.035) Urine Protein (NEGATIVE) mg/dL Urine Glucose (UA) (NEGATIVE) mg/dL Urine Ketones (NEGATIVE) mg/dL Urine Occult Blood (NEGATIVE) Urine Nitrite (NEGATIVE) Urine Bilirubin (NEGATIVE) Urine Urobilinogen (<2.0) EU/dL Ur Leukocyte Esterase (NEGATIVE) Influenza Type A RNA (NEGATIVE) Influenza Type B RNA (NEGATIVE) SARS-CoV-2 RNA (JAE) (NEGATIVE) 08/21/20 08/21/20 Range/Units 12:20 14:13 WBC (4.0-11.0) K/uL RBC (4.30-5.90) M/uL Hgb (12.0-16.0) g/dL Hct (36.0-46.0) % MCV (80.0-98.0) fL MCH (27.0-32.0) pg MCHC (31.0-37.0) g/dL RDW Std Deviation (28.0-62.0) fl RDW Coeff of Erik (11.0-15.0) % Plt Count (150-400) K/uL MPV (7.40-12.00) fL Neut % (Auto) (48.0-80.0) % Lymph % (Auto) (16.0-40.0) % [place] % (Auto) (0.0-15.0) % Eos % (Auto) (0.0-7.0) % Baso % (Auto) (0.0-1.5) % Neut # (Auto) (1.4-5.7) K/uL Lymph # (Auto) (0.6-2.4) K/uL [place] # (Auto) (0.0-0.8) K/uL Eos # (Auto) (0.0-0.7) K/uL Baso # (Auto) (0.0-0.1) K/uL Nucleated RBC % /100WBC Nucleated RBCs # K/uL Sodium (136-145) mmol/L Potassium (3.5-5.1) mmol/L Chloride (98-107) mmol/L Carbon Dioxide (21.0-32.0) mmol/L BUN (7.0-18.0) mg/dL Creatinine (0.6-1.0) mg/dL Est Cr Clr Drug Dosing mL/min Estimated GFR (MDRD) ml/min Glucose (74-106) mg/dL Calcium (8.5-10.1) mg/dL Total Bilirubin (0.2-1.0) mg/dL AST (15-37) IU/L ALT (14-63) IU/L Alkaline Phosphatase (46-116) U/L Troponin I (0.000-0.056) ng/mL Total Protein (6.4-8.2) g/dL Albumin (3.4-5.0) g/dL Globulin (2.6-4.0) g/dL Albumin/Globulin Ratio (0.9-1.6) Lipase (73-393) U/L Urine Color YELLOW Urine Appearance CLEAR Urine pH 7.0 (5.0-8.0) Ur Specific [place] 1.020 (1.001-1.035) Urine Protein NEGATIVE (NEGATIVE) mg/dL Urine Glucose (UA) NEGATIVE (NEGATIVE) mg/dL Urine Ketones 15 H (NEGATIVE) mg/dL Urine Occult Blood NEGATIVE (NEGATIVE) Urine Nitrite NEGATIVE (NEGATIVE) Urine Bilirubin NEGATIVE (NEGATIVE) Urine Urobilinogen 1.0 (<2.0) EU/dL Ur Leukocyte Esterase NEGATIVE (NEGATIVE) Influenza Type A RNA NEGATIVE (NEGATIVE) Influenza Type B RNA NEGATIVE (NEGATIVE) SARS-CoV-2 RNA (JAE) NEGATIVE (NEGATIVE) Result Diagrams: 08/21/20 11:25 08/21/20 11:25 Sepsis Event Note - Focused Exam Vital Signs: Vital Signs Temp Pulse Resp BP Pulse Ox 08/21/20 21:00 36.8 C 58 L 18 113/36 L 94 L 08/21/20 17:00 36.6 C 58 L 18 141/70 H 96 08/21/20 16:18 86 18 153/64 H 95 08/21/20 14:29 81 18 158/66 H 95 08/21/20 11:46 96 16 150/53 H 95 Orders Last 24hrs: Active Orders 24 hr Category Date Time Status Admission Status [Patient Status] [ADT] Stat ADT 08/21/20 15:47 Active Oxygen Therapy [RC] PRN Care 08/21/20 16:25 Active Telemetry Monitoring [Cardiac Monitoring] [RC] . Care 08/21/20 16:45 Active DIRECTED Up With Assistance [RC] ASDIRECTED Care 08/21/20 16:25 Active VTE/DVT Education [RC] PER UNIT ROUTINE Care 08/21/20 16:25 Active Vital Signs [RC] Q4H Care 08/21/20 16:25 Active Pureed Diet [DIET] Diet 08/22/20 Breakfast Active CBC WITH AUTO DIFF [HEME] AM Lab 08/22/20 05:11 Ordered COMPREHENSIVE METABOLIC PN,CMP [CHEM] AM Lab 08/22/20 05:11 Ordered COMPREHENSIVE METABOLIC PN,CMP [CHEM] AM Lab 08/23/20 05:11 Ordered COMPREHENSIVE METABOLIC PN,CMP [CHEM] AM Lab 08/24/20 05:11 Ordered PROCALCITONIN [REF] Routine Lab 08/21/20 16:45 Ordered Azithromycin [Zithromax] 500 mg Med 08/22/20 09:00 Active Sodium Chloride 0.9% [Normal Saline (AdvBag)] 250 ml IV DAILY Heparin Sodium Med 08/21/20 22:00 Active 5,000 units SUBCUT Q8H Ibuprofen [Motrin] Med 08/21/20 18:09 Active 400 mg PO Q4H PRN Melatonin Med 08/21/20 18:09 Active 3 mg PO BEDTIME PRN Pantoprazole [ProTONIX] Med 08/21/20 17:30 Active 40 mg PO ACBREAKFAST Sodium Chloride 0.9% [Normal Saline] 1,000 ml Med 08/21/20 17:51 Active IV NOW Sodium Chloride 0.9% [Saline Flush] Med 08/21/20 10:58 Active 10 ml FLUSH ASDIRECTED PRN Sodium Chloride 0.9% [Saline Flush] Med 08/21/20 10:58 Active 2.5 ml FLUSH ASDIRECTED PRN lisinopriL [Prinivil] Med 08/22/20 09:00 Active 20 mg PO DAILY predniSONE Med 08/21/20 21:00 Active 2.5 mg PO BID Saline Lock Insert [OM.PC] Stat Oth 08/21/20 10:58 Ordered Medication Orders Heparin Sodium (Porcine) (Heparin Sodium) 5,000 units SUBCUT Q8H [facility] [place] Last Admin: 08/21/20 21:18 Dose: Not Given Documented by: Admin: 08/21/20 20:11 Dose: 5,000 units Documented by: ANGELINE Azithromycin 500 mg/ Sodium (Chloride) 250 mls @ 250 mls/hr IV DAILY [facility] [place] Sodium Chloride (Normal Saline) 1,000 mls @ 100 mls/hr IV NOW STA Stop: 08/22/20 03:50 Last Admin: 08/21/20 18:02 Dose: 100 mls/hr Documented by: JENNY Ibuprofen (Motrin) 400 mg PO Q4H PRN PRN Reason: Pain Lisinopril (Prinivil) 20 mg PO DAILY [facility] [place] Melatonin (Melatonin) 3 mg PO BEDTIME PRN PRN Reason: Insomnia Last Admin: 08/21/20 20:11 Dose: 3 mg Documented by: ANGELINE Pantoprazole Sodium (Protonix) 40 mg PO ACBREAKFAST [facility] [place] Last Admin: 08/21/20 17:42 Dose: 40 mg Documented by: JENNY Prednisone (Prednisone) 2.5 mg PO BID [facility] [place] Last Admin: 08/21/20 20:11 Dose: 2.5 mg Documented by: ANGELINE Sodium Chloride (Saline Flush) 10 ml FLUSH ASDIRECTED PRN PRN Reason: Keep Vein Open Last Admin: 08/21/20 11:44 Dose: 10 ml Documented by: ROSANA Sodium Chloride (Saline Flush) 2.5 ml FLUSH ASDIRECTED PRN PRN Reason: Keep Vein Open Last Admin: 08/21/20 11:44 Dose: 2.5 ml Documented by: ROSANA Assessment/Plan Comment:: I performed a history and physical exam of the patient and discussed management with resident. I have reviewed the residents note and agree with documented findings and plan unless otherwise specified in my note.
[2020-08-21] MEDS: Pantoprazole 40 MG Tab.CR PO SCH (17:42)
[2020-08-21] MEDS ORDERED: Sodium Chloride 0.9% 1,000 ML IV STA (17:51)
[2020-08-21] MEDS ORDERED: Melatonin 3 MG Tab PO PRN (18:09)
[2020-08-21] MEDS: predniSONE 5 MG Tab PO SCH (20:11)
[2020-08-21] MEDS: Heparin Sodium 5,000 Units/ML Vial SUBCUT SCH ×2 (20:11→21:18)
[2020-08-22 06:01] LABS: BLOOD UREA NITROGEN,BUN 27 mg/dL (7.0-18.0); CARBON DIOXIDE,CO2 25.1 mmol/L (21.0-32.0); CHLORIDE,CL 103 mmol/L (98-107); GLUCOSE RANDOM 100 mg/dL (74-106); POTASSIUM,K 4.3 mmol/L (3.5-5.1); SODIUM,NA 137 mmol/L (136-145)
[2020-08-22] MEDS: Heparin Sodium 5,000 Units/ML Vial SUBCUT SCH ×3 (06:59→21:54)
[2020-08-22] MEDS: Pantoprazole 40 MG Tab.CR PO SCH (06:59)
[2020-08-22] MEDS: Azithromycin 500 MG in Sodium Chloride 0.9% 250 ML IV SCH (10:18)
[2020-08-22] MEDS: Lisinopril 10 MG Tab PO SCH (10:23)
[2020-08-22] MEDS: predniSONE 5 MG Tab PO SCH ×2 (10:26→21:55)
[2020-08-22] MEDS ORDERED: Oxybutynin 5 MG Tab PO SCH (10:30)
[2020-08-22] MEDS: Oxybutynin 5 MG Tab PO SCH ×2 (11:07→21:55)
--- NOTE | 2020-08-22 12:33 | PCM.SN.2 ---
- Free Text/Narrative Note: 1) pt seen, chart reviewed; asymptomatic gallstones, LFT wnl, wbc is normal, PE no pain, and pt is so hungry, no surgery planned; if clinically indicated, may proceed w plain HIDA, no CCK, to check for obstruction/cholecystitis; do not see any indication for on today examination 2) pt appeared quite hungry, contrary to staff report "feeding problem", may need more food, ensure may be benefitial, aspiration precaution 3) pt looked also dehydrated, encourage po juice/liquid intake 4) CT showed stool in colon; dulcolex 10 pr X 1 if no BM since admission 5) recall if questions; tks for the consult and care of this beautiful pleasant patient 6) fu prn
--- NOTE | 2020-08-22 12:41 | PCM.PN ---
<Eleanor Brand - Last Filed: 08/22/20 12:41> - General Info Date of Service: 08/22/20 Subjective Update: Non verbal patient from [facility] No acute distress; when asked regarding pain ; pt pointed vaguely to lower abdominal area Per nursing staff :pt did eat and tolerate bfast this AM no overnight events Functional Status: Reports: Tolerating Diet - Review of Systems Pulmonary: Reports: No Symptoms (baseline MR ; unreliable Review of systems ) Cardiovascular: Reports: No Symptoms - Patient Data Vitals - Most Recent: Last Vital Signs Temp 97.2 F 08/22/20 11:50 Pulse 83 08/22/20 11:50 Resp 22 H 08/22/20 11:50 BP 110/59 L 08/22/20 11:50 Pulse Ox 92 L 08/22/20 11:50 Weight - Most Recent: 47.5 kg I&O - Last 24 Hours: Intake & Output 08/21/20 08/22/20 08/22/20 22:59 06:59 14:59 Intake Total 1672 Balance 1672 Lab Results Last 24 Hours: Laboratory Results - last 24 hr 08/21/20 08/21/20 08/22/20 Range/Units 12:20 14:13 05:00 WBC 10.82 (4.0-11.0) K/uL RBC 3.25 L (4.30-5.90) M/uL Hgb 10.1 L (12.0-16.0) g/dL Hct 31.3 L (36.0-46.0) % MCV 96.3 (80.0-98.0) fL MCH 31.1 (27.0-32.0) pg MCHC 32.3 (31.0-37.0) g/dL RDW Std Deviation 54.1 (28.0-62.0) fl RDW Coeff of Erik 16 H (11.0-15.0) % Plt Count 200 (150-400) K/uL MPV 9.40 (7.40-12.00) fL Neut % (Auto) 44.7 L (48.0-80.0) % Lymph % (Auto) 43.5 H (16.0-40.0) % [place] % (Auto) 11.0 (0.0-15.0) % Eos % (Auto) 0.7 (0.0-7.0) % Baso % (Auto) 0.1 (0.0-1.5) % Neut # (Auto) 4.8 (1.4-5.7) K/uL Lymph # (Auto) 4.7 H (0.6-2.4) K/uL [place] # (Auto) 1.2 H (0.0-0.8) K/uL Eos # (Auto) 0.1 (0.0-0.7) K/uL Baso # (Auto) 0.0 (0.0-0.1) K/uL Nucleated RBC % 0.0 /100WBC Nucleated RBCs # 0 K/uL Sodium (136-145) mmol/L Potassium (3.5-5.1) mmol/L Chloride (98-107) mmol/L Carbon Dioxide (21.0-32.0) mmol/L BUN (7.0-18.0) mg/dL Creatinine (0.6-1.0) mg/dL Est Cr Clr Drug Dosing mL/min Estimated GFR (MDRD) ml/min Glucose (74-106) mg/dL Calcium (8.5-10.1) mg/dL Total Bilirubin (0.2-1.0) mg/dL AST (15-37) IU/L ALT (14-63) IU/L Alkaline Phosphatase (46-116) U/L Total Protein (6.4-8.2) g/dL Albumin (3.4-5.0) g/dL Globulin (2.6-4.0) g/dL Albumin/Globulin Ratio (0.9-1.6) Urine Color YELLOW Urine Appearance CLEAR Urine pH 7.0 (5.0-8.0) Ur Specific [place] 1.020 (1.001-1.035) Urine Protein NEGATIVE (NEGATIVE) mg/dL Urine Glucose (UA) NEGATIVE (NEGATIVE) mg/dL Urine Ketones 15 H (NEGATIVE) mg/dL Urine Occult Blood NEGATIVE (NEGATIVE) Urine Nitrite NEGATIVE (NEGATIVE) Urine Bilirubin NEGATIVE (NEGATIVE) Urine Urobilinogen 1.0 (<2.0) EU/dL Ur Leukocyte Esterase NEGATIVE (NEGATIVE) Influenza Type A RNA NEGATIVE (NEGATIVE) Influenza Type B RNA NEGATIVE (NEGATIVE) SARS-CoV-2 RNA (JAE) NEGATIVE (NEGATIVE) 08/22/20 Range/Units 05:00 WBC (4.0-11.0) K/uL RBC (4.30-5.90) M/uL Hgb (12.0-16.0) g/dL Hct (36.0-46.0) % MCV (80.0-98.0) fL MCH (27.0-32.0) pg MCHC (31.0-37.0) g/dL RDW Std Deviation (28.0-62.0) fl RDW Coeff of Erik (11.0-15.0) % Plt Count (150-400) K/uL MPV (7.40-12.00) fL Neut % (Auto) (48.0-80.0) % Lymph % (Auto) (16.0-40.0) % [place] % (Auto) (0.0-15.0) % Eos % (Auto) (0.0-7.0) % Baso % (Auto) (0.0-1.5) % Neut # (Auto) (1.4-5.7) K/uL Lymph # (Auto) (0.6-2.4) K/uL [place] # (Auto) (0.0-0.8) K/uL Eos # (Auto) (0.0-0.7) K/uL Baso # (Auto) (0.0-0.1) K/uL Nucleated RBC % /100WBC Nucleated RBCs # K/uL Sodium 137 (136-145) mmol/L Potassium 4.3 (3.5-5.1) mmol/L Chloride 103 (98-107) mmol/L Carbon Dioxide 25.1 (21.0-32.0) mmol/L BUN 27 H (7.0-18.0) mg/dL Creatinine 0.9 (0.6-1.0) mg/dL Est Cr Clr Drug Dosing 37.38 mL/min Estimated GFR (MDRD) > 60.0 ml/min Glucose 100 (74-106) mg/dL Calcium 8.9 (8.5-10.1) mg/dL Total Bilirubin 0.4 (0.2-1.0) mg/dL AST 26 (15-37) IU/L ALT 40 (14-63) IU/L Alkaline Phosphatase 81 (46-116) U/L Total Protein 5.6 L (6.4-8.2) g/dL Albumin 2.5 L (3.4-5.0) g/dL Globulin 3.1 (2.6-4.0) g/dL Albumin/Globulin Ratio 0.8 L (0.9-1.6) Urine Color Urine Appearance Urine pH (5.0-8.0) Ur Specific [place] (1.001-1.035) Urine Protein (NEGATIVE) mg/dL Urine Glucose (UA) (NEGATIVE) mg/dL Urine Ketones (NEGATIVE) mg/dL Urine Occult Blood (NEGATIVE) Urine Nitrite (NEGATIVE) Urine Bilirubin (NEGATIVE) Urine Urobilinogen (<2.0) EU/dL Ur Leukocyte Esterase (NEGATIVE) Influenza Type A RNA (NEGATIVE) Influenza Type B RNA (NEGATIVE) SARS-CoV-2 RNA (JAE) (NEGATIVE) Med Orders - Current: Current Medications Heparin Sodium (Porcine) (Heparin Sodium) 5,000 units SUBCUT Q8H [facility] Last Admin: 08/22/20 06:59 Dose: 5,000 units Documented by: Azithromycin 500 mg/ Sodium (Chloride) 250 mls @ 250 mls/hr IV DAILY [facility] Last Admin: 08/22/20 10:18 Dose: 250 mls/hr Documented by: Ibuprofen (Motrin) 400 mg PO Q4H PRN PRN Reason: Pain Lisinopril (Prinivil) 20 mg PO DAILY [facility] Last Admin: 08/22/20 10:23 Dose: 20 mg Documented by: Melatonin (Melatonin) 3 mg PO BEDTIME PRN PRN Reason: Insomnia Last Admin: 08/21/20 20:11 Dose: 3 mg Documented by: Oxybutynin Chloride (Oxybutynin) 2.5 mg PO BID [facility] Last Admin: 08/22/20 11:07 Dose: 2.5 mg Documented by: Pantoprazole Sodium (Protonix) 40 mg PO ACBREAKFAST [facility] Last Admin: 08/22/20 06:59 Dose: 40 mg Documented by: Prednisone (Prednisone) 2.5 mg PO BID [facility] Last Admin: 08/22/20 10:26 Dose: 2.5 mg Documented by: Sodium Chloride (Saline Flush) 10 ml FLUSH ASDIRECTED PRN PRN Reason: Keep Vein Open Last Admin: 08/21/20 11:44 Dose: 10 ml Documented by: Sodium Chloride (Saline Flush) 2.5 ml FLUSH ASDIRECTED PRN PRN Reason: Keep Vein Open Last Admin: 08/21/20 11:44 Dose: 2.5 ml Documented by: Discontinued Medications Celecoxib (Celebrex) 200 mg PO DAILY PRN PRN Reason: Pain Sodium Chloride (Normal Saline) 1,000 mls @ 125 mls/hr IV STAT ONE Stop: 08/21/20 18:57 Last Admin: 08/21/20 11:44 Dose: 125 mls/hr Documented by: Ceftriaxone Sodium/Dextrose 1 (gm/ Premix) 50 mls @ 100 mls/hr IV ONETIME ONE Stop: 08/21/20 15:57 Last Admin: 08/21/20 16:09 Dose: 100 mls/hr Documented by: Sodium Chloride (Normal Saline) 1,000 mls @ 100 mls/hr IV NOW STA Stop: 08/22/20 03:50 Last Admin: 08/21/20 18:02 Dose: 100 mls/hr Documented by: Iopamidol (Isovue Multipack-370 (76%)) 100 ml IVPUSH ONETIME STA Stop: 08/21/20 13:56 Last Admin: 08/21/20 13:55 Dose: 100 ml Documented by: Ketorolac Tromethamine (Toradol) 15 mg IVPUSH NOW STA Stop: 08/21/20 15:29 Last Admin: 08/21/20 16:09 Dose: 15 mg Documented by: Oxybutynin Chloride (Oxybutynin) 2.5 mg PO DAILY SUE - Exam Quality Assessment: No: Supplemental Oxygen General: Alert, Oriented, Cooperative, No Acute Distress HEENT: EOMI Neck: Supple Lungs: Clear to Auscultation, Normal Respiratory Effort Cardiovascular: No: Tachycardia GI/Abdominal Exam: Soft, Non-Tender, Other (vague discomfort noted w. abdominal palpation but not over RUQ. ) Back Exam: Full Range of Motion Neurological: No New Focal Deficit Psy/Mental Status: Alert, Normal Mood Sepsis Event Note - Evaluation Sepsis Screening Result: No Definite Risk - Focused Exam Vital Signs: Vital Signs Temp Pulse Resp BP BP Pulse Ox 08/22/20 11:50 97.2 F 83 22 H 110/59 L 92 L 08/22/20 10:23 119/62 08/22/20 07:47 97.7 F 62 20 133/57 L 94 L 08/22/20 04:00 97.0 F 50 L 16 130/60 95 - Problem List Review Problem List Initiated/Reviewed/Updated: Yes - My Orders Last 24 Hours: My Active Orders 08/21/20 16:25 Oxygen Therapy [RC] PRN Up With Assistance [RC] ASDIRECTED VTE/DVT Education [RC] PER UNIT ROUTINE Vital Signs [RC] Q4H 08/21/20 16:45 PROCALCITONIN [REF] Routine 08/21/20 17:30 Pantoprazole [ProTONIX] 40 mg PO ACBREAKFAST 08/21/20 18:09 Ibuprofen [Motrin] 400 mg PO Q4H PRN Melatonin 3 mg PO BEDTIME PRN 08/21/20 21:00 predniSONE 2.5 mg PO BID 08/21/20 22:00 Heparin Sodium 5,000 units SUBCUT Q8H 08/22/20 Breakfast Pureed Diet [DIET] 08/22/20 09:00 Azithromycin [Zithromax] 500 mg Sodium Chloride 0.9% [Normal Saline (AdvBag)] 250 ml IV DAILY lisinopriL [Prinivil] 20 mg PO DAILY 08/22/20 11:05 Consult to Physician [CONS] Routine 08/22/20 11:06 Notify Provider Consults [RC] ASDIRECTED 08/23/20 05:11 COMPREHENSIVE METABOLIC PN,CMP [CHEM] AM 08/24/20 05:11 COMPREHENSIVE METABOLIC PN,CMP [CHEM] AM - Plan Plan:: I performed a history and physical exam of the patient and discussed management with resident. I have reviewed the residents note and agree with documented findings and plan unless otherwise specified in my note. Assessment: 1. Leukocytosis in setting of CAP : RESOLVED 2. Abdominal pain w. non-obstructing cholelithiasis 3. Mild hyponatremia :resolved 4. PMH: cerebral palsy, HTN, chronic UTI , frequent falls Plan IV fluids: NS 125 cc/hr 1. CAP: CXR: moderate patchy multifocal groundglass opacification ; Left > right COVID negative Received 1 gram of Rocephin in ED; add on IV azithromycin; continue to monitor o2 status requiring 0.5 Liter o2 Procalcitonin pending 2. Non-obstruction cholelithiasis: continue to monitor. no RUQ tenderness, negative Garcia. LFT's unremarkable. Bilirubin nominal If pain worsens may consider repeat imaging ; will consult Dr Myles of General Surgery for any recommendation; we appreciate Dr Myles's expertise Continue Daily PPI . Continue IV fluids Since hx of recurrent UTI (negative UA today); can also consider bladder spasms as being etiology ofr vague discomfort; start Oxybutinin today and monitor for response. <Sarah Ziegler - Last Filed: 08/23/20 18:03> - Patient Data Vitals - Most Recent: Last Vital Signs Temp 36.8 C 08/23/20 16:00 Pulse 70 08/23/20 16:00 Resp 16 08/23/20 16:00 BP 147/63 H 08/23/20 16:00 Pulse Ox 97 08/23/20 16:00 I&O - Last 24 Hours: Intake & Output 08/23/20 08/23/20 08/23/20 06:59 14:59 22:59 Intake Total 200 Output Total 350 Balance -150 Lab Results Last 24 Hours: Laboratory Results - last 24 hr 08/22/20 08/23/20 08/23/20 Range/Units 05:00 05:25 05:25 WBC 10.53 (4.0-11.0) K/uL RBC 3.42 L (4.30-5.90) M/uL Hgb 10.6 L (12.0-16.0) g/dL Hct 32.7 L (36.0-46.0) % MCV 95.6 (80.0-98.0) fL MCH 31.0 (27.0-32.0) pg MCHC 32.4 (31.0-37.0) g/dL RDW Std Deviation 53.6 (28.0-62.0) fl RDW Coeff of Erik 16 H (11.0-15.0) % Plt Count 224 (150-400) K/uL MPV 9.60 (7.40-12.00) fL Neut % (Auto) 37.8 L (48.0-80.0) % Lymph % (Auto) 52.0 H (16.0-40.0) % [place] % (Auto) 8.7 (0.0-15.0) % Eos % (Auto) 1.3 (0.0-7.0) % Baso % (Auto) 0.2 (0.0-1.5) % Neut # (Auto) 4.0 (1.4-5.7) K/uL Lymph # (Auto) 5.5 H (0.6-2.4) K/uL [place] # (Auto) 0.9 H (0.0-0.8) K/uL Eos # (Auto) 0.1 (0.0-0.7) K/uL Baso # (Auto) 0.0 (0.0-0.1) K/uL Nucleated RBC % 0.0 /100WBC Nucleated RBCs # 0 K/uL Sodium 135 L (136-145) mmol/L Potassium 4.1 (3.5-5.1) mmol/L Chloride 102 (98-107) mmol/L Carbon Dioxide 25.1 (21.0-32.0) mmol/L BUN 23 H (7.0-18.0) mg/dL Creatinine 0.7 (0.6-1.0) mg/dL Est Cr Clr Drug Dosing 48.06 mL/min Estimated GFR (MDRD) > 60.0 ml/min Glucose 102 (74-106) mg/dL Calcium 8.9 (8.5-10.1) mg/dL Magnesium (1.8-2.4) mg/dL Total Bilirubin 0.5 (0.2-1.0) mg/dL AST 33 (15-37) IU/L ALT 48 (14-63) IU/L Alkaline Phosphatase 97 (46-116) U/L Total Protein 6.1 L (6.4-8.2) g/dL Albumin 2.6 L (3.4-5.0) g/dL Globulin 3.5 (2.6-4.0) g/dL Albumin/Globulin Ratio 0.7 L (0.9-1.6) Procalcitonin 0.10 H ng/mL 08/23/20 Range/Units 05:25 WBC (4.0-11.0) K/uL RBC (4.30-5.90) M/uL Hgb (12.0-16.0) g/dL Hct (36.0-46.0) % MCV (80.0-98.0) fL MCH (27.0-32.0) pg MCHC (31.0-37.0) g/dL RDW Std Deviation (28.0-62.0) fl RDW Coeff of Erik (11.0-15.0) % Plt Count (150-400) K/uL MPV (7.40-12.00) fL Neut % (Auto) (48.0-80.0) % Lymph % (Auto) (16.0-40.0) % [place] % (Auto) (0.0-15.0) % Eos % (Auto) (0.0-7.0) % Baso % (Auto) (0.0-1.5) % Neut # (Auto) (1.4-5.7) K/uL Lymph # (Auto) (0.6-2.4) K/uL [place] # (Auto) (0.0-0.8) K/uL Eos # (Auto) (0.0-0.7) K/uL Baso # (Auto) (0.0-0.1) K/uL Nucleated RBC % /100WBC Nucleated RBCs # K/uL Sodium (136-145) mmol/L Potassium (3.5-5.1) mmol/L Chloride (98-107) mmol/L Carbon Dioxide (21.0-32.0) mmol/L BUN (7.0-18.0) mg/dL Creatinine (0.6-1.0) mg/dL Est Cr Clr Drug Dosing mL/min Estimated GFR (MDRD) ml/min Glucose (74-106) mg/dL Calcium (8.5-10.1) mg/dL Magnesium 1.7 L (1.8-2.4) mg/dL Total Bilirubin (0.2-1.0) mg/dL AST (15-37) IU/L ALT (14-63) IU/L Alkaline Phosphatase (46-116) U/L Total Protein (6.4-8.2) g/dL Albumin (3.4-5.0) g/dL Globulin (2.6-4.0) g/dL Albumin/Globulin Ratio (0.9-1.6) Procalcitonin ng/mL Med Orders - Current: Current Medications Bisacodyl (Dulcolax) 10 mg PO DAILY PRN PRN Reason: Constipation Bisacodyl (Dulcolax) 10 mg RECTAL DAILY PRN PRN Reason: Constipation Last Admin: 08/23/20 10:32 Dose: 10 mg Documented by: Heparin Sodium (Porcine) (Heparin Sodium) 5,000 units SUBCUT Q8H [facility] Last Admin: 08/23/20 13:55 Dose: 5,000 units Documented by: Azithromycin 500 mg/ Sodium (Chloride) 250 mls @ 250 mls/hr IV DAILY [facility] Last Admin: 08/23/20 10:30 Dose: 250 mls/hr Documented by: Ketorolac Tromethamine (Toradol) 15 mg IVPUSH Q6H PRN PRN Reason: Abdominal Pain Stop: 08/28/20 15:21 Last Admin: 08/23/20 15:51 Dose: 15 mg Documented by: Lisinopril (Prinivil) 20 mg PO DAILY [facility] Last Admin: 08/23/20 09:16 Dose: 20 mg Documented by: Melatonin (Melatonin) 3 mg PO BEDTIME PRN PRN Reason: Insomnia Last Admin: 08/21/20 20:11 Dose: 3 mg Documented by: Oxybutynin Chloride (Oxybutynin) 2.5 mg PO BID [facility] Last Admin: 08/23/20 09:16 Dose: 2.5 mg Documented by: Pantoprazole Sodium (Protonix) 40 mg PO ACBREAKFAST [facility] Last Admin: 08/23/20 06:46 Dose: 40 mg Documented by: Prednisone (Prednisone) 2.5 mg PO BID [facility] Last Admin: 08/23/20 09:16 Dose: 2.5 mg Documented by: Sodium Chloride (Saline Flush) 10 ml FLUSH ASDIRECTED PRN PRN Reason: Keep Vein Open Last Admin: 08/21/20 11:44 Dose: 10 ml Documented by: Sodium Chloride (Saline Flush) 2.5 ml FLUSH ASDIRECTED PRN PRN Reason: Keep Vein Open Last Admin: 08/21/20 11:44 Dose: 2.5 ml Documented by: Discontinued Medications Celecoxib (Celebrex) 200 mg PO DAILY PRN PRN Reason: Pain Sodium Chloride (Normal Saline) 1,000 mls @ 125 mls/hr IV STAT ONE Stop: 08/21/20 18:57 Last Admin: 08/21/20 11:44 Dose: 125 mls/hr Documented by: Ceftriaxone Sodium/Dextrose 1 (gm/ Premix) 50 mls @ 100 mls/hr IV ONETIME ONE Stop: 08/21/20 15:57 Last Admin: 08/21/20 16:09 Dose: 100 mls/hr Documented by: Sodium Chloride (Normal Saline) 1,000 mls @ 100 mls/hr IV NOW STA Stop: 08/22/20 03:50 Last Admin: 08/21/20 18:02 Dose: 100 mls/hr Documented by: Magnesium Sulfate (Magnesium Sulfate In Water Premix) 2 gm in 50 mls @ 50 mls/hr IV ONETIME ONE Stop: 08/23/20 09:13 Last Admin: 08/23/20 09:00 Dose: 50 mls/hr Documented by: Ibuprofen (Motrin) 400 mg PO Q4H PRN PRN Reason: Pain Last Admin: 08/22/20 14:22 Dose: 400 mg Documented by: Iopamidol (Isovue Multipack-370 (76%)) 100 ml IVPUSH ONETIME STA Stop: 08/21/20 13:56 Last Admin: 08/21/20 13:55 Dose: 100 ml Documented by: Ketorolac Tromethamine (Toradol) 15 mg IVPUSH NOW STA Stop: 08/21/20 15:29 Last Admin: 08/21/20 16:09 Dose: 15 mg Documented by: Oxybutynin Chloride (Oxybutynin) 2.5 mg PO DAILY SUE Sepsis Event Note - Focused Exam Vital Signs: Vital Signs Temp Pulse Resp BP BP Pulse Ox 08/23/20 16:00 36.8 C 70 16 147/63 H 97 08/23/20 11:22 36.7 C 84 18 136/78 97 08/23/20 09:16 138/62 08/23/20 07:43 36.1 C 83 20 138/62 95 - My Orders Last 24 Hours: My Active Orders 08/22/20 17:14 bisacodyL [Dulcolax] 10 mg PO DAILY PRN 08/23/20 08:16 Radiator Core Tester Discontinue [Cardiac Monitoring Discontinue] [RC] Click to Edit 08/23/20 10:01 bisacodyL [Dulcolax] 10 mg RECTAL DAILY PRN 08/23/20 15:21 Ketorolac [Toradol] 15 mg IVPUSH Q6H PRN 08/23/20 15:26 UA RFX RHEA AND CULT IF INDIC [URIN] Routine - Plan Plan:: I have seen and evaluated the patient and agree with the residents note unless specified in my note
[2020-08-22] MEDS: Ibuprofen 400 MG Tab PO PRN (14:22)
[2020-08-22] MEDS ORDERED: Bisacodyl 5 MG Tab PO PRN (17:14)
[2020-08-23 06:22] LABS: BLOOD UREA NITROGEN,BUN 23 mg/dL (7.0-18.0); CARBON DIOXIDE,CO2 25.1 mmol/L (21.0-32.0); CHLORIDE,CL 102 mmol/L (98-107); GLUCOSE RANDOM 102 mg/dL (74-106); POTASSIUM,K 4.1 mmol/L (3.5-5.1); SODIUM,NA 135 mmol/L (136-145)
[2020-08-23] MEDS: Heparin Sodium 5,000 Units/ML Vial SUBCUT SCH ×3 (06:46→21:59)
[2020-08-23] MEDS: Pantoprazole 40 MG Tab.CR PO SCH (06:46)
--- NOTE | 2020-08-23 07:07 | CONS ---
DATE OF CONSULTATION: 08/22/2020 DATE OF : 1940 PRIMARY CARE PHYSICIAN: None PCP REASON FOR CONSULTATION: This is a consult from the hospitalist, Dr. Ziegler, and the resident. Consulting question is asymptomatic gallstone. HISTORY OF PRESENT ILLNESS: The patient is an 79-year-old [facility] resident admitted to the hospital as the staff at the residence were concerned that the patient is having abdominal pain and difficulty in feeding. In the hospital, workup included CAT scan and ultrasound. It shows that the patient has gallstone and no wall thickening, no pericholecystic fluid, and no extrahepatic duct dilatation. Surgery was then consulted. Most information from the chart and a little bit from the patient. Interestingly, the patient looked as non-communication, but if you sit down with her for a long time, like more than 10 to 15 minutes, she will start communicating with you, 100% communication. I also fed the patient with applesauce. She finished the whole thing and asked her whether the applesauce is salty, she said "no not salty" and asked the patient that this is not her home, she said "this is not home." So the bottom line, the patient communicating with clear situation. Most information from chart anyhow. PAST MEDICAL HISTORY: The patient has multiple admissions from falling. ALLERGIES: Please refer to nursing for details. MEDICATION: Please refer to nursing for details. SURGICAL HISTORY: Not clear from the chart. PHYSICAL EXAMINATION: GENERAL: A very pleasant lady, in fact very pleasant, and also 100% communication. It takes time for her to communicate with you. If you just come in and ask her short questions, she will try to brush you away by answering everything yes, but if you take time, she will communicate with you. HEENT: Normocephalic and atraumatic. Sclerae anicteric. LUNGS: Clear to auscultation. HEART: Regular rate and rhythm. ABDOMEN: Soft, nondistended. No pulsating tender midline abdominal structure. Active bowel sounds in all four quadrants. Multiple surgical scars. No hernia appreciated. LABORATORY DATA: Upon consultation, white count of 10.8, H and H are 10 and 31, platelets 200. Sodium is 137, potassium is 4.3, BUN is 27, creatinine is 0.9. TBili is 0.4, AST and ALT are 26 and 40, alk phos is 81. IMPRESSION: 1. The patient has asymptomatic gallstone. No wall thickening, no pericholecystic fluid, and when I fed the patient applesauce, the patient ate in such a way, I think she was very very hungry. The patient will need to have more food for her. 2. BUN 27, creatinine is 0.9. She is very very dry. She will need to be a little more hydrated. Regarding her asymptomatic gallstone, does not seem to have any surgical issue at this stage. Also, may need some Dulcolax per rectum if she is constipated. Otherwise, the exam does not show she needs any urgent surgical intervention. We will sign off, recall if questions. As always, thank you for the consult and care of this very pleasant, very nice, beautiful lady. As always, thank you for the kind referral. FELIZ BIANCHI /[id number]
[2020-08-23] MEDS ORDERED: Magnesium Sulfate/Water 2 GM/50 ML BAG IV ONE (08:14)
[2020-08-23] MEDS: predniSONE 5 MG Tab PO SCH ×2 (09:16→22:02)
[2020-08-23] MEDS: Oxybutynin 5 MG Tab PO SCH ×2 (09:16→22:02)
[2020-08-23] MEDS: Lisinopril 10 MG Tab PO SCH (09:16)
--- NOTE | 2020-08-23 09:45 | PCM.DCSUM1 ---
Discharge Summary - Discharge Data Discharge Date: 08/23/20 Discharge Disposition: Home, Self-Care 01 Condition: Good - Referral to Home Health Primary Care Physician: PCP None - Patient Summary/Data Consults: Consultations 08/22/20 11:05 Consult to Physician [CONS] Routine - Discharge Plan *PRESCRIPTION DRUG MONITORING PROGRAM REVIEWED*: No *COPY OF PRESCRIPTION DRUG MONITORING REPORT IN PATIENT TORIN: No Prescriptions/Med Rec: Oxybutynin 2.5 mg PO BID 5 Days #10 tablet Home Medications: Home Meds Multivitamin [Multi-Vitamin Daily] 1 tab PO DAILY 04/24/15 [History] Calcium Carb, Citrate/Vit D3 [Citracal + D ER] 1,200 mg PO DAILY 01/14/20 [History] Polyethylene Glycol [Polyox Wsr-301] 17 gm PO DAILY 01/14/20 [History] Ascorbic Acid [Vitamin C] 500 mg PO DAILY 08/21/20 [History] Celecoxib 200 mg PO DAILY PRN 08/21/20 [History] lisinopriL [Lisinopril] 20 mg PO DAILY 08/21/20 [History] predniSONE 2.5 mg PO BID 08/21/20 [History] Sulfamethoxazole/Trimethoprim [Sulfamethoxazole-Tmp Ss Tablet] 08/22/20 [History] Oxybutynin 2.5 mg PO BID 5 Days #10 tablet 08/23/20 [Rx] Oxygen Therapy Mode: Room Air Forms: ED Department Discharge Referrals: Jabari Teran MD [Ordering Only Provider] - 08/29/20 10:30 am - Patient Data Vitals - Most Recent: Last Vital Signs Temp 97.0 F 08/23/20 07:43 Pulse 83 08/23/20 07:43 Resp 20 08/23/20 07:43 BP 138/62 08/23/20 09:16 Pulse Ox 95 08/23/20 07:43 Weight - Most Recent: 47.5 kg I&O - Last 24 hours: Intake & Output 08/22/20 08/23/20 08/23/20 22:59 06:59 14:59 Intake Total 480 200 Output Total 500 350 Balance -20 -150 Lab Results - Last 24 hrs: Laboratory Results - last 24 hr 08/22/20 08/23/20 08/23/20 Range/Units 05:00 05:25 05:25 WBC 10.53 (4.0-11.0) K/uL RBC 3.42 L (4.30-5.90) M/uL Hgb 10.6 L (12.0-16.0) g/dL Hct 32.7 L (36.0-46.0) % MCV 95.6 (80.0-98.0) fL MCH 31.0 (27.0-32.0) pg MCHC 32.4 (31.0-37.0) g/dL RDW Std Deviation 53.6 (28.0-62.0) fl RDW Coeff of Erik 16 H (11.0-15.0) % Plt Count 224 (150-400) K/uL MPV 9.60 (7.40-12.00) fL Neut % (Auto) 37.8 L (48.0-80.0) % Lymph % (Auto) 52.0 H (16.0-40.0) % [place] % (Auto) 8.7 (0.0-15.0) % Eos % (Auto) 1.3 (0.0-7.0) % Baso % (Auto) 0.2 (0.0-1.5) % Neut # (Auto) 4.0 (1.4-5.7) K/uL Lymph # (Auto) 5.5 H (0.6-2.4) K/uL [place] # (Auto) 0.9 H (0.0-0.8) K/uL Eos # (Auto) 0.1 (0.0-0.7) K/uL Baso # (Auto) 0.0 (0.0-0.1) K/uL Nucleated RBC % 0.0 /100WBC Nucleated RBCs # 0 K/uL Sodium 135 L (136-145) mmol/L Potassium 4.1 (3.5-5.1) mmol/L Chloride 102 (98-107) mmol/L Carbon Dioxide 25.1 (21.0-32.0) mmol/L BUN 23 H (7.0-18.0) mg/dL Creatinine 0.7 (0.6-1.0) mg/dL Est Cr Clr Drug Dosing 48.06 mL/min Estimated GFR (MDRD) > 60.0 ml/min Glucose 102 (74-106) mg/dL Calcium 8.9 (8.5-10.1) mg/dL Magnesium (1.8-2.4) mg/dL Total Bilirubin 0.5 (0.2-1.0) mg/dL AST 33 (15-37) IU/L ALT 48 (14-63) IU/L Alkaline Phosphatase 97 (46-116) U/L Total Protein 6.1 L (6.4-8.2) g/dL Albumin 2.6 L (3.4-5.0) g/dL Globulin 3.5 (2.6-4.0) g/dL Albumin/Globulin Ratio 0.7 L (0.9-1.6) Procalcitonin 0.10 H ng/mL 08/23/20 Range/Units 05:25 WBC (4.0-11.0) K/uL RBC (4.30-5.90) M/uL Hgb (12.0-16.0) g/dL Hct (36.0-46.0) % MCV (80.0-98.0) fL MCH (27.0-32.0) pg MCHC (31.0-37.0) g/dL RDW Std Deviation (28.0-62.0) fl RDW Coeff of Erik (11.0-15.0) % Plt Count (150-400) K/uL MPV (7.40-12.00) fL Neut % (Auto) (48.0-80.0) % Lymph % (Auto) (16.0-40.0) % [place] % (Auto) (0.0-15.0) % Eos % (Auto) (0.0-7.0) % Baso % (Auto) (0.0-1.5) % Neut # (Auto) (1.4-5.7) K/uL Lymph # (Auto) (0.6-2.4) K/uL [place] # (Auto) (0.0-0.8) K/uL Eos # (Auto) (0.0-0.7) K/uL Baso # (Auto) (0.0-0.1) K/uL Nucleated RBC % /100WBC Nucleated RBCs # K/uL Sodium (136-145) mmol/L Potassium (3.5-5.1) mmol/L Chloride (98-107) mmol/L Carbon Dioxide (21.0-32.0) mmol/L BUN (7.0-18.0) mg/dL Creatinine (0.6-1.0) mg/dL Est Cr Clr Drug Dosing mL/min Estimated GFR (MDRD) ml/min Glucose (74-106) mg/dL Calcium (8.5-10.1) mg/dL Magnesium 1.7 L (1.8-2.4) mg/dL Total Bilirubin (0.2-1.0) mg/dL AST (15-37) IU/L ALT (14-63) IU/L Alkaline Phosphatase (46-116) U/L Total Protein (6.4-8.2) g/dL Albumin (3.4-5.0) g/dL Globulin (2.6-4.0) g/dL Albumin/Globulin Ratio (0.9-1.6) Procalcitonin ng/mL Med Orders - Current: Current Medications Bisacodyl (Dulcolax) 10 mg PO DAILY PRN PRN Reason: Constipation Heparin Sodium (Porcine) (Heparin Sodium) 5,000 units SUBCUT Q8H [facility] Last Admin: 08/23/20 06:46 Dose: 5,000 units Documented by: Azithromycin 500 mg/ Sodium (Chloride) 250 mls @ 250 mls/hr IV DAILY [facility] Last Admin: 08/22/20 10:18 Dose: 250 mls/hr Documented by: Ibuprofen (Motrin) 400 mg PO Q4H PRN PRN Reason: Pain Last Admin: 08/22/20 14:22 Dose: 400 mg Documented by: Lisinopril (Prinivil) 20 mg PO DAILY [facility] Last Admin: 08/23/20 09:16 Dose: 20 mg Documented by: Melatonin (Melatonin) 3 mg PO BEDTIME PRN PRN Reason: Insomnia Last Admin: 08/21/20 20:11 Dose: 3 mg Documented by: Oxybutynin Chloride (Oxybutynin) 2.5 mg PO BID [facility] Last Admin: 08/23/20 09:16 Dose: 2.5 mg Documented by: Pantoprazole Sodium (Protonix) 40 mg PO ACBREAKFAST [facility] Last Admin: 08/23/20 06:46 Dose: 40 mg Documented by: Prednisone (Prednisone) 2.5 mg PO BID [facility] Last Admin: 08/23/20 09:16 Dose: 2.5 mg Documented by: Sodium Chloride (Saline Flush) 10 ml FLUSH ASDIRECTED PRN PRN Reason: Keep Vein Open Last Admin: 08/21/20 11:44 Dose: 10 ml Documented by: Sodium Chloride (Saline Flush) 2.5 ml FLUSH ASDIRECTED PRN PRN Reason: Keep Vein Open Last Admin: 08/21/20 11:44 Dose: 2.5 ml Documented by: Discontinued Medications Celecoxib (Celebrex) 200 mg PO DAILY PRN PRN Reason: Pain Sodium Chloride (Normal Saline) 1,000 mls @ 125 mls/hr IV STAT ONE Stop: 08/21/20 18:57 Last Admin: 08/21/20 11:44 Dose: 125 mls/hr Documented by: Ceftriaxone Sodium/Dextrose 1 (gm/ Premix) 50 mls @ 100 mls/hr IV ONETIME ONE Stop: 08/21/20 15:57 Last Admin: 08/21/20 16:09 Dose: 100 mls/hr Documented by: Sodium Chloride (Normal Saline) 1,000 mls @ 100 mls/hr IV NOW STA Stop: 08/22/20 03:50 Last Admin: 08/21/20 18:02 Dose: 100 mls/hr Documented by: Magnesium Sulfate (Magnesium Sulfate In Water Premix) 2 gm in 50 mls @ 50 mls/hr IV ONETIME ONE Stop: 08/23/20 09:13 Last Admin: 08/23/20 09:00 Dose: 50 mls/hr Documented by: Iopamidol (Isovue Multipack-370 (76%)) 100 ml IVPUSH ONETIME STA Stop: 08/21/20 13:56 Last Admin: 08/21/20 13:55 Dose: 100 ml Documented by: Ketorolac Tromethamine (Toradol) 15 mg IVPUSH NOW STA Stop: 08/21/20 15:29 Last Admin: 08/21/20 16:09 Dose: 15 mg Documented by: Oxybutynin Chloride (Oxybutynin) 2.5 mg PO DAILY [facility]
[2020-08-23] MEDS ORDERED: Bisacodyl 10 MG Supp RECTAL PRN (10:01)
[2020-08-23] MEDS: Azithromycin 500 MG in Sodium Chloride 0.9% 250 ML IV SCH (10:30)
[2020-08-23] MEDS: Ibuprofen 400 MG Tab PO PRN (15:16)
[2020-08-23] MEDS: Ketorolac 15 MG/ML SDV IVPUSH PRN (15:51)
--- NOTE | 2020-08-23 19:13 | PCM.PN ---
- General Info Date of Service: 08/23/20 Subjective Update: Tolerating PO w.o Issue. BM throughout day no other acute issues - Review of Systems General: Reports: No Symptoms HEENT: Reports: No Symptoms Cardiovascular: Reports: No Symptoms Gastrointestinal: Reports: Abdominal Pain Genitourinary: Reports: No Symptoms Musculoskeletal: Reports: No Symptoms Skin: Reports: No Symptoms Psychiatric: Reports: No Symptoms - Patient Data Vitals - Most Recent: Last Vital Signs Temp 98.2 F 08/23/20 16:00 Pulse 70 08/23/20 16:00 Resp 16 08/23/20 16:00 BP 147/63 H 08/23/20 16:00 Pulse Ox 97 08/23/20 16:00 Weight - Most Recent: 47.5 kg I&O - Last 24 Hours: Intake & Output 08/23/20 08/23/20 08/23/20 06:59 14:59 22:59 Intake Total 200 Output Total 350 Balance -150 Lab Results Last 24 Hours: Laboratory Results - last 24 hr 08/22/20 08/23/20 08/23/20 Range/Units 05:00 05:25 05:25 WBC 10.53 (4.0-11.0) K/uL RBC 3.42 L (4.30-5.90) M/uL Hgb 10.6 L (12.0-16.0) g/dL Hct 32.7 L (36.0-46.0) % MCV 95.6 (80.0-98.0) fL MCH 31.0 (27.0-32.0) pg MCHC 32.4 (31.0-37.0) g/dL RDW Std Deviation 53.6 (28.0-62.0) fl RDW Coeff of Erik 16 H (11.0-15.0) % Plt Count 224 (150-400) K/uL MPV 9.60 (7.40-12.00) fL Neut % (Auto) 37.8 L (48.0-80.0) % Lymph % (Auto) 52.0 H (16.0-40.0) % [place] % (Auto) 8.7 (0.0-15.0) % Eos % (Auto) 1.3 (0.0-7.0) % Baso % (Auto) 0.2 (0.0-1.5) % Neut # (Auto) 4.0 (1.4-5.7) K/uL Lymph # (Auto) 5.5 H (0.6-2.4) K/uL [place] # (Auto) 0.9 H (0.0-0.8) K/uL Eos # (Auto) 0.1 (0.0-0.7) K/uL Baso # (Auto) 0.0 (0.0-0.1) K/uL Nucleated RBC % 0.0 /100WBC Nucleated RBCs # 0 K/uL Sodium 135 L (136-145) mmol/L Potassium 4.1 (3.5-5.1) mmol/L Chloride 102 (98-107) mmol/L Carbon Dioxide 25.1 (21.0-32.0) mmol/L BUN 23 H (7.0-18.0) mg/dL Creatinine 0.7 (0.6-1.0) mg/dL Est Cr Clr Drug Dosing 48.06 mL/min Estimated GFR (MDRD) > 60.0 ml/min Glucose 102 (74-106) mg/dL Calcium 8.9 (8.5-10.1) mg/dL Magnesium (1.8-2.4) mg/dL Total Bilirubin 0.5 (0.2-1.0) mg/dL AST 33 (15-37) IU/L ALT 48 (14-63) IU/L Alkaline Phosphatase 97 (46-116) U/L Total Protein 6.1 L (6.4-8.2) g/dL Albumin 2.6 L (3.4-5.0) g/dL Globulin 3.5 (2.6-4.0) g/dL Albumin/Globulin Ratio 0.7 L (0.9-1.6) Procalcitonin 0.10 H ng/mL 08/23/20 Range/Units 05:25 WBC (4.0-11.0) K/uL RBC (4.30-5.90) M/uL Hgb (12.0-16.0) g/dL Hct (36.0-46.0) % MCV (80.0-98.0) fL MCH (27.0-32.0) pg MCHC (31.0-37.0) g/dL RDW Std Deviation (28.0-62.0) fl RDW Coeff of Erik (11.0-15.0) % Plt Count (150-400) K/uL MPV (7.40-12.00) fL Neut % (Auto) (48.0-80.0) % Lymph % (Auto) (16.0-40.0) % [place] % (Auto) (0.0-15.0) % Eos % (Auto) (0.0-7.0) % Baso % (Auto) (0.0-1.5) % Neut # (Auto) (1.4-5.7) K/uL Lymph # (Auto) (0.6-2.4) K/uL [place] # (Auto) (0.0-0.8) K/uL Eos # (Auto) (0.0-0.7) K/uL Baso # (Auto) (0.0-0.1) K/uL Nucleated RBC % /100WBC Nucleated RBCs # K/uL Sodium (136-145) mmol/L Potassium (3.5-5.1) mmol/L Chloride (98-107) mmol/L Carbon Dioxide (21.0-32.0) mmol/L BUN (7.0-18.0) mg/dL Creatinine (0.6-1.0) mg/dL Est Cr Clr Drug Dosing mL/min Estimated GFR (MDRD) ml/min Glucose (74-106) mg/dL Calcium (8.5-10.1) mg/dL Magnesium 1.7 L (1.8-2.4) mg/dL Total Bilirubin (0.2-1.0) mg/dL AST (15-37) IU/L ALT (14-63) IU/L Alkaline Phosphatase (46-116) U/L Total Protein (6.4-8.2) g/dL Albumin (3.4-5.0) g/dL Globulin (2.6-4.0) g/dL Albumin/Globulin Ratio (0.9-1.6) Procalcitonin ng/mL Med Orders - Current: Current Medications Bisacodyl (Dulcolax) 10 mg PO DAILY PRN PRN Reason: Constipation Bisacodyl (Dulcolax) 10 mg RECTAL DAILY PRN PRN Reason: Constipation Last Admin: 08/23/20 10:32 Dose: 10 mg Documented by: Heparin Sodium (Porcine) (Heparin Sodium) 5,000 units SUBCUT Q8H [facility] Last Admin: 08/23/20 13:55 Dose: 5,000 units Documented by: Azithromycin 500 mg/ Sodium (Chloride) 250 mls @ 250 mls/hr IV DAILY [facility] Last Admin: 08/23/20 10:30 Dose: 250 mls/hr Documented by: Ketorolac Tromethamine (Toradol) 15 mg IVPUSH Q6H PRN PRN Reason: Abdominal Pain Stop: 08/28/20 15:21 Last Admin: 08/23/20 15:51 Dose: 15 mg Documented by: Lisinopril (Prinivil) 20 mg PO DAILY [facility] Last Admin: 08/23/20 09:16 Dose: 20 mg Documented by: Melatonin (Melatonin) 3 mg PO BEDTIME PRN PRN Reason: Insomnia Last Admin: 08/21/20 20:11 Dose: 3 mg Documented by: Oxybutynin Chloride (Oxybutynin) 2.5 mg PO BID [facility] Last Admin: 08/23/20 09:16 Dose: 2.5 mg Documented by: Pantoprazole Sodium (Protonix) 40 mg PO ACBREAKFAST [facility] Last Admin: 08/23/20 06:46 Dose: 40 mg Documented by: Prednisone (Prednisone) 2.5 mg PO BID [facility] Last Admin: 08/23/20 09:16 Dose: 2.5 mg Documented by: Sodium Chloride (Saline Flush) 10 ml FLUSH ASDIRECTED PRN PRN Reason: Keep Vein Open Last Admin: 08/21/20 11:44 Dose: 10 ml Documented by: Sodium Chloride (Saline Flush) 2.5 ml FLUSH ASDIRECTED PRN PRN Reason: Keep Vein Open Last Admin: 08/21/20 11:44 Dose: 2.5 ml Documented by: Discontinued Medications Celecoxib (Celebrex) 200 mg PO DAILY PRN PRN Reason: Pain Sodium Chloride (Normal Saline) 1,000 mls @ 125 mls/hr IV STAT ONE Stop: 08/21/20 18:57 Last Admin: 08/21/20 11:44 Dose: 125 mls/hr Documented by: Ceftriaxone Sodium/Dextrose 1 (gm/ Premix) 50 mls @ 100 mls/hr IV ONETIME ONE Stop: 08/21/20 15:57 Last Admin: 08/21/20 16:09 Dose: 100 mls/hr Documented by: Sodium Chloride (Normal Saline) 1,000 mls @ 100 mls/hr IV NOW STA Stop: 08/22/20 03:50 Last Admin: 08/21/20 18:02 Dose: 100 mls/hr Documented by: Magnesium Sulfate (Magnesium Sulfate In Water Premix) 2 gm in 50 mls @ 50 mls/hr IV ONETIME ONE Stop: 08/23/20 09:13 Last Admin: 08/23/20 09:00 Dose: 50 mls/hr Documented by: Ibuprofen (Motrin) 400 mg PO Q4H PRN PRN Reason: Pain Last Admin: 08/22/20 14:22 Dose: 400 mg Documented by: Iopamidol (Isovue Multipack-370 (76%)) 100 ml IVPUSH ONETIME STA Stop: 08/21/20 13:56 Last Admin: 08/21/20 13:55 Dose: 100 ml Documented by: Ketorolac Tromethamine (Toradol) 15 mg IVPUSH NOW STA Stop: 08/21/20 15:29 Last Admin: 08/21/20 16:09 Dose: 15 mg Documented by: Oxybutynin Chloride (Oxybutynin) 2.5 mg PO DAILY [facility] - Exam Quality Assessment: No: Supplemental Oxygen General: Alert HEENT: EOMI Neck: Supple Lungs: Clear to Auscultation, Normal Respiratory Effort Cardiovascular: Regular Rate, Regular Rhythm GI/Abdominal Exam: Soft, Non-Tender, No Organomegaly, No Distention Back Exam: Normal Inspection Extremities: Normal Inspection Neurological: No New Focal Deficit Psy/Mental Status: Alert Sepsis Event Note - Evaluation Sepsis Screening Result: No Definite Risk - Focused Exam Vital Signs: Vital Signs Temp Pulse Resp BP BP Pulse Ox 08/23/20 16:00 98.2 F 70 16 147/63 H 97 08/23/20 11:22 98.0 F 84 18 136/78 97 08/23/20 09:16 138/62 08/23/20 07:43 97.0 F 83 20 138/62 95 - Problem List Review Problem List Initiated/Reviewed/Updated: Yes - My Orders Last 24 Hours: My Active Orders 08/24/20 05:11 CBC WITH AUTO DIFF [HEME] AM COMPREHENSIVE METABOLIC PN,CMP [CHEM] AM 08/25/20 05:11 CBC WITH AUTO DIFF [HEME] AM - Plan Plan:: Assessment: 1. Leukocytosis in setting of CAP : RESOLVED 2. Abdominal pain w. non-obstructing cholelithiasis 3. Mild hyponatremia :resolved 4. PMH: cerebral palsy, HTN, chronic UTI , frequent falls Plan IV fluids: NS 125 cc/hr 1. CAP: CXR: moderate patchy multifocal groundglass opacification ; Left > right COVID negative Received 1 gram of Rocephin in ED; add on IV azithromycin; continue to monitor o2 status requiring 0.5 Liter o2 Procalcitonin pending 2. Non-obstruction cholelithiasis: continue to monitor. no RUQ tenderness, negative Garcia. LFT's unremarkable. Bilirubin nominal Per surgery :unremarkable exam; no need for surgical intervention at this time Continue Daily PPI . Continue IV fluids Since hx of recurrent UTI (negative UA today); can also consider bladder spasms as being etiology ofr vague discomfort; start Oxybutinin today and monitor for response.
[2020-08-24] MEDS: Ketorolac 15 MG/ML SDV IVPUSH PRN (03:58)
[2020-08-24 06:58] LABS: BLOOD UREA NITROGEN,BUN 19 mg/dL (7.0-18.0); CARBON DIOXIDE,CO2 24.4 mmol/L (21.0-32.0); CHLORIDE,CL 101 mmol/L (98-107); GLUCOSE RANDOM 104 mg/dL (74-106); POTASSIUM,K 4.2 mmol/L (3.5-5.1); SODIUM,NA 134 mmol/L (136-145)
[2020-08-24] MEDS: Heparin Sodium 5,000 Units/ML Vial SUBCUT SCH ×2 (07:54→14:10)
[2020-08-24] MEDS: Pantoprazole 40 MG Tab.CR PO SCH (07:54)
[2020-08-24] MEDS ORDERED: cefTRIAXone 1 GM in Sodium Chloride 0.9% 50 ML IV SCH (08:00)
[2020-08-24] MEDS: predniSONE 5 MG Tab PO SCH (09:10)
[2020-08-24] MEDS: Oxybutynin 5 MG Tab PO SCH (09:11)
[2020-08-24] MEDS: Lisinopril 10 MG Tab PO SCH (09:11)
--- NOTE | 2020-08-24 09:22 | PCM.PN ---
- General Info Date of Service: 08/24/20 Subjective Update: Bedside: no acute distress. When asked about pain ; mentions yes and points to belly. Mentions tolerating food and having BM/urinating w.o issues - Review of Systems General: Reports: No Symptoms HEENT: Reports: No Symptoms Pulmonary: Reports: No Symptoms Cardiovascular: Reports: No Symptoms Gastrointestinal: Reports: Abdominal Pain. Denies: Decreased Appetite, Nausea, Vomiting Genitourinary: Denies: Dysuria, Frequency, Burning, Pain Musculoskeletal: Reports: No Symptoms Neurological: Reports: No Symptoms Psychiatric: Reports: No Symptoms - Patient Data Vitals - Most Recent: Last Vital Signs Temp 96.5 F L 08/24/20 07:40 Pulse 75 08/24/20 07:40 Resp 17 08/24/20 07:40 BP 147/51 H 08/24/20 09:11 Pulse Ox 93 L 08/24/20 07:40 Weight - Most Recent: 47.5 kg I&O - Last 24 Hours: Intake & Output 08/23/20 08/24/20 08/24/20 22:59 06:59 14:59 Intake Total 840 500 Output Total 500 Balance 340 500 Lab Results Last 24 Hours: Laboratory Results - last 24 hr 08/24/20 08/24/20 08/24/20 Range/Units 01:12 05:45 05:45 WBC 9.72 (4.0-11.0) K/uL RBC 3.29 L (4.30-5.90) M/uL Hgb 10.2 L (12.0-16.0) g/dL Hct 31.4 L (36.0-46.0) % MCV 95.4 (80.0-98.0) fL MCH 31.0 (27.0-32.0) pg MCHC 32.5 (31.0-37.0) g/dL RDW Std Deviation 52.6 (28.0-62.0) fl RDW Coeff of Erik 15 (11.0-15.0) % Plt Count 231 (150-400) K/uL MPV 9.40 (7.40-12.00) fL Neut % (Auto) 41.5 L (48.0-80.0) % Lymph % (Auto) 48.8 H (16.0-40.0) % [place] % (Auto) 7.4 (0.0-15.0) % Eos % (Auto) 2.1 (0.0-7.0) % Baso % (Auto) 0.2 (0.0-1.5) % Neut # (Auto) 4.0 (1.4-5.7) K/uL Lymph # (Auto) 4.7 H (0.6-2.4) K/uL [place] # (Auto) 0.7 (0.0-0.8) K/uL Eos # (Auto) 0.2 (0.0-0.7) K/uL Baso # (Auto) 0.0 (0.0-0.1) K/uL Nucleated RBC % 0.0 /100WBC Nucleated RBCs # 0 K/uL Sodium 134 L (136-145) mmol/L Potassium 4.2 (3.5-5.1) mmol/L Chloride 101 (98-107) mmol/L Carbon Dioxide 24.4 (21.0-32.0) mmol/L BUN 19 H (7.0-18.0) mg/dL Creatinine 0.7 (0.6-1.0) mg/dL Est Cr Clr Drug Dosing 48.06 mL/min Estimated GFR (MDRD) > 60.0 ml/min Glucose 104 (74-106) mg/dL Calcium 8.2 L (8.5-10.1) mg/dL Magnesium (1.8-2.4) mg/dL Total Bilirubin 0.3 (0.2-1.0) mg/dL AST 37 (15-37) IU/L ALT 58 (14-63) IU/L Alkaline Phosphatase 103 (46-116) U/L Total Protein 5.7 L (6.4-8.2) g/dL Albumin 2.5 L (3.4-5.0) g/dL Globulin 3.2 (2.6-4.0) g/dL Albumin/Globulin Ratio 0.8 L (0.9-1.6) Urine Color YELLOW Urine Appearance SLT CLOUDY Urine pH 6.0 (5.0-8.0) Ur Specific [place] 1.025 (1.001-1.035) Urine Protein NEGATIVE (NEGATIVE) mg/dL Urine Glucose (UA) NEGATIVE (NEGATIVE) mg/dL Urine Ketones TRACE H (NEGATIVE) mg/dL Urine Occult Blood NEGATIVE (NEGATIVE) Urine Nitrite NEGATIVE (NEGATIVE) Urine Bilirubin NEGATIVE (NEGATIVE) Urine Urobilinogen 0.2 (<2.0) EU/dL Ur Leukocyte Esterase TRACE H (NEGATIVE) Urine RBC 0-1 (0-2/HPF) Urine WBC 0-1 (0-5/HPF) Ur Epithelial Cells RARE (NONE-FEW) Urine Bacteria RARE (NEGATIVE) Urine Mucus MODERATE (NONE-MOD) 08/24/20 Range/Units 05:45 WBC (4.0-11.0) K/uL RBC (4.30-5.90) M/uL Hgb (12.0-16.0) g/dL Hct (36.0-46.0) % MCV (80.0-98.0) fL MCH (27.0-32.0) pg MCHC (31.0-37.0) g/dL RDW Std Deviation (28.0-62.0) fl RDW Coeff of Erik (11.0-15.0) % Plt Count (150-400) K/uL MPV (7.40-12.00) fL Neut % (Auto) (48.0-80.0) % Lymph % (Auto) (16.0-40.0) % [place] % (Auto) (0.0-15.0) % Eos % (Auto) (0.0-7.0) % Baso % (Auto) (0.0-1.5) % Neut # (Auto) (1.4-5.7) K/uL Lymph # (Auto) (0.6-2.4) K/uL [place] # (Auto) (0.0-0.8) K/uL Eos # (Auto) (0.0-0.7) K/uL Baso # (Auto) (0.0-0.1) K/uL Nucleated RBC % /100WBC Nucleated RBCs # K/uL Sodium (136-145) mmol/L Potassium (3.5-5.1) mmol/L Chloride (98-107) mmol/L Carbon Dioxide (21.0-32.0) mmol/L BUN (7.0-18.0) mg/dL Creatinine (0.6-1.0) mg/dL Est Cr Clr Drug Dosing mL/min Estimated GFR (MDRD) ml/min Glucose (74-106) mg/dL Calcium (8.5-10.1) mg/dL Magnesium 2.4 (1.8-2.4) mg/dL Total Bilirubin (0.2-1.0) mg/dL AST (15-37) IU/L ALT (14-63) IU/L Alkaline Phosphatase (46-116) U/L Total Protein (6.4-8.2) g/dL Albumin (3.4-5.0) g/dL Globulin (2.6-4.0) g/dL Albumin/Globulin Ratio (0.9-1.6) Urine Color Urine Appearance Urine pH (5.0-8.0) Ur Specific [place] (1.001-1.035) Urine Protein (NEGATIVE) mg/dL Urine Glucose (UA) (NEGATIVE) mg/dL Urine Ketones (NEGATIVE) mg/dL Urine Occult Blood (NEGATIVE) Urine Nitrite (NEGATIVE) Urine Bilirubin (NEGATIVE) Urine Urobilinogen (<2.0) EU/dL Ur Leukocyte Esterase (NEGATIVE) Urine RBC (0-2/HPF) Urine WBC (0-5/HPF) Ur Epithelial Cells (NONE-FEW) Urine Bacteria (NEGATIVE) Urine Mucus (NONE-MOD) Med Orders - Current: Current Medications Bisacodyl (Dulcolax) 10 mg PO DAILY PRN PRN Reason: Constipation Bisacodyl (Dulcolax) 10 mg RECTAL DAILY PRN PRN Reason: Constipation Last Admin: 08/23/20 10:32 Dose: 10 mg Documented by: Heparin Sodium (Porcine) (Heparin Sodium) 5,000 units SUBCUT Q8H [facility] Last Admin: 08/24/20 07:54 Dose: 5,000 units Documented by: Azithromycin 500 mg/ Sodium (Chloride) 250 mls @ 250 mls/hr IV DAILY [facility] Last Admin: 08/23/20 10:30 Dose: 250 mls/hr Documented by: Ceftriaxone Sodium/Dextrose (Rocephin In Dextrose,Iso-Osm 1 Gm/50 Ml) 50 mls @ 100 mls/hr IV Q24H [facility] Last Admin: 08/24/20 09:07 Dose: 100 mls/hr Documented by: Ketorolac Tromethamine (Toradol) 15 mg IVPUSH Q6H PRN PRN Reason: Abdominal Pain Stop: 08/28/20 15:21 Last Admin: 08/24/20 03:58 Dose: 15 mg Documented by: Lisinopril (Prinivil) 20 mg PO DAILY [facility] Last Admin: 08/24/20 09:11 Dose: 20 mg Documented by: Melatonin (Melatonin) 3 mg PO BEDTIME PRN PRN Reason: Insomnia Last Admin: 08/21/20 20:11 Dose: 3 mg Documented by: Oxybutynin Chloride (Oxybutynin) 2.5 mg PO BID [facility] Last Admin: 08/24/20 09:11 Dose: 2.5 mg Documented by: Pantoprazole Sodium (Protonix) 40 mg PO ACBREAKFAST [facility] Last Admin: 08/24/20 07:54 Dose: 40 mg Documented by: Prednisone (Prednisone) 2.5 mg PO BID [facility] Last Admin: 08/24/20 09:10 Dose: 2.5 mg Documented by: Sodium Chloride (Saline Flush) 10 ml FLUSH ASDIRECTED PRN PRN Reason: Keep Vein Open Last Admin: 08/21/20 11:44 Dose: 10 ml Documented by: Sodium Chloride (Saline Flush) 2.5 ml FLUSH ASDIRECTED PRN PRN Reason: Keep Vein Open Last Admin: 08/21/20 11:44 Dose: 2.5 ml Documented by: Discontinued Medications Celecoxib (Celebrex) 200 mg PO DAILY PRN PRN Reason: Pain Sodium Chloride (Normal Saline) 1,000 mls @ 125 mls/hr IV STAT ONE Stop: 08/21/20 18:57 Last Admin: 08/21/20 11:44 Dose: 125 mls/hr Documented by: Ceftriaxone Sodium/Dextrose 1 (gm/ Premix) 50 mls @ 100 mls/hr IV ONETIME ONE Stop: 08/21/20 15:57 Last Admin: 08/21/20 16:09 Dose: 100 mls/hr Documented by: Sodium Chloride (Normal Saline) 1,000 mls @ 100 mls/hr IV NOW STA Stop: 08/22/20 03:50 Last Admin: 08/21/20 18:02 Dose: 100 mls/hr Documented by: Magnesium Sulfate (Magnesium Sulfate In Water Premix) 2 gm in 50 mls @ 50 mls/hr IV ONETIME ONE Stop: 08/23/20 09:13 Last Admin: 08/23/20 09:00 Dose: 50 mls/hr Documented by: Ceftriaxone Sodium 1 gm/ (Sodium Chloride) 50 mls @ 100 mls/hr IV Q24H SUE Ibuprofen (Motrin) 400 mg PO Q4H PRN PRN Reason: Pain Last Admin: 08/22/20 14:22 Dose: 400 mg Documented by: Iopamidol (Isovue Multipack-370 (76%)) 100 ml IVPUSH ONETIME STA Stop: 08/21/20 13:56 Last Admin: 08/21/20 13:55 Dose: 100 ml Documented by: Ketorolac Tromethamine (Toradol) 15 mg IVPUSH NOW STA Stop: 08/21/20 15:29 Last Admin: 08/21/20 16:09 Dose: 15 mg Documented by: Oxybutynin Chloride (Oxybutynin) 2.5 mg PO DAILY SUE - Exam Quality Assessment: No: Supplemental Oxygen General: Alert HEENT: EOMI Neck: Supple Lungs: Clear to Auscultation, Normal Respiratory Effort Cardiovascular: Regular Rate, Regular Rhythm GI/Abdominal Exam: Soft, Non-Tender, No Organomegaly, No Distention, No Mass. No: Guarding, Rigid Extremities: Normal Inspection Skin: Warm Neurological: No New Focal Deficit Psy/Mental Status: Alert Sepsis Event Note - Evaluation Sepsis Screening Result: No Definite Risk - Focused Exam Vital Signs: Vital Signs Temp Pulse Resp BP BP Pulse Ox 08/24/20 09:11 147/51 H 08/24/20 07:40 96.5 F L 75 17 147/51 H 93 L 08/24/20 04:00 97.5 F 82 20 150/67 H 96 08/24/20 00:00 97.4 F 86 18 138/69 95 - Problem List Review Problem List Initiated/Reviewed/Updated: Yes - My Orders Last 24 Hours: My Active Orders 08/25/20 05:11 CBC WITH AUTO DIFF [HEME] AM - Plan Plan:: Assessment: 1. Leukocytosis in setting of CAP : RESOLVED 2. Abdominal pain w. non-obstructing cholelithiasis 3. Mild hyponatremia 4. PMH: cerebral palsy, HTN, chronic UTI , frequent falls Plan IV fluids: NS 125 cc/hr 1. CAP: CXR: moderate patchy multifocal groundglass opacification ; Left > right COVID negative Continue Azithromycin +Ceftriaxone not requiring supplemental o2 Procalcitonin pending 2. Non-obstruction cholelithiasis: continue to monitor. no RUQ tenderness, negative Garcia. LFT's unremarkable. Bilirubin nominal Per surgery :unremarkable exam; no need for surgical intervention at this time Continue Daily PPI . Continue IV fluids Since hx of recurrent UTI (negative UA today); can also consider bladder spasms as being etiology ofr vague discomfort; continue Oxybutinin today Repeat UA suggests trace Leukocytosis: in light of previous history of chronic UTI ; will add on CTX this AM; awaiting cultures. May also consider belladonna alkaloid suppository for concerns for chronic cystitis' unremarkable physical exam this AM
[2020-08-24] MEDS: Azithromycin 500 MG in Sodium Chloride 0.9% 250 ML IV SCH (10:10)
[2020-08-24 11:26] VITALS: BP 120/67; PULSE 82
--- NOTE | 2020-08-24 12:24 | PCM.DCSUM1 ---
<Eleanor Brand - Last Filed: 08/24/20 12:41> Discharge Summary - Hospital Course HPI Initial Comments: Hospital course: ED notes: 79-year-old female resident at [facility] , presented to the emergency room thia AM with her caregiver with complaints of decreased appetite/oral intake and generalized abdominal pain x . The caregiver states she has not been eating or drinking much over the past 2 days and seems to have tenderness with palpation or touching of the abdomen. Caregiver also states that she will take her oral pills although it is taking her a long time to swallowing get things down. She is on a pureed thickened diet, and has been having difficulty -versus possible concern of aspiration. Patient denies any fever, chills, headache, change in vision, syncope or near syncope. Denies any chest pain, back pain, shortness of breath or cough. Denies any abdominal pain, nausea, vomiting, diarrhea, constipation or dysuria. Has not noted any blood in urine or stool. Patient has been eating and drinking appropriately. ED course: Chest x-ray : moderate patchy multifocal groundglass opacification, left greater than right. COVID negative CT abdomen/pelvis shows bibasilar opacities could represent atelectasis, aspiration or inflammatory process such as pneumonia. The gallbladder is distended. There is numerous gallstones that appear to be within the gallbladder neck and cystic duct. However no definitive wall thickening or pericholecystic fluid. There is no extra hepatic duct dilatation. U/S shows lithiasis with stone in the gallbladder neck. No gallbladder wall thickening or pericholecystic fluid is demonstrated. Received in EN Rocephin, Toradol hospital course: Initial bedside evaluation patient was in no acute distress; despite reports from [facility]; pt was hungry and tolerated PO diet/fluids. Dr Myles of Surgery consulted on findings of CT abdomen; mentions no acute surgical intervention required at this time and mary lfollow up with Surgery in outpatient setting. Otherwise pt. continued to point ot lower abdomen; repeat UA suggested trace leukocytes and was given 1 gram of Rocephin and sent home w. PO keflex. Cocnners fro chronic cystitis also also were considered; started pt. on oxybutynin for bladder spasm. Otherwise patient tolerated po and had multiple BM urinated w.o issue Discharged home in stable conditon - Discharge Data Discharge Date: 08/24/20 Discharge Disposition: DC/Tfer to [facility] 62 Condition: Good - Referral to Home Health Date of Face to Face Encounter: 08/24/20 Primary Care Physician: PCP None - Patient Summary/Data Consults: Consultations 08/22/20 11:05 Consult to Physician [CONS] Routine - Discharge Plan *PRESCRIPTION DRUG MONITORING PROGRAM REVIEWED*: No *COPY OF PRESCRIPTION DRUG MONITORING REPORT IN PATIENT TORIN: No Prescriptions/Med Rec: bisacodyL [Dulcolax] 10 mg PO DAILY PRN 14 Days #14 tablet PRN Reason: Constipation cephALEXin [Keflex] 250 mg PO Q8H 3 Days #9 cap Oxybutynin 2.5 mg PO BID 5 Days #10 tablet Acetaminophen [Tylenol Extra Strength] 500 mg PO BID PRN 15 Days #30 tablet PRN Reason: Pain Home Medications: Home Meds Multivitamin [Multi-Vitamin Daily] 1 tab PO DAILY 04/24/15 [History] Calcium Carb, Citrate/Vit D3 [Citracal + D ER] 1,200 mg PO DAILY 01/14/20 [History] Polyethylene Glycol [Polyox Wsr-301] 17 gm PO DAILY 01/14/20 [History] Ascorbic Acid [Vitamin C] 500 mg PO DAILY 08/21/20 [History] Celecoxib 200 mg PO DAILY PRN 08/21/20 [History] lisinopriL [Lisinopril] 20 mg PO DAILY 08/21/20 [History] predniSONE 2.5 mg PO BID 08/21/20 [History] Sulfamethoxazole/Trimethoprim [Sulfamethoxazole-Tmp Ss Tablet] 08/22/20 [History] Acetaminophen [Tylenol Extra Strength] 500 mg PO BID PRN 15 Days #30 tablet 08/23/20 [Rx] Oxybutynin 2.5 mg PO BID 5 Days #10 tablet 08/23/20 [Rx] bisacodyL [Dulcolax] 10 mg PO DAILY PRN 14 Days #14 tablet 08/23/20 [Rx] bisacodyL [Dulcolax] 10 mg RECTAL DAILY PRN supp 08/24/20 [Rx] cephALEXin [Keflex] 250 mg PO Q8H 3 Days #9 cap 08/24/20 [Rx] Oxygen Therapy Mode: Room Air Patient Handouts: Bisacodyl tablets and capsules, Oxybutynin tablets, Acetaminophen tablets or caplets, Cephalexin tablets or capsules, Community- Acquired Pneumonia, Adult, [id number] Forms: ED Department Discharge Referrals: Jabari Teran MD [Ordering Only Provider] - 08/29/20 10:30 am - Discharge Summary/Plan Comment DC Time >30 min.: No - Patient Data Vitals - Most Recent: Last Vital Signs Temp 96 F L 08/24/20 11:23 Pulse 82 08/24/20 11:23 Resp 16 08/24/20 11:23 BP 120/67 08/24/20 11:23 Pulse Ox 95 08/24/20 11:23 Weight - Most Recent: 47.5 kg I&O - Last 24 hours: Intake & Output 08/23/20 08/24/20 08/24/20 22:59 06:59 14:59 Intake Total 840 500 300 Output Total 500 Balance 340 500 300 Lab Results - Last 24 hrs: Laboratory Results - last 24 hr 08/24/20 08/24/20 08/24/20 Range/Units 01:12 05:45 05:45 WBC 9.72 (4.0-11.0) K/uL RBC 3.29 L (4.30-5.90) M/uL Hgb 10.2 L (12.0-16.0) g/dL Hct 31.4 L (36.0-46.0) % MCV 95.4 (80.0-98.0) fL MCH 31.0 (27.0-32.0) pg MCHC 32.5 (31.0-37.0) g/dL RDW Std Deviation 52.6 (28.0-62.0) fl RDW Coeff of Erik 15 (11.0-15.0) % Plt Count 231 (150-400) K/uL MPV 9.40 (7.40-12.00) fL Neut % (Auto) 41.5 L (48.0-80.0) % Lymph % (Auto) 48.8 H (16.0-40.0) % Mayes % (Auto) 7.4 (0.0-15.0) % Eos % (Auto) 2.1 (0.0-7.0) % Baso % (Auto) 0.2 (0.0-1.5) % Neut # (Auto) 4.0 (1.4-5.7) K/uL Lymph # (Auto) 4.7 H (0.6-2.4) K/uL Mayes # (Auto) 0.7 (0.0-0.8) K/uL Eos # (Auto) 0.2 (0.0-0.7) K/uL Baso # (Auto) 0.0 (0.0-0.1) K/uL Nucleated RBC % 0.0 /100WBC Nucleated RBCs # 0 K/uL Sodium 134 L (136-145) mmol/L Potassium 4.2 (3.5-5.1) mmol/L Chloride 101 (98-107) mmol/L Carbon Dioxide 24.4 (21.0-32.0) mmol/L BUN 19 H (7.0-18.0) mg/dL Creatinine 0.7 (0.6-1.0) mg/dL Est Cr Clr Drug Dosing 48.06 mL/min Estimated GFR (MDRD) > 60.0 ml/min Glucose 104 (74-106) mg/dL Calcium 8.2 L (8.5-10.1) mg/dL Magnesium (1.8-2.4) mg/dL Total Bilirubin 0.3 (0.2-1.0) mg/dL AST 37 (15-37) IU/L ALT 58 (14-63) IU/L Alkaline Phosphatase 103 (46-116) U/L Total Protein 5.7 L (6.4-8.2) g/dL Albumin 2.5 L (3.4-5.0) g/dL Globulin 3.2 (2.6-4.0) g/dL Albumin/Globulin Ratio 0.8 L (0.9-1.6) Urine Color YELLOW Urine Appearance SLT CLOUDY Urine pH 6.0 (5.0-8.0) Ur Specific [place] 1.025 (1.001-1.035) Urine Protein NEGATIVE (NEGATIVE) mg/dL Urine Glucose (UA) NEGATIVE (NEGATIVE) mg/dL Urine Ketones TRACE H (NEGATIVE) mg/dL Urine Occult Blood NEGATIVE (NEGATIVE) Urine Nitrite NEGATIVE (NEGATIVE) Urine Bilirubin NEGATIVE (NEGATIVE) Urine Urobilinogen 0.2 (<2.0) EU/dL Ur Leukocyte Esterase TRACE H (NEGATIVE) Urine RBC 0-1 (0-2/HPF) Urine WBC 0-1 (0-5/HPF) Ur Epithelial Cells RARE (NONE-FEW) Urine Bacteria RARE (NEGATIVE) Urine Mucus MODERATE (NONE-MOD) 08/24/20 Range/Units 05:45 WBC (4.0-11.0) K/uL RBC (4.30-5.90) M/uL Hgb (12.0-16.0) g/dL Hct (36.0-46.0) % MCV (80.0-98.0) fL MCH (27.0-32.0) pg MCHC (31.0-37.0) g/dL RDW Std Deviation (28.0-62.0) fl RDW Coeff of Erik (11.0-15.0) % Plt Count (150-400) K/uL MPV (7.40-12.00) fL Neut % (Auto) (48.0-80.0) % Lymph % (Auto) (16.0-40.0) % Mayes % (Auto) (0.0-15.0) % Eos % (Auto) (0.0-7.0) % Baso % (Auto) (0.0-1.5) % Neut # (Auto) (1.4-5.7) K/uL Lymph # (Auto) (0.6-2.4) K/uL Mayes # (Auto) (0.0-0.8) K/uL Eos # (Auto) (0.0-0.7) K/uL Baso # (Auto) (0.0-0.1) K/uL Nucleated RBC % /100WBC Nucleated RBCs # K/uL Sodium (136-145) mmol/L Potassium (3.5-5.1) mmol/L Chloride (98-107) mmol/L Carbon Dioxide (21.0-32.0) mmol/L BUN (7.0-18.0) mg/dL Creatinine (0.6-1.0) mg/dL Est Cr Clr Drug Dosing mL/min Estimated GFR (MDRD) ml/min Glucose (74-106) mg/dL Calcium (8.5-10.1) mg/dL Magnesium 2.4 (1.8-2.4) mg/dL Total Bilirubin (0.2-1.0) mg/dL AST (15-37) IU/L ALT (14-63) IU/L Alkaline Phosphatase (46-116) U/L Total Protein (6.4-8.2) g/dL Albumin (3.4-5.0) g/dL Globulin (2.6-4.0) g/dL Albumin/Globulin Ratio (0.9-1.6) Urine Color Urine Appearance Urine pH (5.0-8.0) Ur Specific [place] (1.001-1.035) Urine Protein (NEGATIVE) mg/dL Urine Glucose (UA) (NEGATIVE) mg/dL Urine Ketones (NEGATIVE) mg/dL Urine Occult Blood (NEGATIVE) Urine Nitrite (NEGATIVE) Urine Bilirubin (NEGATIVE) Urine Urobilinogen (<2.0) EU/dL Ur Leukocyte Esterase (NEGATIVE) Urine RBC (0-2/HPF) Urine WBC (0-5/HPF) Ur Epithelial Cells (NONE-FEW) Urine Bacteria (NEGATIVE) Urine Mucus (NONE-MOD) Med Orders - Current: Current Medications Bisacodyl (Dulcolax) 10 mg PO DAILY PRN PRN Reason: Constipation Bisacodyl (Dulcolax) 10 mg RECTAL DAILY PRN PRN Reason: Constipation Last Admin: 08/23/20 10:32 Dose: 10 mg Documented by: Heparin Sodium (Porcine) (Heparin Sodium) 5,000 units SUBCUT Q8H [facility] Last Admin: 08/24/20 07:54 Dose: 5,000 units Documented by: Azithromycin 500 mg/ Sodium (Chloride) 250 mls @ 250 mls/hr IV DAILY [facility] Last Admin: 08/24/20 10:10 Dose: 250 mls/hr Documented by: Ceftriaxone Sodium/Dextrose (Rocephin In Dextrose,Iso-Osm 1 Gm/50 Ml) 50 mls @ 100 mls/hr IV Q24H [facility] Last Admin: 08/24/20 09:07 Dose: 100 mls/hr Documented by: Ketorolac Tromethamine (Toradol) 15 mg IVPUSH Q6H PRN PRN Reason: Abdominal Pain Stop: 08/28/20 15:21 Last Admin: 08/24/20 03:58 Dose: 15 mg Documented by: Lisinopril (Prinivil) 20 mg PO DAILY [facility] Last Admin: 08/24/20 09:11 Dose: 20 mg Documented by: Melatonin (Melatonin) 3 mg PO BEDTIME PRN PRN Reason: Insomnia Last Admin: 08/21/20 20:11 Dose: 3 mg Documented by: Oxybutynin Chloride (Oxybutynin) 2.5 mg PO BID [facility] Last Admin: 08/24/20 09:11 Dose: 2.5 mg Documented by: Pantoprazole Sodium (Protonix) 40 mg PO ACBREAKFAST [facility] Last Admin: 08/24/20 07:54 Dose: 40 mg Documented by: Prednisone (Prednisone) 2.5 mg PO BID [facility] Last Admin: 08/24/20 09:10 Dose: 2.5 mg Documented by: Sodium Chloride (Saline Flush) 10 ml FLUSH ASDIRECTED PRN PRN Reason: Keep Vein Open Last Admin: 08/21/20 11:44 Dose: 10 ml Documented by: Sodium Chloride (Saline Flush) 2.5 ml FLUSH ASDIRECTED PRN PRN Reason: Keep Vein Open Last Admin: 08/21/20 11:44 Dose: 2.5 ml Documented by: Discontinued Medications Celecoxib (Celebrex) 200 mg PO DAILY PRN PRN Reason: Pain Sodium Chloride (Normal Saline) 1,000 mls @ 125 mls/hr IV STAT ONE Stop: 08/21/20 18:57 Last Admin: 08/21/20 11:44 Dose: 125 mls/hr Documented by: Ceftriaxone Sodium/Dextrose 1 (gm/ Premix) 50 mls @ 100 mls/hr IV ONETIME ONE Stop: 08/21/20 15:57 Last Admin: 08/21/20 16:09 Dose: 100 mls/hr Documented by: Sodium Chloride (Normal Saline) 1,000 mls @ 100 mls/hr IV NOW STA Stop: 08/22/20 03:50 Last Admin: 08/21/20 18:02 Dose: 100 mls/hr Documented by: Magnesium Sulfate (Magnesium Sulfate In Water Premix) 2 gm in 50 mls @ 50 mls/hr IV ONETIME ONE Stop: 08/23/20 09:13 Last Admin: 08/23/20 09:00 Dose: 50 mls/hr Documented by: Ceftriaxone Sodium 1 gm/ (Sodium Chloride) 50 mls @ 100 mls/hr IV Q24H [facility] Ibuprofen (Motrin) 400 mg PO Q4H PRN PRN Reason: Pain Last Admin: 08/22/20 14:22 Dose: 400 mg Documented by: Iopamidol (Isovue Multipack-370 (76%)) 100 ml IVPUSH ONETIME STA Stop: 08/21/20 13:56 Last Admin: 08/21/20 13:55 Dose: 100 ml Documented by: Ketorolac Tromethamine (Toradol) 15 mg IVPUSH NOW STA Stop: 08/21/20 15:29 Last Admin: 08/21/20 16:09 Dose: 15 mg Documented by: Oxybutynin Chloride (Oxybutynin) 2.5 mg PO DAILY [facility] <Sandro Rai J - Last Filed: 08/25/20 00:31> Discharge Summary - Referral to Home Health Primary Care Physician: PCP None - Patient Summary/Data Consults: Consultations 08/22/20 11:05 Consult to Physician [CONS] Routine - Patient Data Vitals - Most Recent: Last Vital Signs Temp 35.5 C L 08/24/20 11:23 Pulse 82 08/24/20 11:23 Resp 16 08/24/20 11:23 BP 120/67 08/24/20 11:23 Pulse Ox 95 08/24/20 11:23 I&O - Last 24 hours: Intake & Output 08/24/20 08/24/20 08/25/20 14:59 22:59 06:59 Intake Total 300 400 Balance 300 400 Lab Results - Last 24 hrs: Laboratory Results - last 24 hr 08/24/20 08/24/20 08/24/20 Range/Units 01:12 05:45 05:45 WBC 9.72 (4.0-11.0) K/uL RBC 3.29 L (4.30-5.90) M/uL Hgb 10.2 L (12.0-16.0) g/dL Hct 31.4 L (36.0-46.0) % MCV 95.4 (80.0-98.0) fL MCH 31.0 (27.0-32.0) pg MCHC 32.5 (31.0-37.0) g/dL RDW Std Deviation 52.6 (28.0-62.0) fl RDW Coeff of Erik 15 (11.0-15.0) % Plt Count 231 (150-400) K/uL MPV 9.40 (7.40-12.00) fL Neut % (Auto) 41.5 L (48.0-80.0) % Lymph % (Auto) 48.8 H (16.0-40.0) % Mayes % (Auto) 7.4 (0.0-15.0) % Eos % (Auto) 2.1 (0.0-7.0) % Baso % (Auto) 0.2 (0.0-1.5) % Neut # (Auto) 4.0 (1.4-5.7) K/uL Lymph # (Auto) 4.7 H (0.6-2.4) K/uL Mayes # (Auto) 0.7 (0.0-0.8) K/uL Eos # (Auto) 0.2 (0.0-0.7) K/uL Baso # (Auto) 0.0 (0.0-0.1) K/uL Nucleated RBC % 0.0 /100WBC Nucleated RBCs # 0 K/uL Sodium 134 L (136-145) mmol/L Potassium 4.2 (3.5-5.1) mmol/L Chloride 101 (98-107) mmol/L Carbon Dioxide 24.4 (21.0-32.0) mmol/L BUN 19 H (7.0-18.0) mg/dL Creatinine 0.7 (0.6-1.0) mg/dL Est Cr Clr Drug Dosing 48.06 mL/min Estimated GFR (MDRD) > 60.0 ml/min Glucose 104 (74-106) mg/dL Calcium 8.2 L (8.5-10.1) mg/dL Magnesium (1.8-2.4) mg/dL Total Bilirubin 0.3 (0.2-1.0) mg/dL AST 37 (15-37) IU/L ALT 58 (14-63) IU/L Alkaline Phosphatase 103 (46-116) U/L Total Protein 5.7 L (6.4-8.2) g/dL Albumin 2.5 L (3.4-5.0) g/dL Globulin 3.2 (2.6-4.0) g/dL Albumin/Globulin Ratio 0.8 L (0.9-1.6) Urine Color YELLOW Urine Appearance SLT CLOUDY Urine pH 6.0 (5.0-8.0) Ur Specific [place] 1.025 (1.001-1.035) Urine Protein NEGATIVE (NEGATIVE) mg/dL Urine Glucose (UA) NEGATIVE (NEGATIVE) mg/dL Urine Ketones TRACE H (NEGATIVE) mg/dL Urine Occult Blood NEGATIVE (NEGATIVE) Urine Nitrite NEGATIVE (NEGATIVE) Urine Bilirubin NEGATIVE (NEGATIVE) Urine Urobilinogen 0.2 (<2.0) EU/dL Ur Leukocyte Esterase TRACE H (NEGATIVE) Urine RBC 0-1 (0-2/HPF) Urine WBC 0-1 (0-5/HPF) Ur Epithelial Cells RARE (NONE-FEW) Urine Bacteria RARE (NEGATIVE) Urine Mucus MODERATE (NONE-MOD) 08/24/20 Range/Units 05:45 WBC (4.0-11.0) K/uL RBC (4.30-5.90) M/uL Hgb (12.0-16.0) g/dL Hct (36.0-46.0) % MCV (80.0-98.0) fL MCH (27.0-32.0) pg MCHC (31.0-37.0) g/dL RDW Std Deviation (28.0-62.0) fl RDW Coeff of Erik (11.0-15.0) % Plt Count (150-400) K/uL MPV (7.40-12.00) fL Neut % (Auto) (48.0-80.0) % Lymph % (Auto) (16.0-40.0) % Mayes % (Auto) (0.0-15.0) % Eos % (Auto) (0.0-7.0) % Baso % (Auto) (0.0-1.5) % Neut # (Auto) (1.4-5.7) K/uL Lymph # (Auto) (0.6-2.4) K/uL Mayes # (Auto) (0.0-0.8) K/uL Eos # (Auto) (0.0-0.7) K/uL Baso # (Auto) (0.0-0.1) K/uL Nucleated RBC % /100WBC Nucleated RBCs # K/uL Sodium (136-145) mmol/L Potassium (3.5-5.1) mmol/L Chloride (98-107) mmol/L Carbon Dioxide (21.0-32.0) mmol/L BUN (7.0-18.0) mg/dL Creatinine (0.6-1.0) mg/dL Est Cr Clr Drug Dosing mL/min Estimated GFR (MDRD) ml/min Glucose (74-106) mg/dL Calcium (8.5-10.1) mg/dL Magnesium 2.4 (1.8-2.4) mg/dL Total Bilirubin (0.2-1.0) mg/dL AST (15-37) IU/L ALT (14-63) IU/L Alkaline Phosphatase (46-116) U/L Total Protein (6.4-8.2) g/dL Albumin (3.4-5.0) g/dL Globulin (2.6-4.0) g/dL Albumin/Globulin Ratio (0.9-1.6) Urine Color Urine Appearance Urine pH (5.0-8.0) Ur Specific [place] (1.001-1.035) Urine Protein (NEGATIVE) mg/dL Urine Glucose (UA) (NEGATIVE) mg/dL Urine Ketones (NEGATIVE) mg/dL Urine Occult Blood (NEGATIVE) Urine Nitrite (NEGATIVE) Urine Bilirubin (NEGATIVE) Urine Urobilinogen (<2.0) EU/dL Ur Leukocyte Esterase (NEGATIVE) Urine RBC (0-2/HPF) Urine WBC (0-5/HPF) Ur Epithelial Cells (NONE-FEW) Urine Bacteria (NEGATIVE) Urine Mucus (NONE-MOD) Med Orders - Current: Current Medications Discontinued Medications Bisacodyl (Dulcolax) 10 mg PO DAILY PRN PRN Reason: Constipation Bisacodyl (Dulcolax) 10 mg RECTAL DAILY PRN PRN Reason: Constipation Last Admin: 08/23/20 10:32 Dose: 10 mg Documented by: Celecoxib (Celebrex) 200 mg PO DAILY PRN PRN Reason: Pain Heparin Sodium (Porcine) (Heparin Sodium) 5,000 units SUBCUT Q8H [facility] Last Admin: 08/24/20 14:10 Dose: 5,000 units Documented by: Sodium Chloride (Normal Saline) 1,000 mls @ 125 mls/hr IV STAT ONE Stop: 08/21/20 18:57 Last Admin: 08/21/20 11:44 Dose: 125 mls/hr Documented by: Ceftriaxone Sodium/Dextrose 1 (gm/ Premix) 50 mls @ 100 mls/hr IV ONETIME ONE Stop: 08/21/20 15:57 Last Admin: 08/21/20 16:09 Dose: 100 mls/hr Documented by: Azithromycin 500 mg/ Sodium (Chloride) 250 mls @ 250 mls/hr IV DAILY [facility] Last Admin: 08/24/20 10:10 Dose: 250 mls/hr Documented by: Sodium Chloride (Normal Saline) 1,000 mls @ 100 mls/hr IV NOW STA Stop: 08/22/20 03:50 Last Admin: 08/21/20 18:02 Dose: 100 mls/hr Documented by: Magnesium Sulfate (Magnesium Sulfate In Water Premix) 2 gm in 50 mls @ 50 mls/hr IV ONETIME ONE Stop: 08/23/20 09:13 Last Admin: 08/23/20 09:00 Dose: 50 mls/hr Documented by: Ceftriaxone Sodium 1 gm/ (Sodium Chloride) 50 mls @ 100 mls/hr IV Q24H [facility] Ceftriaxone Sodium/Dextrose (Rocephin In Dextrose,Iso-Osm 1 Gm/50 Ml) 50 mls @ 100 mls/hr IV Q24H [facility] Last Admin: 08/24/20 09:07 Dose: 100 mls/hr Documented by: Ibuprofen (Motrin) 400 mg PO Q4H PRN PRN Reason: Pain Last Admin: 08/22/20 14:22 Dose: 400 mg Documented by: Iopamidol (Isovue Multipack-370 (76%)) 100 ml IVPUSH ONETIME STA Stop: 08/21/20 13:56 Last Admin: 08/21/20 13:55 Dose: 100 ml Documented by: Ketorolac Tromethamine (Toradol) 15 mg IVPUSH NOW STA Stop: 08/21/20 15:29 Last Admin: 08/21/20 16:09 Dose: 15 mg Documented by: Ketorolac Tromethamine (Toradol) 15 mg IVPUSH Q6H PRN PRN Reason: Abdominal Pain Stop: 08/28/20 15:21 Last Admin: 08/24/20 03:58 Dose: 15 mg Documented by: Lisinopril (Prinivil) 20 mg PO DAILY [facility] Last Admin: 08/24/20 09:11 Dose: 20 mg Documented by: Melatonin (Melatonin) 3 mg PO BEDTIME PRN PRN Reason: Insomnia Last Admin: 08/21/20 20:11 Dose: 3 mg Documented by: Oxybutynin Chloride (Oxybutynin) 2.5 mg PO DAILY [facility] Oxybutynin Chloride (Oxybutynin) 2.5 mg PO BID [facility] Last Admin: 08/24/20 09:11 Dose: 2.5 mg Documented by: Pantoprazole Sodium (Protonix) 40 mg PO ACBREAKFAST [facility] Last Admin: 08/24/20 07:54 Dose: 40 mg Documented by: Prednisone (Prednisone) 2.5 mg PO BID [facility] Last Admin: 08/24/20 09:10 Dose: 2.5 mg Documented by: Sodium Chloride (Saline Flush) 10 ml FLUSH ASDIRECTED PRN PRN Reason: Keep Vein Open Last Admin: 08/21/20 11:44 Dose: 10 ml Documented by: Sodium Chloride (Saline Flush) 2.5 ml FLUSH ASDIRECTED PRN PRN Reason: Keep Vein Open Last Admin: 08/21/20 11:44 Dose: 2.5 ml Documented by: - Free Text/Narrative Note: I have seen and evaluated the patient. I have discussed findings and treatment plan with resident. I agree with the assessment and plan in the following note.
== END 2020-08-24 14:30 ==
LOC: MW.ED 09:58 → MW.MS 15:47
PROVIDERS: ADMIT Student in an Organized Health Care Education/Training Program; ATTEND Student in an Organized Health Care Education/Training Program
DX: K80.20 Calculus of gallbladder without cholecystitis without obstruction (principal); J18.9 Pneumonia, unspecified organism; D72.829 Elevated white blood cell count, unspecified; E87.1 Hypo-osmolality and hyponatremia; Z79.899 Other long term (current) drug therapy; Z98.890 Other specified postprocedural states; Z20.828 Contact with and (suspected) exposure to other viral communicable diseases
CPT/HCPCS: 0240U; 36415; 71045; 74177; 76705; 80053; 81001; 81003; 83690; 83735; 84145; 84484; 85025; 87086; 93005; 96361; 96365; 96366; 96367; 96372; 96374; 96375; 96376; 99285; A9270; G0378; J0456; J0696; J1644; J1885; J3475; J7030; J7050; J7512; Q9967; 93010; 99284

== ENCOUNTER 2020-11-17 08:25 | Emergency (ER) | payer MEDICARE, MEDICAID ==
[2020-11-17] MEDS ORDERED: Sodium Chloride 0.9% 2.5 ML Syringe FLUSH PRN (08:34)
[2020-11-17] MEDS ORDERED: Sodium Chloride 0.9% 10 ML Syringe FLUSH PRN (08:34)
[2020-11-17] MEDS ORDERED: Ondansetron 4 MG/2 ML SDV IVPUSH ONE (08:34)
[2020-11-17] MEDS ORDERED: Ondansetron 4 MG/2 ML SDV ONE (08:34)
[2020-11-17] MEDS ORDERED: Sodium Chloride 0.9% 1,000 ML IV ONE (08:35)
--- NOTE | 2020-11-17 08:48 | EDM.PDOC ---
ED HPI GENERAL MEDICAL PROBLEM - General Chief Complaint: Gastrointestinal Problem Stated Complaint: EMS Time Seen by Provider: 11/17/20 08:26 Source of Information: Reports: [facility] Records - History of Present Illness INITIAL COMMENTS - FREE TEXT/NARRATIVE: History of present illness: [] The patient reports ports that she feels sick. She vomited in the emergency department. Her assistant gm of content & delivery says she went to the bathroom and had a stool. At that time she strained and they found her unconscious on the floor. She came to and has reverted to her normal baseline. The FAST exam per paramedics was negative. I reviewed her old chart and she has cerebral palsy and is not able to communicate verbally. She was admitted for 3 nights in August for pneumonia. She had an uneventful course and went back to her [facility]. Review of systems: As per history of present illness and below otherwise all systems reviewed and negative. Past medical history: As per history of present illness and as reviewed below otherwise noncontributory. Surgical history: As per history of present illness and as reviewed below otherwise noncontributory. Social history: No reported history of drug or alcohol abuse. Family history: As per history of present illness and as reviewed below otherwise noncontributory. Physical exam: Constitutional - well developed, well-nourished and in no acute distress HEENT - normocephalic, no evidence of trauma - external nose and mouth normal - no mass in neck and no JVD - mucosae moist EYES - full EOM, PERRL, no icterus - no evidence of inflammation, injection, or drainage Respiratory - no respiratory distress, equal bilateral expansion, lungs clear to auscultation and no abnormal lung sounds Cardiovascular - Regular Rhythm with S1 and S2 appreciated and no murmur, gallop or rub. GI -vomited coffee-ground appearing material. Rectal exam showed she had diarrhea stool that was dark but heme negative. Abdomen soft without distension or organomegaly - normal bowel sounds - no guard or rebound Musculoskeletal she has a little contraction deformity of her hands no gross deformity of long bones or joints - no tenderness, swelling or edema Neurologic - Alert and oriented times four - CN II-XII grossly intact hip she has minimal movement of the lacrimal folds on either side.- motor sensory and coordination symmetric coordinated with tremor. Her speech is unintelligible although she tries to speak and does make the noise without stridor. Psychiatric appears to have appropriate mood and affect Hematologic - No petechiae or purpura - mucosa appropriate color and sclera not pale - normal nail bed color and refill Integument - no rash or evidence of trauma - normal turgor Diagnostics: [] Therapeutics: [] Impression: [] Plan: [] Definitive disposition and diagnosis as appropriate pending reevaluation and review of above. - Related Data Allergies Allergy/AdvReac Type Severity Reaction Status Date / Time No Known Allergies Allergy Verified 08/21/20 17:30 Home Meds: Home Meds Multivitamin [Multi-Vitamin Daily] 1 tab PO DAILY 04/24/15 [History] Calcium Carb, Citrate/Vit D3 [Citracal + D ER] 1,200 mg PO DAILY 01/14/20 [History] Polyethylene Glycol [Polyox [id number]] 17 gm PO DAILY 01/14/20 [History] Ascorbic Acid [Vitamin C] 500 mg PO DAILY 08/21/20 [History] Celecoxib 200 mg PO DAILY PRN 08/21/20 [History] lisinopriL [Lisinopril] 20 mg PO DAILY 08/21/20 [History] predniSONE 2.5 mg PO BID 08/21/20 [History] Sulfamethoxazole/Trimethoprim [Sulfamethoxazole-Tmp Ss Tablet] 08/22/20 [History] Acetaminophen [Tylenol Extra Strength] 500 mg PO BID PRN 15 Days #30 tablet 08/23/20 [Rx] Oxybutynin 2.5 mg PO BID 5 Days #10 tablet 08/23/20 [Rx] bisacodyL [Dulcolax] 10 mg PO DAILY PRN 14 Days #14 tablet 08/23/20 [Rx] bisacodyL [Dulcolax] 10 mg RECTAL DAILY PRN supp 08/24/20 [Rx] cephALEXin [Keflex] 250 mg PO Q8H 3 Days #9 cap 08/24/20 [Rx] Ondansetron [Zofran ODT] 4 mg PO Q6H PRN #10 tab.dis 11/17/20 [Rx] Past Medical History HEENT History: Reports: Impaired Vision, Other (See Below) Other HEENT History: wears glasses; recurrent nasal drainage; hyperopia; astigmatism Cardiovascular History: Reports: Hypertension Respiratory History: Reports: None Gastrointestinal History: Reports: None Genitourinary History: Reports: None Other Genitourinary History: Bladder hyperactivity ABALONE SHELLER History: Reports: None Musculoskeletal History: Reports: Other (See Below) Other Musculoskeletal History: drop foot Neurological History: Reports: Cerebral Palsy Psychiatric History: Reports: Other (See Below) Other Psychiatric History: speech impairment Endocrine/Metabolic History: Reports: None Hematologic History: Reports: None Immunologic History: Reports: None Oncologic (Cancer) History: Reports: Uterine Dermatologic History: Reports: None - Infectious Disease History Infectious Disease History: Reports: None - Past Surgical History HEENT Surgical History: Reports: None Cardiovascular Surgical History: Reports: None Respiratory Surgical History: Reports: None GI Surgical History: Reports: Appendectomy Female Surgical History: Reports: Breast Biopsy, Hysterectomy Other Female Surgeries/Procedures: Hysterectomy for cancer Endocrine Surgical History: Reports: None Neurological Surgical History: Reports: None Musculoskeletal Surgical History: Reports: Arthroscopic Procedure, Hip Replacement, ORIF Other Musculoskeletal Surgeries/Procedures:: left SIGRID, ORIF right pinky finger with K-Wire Oncologic Surgical History: Reports: Other (See Below) Other Oncologic Surgeries/Procedures: Hysterectomy Dermatological Surgical History: Reports: None Social & Family History - Family History Family Medical History: No Pertinent Family History - Caffeine Use Caffeine Use: Reports: Coffee ED ROS GENERAL - Review of Systems Review Of Systems: Comprehensive ROS is negative, except as noted in HPI. ED EXAM, GENERAL - Physical Exam Exam: See Below Free Text/Narrative:: My physical exam is in the HPI #1 Interpretation EKG Interpretation Comments: EKG sinus rhythm heart rate 71 [place] [address] [place] [address] and T are unremarkable compared to 08/21/2020 no obvious change impression no acute injury Course - Vital Signs Text/Narrative:: 10:20 AM the patient has had no symptoms here. She quickly woke up after she passed out on the toilet. She also was nauseated and vomiting. She is able to take p.o. after Zofran. I believe she had a vasovagal syncope. She is under close observation at the [facility]. The patient will be discharged in satisfactory condition with a prescription for Zofran. Last Recorded V/S: Last Vital Signs Temp 36.2 C 11/17/20 08:26 Pulse 74 11/17/20 08:26 Resp 18 11/17/20 08:26 BP 126/50 L 11/17/20 08:26 Pulse Ox 94 L 11/17/20 08:26 - Orders/Labs/Meds Orders: Active Orders 24 hr Category Date Time Status EKG Documentation Completion [RC] AM Care 11/17/20 08:34 Active Sodium Chloride 0.9% [Saline Flush] Med 11/17/20 08:34 Active 10 ml FLUSH ASDIRECTED PRN Sodium Chloride 0.9% [Saline Flush] Med 11/17/20 08:34 Active 2.5 ml FLUSH ASDIRECTED PRN Saline Lock Insert [OM.PC] Stat Oth 11/17/20 08:34 Ordered Medication Orders Sodium Chloride (Sodium Chloride 0.9% 10 Ml Syringe) 10 ml FLUSH ASDIRECTED PRN PRN Reason: Keep Vein Open Last Admin: 11/17/20 09:14 Dose: 10 ml Documented by: KENDAL Sodium Chloride (Sodium Chloride 0.9% 2.5 Ml Syringe) 2.5 ml FLUSH ASDIRECTED PRN PRN Reason: Keep Vein Open Last Admin: 11/17/20 09:14 Dose: 2.5 ml Documented by: KENDAL Labs: Laboratory Tests 11/17/20 11/17/20 11/17/20 Range/Units 07:51 08:49 08:49 WBC 10.62 (4.0-11.0) K/uL RBC 4.17 L (4.30-5.90) M/uL Hgb 13.4 (12.0-16.0) g/dL Hct 39.4 (36.0-46.0) % MCV 94.5 (80.0-98.0) fL MCH 32.1 H (27.0-32.0) pg MCHC 34.0 (31.0-37.0) g/dL RDW Std Deviation 48.3 (28.0-62.0) fl RDW Coeff of Erik 14 (11.0-15.0) % Plt Count 188 (150-400) K/uL MPV 9.70 (7.40-12.00) fL Add Manual Diff YES Neutrophils % (Manual) 22 L (48.0-80.0) % Lymphocytes % (Manual) 71 H (16.0-40.0) % Monocytes % (Manual) 5 (0.0-15.0) % Eosinophils % (Manual) 1 (0.0-7.0) % Basophils % (Manual) 1 (0.0-1.5) % Nucleated RBC % 0.0 /100WBC Absolute Seg Neuts 2.3 (1.4-5.7) Lymphocytes # (Manual) 7.5 H (0.6-2.4) Monocytes # (Manual) 0.5 (0.0-0.8) Eosinophils # (Manual) 0.1 (0.0-0.7) Basophils # (Manual) 0.1 (0.0-0.1) Nucleated RBCs # 0 K/uL Reactive Lymphocytes FEW INR 0.94 APTT 20.8 (18.6-31.3) SEC Lactate (0.20-2.00) mmol/L Sodium (136-145) mmol/L Potassium (3.5-5.1) mmol/L Chloride (98-107) mmol/L Carbon Dioxide (21.0-32.0) mmol/L BUN (7.0-18.0) mg/dL Creatinine (0.6-1.0) mg/dL Est Cr Clr Drug Dosing Estimated GFR (MDRD) ml/min Glucose (74-106) mg/dL POC Glucose 108 (60-110) mg/dL Calcium (8.5-10.1) mg/dL Total Bilirubin (0.2-1.0) mg/dL AST (15-37) IU/L ALT (14-63) IU/L Alkaline Phosphatase (46-116) U/L Troponin I (0.000-0.056) ng/mL Total Protein (6.4-8.2) g/dL Albumin (3.4-5.0) g/dL Globulin (2.6-4.0) g/dL Albumin/Globulin Ratio (0.9-1.6) Lipase (73-393) U/L Urine Color Urine Appearance Urine pH (5.0-8.0) Ur Specific [place] (1.001-1.035) Urine Protein (NEGATIVE) mg/dL Urine Glucose (UA) (NEGATIVE) mg/dL Urine Ketones (NEGATIVE) mg/dL Urine Occult Blood (NEGATIVE) Urine Nitrite (NEGATIVE) Urine Bilirubin (NEGATIVE) Urine Urobilinogen (<2.0) EU/dL Ur Leukocyte Esterase (NEGATIVE) 11/17/20 11/17/20 11/17/20 Range/Units 08:49 08:49 09:24 WBC (4.0-11.0) K/uL RBC (4.30-5.90) M/uL Hgb (12.0-16.0) g/dL Hct (36.0-46.0) % MCV (80.0-98.0) fL MCH (27.0-32.0) pg MCHC (31.0-37.0) g/dL RDW Std Deviation (28.0-62.0) fl RDW Coeff of Erik (11.0-15.0) % Plt Count (150-400) K/uL MPV (7.40-12.00) fL Add Manual Diff Neutrophils % (Manual) (48.0-80.0) % Lymphocytes % (Manual) (16.0-40.0) % Monocytes % (Manual) (0.0-15.0) % Eosinophils % (Manual) (0.0-7.0) % Basophils % (Manual) (0.0-1.5) % Nucleated RBC % /100WBC Absolute Seg Neuts (1.4-5.7) Lymphocytes # (Manual) (0.6-2.4) Monocytes # (Manual) (0.0-0.8) Eosinophils # (Manual) (0.0-0.7) Basophils # (Manual) (0.0-0.1) Nucleated RBCs # K/uL Reactive Lymphocytes INR APTT (18.6-31.3) SEC Lactate 1.0 (0.20-2.00) mmol/L Sodium 133 L (136-145) mmol/L Potassium 4.2 (3.5-5.1) mmol/L Chloride 97 L (98-107) mmol/L Carbon Dioxide 28.9 (21.0-32.0) mmol/L BUN 21 H (7.0-18.0) mg/dL Creatinine 0.9 (0.6-1.0) mg/dL Est Cr Clr Drug Dosing TNP Estimated GFR (MDRD) > 60.0 ml/min Glucose 116 H (74-106) mg/dL POC Glucose (60-110) mg/dL Calcium 9.8 (8.5-10.1) mg/dL Total Bilirubin 0.3 (0.2-1.0) mg/dL AST 44 H (15-37) IU/L ALT 89 H (14-63) IU/L Alkaline Phosphatase 74 (46-116) U/L Troponin I < 0.050 (0.000-0.056) ng/mL Total Protein 6.2 L (6.4-8.2) g/dL Albumin 3.0 L (3.4-5.0) g/dL Globulin 3.2 (2.6-4.0) g/dL Albumin/Globulin Ratio 0.9 (0.9-1.6) Lipase 319 (73-393) U/L Urine Color YELLOW Urine Appearance SLT CLOUDY Urine pH 7.0 (5.0-8.0) Ur Specific [place] 1.020 (1.001-1.035) Urine Protein NEGATIVE (NEGATIVE) mg/dL Urine Glucose (UA) NEGATIVE (NEGATIVE) mg/dL Urine Ketones NEGATIVE (NEGATIVE) mg/dL Urine Occult Blood NEGATIVE (NEGATIVE) Urine Nitrite NEGATIVE (NEGATIVE) Urine Bilirubin NEGATIVE (NEGATIVE) Urine Urobilinogen 0.2 (<2.0) EU/dL Ur Leukocyte Esterase NEGATIVE (NEGATIVE) Meds: Medications Generic Name Dose Route Start Last Admin Trade Name Freq PRN Reason Stop Dose Admin Sodium Chloride 10 ml 11/17/20 08:34 11/17/20 09:14 Sodium Chloride 0.9% 10 Ml Syringe FLUSH 10 ml ASDIRECTED PRN Administration Keep Vein Open Sodium Chloride 2.5 ml 11/17/20 08:34 11/17/20 09:14 Sodium Chloride 0.9% 2.5 Ml Syringe FLUSH 2.5 ml ASDIRECTED PRN Administration Keep Vein Open Discontinued Medications Generic Name Dose Route Start Last Admin Trade Name Freq PRN Reason Stop Dose Admin Sodium Chloride 1,000 mls @ 1,000 mls/hr 11/17/20 08:35 11/17/20 09:12 Normal Saline IV 11/17/20 09:34 1,000 mls/hr .Bolus ONE Administration Ondansetron HCl Confirm 11/17/20 08:34 11/17/20 09:14 Ondansetron 4 Mg/2 Ml Sdv Administered 11/17/20 08:35 Not Given Dose 4 mg .ROUTE .STK-MED ONE Ondansetron HCl 4 mg 11/17/20 08:34 11/17/20 09:13 Ondansetron 4 Mg/2 Ml Sdv IVPUSH 11/17/20 08:35 4 mg ONETIME ONE Administration Departure - Departure Time of Disposition: 10:21 Disposition: DC/Tfer to SNF 03 Condition: Good Clinical Impression: Vasovagal syncope, Vomiting - Discharge Information Prescriptions: Ondansetron [Zofran ODT] 4 mg PO Q6H PRN #10 tab.dis PRN Reason: Nausea Instructions: Nausea and Vomiting, Adult, [id number], Syncope, [id number] Referrals: Jabari Teran MD [Primary Care Provider] - Forms: ED Department Discharge Additional Instructions: [facility] - Primary Care [address] [place] [id number] [id number] The following information is given to patients seen in the emergency department who are being discharged to home. This information is to outline your options for follow-up care. We provide all patients seen in our emergency department with a follow-up referral. The need for follow-up, as well as the timing and circumstances, are variable depending upon the specifics of your emergency department visit. If you don't have a primary care physician on staff, we will provide you with a referral. We always advise you to contact your personal physician following an emergency department visit to inform them of the circumstance of the visit and for follow-up with them and/or the need for any referrals to a consulting specialist. The emergency department will also refer you to a specialist when appropriate. This referral assures that you have the opportunity for follow-up care with a s pecialist. All of these measure are taken in an effort to provide you with optimal care, which includes your follow-up. Under all circumstances we always encourage you to contact your private physici an who remains a resource for coordinating your care. When calling for follow-up care, please make the office aware that this follow-up is from your recent emergency room visit. If for any reason you are refused follow-up, please contact the [facility] Emergency Department at and asked to speak to the emergency department charge nurse. Sepsis Event Note (ED) - Focused Exam Vital Signs: Vital Signs Temp Pulse Resp BP Pulse Ox 11/17/20 08:26 36.2 C 74 18 126/50 L 94 L - My Orders Last 24 Hours: My Active Orders 11/17/20 08:34 EKG Documentation Completion [RC] AM Sodium Chloride 0.9% [Saline Flush] 10 ml FLUSH ASDIRECTED PRN Sodium Chloride 0.9% [Saline Flush] 2.5 ml FLUSH ASDIRECTED PRN Saline Lock Insert [OM.PC] Stat - Assessment/Plan Last 24 Hours: My Active Orders 11/17/20 08:34 EKG Documentation Completion [RC] AM Sodium Chloride 0.9% [Saline Flush] 10 ml FLUSH ASDIRECTED PRN Sodium Chloride 0.9% [Saline Flush] 2.5 ml FLUSH ASDIRECTED PRN Saline Lock Insert [OM.PC] Stat
--- NOTE | 2020-11-17 09:18 | CR ---
HISTORY: Vomiting and choking. TECHNIQUE: One view of the chest. COMPARISON: 08/21/2020. FINDINGS: Low lung volumes. On the left, there is increased opacity at the left lung base as before which may relate to basilar atelectasis or infiltrate. There is potentially a small left-sided pleural effusion as before. The right lung appears clear. There is no pneumothorax. Cardiac size is within limits accounting for technique. IMPRESSION: 1. As before, there is increased opacity at the left lung base which may relate to basilar atelectasis or infiltrate. A small left-sided pleural effusion may be present. These findings are unchanged. 2. The right lung is clear. Dictated by Avi Oconnor MD @ 11/17/2020 9:15:22 AM Dictated by: Avi Oconnor MD @ 11/17/2020 09:15:28 (Electronically Signed)
[2020-11-17 09:23] LABS: BLOOD UREA NITROGEN,BUN 21 mg/dL (7.0-18.0); CARBON DIOXIDE,CO2 28.9 mmol/L (21.0-32.0); CHLORIDE,CL 97 mmol/L (98-107); GLUCOSE RANDOM 116 mg/dL (74-106); LIPASE 319 U/L (73-393); POTASSIUM,K 4.2 mmol/L (3.5-5.1); SODIUM,NA 133 mmol/L (136-145)
--- NOTE | 2020-11-17 09:30 | CT ---
INDICATION: Pt w/syncope while straining stool. TECHNIQUE: CT of the head without contrast. Coronal and sagittal reformats. Bone and soft tissue algorithms. COMPARISON: 03/12/2020 CT FINDINGS: No evidence of acute cortical infarct. No evidence of suspicious extra-axial collection or acute intracranial hemorrhage. Mild generalized parenchymal volume loss. 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 No hydrocephalus. The basal cisterns are clear. The calvarium is intact. The orbits, paranasal sinuses and mastoid air cells are unremarkable. Carotid siphon atherosclerotic calcifications again noted. Bilateral temporomandibular joint degenerative changes, right greater than left. IMPRESSION: 1. No evidence of acute intracranial abnormality. No significant change compared to 03/12/2020. 2. Similar diffuse areas of parenchymal volume loss and chronic infarcts along in the bilateral JEREMY-MCA watershed territories. 3. Bilateral temporomandibular joint degenerative changes, right greater than left. Please note that all CT scans at this facility use dose modulation, iterative reconstruction, and/or weight-based dosing when appropriate to reduce radiation dose to as low as reasonably achievable. Dictated by Darnell Silva MD @ Nov 17 2020 9:24AM Signed by Dr. Darnell Silva @ Nov 17 2020 9:30AM
[2020-11-17 19:50] VITALS: BP 121/71; PULSE 70
== END 2020-11-17 10:42 ==
LOC: MW.ED 08:25
DX: R55 Syncope and collapse (principal); R11.2 Nausea with vomiting, unspecified; I10 Essential (primary) hypertension; G80.9 Cerebral palsy, unspecified; Z79.899 Other long term (current) drug therapy
CPT/HCPCS: 36415; 70450; 71045; 80053; 81003; 82962; 83605; 83690; 84484; 85025; 85610; 85730; 93005; 96374; 99285; J2405; J7030

== ENCOUNTER 2020-12-16 07:58 | Emergency (ER) | payer MEDICARE, MEDICAID ==
--- NOTE | 2020-12-16 08:23 | EDM.PDOC ---
ED HPI GENERAL MEDICAL PROBLEM - General Chief Complaint: Syncope Stated Complaint: EMS Time Seen by Provider: 12/16/20 08:08 Source of Information: Reports: EMS History Limitations: Reports: Other - History of Present Illness INITIAL COMMENTS - FREE TEXT/NARRATIVE: Patient is an 80-year-old female who presents today for syncope episode. History was obtained from EMS and states that patient was in the bathroom when her caregiver found her slumped over having a possible syncope episode. The caregiver states it was difficult to arouse the patient she called EMS when EMS arrived patient was awake and back at her baseline. Patient here has developmental delays and difficult get history from but states that everything is fine. We are awaiting caregiver to get more history but on exam patient does not seem to have any abdominal pain chest pain or respiratory distress. - Related Data Allergies Allergy/AdvReac Type Severity Reaction Status Date / Time No Known Allergies Allergy Verified 08/21/20 17:30 Home Meds: Home Meds Multivitamin [Multi-Vitamin Daily] 1 tab PO DAILY 04/24/15 [History] Polyethylene Glycol [Polyox [id number]] 17 gm PO ASDIRECTED 01/14/20 [History] Ascorbic Acid [Vitamin C] 500 mg PO DAILY 08/21/20 [History] lisinopriL [Lisinopril] 40 mg PO DAILY 08/21/20 [History] predniSONE 2.5 mg PO DAILY 08/21/20 [History] Calcium Carb, Citrate/Vit D3 [Citracal + D ER] 600 mg PO BID 11/17/20 [History] Ondansetron [Zofran ODT] 4 mg PO Q6H PRN #10 tab.dis 11/17/20 [Rx] Ondansetron [Zofran ODT] 4 mg PO Q6H PRN #10 tab.dis 11/17/20 [Rx] Past Medical History HEENT History: Reports: Impaired Vision, Other (See Below) Other HEENT History: wears glasses; recurrent nasal drainage; hyperopia; astigmatism Cardiovascular History: Reports: Hypertension Respiratory History: Reports: None Gastrointestinal History: Reports: None Genitourinary History: Reports: None Other Genitourinary History: Bladder hyperactivity [employer] History: Reports: None Musculoskeletal History: Reports: Other (See Below) Other Musculoskeletal History: drop foot Neurological History: Reports: Cerebral Palsy Psychiatric History: Reports: Other (See Below) Other Psychiatric History: speech impairment Endocrine/Metabolic History: Reports: None Hematologic History: Reports: None Immunologic History: Reports: None Oncologic (Cancer) History: Reports: Uterine Dermatologic History: Reports: None - Infectious Disease History Infectious Disease History: Reports: None - Past Surgical History HEENT Surgical History: Reports: None Cardiovascular Surgical History: Reports: None Respiratory Surgical History: Reports: None GI Surgical History: Reports: Appendectomy Female Surgical History: Reports: Breast Biopsy, Hysterectomy Other Female Surgeries/Procedures: Hysterectomy for cancer Endocrine Surgical History: Reports: None Neurological Surgical History: Reports: None Musculoskeletal Surgical History: Reports: Arthroscopic Procedure, Hip Replacement, ORIF Other Musculoskeletal Surgeries/Procedures:: left SIGRID, ORIF right pinky finger with K-Wire Oncologic Surgical History: Reports: Other (See Below) Other Oncologic Surgeries/Procedures: Hysterectomy Dermatological Surgical History: Reports: None Social & Family History - Family History Family Medical History: No Pertinent Family History - Caffeine Use Caffeine Use: Reports: None ED ROS GENERAL - Review of Systems Review Of Systems: Unable To Obtain Reason Not Obtained: mental status Respiratory: Reports: No Symptoms - Physical Exam Exam: See Below Exam Limited By: Other General Appearance: Alert Eye Exam: Bilateral Eye: EOMI, PERRL Head Exam: Atraumatic, Normocephalic Respiratory/Chest: No Respiratory Distress, Lungs Clear, Normal Breath Sounds Cardiovascular: Normal Peripheral Pulses, Regular Rate, Rhythm, No Edema GI/Abdominal: Normal Bowel Sounds, Soft, Non-Tender Neuro Exam (Abbreviated): Alert, Oriented Extremities: Normal Inspection, Normal Range of Motion #1 Interpretation EKG Date: 12/16/20 Time: 08:04 Rhythm: NSR Rate (Beats/Min): 68 ST-T: Normal Course - Vital Signs Last Recorded V/S: Last Vital Signs Temp 96.1 F L 12/16/20 08:00 Pulse 74 12/16/20 08:00 Resp 17 12/16/20 08:00 BP 134/64 12/16/20 08:00 Pulse Ox 94 L 12/16/20 08:00 - Orders/Labs/Meds Orders: Active Orders 24 hr Category Date Time Status EKG Documentation Completion [RC] STAT Care 12/16/20 08:11 Active Labs: Laboratory Tests 12/16/20 12/16/20 Range/Units 08:12 08:12 WBC 10.64 (4.0-11.0) K/uL RBC 4.60 (4.30-5.90) M/uL Hgb 14.6 (12.0-16.0) g/dL Hct 43.3 (36.0-46.0) % MCV 94.1 (80.0-98.0) fL MCH 31.7 (27.0-32.0) pg MCHC 33.7 (31.0-37.0) g/dL RDW Std Deviation 47.6 (28.0-62.0) fl RDW Coeff of Erik 14 (11.0-15.0) % Plt Count 212 (150-400) K/uL MPV 9.30 (7.40-12.00) fL Add Manual Diff YES Neutrophils % (Manual) 22 L (48.0-80.0) % Lymphocytes % (Manual) 74 H (16.0-40.0) % Monocytes % (Manual) 3 (0.0-15.0) % Eosinophils % (Manual) 1 (0.0-7.0) % Nucleated RBC % 0.0 /100WBC Absolute Seg Neuts 2.3 (1.4-5.7) Lymphocytes # (Manual) 7.9 H (0.6-2.4) Monocytes # (Manual) 0.3 (0.0-0.8) Eosinophils # (Manual) 0.1 (0.0-0.7) Nucleated RBCs # 0 K/uL Reactive Lymphocytes FEW Sodium 135 L (136-145) mmol/L Potassium 4.0 (3.5-5.1) mmol/L Chloride 98 (98-107) mmol/L Carbon Dioxide 29.1 (21.0-32.0) mmol/L BUN 23 H (7.0-18.0) mg/dL Creatinine 1.0 (0.6-1.0) mg/dL Est Cr Clr Drug Dosing TNP Estimated GFR (MDRD) 53.2 ml/min Glucose 124 H (74-106) mg/dL Calcium 9.7 (8.5-10.1) mg/dL Total Bilirubin 0.3 (0.2-1.0) mg/dL AST 27 (15-37) IU/L ALT 61 (14-63) IU/L Alkaline Phosphatase 99 (46-116) U/L Creatine Kinase 20 L (26-308) U/L Troponin I < 0.050 (0.000-0.056) ng/mL Total Protein 6.9 (6.4-8.2) g/dL Albumin 3.1 L (3.4-5.0) g/dL Globulin 3.8 (2.6-4.0) g/dL Albumin/Globulin Ratio 0.8 L (0.9-1.6) - Re-Assessments/Exams Free Text/Narrative Re-Assessment/Exam: 12/16/20 09:13 Patient's caregiver present and states that patient had these similar episodes before in the past is actually scheduled to see neurologist on Wednesday for EEG. Patient per caregiver is back to her baseline. This happened while patient was on the toilet having a bowel movement. Could have been a vasovagal episode cause the patient to have syncope. Patient EKG labs reviewed certainly seems be at baseline patient will be discharged home and given follow-up with neurology. Departure - Departure Time of Disposition: 09:14 Disposition: Home, Self-Care 01 Condition: Good Clinical Impression: Syncope - Discharge Information *PRESCRIPTION DRUG MONITORING PROGRAM REVIEWED*: Not Applicable *COPY OF PRESCRIPTION DRUG MONITORING REPORT IN PATIENT TORIN: Not Applicable Instructions: Near-Syncope, [id number] Forms: ED Department Discharge Additional Instructions: The following information is given to patients seen in the emergency department who are being discharged to home. This information is to outline your options for follow-up care. We provide all patients seen in our emergency department with a follow-up referral. The need for follow-up, as well as the timing and circumstances, are variable depending upon the specifics of your emergency department visit. If you don't have a primary care physician on staff, we will provide you with a referral. We always advise you to contact your personal physician following an emergency department visit to inform them of the circumstance of the visit and for follow-up with them and/or the need for any referrals to a consulting specialist. The emergency department will also refer you to a specialist when appropriate. This referral assures that you have the opportunity for follow-up care with a specialist. All of these measure are taken in an effort to provide you with optimal care, which includes your follow-up. Under all circumstances we always encourage you to contact your private physician who remains a resource for coordinating your care. When calling for follow-up care, please make the office aware that this follow-up is from your recent emergency room visit. If for any reason you are refused follow-up, please contact the [facility] Emergency Department at and asked to speak to the emergency department charge nurse. Please follow up with your primary care physician. If you do not have a primary care physician, see below: Cardiac Rehabilitation at [address] [address] You presented today for have an episode of passing out. After reviewing the chart you have had this before in the past we think this may be related to similar episodes. You are scheduled to see a neurologist with recommend you continue to go to that appointment. We have also provided information to follow-up with cardiology. Medial saphenous or other concerning findings please return to the ED. Sepsis Event Note (ED) - Evaluation Sepsis Screening Result: No Definite Risk - Focused Exam Vital Signs: Vital Signs Temp Pulse Resp BP Pulse Ox 12/16/20 08:00 96.1 F L 74 17 134/64 94 L - My Orders Last 24 Hours: My Active Orders 12/16/20 08:11 EKG Documentation Completion [RC] STAT - Assessment/Plan Last 24 Hours: My Active Orders 12/16/20 08:11 EKG Documentation Completion [RC] STAT Plan: Patient is a 80-year-old female who presents for possible syncope episode. Will obtain more history from the health the when they arrived. Will obtain labs EKG x-ray and reassess.
--- NOTE | 2020-12-16 08:38 | CR ---
Indication: Syncope Technique: Chest 1 view Comparison: 11/17/2020 Findings/Impression: Cardiovascular and mediastinum: Heart size and vasculature are normal in caliber and appearance. Lungs and pleural space: Persistent trace left-sided pleural effusion and/or atelectasis. Remainder of the lungs and pleural spaces are clear. No pneumothorax. No change from the prior exam. Bones and soft tissues: No acute findings. Dictated by Ford Cox MD @ Dec 16 2020 8:35AM Signed by Dr. Ford Cox @ Dec 16 2020 8:37AM
[2020-12-16 08:54] LABS: BLOOD UREA NITROGEN,BUN 23 mg/dL (7.0-18.0); CARBON DIOXIDE,CO2 29.1 mmol/L (21.0-32.0); CHLORIDE,CL 98 mmol/L (98-107); GLUCOSE RANDOM 124 mg/dL (74-106); SODIUM,NA 135 mmol/L (136-145)
[2020-12-16 09:47] VITALS: BP 95/51; PULSE 69
== END 2020-12-16 09:41 | disposition home or self-care (01) ==
LOC: MW.ED 07:58
DX: R55 Syncope and collapse (principal); I10 Essential (primary) hypertension; Z79.899 Other long term (current) drug therapy
CPT/HCPCS: 36415; 71045; 71045-26; 80053; 82550; 84484; 85025; 93005; 93010; 99283; 99284-25

== ENCOUNTER 2021-03-03 09:29 | Inpatient (IN) | payer MEDICARE, MEDICAID ==
[2021-03-03] MEDS ORDERED: Ondansetron 4 MG/2 ML SDV IVPUSH ONE (09:30)
[2021-03-03] MEDS ORDERED: Sodium Chloride 0.9% 10 ML Syringe FLUSH PRN (09:30)
[2021-03-03] MEDS ORDERED: Sodium Chloride 0.9% 1,000 ML IV ONE (09:30)
[2021-03-03] MEDS ORDERED: Sodium Chloride 0.9% 2.5 ML Syringe FLUSH PRN (09:30)
[2021-03-03 10:16] LABS: BLOOD UREA NITROGEN,BUN 40 mg/dL (7.0-18.0); CARBON DIOXIDE,CO2 31.2 mmol/L (21.0-32.0); CHLORIDE,CL 101 mmol/L (98-107); GLUCOSE RANDOM 102 mg/dL (74-106); LIPASE 204 U/L (73-393); POTASSIUM,K 4.6 mmol/L (3.5-5.1); SODIUM,NA 138 mmol/L (136-145)
--- NOTE | 2021-03-03 12:10 | CR ---
Indication: Cough this morning Technique: PA and Lateral views chest Comparison: Single-view chest December 16, 2020 Findings: There are airspace opacities in the left greater than right lung bases likely representing developing infiltrates with superimposed pulmonary edema. There is hyperinflation and chronic interstitial thickening. The cardiac silhouette is mildly prominent. There is no pneumothorax. The bony thorax is grossly intact. Impression: Bibasilar left greater than right airspace opacities likely representing developing infiltrates with superimposed pulmonary edema. Dictated by Alphonso Marrero MD @ 03/03/2021 12:09:[address] Alphonso Marrero @ Mar 03 2021 12:09PM
--- NOTE | 2021-03-03 12:23 | CT ---
Indication: Vomiting Technique: Nonenhanced axial CT imaging through the abdomen and pelvis. Sagittal and coronal reconstructions are provided. Comparison: CT abdomen pelvis with contrast 08/21/2020 Findings: There is unremarkable noncontrast appearance of the liver, spleen, pancreas, adrenal glands, and kidneys. Several hyperdense stones are noted layering in the gallbladder, and at the gallbladder neck, similar to prior. A 3 mm hyperdense stone is also noted in the distal CBD (axial image, coronal image 60). There is no appreciable gallbladder wall thickening or surrounding edema. There is no appreciable biliary dilatation. No lymphadenopathy is identified in the abdomen or pelvis. There is normal caliber of the abdominal aorta. The visualized distal esophagus is mildly distended with fluid and air. The stomach and duodenum are unremarkable. There are no abnormally distended small bowel loops. The appendix is not visualized, likely absent. Diverticulosis is noted in the descending and sigmoid colon. There is no colonic wall thickening or mesenteric edema. Streak artifact from left hip arthroplasty partially limits assessment of the pelvis the rectum is moderately distended with stool, measuring up to 5.7 cm diameter. There is no appreciable rectal wall thickening. The visualized urinary bladder is grossly unremarkable. 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 There is also degenerative disc disease at the lumbosacral junction. Atelectasis is noted in the lung bases. Impression: 1. A 3 mm stone in the distal CBD. No appreciable biliary dilatation. Consider follow-up MRCP. 2. Cholelithiasis. No appreciable gallbladder wall thickening or surrounding edema. 3. Mild distention of the visualized distal esophagus with fluid and air, which may be due to decreased motility or gastroesophageal reflux. 4. Moderate rectal distention with stool. No appreciable rectal thickening. 5. Colonic diverticulosis without diverticulitis. Please note that all CT scans at this facility use dose modulation, iterative reconstruction, and/or weight-based dosing when appropriate to reduce radiation dose to as low as reasonably achievable. Dictated by Caterina Samano MD @ 03/03/2021 12:21:[address] Caterina Samano @ Mar 03 2021 12:21PM
[2021-03-03] MEDS ORDERED: Piperacillin/Tazobactam 3.375 GM in Sodium Chloride 0.9% 50 ML IV ONE (12:30)
--- NOTE | 2021-03-03 14:55 | EDM.PDOC ---
ED HPI GENERAL MEDICAL PROBLEM - General Chief Complaint: Gastrointestinal Problem Stated Complaint: NAUSEA VOMITING Time Seen by Provider: 03/03/21 09:37 - History of Present Illness INITIAL COMMENTS - FREE TEXT/NARRATIVE: HISTORY AND PHYSICAL: History of present illness: This is an 80-year-old female with a history significant for cerebral palsy, TIA in the past, who currently resides at [facility] who presents ER today secondary to episodes of diarrhea yesterday with associated vomiting earlier today. Patient did have episodes of vomiting a couple days ago and there was concern regarding aspiration. Patient did have a swallow study done after her episode of emesis several days ago and it was decided that she did have normal swallow function per patient's caregiver. At this time, the patient does answer questions by nodding her head yes or no. Patient denies any current abdominal pain. Patient reports that she does have some shortness of breath with some occasional coughing over the last couple days. Patient did have a chest x-ray and caregiver reports that she was told that the x-ray revealed evidence of aspiration but no pneumonia and was not started on any antibiotics. Patient denies any fevers at home. Patient denies any urinary complaints. Patient denies any abdominal pain or discomfort. Patient reports that she been tolerating p.o. solids and liquids well. Caregiver reports that she is currently at her baseline mentation. Review of systems: As per history of present illness and below otherwise all systems reviewed and negative. Past medical history: As per history of present illness and as reviewed below otherwise noncontributory. Surgical history: As per history of present illness and as reviewed below otherwise noncontributory. Social history: No reported history of drug abuse. Family history: As per history of present illness and as reviewed below otherwise noncontributory. Physical exam: This patient was seen and evaluated during the 2019 SARS-CoV-2 novel coronavirus pandemic period. Community viral transmission is ongoing at time of this encounter and the emergency department is operating under pandemic response procedures. Constitutional: Appears well-developed and well-nourished. No distress. HEENT: Moist mucous membranes Head: Normocephalic and atraumatic Eyes: Right eye exhibits no discharge. Left eye exhibits no discharge. No scleral icterus Neck: Normal range of motion. No tracheal deviation present. Cardiovascular: Normal rate and regular rhythm. Pulmonary: Effort normal, no respiratory distress. Abdominal: No distention Musculoskeletal: Normal range of motion Neurologic: Alert and oriented. Patient is able to answer questions appropriately by nodding her head. Skin: [place], warm and dry. Psychiatric: Normal mood and affect. Behavior is normal. Judgment and thought content normal. Nursing note and vital signs have been reviewed Diagnostics: Patient had a CT scan of her abdomen pelvis which was essentially unremarkable except for a 3 mm opacification in the distal common bile duct without any evidence of common ductal dilatation. Patient no evidence of cholecystitis with no wall thickening or pericholecystic fluid on CT scan. A follow-up ultrasound was performed in the ED which did not identify the 3 mm opacification that was seen on the CT scan. In comparison to her prior ultrasound there was no significant changes from the ultrasound of August 2020. Patient's labs are significant for an elevated WBC count. Patient's ALT and AST were elevated with a mildly elevated alk phos but a normal bilirubin level. Patient's lactic acid level was normal. Patient's urinalysis is normal. Patient's chest x-ray is concerning for possible aspiration pneumonia. Therapeutics: [] Assessment and plan: 80-year-old female who presents ER today for evaluation of pneumonia with possible sepsis. Patient did have an episode of vomiting earlier today with some diarrhea yesterday. Patient's abdomen was investigated with ultrasound and CT scan and did not reveal any significant pathology. I have discussed the CT findings as well as the ultrasound findings with Dr. Adorno and he agrees that the patient at this time does not require any urgent surgical intervention and the patient should be followed with labs. Case has been discussed with Dr. Caldera who is agreed to admit patient for IV antibiotics and supplemental oxygenation. Patient's oxygen level in the ED was 88% upon arrival on room air. Per the caregiver, the patient does not utilize any supplemental O2 at the facility. Patient has been resting comfortably here in the ED and does not appear to be toxic. Patient has been given IV fluids here as well as Zosyn to cover for a possible aspiration pneumonia. Definitive disposition and diagnosis as appropriate pending reevaluation and review of above. - Related Data Allergies Allergy/AdvReac Type Severity Reaction Status Date / Time No Known Allergies Allergy Verified 03/03/21 10:37 Home Meds: Home Meds Polyethylene Glycol [Polyox [id number]] 17 gm PO DAILY 01/14/20 [History] Ascorbic Acid [Vitamin C] 500 mg PO DAILY 08/21/20 [History] predniSONE 2.5 mg PO DAILY 08/21/20 [History] Calcium Carb, Citrate/Vit D3 [Citracal + D ER] 1 tab PO BID 03/03/21 [History] Multivit with Iron,Minerals [Flintstones Complete] 1 tab PO DAILY 03/03/21 [History] Sulfamethoxazole/Trimethoprim [Bactrim 400-80 MG] 0.5 tab PO BEDTIME 03/03/21 [History] lisinopriL [Lisinopril] 20 mg PO DAILY 03/03/21 [History] Past Medical History HEENT History: Reports: Impaired Vision, Other (See Below) Other HEENT History: wears glasses; recurrent nasal drainage; hyperopia; astigmatism Cardiovascular History: Reports: Hypertension Respiratory History: Reports: None Gastrointestinal History: Reports: None Genitourinary History: Reports: None Other Genitourinary History: Bladder hyperactivity [employer] History: Reports: None Musculoskeletal History: Reports: Other (See Below) Other Musculoskeletal History: drop foot Neurological History: Reports: Cerebral Palsy Psychiatric History: Reports: Other (See Below) Other Psychiatric History: speech impairment Endocrine/Metabolic History: Reports: None Hematologic History: Reports: None Immunologic History: Reports: None Oncologic (Cancer) History: Reports: Uterine Dermatologic History: Reports: None - Infectious Disease History Infectious Disease History: Reports: None - Past Surgical History HEENT Surgical History: Reports: None Cardiovascular Surgical History: Reports: None Respiratory Surgical History: Reports: None GI Surgical History: Reports: Appendectomy Female Surgical History: Reports: Breast Biopsy, Hysterectomy Other Female Surgeries/Procedures: Hysterectomy for cancer Endocrine Surgical History: Reports: None Neurological Surgical History: Reports: None Musculoskeletal Surgical History: Reports: Arthroscopic Procedure, Hip Replacement, ORIF Other Musculoskeletal Surgeries/Procedures:: left SIGRID, ORIF right pinky finger with K-Wire Oncologic Surgical History: Reports: Other (See Below) Other Oncologic Surgeries/Procedures: Hysterectomy Dermatological Surgical History: Reports: None Social & Family History - Family History Family Medical History: No Pertinent Family History - Tobacco Use Tobacco Use Status *Q: Never Tobacco User - Caffeine Use Caffeine Use: Reports: None - Recreational Drug Use Recreational Drug Use: No ED ROS GENERAL - Review of Systems Review Of Systems: See Below ED EXAM, GENERAL - Physical Exam Exam: See Below Course - Vital Signs Last Recorded V/S: Last Vital Signs Temp 96.8 F L 03/03/21 09:35 Pulse 88 03/03/21 13:27 Resp BP 92/47 L 03/03/21 13:27 Pulse Ox 90 L 03/03/21 13:27 - Orders/Labs/Meds Orders: Active Orders 24 hr Category Date Time Status EKG Documentation Completion [RC] AM Care 03/03/21 09:30 Active Oxygen Therapy [RC] ASDIRECTED Care 03/03/21 12:26 Active Sodium Chloride 0.9% [Saline Flush] Med 03/03/21 09:30 Active 10 ml FLUSH ASDIRECTED PRN Sodium Chloride 0.9% [Saline Flush] Med 03/03/21 09:30 Active 2.5 ml FLUSH ASDIRECTED PRN Saline Lock Insert [OM.PC] Stat Oth 03/03/21 09:30 Ordered Medication Orders Sodium Chloride (Sodium Chloride 0.9% 10 Ml Syringe) 10 ml FLUSH ASDIRECTED PRN PRN Reason: Keep Vein Open Last Admin: 03/03/21 09:51 Dose: 10 ml Documented by: [place] Sodium Chloride (Sodium Chloride 0.9% 2.5 Ml Syringe) 2.5 ml FLUSH ASDIRECTED PRN PRN Reason: Keep Vein Open Last Admin: 03/03/21 09:51 Dose: 2.5 ml Documented by: [place] Labs: Laboratory Tests 03/03/21 03/03/21 03/03/21 Range/Units 09:47 09:47 09:47 WBC 17.44 H (4.0-11.0) K/uL RBC 4.00 L (4.30-5.90) M/uL Hgb 12.6 (12.0-16.0) g/dL Hct 37.7 (36.0-46.0) % MCV 94.3 (80.0-98.0) fL MCH 31.5 (27.0-32.0) pg MCHC 33.4 (31.0-37.0) g/dL RDW Std Deviation 48.4 (28.0-62.0) fl RDW Coeff of Erik 15 (11.0-15.0) % Plt Count 209 (150-400) K/uL MPV 9.20 (7.40-12.00) fL Neut % (Auto) 70.8 (48.0-80.0) % Lymph % (Auto) 22.2 (16.0-40.0) % [place] % (Auto) 6.8 (0.0-15.0) % Eos % (Auto) 0.1 (0.0-7.0) % Baso % (Auto) 0.1 (0.0-1.5) % Neut # (Auto) 12.3 H (1.4-5.7) K/uL Lymph # (Auto) 3.9 H (0.6-2.4) K/uL [place] # (Auto) 1.2 H (0.0-0.8) K/uL Eos # (Auto) 0.0 (0.0-0.7) K/uL Baso # (Auto) 0.0 (0.0-0.1) K/uL Sodium 138 (136-145) mmol/L Potassium 4.6 (3.5-5.1) mmol/L Chloride 101 (98-107) mmol/L Carbon Dioxide 31.2 (21.0-32.0) mmol/L BUN 40 H (7.0-18.0) mg/dL Creatinine 1.1 H (0.6-1.0) mg/dL Est Cr Clr Drug Dosing TNP Estimated GFR (MDRD) 47.7 ml/min Glucose 102 (74-106) mg/dL Lactic Acid 1.6 (0.4-2.0) mmol/L Calcium 10.1 (8.5-10.1) mg/dL Total Bilirubin 0.4 (0.2-1.0) mg/dL AST 161 H (15-37) IU/L ALT 220 H (14-63) IU/L Alkaline Phosphatase 142 H (46-116) U/L Total Protein 6.2 L (6.4-8.2) g/dL Albumin 2.8 L (3.4-5.0) g/dL Globulin 3.4 (2.6-4.0) g/dL Albumin/Globulin Ratio 0.8 L (0.9-1.6) Lipase 204 (73-393) U/L Urine Color Urine Appearance Urine pH (5.0-8.0) Ur Specific [place] (1.001-1.035) Urine Protein (NEGATIVE) mg/dL Urine Glucose (UA) (NEGATIVE) mg/dL Urine Ketones (NEGATIVE) mg/dL Urine Occult Blood (NEGATIVE) Urine Nitrite (NEGATIVE) Urine Bilirubin (NEGATIVE) Urine Urobilinogen (<2.0) EU/dL Ur Leukocyte Esterase (NEGATIVE) SARS-CoV-2 RNA (JAE) (NEGATIVE) 03/03/21 03/03/21 Range/Units 13:05 13:05 WBC (4.0-11.0) K/uL RBC (4.30-5.90) M/uL Hgb (12.0-16.0) g/dL Hct (36.0-46.0) % MCV (80.0-98.0) fL MCH (27.0-32.0) pg MCHC (31.0-37.0) g/dL RDW Std Deviation (28.0-62.0) fl RDW Coeff of Erik (11.0-15.0) % Plt Count (150-400) K/uL MPV (7.40-12.00) fL Neut % (Auto) (48.0-80.0) % Lymph % (Auto) (16.0-40.0) % [place] % (Auto) (0.0-15.0) % Eos % (Auto) (0.0-7.0) % Baso % (Auto) (0.0-1.5) % Neut # (Auto) (1.4-5.7) K/uL Lymph # (Auto) (0.6-2.4) K/uL [place] # (Auto) (0.0-0.8) K/uL Eos # (Auto) (0.0-0.7) K/uL Baso # (Auto) (0.0-0.1) K/uL Sodium (136-145) mmol/L Potassium (3.5-5.1) mmol/L Chloride (98-107) mmol/L Carbon Dioxide (21.0-32.0) mmol/L BUN (7.0-18.0) mg/dL Creatinine (0.6-1.0) mg/dL Est Cr Clr Drug Dosing Estimated GFR (MDRD) ml/min Glucose (74-106) mg/dL Lactic Acid (0.4-2.0) mmol/L Calcium (8.5-10.1) mg/dL Total Bilirubin (0.2-1.0) mg/dL AST (15-37) IU/L ALT (14-63) IU/L Alkaline Phosphatase (46-116) U/L Total Protein (6.4-8.2) g/dL Albumin (3.4-5.0) g/dL Globulin (2.6-4.0) g/dL Albumin/Globulin Ratio (0.9-1.6) Lipase (73-393) U/L Urine Color YELLOW Urine Appearance CLEAR Urine pH 7.0 (5.0-8.0) Ur Specific [place] 1.015 (1.001-1.035) Urine Protein NEGATIVE (NEGATIVE) mg/dL Urine Glucose (UA) NEGATIVE (NEGATIVE) mg/dL Urine Ketones NEGATIVE (NEGATIVE) mg/dL Urine Occult Blood NEGATIVE (NEGATIVE) Urine Nitrite NEGATIVE (NEGATIVE) Urine Bilirubin NEGATIVE (NEGATIVE) Urine Urobilinogen 0.2 (<2.0) EU/dL Ur Leukocyte Esterase NEGATIVE (NEGATIVE) SARS-CoV-2 RNA (JAE) NEGATIVE (NEGATIVE) Meds: Medications Generic Name Dose Route Start Last Admin Trade Name Freq PRN Reason Stop Dose Admin Sodium Chloride 10 ml 03/03/21 09:30 03/03/21 09:51 Sodium Chloride 0.9% 10 Ml Syringe FLUSH 10 ml ASDIRECTED PRN Administration Keep Vein Open Sodium Chloride 2.5 ml 03/03/21 09:30 03/03/21 09:51 Sodium Chloride 0.9% 2.5 Ml Syringe FLUSH 2.5 ml ASDIRECTED PRN Administration Keep Vein Open Discontinued Medications Generic Name Dose Route Start Last Admin Trade Name Freq PRN Reason Stop Dose Admin Sodium Chloride 1,000 mls @ 999 mls/hr 03/03/21 09:30 03/03/21 09:50 Normal Saline IV 03/03/21 10:30 999 mls/hr .Bolus ONE Administration Piperacillin Sod/Tazobactam 50 mls @ 100 mls/hr 03/03/21 12:30 03/03/21 13:17 Sod 3.375 gm/ Sodium Chloride IV 03/03/21 12:59 100 mls/hr ONETIME ONE Administration Ondansetron HCl 4 mg 03/03/21 09:30 03/03/21 09:51 Ondansetron 4 Mg/2 Ml Sdv IVPUSH 03/03/21 09:31 4 mg ONETIME ONE Administration Departure - Departure Time of Disposition: 15:35 Disposition: Refer to Observation Condition: Good Clinical Impression: Pneumonia Qualifiers: Pneumonia type: due to unspecified organism Laterality: bilateral Lung location: lower lobe of lung Qualified Code(s): J18.9 - Pneumonia, unspecified organism - Discharge Information Referrals: PCP,Unknown [Primary Care Provider] - Forms: ED Department Discharge Sepsis Event Note (ED) - Evaluation Sepsis Screening Result: No Definite Risk - Focused Exam Vital Signs: Vital Signs Temp Pulse BP Pulse Ox Pulse Ox 03/03/21 13:27 88 92/47 L 90 L 03/03/21 12:57 97 90/45 L 93 L 03/03/21 12:42 85 92/49 L 93 L 03/03/21 12:30 86 70/22 L 91 L 03/03/21 12:26 92 L 03/03/21 12:21 92 100/63 89 L 03/03/21 12:01 86 84/30 L 88 L 03/03/21 11:53 87 71/35 L 89 L 03/03/21 11:30 91 L 03/03/21 09:35 96.8 F L 89 120/60 88 L - My Orders Last 24 Hours: My Active Orders 03/03/21 09:30 EKG Documentation Completion [RC] AM Sodium Chloride 0.9% [Saline Flush] 10 ml FLUSH ASDIRECTED PRN Sodium Chloride 0.9% [Saline Flush] 2.5 ml FLUSH ASDIRECTED PRN Saline Lock Insert [OM.PC] Stat 03/03/21 12:26 Oxygen Therapy [RC] ASDIRECTED - Assessment/Plan Last 24 Hours: My Active Orders 03/03/21 09:30 EKG Documentation Completion [RC] AM Sodium Chloride 0.9% [Saline Flush] 10 ml FLUSH ASDIRECTED PRN Sodium Chloride 0.9% [Saline Flush] 2.5 ml FLUSH ASDIRECTED PRN Saline Lock Insert [OM.PC] Stat 03/03/21 12:26 Oxygen Therapy [RC] ASDIRECTED
--- NOTE | 2021-03-03 15:04 | US ---
INDICATION: Elevated liver function tests. Common bile duct stone seen on CT. TECHNIQUE: Conventional two-dimensional grayscale ultrasound of the right upper quadrant. COMPARISON: Today`s abdomen/pelvis CT as well as the abdomen/pelvis CT of 08/21/2020. FINDINGS: Stones are again demonstrated in the gallbladder. No gallbladder wall thickening or pericholecystic fluid is demonstrated. The patient is reportedly not tender over the gallbladder. No intrahepatic biliary ductal dilation is evident. The common bile duct measures up to 7 mm. The 3 mm stone seen on CT is not identified with certainty on this exam. In retrospect, a similar finding was demonstrated on the 08/21/2020 exam. The liver is normal in size, shape and echogenicity. The pancreas is largely obscured by gas. The right kidney is unremarkable. The visualized portion of the abdominal aorta and inferior vena cava are negative. IMPRESSION: 1. 3 mm distal common duct stone seen on CT not visible on this exam. A similar finding appears present on the 08/21/2020 exam. MRCP recommended. 2. Cholelithiasis. 3. Pancreas largely obscured by gas. Dictated by Timoteo Payne MD @ 03/03/2021 3:03:[address] Timoteo Payne @ Mar 03 2021 3:03PM
[2021-03-03] MEDS ORDERED: Albuterol/Ipratropium 3.0-0.5 MG/3 ML Neb Soln NEB PRN (17:43)
[2021-03-03] MEDS ORDERED: Ondansetron 4 MG/2 ML SDV IVPUSH PRN (17:49)
--- NOTE | 2021-03-03 17:51 | PCM.EKG ---
#1 Interpretation EKG Interpretation Comments: EKG: As interpreted by ER physician: Komal: Nonspecific ST-T wave abnormalities Normal axis No evidence of ST elevation AL Normal sinus rhythm heart rate of 95
--- NOTE | 2021-03-03 17:53 | PCM.HP.2 ---
H&P History of Present Illness - General Date of Service: 03/03/21 Admit Problem/Dx: Admission Diagnosis/Problem Admission Diagnosis/Problem Pneumonia - History of Present Illness Initial Comments - Free Text/Narative: Patient is an 80-year-old female with a history significant for cerebral palsy, TIA in the past, who currently resides at [facility] long term who presents ER today secondary to episodes of diarrhea and vomiting that started since yesterday. Reportedly patient had few episodes of vomiting a few days back and there was a concern that she might have aspirated a follow-up swallow study was done which which reportedly was normal and a chest x-ray was done which showed evidence of aspiration but no pneumonia so no treatment for aspiration pneumonia was started. No specific treatment for aspiration pneumonia was started. Patient denies any current abdominal pain. Patient reports that she does have some shortness of breath with some occasional coughing over the last couple days. Patient denies any fevers ,any urinary complaints, abdominal pain or discomfort. Patient reports that she been tolerating p.o. solids and liquids well. Caregiver reports that she is currently at her baseline mentation. In the ER an ultrasound and CT scan was done, CT scan showed concern of CBD stone but no associated blockage or inflammation. Ultrasound of the abdomen was done which did not reveal any stone, and no acute cholecystitis but did show gallstones. The findings of the CAT scan were discussed with the on-call surgeon Dr. Adorno who stated that the patient at this time does not require any urgent surgical intervention. Patient was also found to be hypoxic saturating 88% on room air and had to be started on oxygen in the ER. Patient was admitted to the hospital for further management of her symptoms. - Related Data Allergies/Adverse Reactions: Allergies Allergy/AdvReac Type Severity Reaction Status Date / Time No Known Allergies Allergy Verified 03/03/21 18:31 Home Medications: Home Meds Polyethylene Glycol [Polyox [id number]] 17 gm PO DAILY 01/14/20 [History] Ascorbic Acid [Vitamin C] 500 mg PO DAILY 08/21/20 [History] predniSONE 2.5 mg PO DAILY 08/21/20 [History] Calcium Carb, Citrate/Vit D3 [Citracal + D ER] 1 tab PO BID 03/03/21 [History] Multivit with Iron,Minerals [Flintstones Complete] 1 tab PO DAILY 03/03/21 [History] Sulfamethoxazole/Trimethoprim [Bactrim 400-80 MG] 0.5 tab PO BEDTIME 03/03/21 [History] lisinopriL [Lisinopril] 20 mg PO DAILY 03/03/21 [History] Past Medical History HEENT History: Reports: Impaired Vision, Other (See Below) Other HEENT History: wears glasses; recurrent nasal drainage; hyperopia; astigmatism Cardiovascular History: Reports: Hypertension Respiratory History: Reports: None Gastrointestinal History: Reports: None Genitourinary History: Reports: None Other Genitourinary History: Bladder hyperactivity TURF GROWER History: Reports: None Musculoskeletal History: Reports: Other (See Below) Other Musculoskeletal History: drop foot Neurological History: Reports: Cerebral Palsy Psychiatric History: Reports: Other (See Below) Other Psychiatric History: speech impairment Endocrine/Metabolic History: Reports: None Hematologic History: Reports: None Immunologic History: Reports: None Oncologic (Cancer) History: Reports: Uterine Dermatologic History: Reports: None - Infectious Disease History Infectious Disease History: Reports: None - Past Surgical History HEENT Surgical History: Reports: None Cardiovascular Surgical History: Reports: None Respiratory Surgical History: Reports: None GI Surgical History: Reports: Appendectomy Female Surgical History: Reports: Breast Biopsy, Hysterectomy Other Female Surgeries/Procedures: Hysterectomy for cancer Endocrine Surgical History: Reports: None Neurological Surgical History: Reports: None Musculoskeletal Surgical History: Reports: Arthroscopic Procedure, Hip Replacement, ORIF Other Musculoskeletal Surgeries/Procedures:: left SIGRID, ORIF right pinky finger with K-Wire Oncologic Surgical History: Reports: Other (See Below) Other Oncologic Surgeries/Procedures: Hysterectomy Dermatological Surgical History: Reports: None Social & Family History - Family History Family Medical History: No Pertinent Family History - Tobacco Use Tobacco Use Status *Q: Never Tobacco User - Caffeine Use Caffeine Use: Reports: None - Recreational Drug Use Recreational Drug Use: No H&P Review of Systems - Review of Systems: Review Of Systems: See Below General: Reports: Malaise, Weakness. Denies: Fever, Chills Pulmonary: Reports: Shortness of Breath. Denies: Wheezing, Pleuritic Chest Pain Cardiovascular: Denies: Chest Pain, Palpitations, Dyspnea on Exertion Gastrointestinal: Reports: Diarrhea, Decreased Appetite, Nausea, Vomiting. Denies: Abdominal Pain, Anorexia, Black Stool Genitourinary: Denies: Dysuria, Frequency, Burning Musculoskeletal: Denies: Neck Pain, Shoulder Pain, Arm Pain Skin: Denies: Cyanosis, Jaundice, Mottled Psychiatric: Denies: Confusion, Depression, Mood Lability, Anxiety Neurological: Denies: Confusion, Dizziness, Headache (Limited patient only able to speak in yes and no) Exam - Exam Exam: See Below - Vital Signs Vital Signs: Last Vital Signs Temp 36.0 C L 03/03/21 09:35 Pulse 80 03/03/21 16:25 Resp 16 03/03/21 16:25 BP 104/45 L 03/03/21 16:25 Pulse Ox 94 L 03/03/21 16:25 Weight: 50.802 kg - Exam Quality Assessment: Supplemental Oxygen General: Alert, Oriented, Cooperative Neck: Supple, Trachea Midline Lungs: Normal Respiratory Effort, Decreased Breath Sounds, Rales Cardiovascular: Regular Rate, Regular Rhythm, Normal S1, Normal S2 GI/Abdominal Exam: Normal Bowel Sounds, Soft, Non-Tender - Patient Data Lab Results Last 24 hrs: Laboratory Results - last 24 hr 03/03/21 03/03/21 03/03/21 Range/Units 09:47 09:47 09:47 WBC 17.44 H (4.0-11.0) K/uL RBC 4.00 L (4.30-5.90) M/uL Hgb 12.6 (12.0-16.0) g/dL Hct 37.7 (36.0-46.0) % MCV 94.3 (80.0-98.0) fL MCH 31.5 (27.0-32.0) pg MCHC 33.4 (31.0-37.0) g/dL RDW Std Deviation 48.4 (28.0-62.0) fl RDW Coeff of Erik 15 (11.0-15.0) % Plt Count 209 (150-400) K/uL MPV 9.20 (7.40-12.00) fL Neut % (Auto) 70.8 (48.0-80.0) % Lymph % (Auto) 22.2 (16.0-40.0) % [place] % (Auto) 6.8 (0.0-15.0) % Eos % (Auto) 0.1 (0.0-7.0) % Baso % (Auto) 0.1 (0.0-1.5) % Neut # (Auto) 12.3 H (1.4-5.7) K/uL Lymph # (Auto) 3.9 H (0.6-2.4) K/uL [place] # (Auto) 1.2 H (0.0-0.8) K/uL Eos # (Auto) 0.0 (0.0-0.7) K/uL Baso # (Auto) 0.0 (0.0-0.1) K/uL Sodium 138 (136-145) mmol/L Potassium 4.6 (3.5-5.1) mmol/L Chloride 101 (98-107) mmol/L Carbon Dioxide 31.2 (21.0-32.0) mmol/L BUN 40 H (7.0-18.0) mg/dL Creatinine 1.1 H (0.6-1.0) mg/dL Est Cr Clr Drug Dosing TNP Estimated GFR (MDRD) 47.7 ml/min Glucose 102 (74-106) mg/dL Lactic Acid 1.6 (0.4-2.0) mmol/L Calcium 10.1 (8.5-10.1) mg/dL Total Bilirubin 0.4 (0.2-1.0) mg/dL AST 161 H (15-37) IU/L ALT 220 H (14-63) IU/L Alkaline Phosphatase 142 H (46-116) U/L Total Protein 6.2 L (6.4-8.2) g/dL Albumin 2.8 L (3.4-5.0) g/dL Globulin 3.4 (2.6-4.0) g/dL Albumin/Globulin Ratio 0.8 L (0.9-1.6) Lipase 204 (73-393) U/L Urine Color Urine Appearance Urine pH (5.0-8.0) Ur Specific [place] (1.001-1.035) Urine Protein (NEGATIVE) mg/dL Urine Glucose (UA) (NEGATIVE) mg/dL Urine Ketones (NEGATIVE) mg/dL Urine Occult Blood (NEGATIVE) Urine Nitrite (NEGATIVE) Urine Bilirubin (NEGATIVE) Urine Urobilinogen (<2.0) EU/dL Ur Leukocyte Esterase (NEGATIVE) SARS-CoV-2 RNA (JAE) (NEGATIVE) 03/03/21 03/03/21 Range/Units 13:05 13:05 WBC (4.0-11.0) K/uL RBC (4.30-5.90) M/uL Hgb (12.0-16.0) g/dL Hct (36.0-46.0) % MCV (80.0-98.0) fL MCH (27.0-32.0) pg MCHC (31.0-37.0) g/dL RDW Std Deviation (28.0-62.0) fl RDW Coeff of Erik (11.0-15.0) % Plt Count (150-400) K/uL MPV (7.40-12.00) fL Neut % (Auto) (48.0-80.0) % Lymph % (Auto) (16.0-40.0) % [place] % (Auto) (0.0-15.0) % Eos % (Auto) (0.0-7.0) % Baso % (Auto) (0.0-1.5) % Neut # (Auto) (1.4-5.7) K/uL Lymph # (Auto) (0.6-2.4) K/uL [place] # (Auto) (0.0-0.8) K/uL Eos # (Auto) (0.0-0.7) K/uL Baso # (Auto) (0.0-0.1) K/uL Sodium (136-145) mmol/L Potassium (3.5-5.1) mmol/L Chloride (98-107) mmol/L Carbon Dioxide (21.0-32.0) mmol/L BUN (7.0-18.0) mg/dL Creatinine (0.6-1.0) mg/dL Est Cr Clr Drug Dosing Estimated GFR (MDRD) ml/min Glucose (74-106) mg/dL Lactic Acid (0.4-2.0) mmol/L Calcium (8.5-10.1) mg/dL Total Bilirubin (0.2-1.0) mg/dL AST (15-37) IU/L ALT (14-63) IU/L Alkaline Phosphatase (46-116) U/L Total Protein (6.4-8.2) g/dL Albumin (3.4-5.0) g/dL Globulin (2.6-4.0) g/dL Albumin/Globulin Ratio (0.9-1.6) Lipase (73-393) U/L Urine Color YELLOW Urine Appearance CLEAR Urine pH 7.0 (5.0-8.0) Ur Specific [place] 1.015 (1.001-1.035) Urine Protein NEGATIVE (NEGATIVE) mg/dL Urine Glucose (UA) NEGATIVE (NEGATIVE) mg/dL Urine Ketones NEGATIVE (NEGATIVE) mg/dL Urine Occult Blood NEGATIVE (NEGATIVE) Urine Nitrite NEGATIVE (NEGATIVE) Urine Bilirubin NEGATIVE (NEGATIVE) Urine Urobilinogen 0.2 (<2.0) EU/dL Ur Leukocyte Esterase NEGATIVE (NEGATIVE) SARS-CoV-2 RNA (JAE) NEGATIVE (NEGATIVE) Result Diagrams: 03/03/21 09:47 03/03/21 09:47 Sepsis Event Note - Evaluation Sepsis Screening Result: No Definite Risk - Focused Exam Vital Signs: Vital Signs Temp Pulse Resp BP Pulse Ox Pulse Ox 03/03/21 16:25 80 16 104/45 L 94 L 03/03/21 15:33 84 16 108/40 L 93 L 03/03/21 14:50 81 16 105/46 L 95 03/03/21 13:27 88 92/47 L 90 L 03/03/21 12:57 97 90/45 L 93 L 03/03/21 12:42 85 92/49 L 93 L 03/03/21 12:30 86 70/22 L 91 L 03/03/21 12:26 92 L 03/03/21 12:21 92 100/63 89 L 03/03/21 12:01 86 84/30 L 88 L 03/03/21 11:53 87 71/35 L 89 L 03/03/21 11:30 91 L 03/03/21 09:35 36.0 C L 89 120/60 88 L - Problem List (1) TIA (transient ischemic attack) SNOMED Code(s): 195741178 ICD Code: G45.9 - TRANSIENT CEREBRAL ISCHEMIC ATTACK, UNSPECIFIED Status: Acute Current Visit: No (2) Cerebral palsy SNOMED Code(s): 517458335 ICD Code: G80.9 - CEREBRAL PALSY, UNSPECIFIED Status: Chronic Current Visit: No (3) HTN (hypertension) SNOMED Code(s): 71067236 ICD Code: I10 - ESSENTIAL (PRIMARY) HYPERTENSION Status: Chronic Current Visit: No (4) Hypoxemia SNOMED Code(s): 815184096 ICD Code: R09.02 - HYPOXEMIA Status: Acute Current Visit: Yes (5) Aspiration pneumonia SNOMED Code(s): 468581158 ICD Code: J69.0 - PNEUMONITIS DUE TO INHALATION OF FOOD AND VOMIT Status: Acute Current Visit: Yes (6) Vomiting SNOMED Code(s): 452220523 ICD Code: R11.10 - VOMITING, UNSPECIFIED Status: Acute Current Visit: Yes (7) Transaminitis SNOMED Code(s): 204253284, 576859263 ICD Code: R74.01 - ELEVATION OF LEVELS OF LIVER TRANSAMINASE LEVELS Status: Acute Current Visit: Yes Problem List Initiated/Reviewed/Updated: Yes Orders Last 24hrs: Active Orders 24 hr Category Date Time Status Patient Status [ADT] Stat ADT 03/03/21 15:55 Active Ambulate [RC] ASDIRECTED Care 03/03/21 17:43 Active Antiembolic Devices [RC] PER UNIT ROUTINE Care 03/03/21 17:44 Active EKG Documentation Completion [RC] AM Care 03/03/21 09:30 Active Oxygen Therapy [RC] ASDIRECTED Care 03/03/21 12:26 Active Oxygen Therapy [RC] PRN Care 03/03/21 17:43 Active Pulse Oximetry [RC] PRN Care 03/03/21 17:43 Active RT Aerosol Therapy [RC] ASDIRECTED Care 03/03/21 17:44 Active RT Incentive Spirometry [RC] Q2HWA Care 03/03/21 17:48 Active Telemetry Monitoring [Cardiac Monitoring] [RC] Q8H Care 03/03/21 15:49 Active VTE/DVT Education [RC] PER UNIT ROUTINE Care 03/03/21 17:43 Active Vital Signs [RC] Q4H Care 03/03/21 17:43 Active CBC WITH AUTO DIFF [HEME] AM Lab 03/04/21 05:11 Ordered CMP [COMPREHENSIVE METABOLIC PN,CMP] [CHEM] AM Lab 03/04/21 05:11 Ordered MAGNESIUM [CHEM] AM Lab 03/04/21 05:11 Ordered PHOSPHORUS [CHEM] AM Lab 03/04/21 05:11 Ordered Albuterol/Ipratropium [DuoNeb 3.0-0.5 MG/3 ML] Med 03/03/21 17:43 Active 3 ml NEB Q4HRRT PRN Calcium Carb, Citrate/Vit D3 [Citracal + D ER] Med 03/03/21 21:00 Ordered 1 tab PO BID Heparin Sodium Med 03/03/21 17:45 Active 5,000 units SUBCUT Q8H Lactated Ringers [Ringers, Lactated] 1,000 ml Med 03/03/21 18:00 Active IV ASDIRECTED Ondansetron [Zofran] Med 03/03/21 17:49 Ordered 4 mg IVPUSH Q4H PRN Pantoprazole [ProTONIX IV] 40 mg Med 03/03/21 18:00 Ordered Sodium Chloride 0.9% [Normal Saline] 10 ml IV DAILY Pharmacy to Dose - Vancomycin Med 03/03/21 17:45 Ordered See Dose Instructions .XX ASDIRECTED Piperacillin/Tazobactam [Piperacil-Tazobact] 3.375 gm Med 03/03/21 18:00 Ordered Sodium Chloride 0.9% [Normal Saline] 50 ml IV Q8H Sodium Chloride 0.9% [Saline Flush] Med 03/03/21 09:30 Active 10 ml FLUSH ASDIRECTED PRN Sodium Chloride 0.9% [Saline Flush] Med 03/03/21 09:30 Active 2.5 ml FLUSH ASDIRECTED PRN Saline Lock Insert [OM.PC] Stat Oth 03/03/21 09:30 Ordered Sequential Compression Device [OM.PC] Per Unit Routine Oth 03/03/21 17:43 Ordered Medication Orders Albuterol/Ipratropium (Albuterol/Ipratropium 3.0-0.5 Mg/3 Ml Neb Soln) 3 ml NEB Q4HRRT PRN PRN Reason: Shortness Of Breath/wheezing Heparin Sodium (Porcine) (Heparin Sodium 5,000 Units/Ml Vial) 5,000 units SUBCUT Q8H SUE Piperacillin Sod/Tazobactam (Sod 3.375 gm/ Sodium Chloride) 50 mls @ 100 mls/hr IV Q8H SUE Lactated Ringer's (Ringers, Lactated) 1,000 mls @ 125 mls/hr IV ASDIRECTED SUE Pantoprazole Sodium 40 mg/ (Sodium Chloride) 10 mls @ 300 mls/hr IV DAILY SUE Non-Formulary Medication (Calcium Carb, Citrate/Vit D3 [Citracal + D Er]) 1 tab PO BID [facility] Ondansetron HCl (Ondansetron 4 Mg/2 Ml Sdv) 4 mg IVPUSH Q4H PRN PRN Reason: Nausea/Vomiting Sodium Chloride (Sodium Chloride 0.9% 10 Ml Syringe) 10 ml FLUSH ASDIRECTED PRN PRN Reason: Keep Vein Open Last Admin: 03/03/21 09:51 Dose: 10 ml Documented by: [place] Sodium Chloride (Sodium Chloride 0.9% 2.5 Ml Syringe) 2.5 ml FLUSH ASDIRECTED PRN PRN Reason: Keep Vein Open Last Admin: 03/03/21 09:51 Dose: 2.5 ml Documented by: [place] Vancomycin HCl (Pharmacy To Dose - Vancomycin) 0 dose .XX ASDIRECTED [facility] Assessment/Plan Comment:: 80-year-old female admitted for nausea, vomiting, possible bilateral aspiration pneumonia causing hypoxemia Continue oxygenation via nasal cannula Start patient on IV antibiotics including vancomycin and Zosyn Patient has transaminitis, CT scan of the abdomen showed CBD stone, but no elevated bilirubin or signs of obstruction Ultrasound of the abdomen was nonsignificant for any stone Currently transaminitis seems to be secondary to patient's nausea vomiting as opposed to complication of the stone If transaminitis does not improve or trends up will get an MRCP Surgery has already been contacted for recommendations by ER, no need for urgent ERCP or any kind of surgical intervention per surgery Continue to monitor LFTs closely Continue IV fluids for hydration for now Regular diet as tolerated, if unable to tolerate will de-escalate to softer clear liquids
[2021-03-03] MEDS ORDERED: Piperacillin/Tazobactam 3.375 GM in Sodium Chloride 0.9% 50 ML IV SCH (18:00)
[2021-03-03] MEDS: Lactated Ringers 1,000 ML IV SCH (19:28)
[2021-03-03] MEDS: Heparin Sodium 5,000 Units/ML Vial SUBCUT SCH (19:31)
[2021-03-03] MEDS: Pantoprazole 40 MG in Sodium Chloride 0.9% 10 ML IV SCH (19:33)
[2021-03-03] MEDS: Piperacillin/Tazobactam 2.25 GM in Sodium Chloride 0.9% 50 ML IV SCH (20:55)
[2021-03-03] MEDS: Calcium Carbonate/Vitamin D3 1500 MG-400 Units Tab PO SCH (21:00)
[2021-03-04] MEDS: Heparin Sodium 5,000 Units/ML Vial SUBCUT SCH ×3 (01:58→17:28)
[2021-03-04] MEDS: Piperacillin/Tazobactam 2.25 GM in Sodium Chloride 0.9% 50 ML IV SCH ×4 (01:58→19:32)
[2021-03-04 06:38] LABS: BLOOD UREA NITROGEN,BUN 31 mg/dL (7.0-18.0); CARBON DIOXIDE,CO2 27.2 mmol/L (21.0-32.0); CHLORIDE,CL 106 mmol/L (98-107); GLUCOSE RANDOM 79 mg/dL (74-106); POTASSIUM,K 4.2 mmol/L (3.5-5.1); SODIUM,NA 140 mmol/L (136-145)
[2021-03-04] MEDS: Lactated Ringers 1,000 ML IV SCH (06:57)
[2021-03-04] MEDS: Calcium Carbonate/Vitamin D3 1500 MG-400 Units Tab PO SCH ×2 (08:30→21:58)
[2021-03-04] MEDS: Pantoprazole 40 MG in Sodium Chloride 0.9% 10 ML IV SCH (08:31)
--- NOTE | 2021-03-04 09:26 | PCM.PN ---
- General Info Date of Service: 03/04/21 Admission Dx/Problem (Free Text): Admission Diagnosis/Problem Admission Diagnosis/Problem Aspiration Pneumonia Subjective Update: Paige feeling improved today. Denies any chest pain shortness breath or abdominal pain. She reports she is hungry and wanting to eat. Nurses report she has been up ambulating to bathroom with standby assist. Functional Status: Reports: Pain Controlled, Tolerating Diet, Ambulating, Urinating - Review of Systems General: Reports: No Symptoms. Denies: Weakness, Fatigue, Malaise HEENT: Reports: No Symptoms, Sore Throat Pulmonary: Reports: No Symptoms. Denies: Shortness of Breath Cardiovascular: Reports: No Symptoms. Denies: Chest Pain Gastrointestinal: Reports: No Symptoms. Denies: Abdominal Pain, Nausea, Vomiting Genitourinary: Reports: No Symptoms. Denies: Dysuria, Frequency, Burning Musculoskeletal: Reports: No Symptoms Skin: Reports: No Symptoms Neurological: Reports: No Symptoms Psychiatric: Reports: No Symptoms - Patient Data Vitals - Most Recent: Last Vital Signs Temp 96.4 F L 03/04/21 08:00 Pulse 69 03/04/21 08:00 Resp 18 03/04/21 08:00 BP 109/52 L 03/04/21 08:00 Pulse Ox 93 L 03/04/21 08:00 Weight - Most Recent: 50 kg I&O - Last 24 Hours: Intake & Output 03/03/21 03/04/21 03/04/21 22:59 06:59 14:59 Intake Total 100 Output Total 300 Balance -200 Lab Results Last 24 Hours: Laboratory Results - last 24 hr 03/03/21 03/03/21 03/03/21 Range/Units 09:47 09:47 09:47 WBC 17.44 H (4.0-11.0) K/uL RBC 4.00 L (4.30-5.90) M/uL Hgb 12.6 (12.0-16.0) g/dL Hct 37.7 (36.0-46.0) % MCV 94.3 (80.0-98.0) fL MCH 31.5 (27.0-32.0) pg MCHC 33.4 (31.0-37.0) g/dL RDW Std Deviation 48.4 (28.0-62.0) fl RDW Coeff of Erik 15 (11.0-15.0) % Plt Count 209 (150-400) K/uL MPV 9.20 (7.40-12.00) fL Neut % (Auto) 70.8 (48.0-80.0) % Lymph % (Auto) 22.2 (16.0-40.0) % [place] % (Auto) 6.8 (0.0-15.0) % Eos % (Auto) 0.1 (0.0-7.0) % Baso % (Auto) 0.1 (0.0-1.5) % Neut # (Auto) 12.3 H (1.4-5.7) K/uL Lymph # (Auto) 3.9 H (0.6-2.4) K/uL [place] # (Auto) 1.2 H (0.0-0.8) K/uL Eos # (Auto) 0.0 (0.0-0.7) K/uL Baso # (Auto) 0.0 (0.0-0.1) K/uL Nucleated RBC % /100WBC Nucleated RBCs # K/uL Sodium 138 (136-145) mmol/L Potassium 4.6 (3.5-5.1) mmol/L Chloride 101 (98-107) mmol/L Carbon Dioxide 31.2 (21.0-32.0) mmol/L BUN 40 H (7.0-18.0) mg/dL Creatinine 1.1 H (0.6-1.0) mg/dL Est Cr Clr Drug Dosing TNP Estimated GFR (MDRD) 47.7 ml/min Glucose 102 (74-106) mg/dL Lactic Acid 1.6 (0.4-2.0) mmol/L Calcium 10.1 (8.5-10.1) mg/dL Phosphorus (2.6-4.7) mg/dL Magnesium (1.8-2.4) mg/dL Total Bilirubin 0.4 (0.2-1.0) mg/dL AST 161 H (15-37) IU/L ALT 220 H (14-63) IU/L Alkaline Phosphatase 142 H (46-116) U/L Total Protein 6.2 L (6.4-8.2) g/dL Albumin 2.8 L (3.4-5.0) g/dL Globulin 3.4 (2.6-4.0) g/dL Albumin/Globulin Ratio 0.8 L (0.9-1.6) Lipase 204 (73-393) U/L Urine Color Urine Appearance Urine pH (5.0-8.0) Ur Specific [place] (1.001-1.035) Urine Protein (NEGATIVE) mg/dL Urine Glucose (UA) (NEGATIVE) mg/dL Urine Ketones (NEGATIVE) mg/dL Urine Occult Blood (NEGATIVE) Urine Nitrite (NEGATIVE) Urine Bilirubin (NEGATIVE) Urine Urobilinogen (<2.0) EU/dL Ur Leukocyte Esterase (NEGATIVE) SARS-CoV-2 RNA (JAE) (NEGATIVE) 03/03/21 03/03/21 03/04/21 Range/Units 13:05 13:05 05:08 WBC 14.68 H (4.0-11.0) K/uL RBC 3.23 L (4.30-5.90) M/uL Hgb 10.1 L (12.0-16.0) g/dL Hct 30.6 L (36.0-46.0) % MCV 94.7 (80.0-98.0) fL MCH 31.3 (27.0-32.0) pg MCHC 33.0 (31.0-37.0) g/dL RDW Std Deviation 53.2 (28.0-62.0) fl RDW Coeff of Erik 16 H (11.0-15.0) % Plt Count 192 (150-400) K/uL MPV 9.90 (7.40-12.00) fL Neut % (Auto) 56.2 (48.0-80.0) % Lymph % (Auto) 39.3 (16.0-40.0) % [place] % (Auto) 4.2 (0.0-15.0) % Eos % (Auto) 0.2 (0.0-7.0) % Baso % (Auto) 0.1 (0.0-1.5) % Neut # (Auto) 8.2 H (1.4-5.7) K/uL Lymph # (Auto) 5.8 H (0.6-2.4) K/uL [place] # (Auto) 0.6 (0.0-0.8) K/uL Eos # (Auto) 0.0 (0.0-0.7) K/uL Baso # (Auto) 0.0 (0.0-0.1) K/uL Nucleated RBC % 0.0 /100WBC Nucleated RBCs # 0 K/uL Sodium (136-145) mmol/L Potassium (3.5-5.1) mmol/L Chloride (98-107) mmol/L Carbon Dioxide (21.0-32.0) mmol/L BUN (7.0-18.0) mg/dL Creatinine (0.6-1.0) mg/dL Est Cr Clr Drug Dosing Estimated GFR (MDRD) ml/min Glucose (74-106) mg/dL Lactic Acid (0.4-2.0) mmol/L Calcium (8.5-10.1) mg/dL Phosphorus (2.6-4.7) mg/dL Magnesium (1.8-2.4) mg/dL Total Bilirubin (0.2-1.0) mg/dL AST (15-37) IU/L ALT (14-63) IU/L Alkaline Phosphatase (46-116) U/L Total Protein (6.4-8.2) g/dL Albumin (3.4-5.0) g/dL Globulin (2.6-4.0) g/dL Albumin/Globulin Ratio (0.9-1.6) Lipase (73-393) U/L Urine Color YELLOW Urine Appearance CLEAR Urine pH 7.0 (5.0-8.0) Ur Specific [place] 1.015 (1.001-1.035) Urine Protein NEGATIVE (NEGATIVE) mg/dL Urine Glucose (UA) NEGATIVE (NEGATIVE) mg/dL Urine Ketones NEGATIVE (NEGATIVE) mg/dL Urine Occult Blood NEGATIVE (NEGATIVE) Urine Nitrite NEGATIVE (NEGATIVE) Urine Bilirubin NEGATIVE (NEGATIVE) Urine Urobilinogen 0.2 (<2.0) EU/dL Ur Leukocyte Esterase NEGATIVE (NEGATIVE) SARS-CoV-2 RNA (JAE) NEGATIVE (NEGATIVE) 03/04/21 Range/Units 05:08 WBC (4.0-11.0) K/uL RBC (4.30-5.90) M/uL Hgb (12.0-16.0) g/dL Hct (36.0-46.0) % MCV (80.0-98.0) fL MCH (27.0-32.0) pg MCHC (31.0-37.0) g/dL RDW Std Deviation (28.0-62.0) fl RDW Coeff of Erik (11.0-15.0) % Plt Count (150-400) K/uL MPV (7.40-12.00) fL Neut % (Auto) (48.0-80.0) % Lymph % (Auto) (16.0-40.0) % [place] % (Auto) (0.0-15.0) % Eos % (Auto) (0.0-7.0) % Baso % (Auto) (0.0-1.5) % Neut # (Auto) (1.4-5.7) K/uL Lymph # (Auto) (0.6-2.4) K/uL [place] # (Auto) (0.0-0.8) K/uL Eos # (Auto) (0.0-0.7) K/uL Baso # (Auto) (0.0-0.1) K/uL Nucleated RBC % /100WBC Nucleated RBCs # K/uL Sodium 140 (136-145) mmol/L Potassium 4.2 (3.5-5.1) mmol/L Chloride 106 (98-107) mmol/L Carbon Dioxide 27.2 (21.0-32.0) mmol/L BUN 31 H (7.0-18.0) mg/dL Creatinine 1.1 H (0.6-1.0) mg/dL Est Cr Clr Drug Dosing TNP Estimated GFR (MDRD) 47.7 ml/min Glucose 79 (74-106) mg/dL Lactic Acid (0.4-2.0) mmol/L Calcium 8.8 (8.5-10.1) mg/dL Phosphorus 4.2 (2.6-4.7) mg/dL Magnesium 1.6 L (1.8-2.4) mg/dL Total Bilirubin 0.7 (0.2-1.0) mg/dL AST 144 H (15-37) IU/L ALT 226 H (14-63) IU/L Alkaline Phosphatase 136 H (46-116) U/L Total Protein 5.2 L (6.4-8.2) g/dL Albumin 2.1 L (3.4-5.0) g/dL Globulin 3.1 (2.6-4.0) g/dL Albumin/Globulin Ratio 0.7 L (0.9-1.6) Lipase (73-393) U/L Urine Color Urine Appearance Urine pH (5.0-8.0) Ur Specific [place] (1.001-1.035) Urine Protein (NEGATIVE) mg/dL Urine Glucose (UA) (NEGATIVE) mg/dL Urine Ketones (NEGATIVE) mg/dL Urine Occult Blood (NEGATIVE) Urine Nitrite (NEGATIVE) Urine Bilirubin (NEGATIVE) Urine Urobilinogen (<2.0) EU/dL Ur Leukocyte Esterase (NEGATIVE) SARS-CoV-2 RNA (JAE) (NEGATIVE) Med Orders - Current: Current Medications Albuterol/Ipratropium (Albuterol/Ipratropium 3.0-0.5 Mg/3 Ml Neb Soln) 3 ml NEB Q4HRRT PRN PRN Reason: Shortness Of Breath/wheezing Calcium Carbonate (Calcium Carbonate/Vitamin D3 1500 Mg-400 Units Tab) 1 tab PO BID [facility] Last Admin: 03/04/21 08:30 Dose: 1 tab Documented by: Heparin Sodium (Porcine) (Heparin Sodium 5,000 Units/Ml Vial) 5,000 units SUBCUT Q8H [facility] Last Admin: 03/04/21 08:53 Dose: 5,000 units Documented by: Lactated Ringer's (Ringers, Lactated) 1,000 mls @ 125 mls/hr IV ASDIRECTED [facility] Last Admin: 03/04/21 06:57 Dose: 125 mls/hr Documented by: Pantoprazole Sodium 40 mg/ (Sodium Chloride) 10 mls @ 300 mls/hr IV DAILY [facility] Last Admin: 03/04/21 08:31 Dose: 300 mls/hr Documented by: Vancomycin HCl 0.75 gm/ Sodium (Chloride) 250 mls @ 166.667 mls/hr IV Q24H [facility] Piperacillin Sod/Tazobactam (Sod 2.25 gm/ Sodium Chloride) 50 mls @ 100 mls/hr IV Q6H [facility] Last Admin: 03/04/21 08:22 Dose: 100 mls/hr Documented by: Ondansetron HCl (Ondansetron 4 Mg/2 Ml Sdv) 4 mg IVPUSH Q4H PRN PRN Reason: Nausea/Vomiting Sodium Chloride (Sodium Chloride 0.9% 10 Ml Syringe) 10 ml FLUSH ASDIRECTED PRN PRN Reason: Keep Vein Open Last Admin: 03/03/21 09:51 Dose: 10 ml Documented by: Sodium Chloride (Sodium Chloride 0.9% 2.5 Ml Syringe) 2.5 ml FLUSH ASDIRECTED PRN PRN Reason: Keep Vein Open Last Admin: 03/03/21 09:51 Dose: 2.5 ml Documented by: Vancomycin HCl (Pharmacy To Dose - Vancomycin) 0 dose .XX ASDIRECTED SUE Discontinued Medications Sodium Chloride (Normal Saline) 1,000 mls @ 999 mls/hr IV .Bolus ONE Stop: 03/03/21 10:30 Last Admin: 03/03/21 09:50 Dose: 999 mls/hr Documented by: Piperacillin Sod/Tazobactam (Sod 3.375 gm/ Sodium Chloride) 50 mls @ 100 mls/hr IV ONETIME ONE Stop: 03/03/21 12:59 Last Admin: 03/03/21 13:17 Dose: 100 mls/hr Documented by: Piperacillin Sod/Tazobactam (Sod 3.375 gm/ Sodium Chloride) 50 mls @ 100 mls/hr IV Q8H [facility] Last Admin: 03/03/21 20:18 Dose: Not Given Documented by: Vancomycin HCl 750 mg/ Sodium (Chloride) 250 mls @ 166.667 mls/hr IV ONETIME ONE Stop: 03/03/21 21:59 Last Admin: 03/03/21 21:25 Dose: 166.667 mls/hr Documented by: Ondansetron HCl (Ondansetron 4 Mg/2 Ml Sdv) 4 mg IVPUSH ONETIME ONE Stop: 03/03/21 09:31 Last Admin: 03/03/21 09:51 Dose: 4 mg Documented by: - Exam Quality Assessment: DVT Prophylaxis. No: Supplemental Oxygen General: Alert, Oriented, Cooperative, No Acute Distress Lungs: Normal Respiratory Effort, Decreased Breath Sounds (Bibasilar) Cardiovascular: Regular Rate, Regular Rhythm GI/Abdominal Exam: Normal Bowel Sounds, Soft, Non-Tender, No Distention Extremities: Normal Inspection, Normal Range of Motion, Non-Tender, No Pedal Edema Neurological: No New Focal Deficit Psy/Mental Status: Alert, Normal Affect, Normal Mood - Patient Data Lab Results Last 24 hrs: Laboratory Results - last 24 hr 03/03/21 03/03/21 03/03/21 Range/Units 09:47 09:47 09:47 WBC 17.44 H (4.0-11.0) K/uL RBC 4.00 L (4.30-5.90) M/uL Hgb 12.6 (12.0-16.0) g/dL Hct 37.7 (36.0-46.0) % MCV 94.3 (80.0-98.0) fL MCH 31.5 (27.0-32.0) pg MCHC 33.4 (31.0-37.0) g/dL RDW Std Deviation 48.4 (28.0-62.0) fl RDW Coeff of Erik 15 (11.0-15.0) % Plt Count 209 (150-400) K/uL MPV 9.20 (7.40-12.00) fL Neut % (Auto) 70.8 (48.0-80.0) % Lymph % (Auto) 22.2 (16.0-40.0) % [place] % (Auto) 6.8 (0.0-15.0) % Eos % (Auto) 0.1 (0.0-7.0) % Baso % (Auto) 0.1 (0.0-1.5) % Neut # (Auto) 12.3 H (1.4-5.7) K/uL Lymph # (Auto) 3.9 H (0.6-2.4) K/uL [place] # (Auto) 1.2 H (0.0-0.8) K/uL Eos # (Auto) 0.0 (0.0-0.7) K/uL Baso # (Auto) 0.0 (0.0-0.1) K/uL Nucleated RBC % /100WBC Nucleated RBCs # K/uL Sodium 138 (136-145) mmol/L Potassium 4.6 (3.5-5.1) mmol/L Chloride 101 (98-107) mmol/L Carbon Dioxide 31.2 (21.0-32.0) mmol/L BUN 40 H (7.0-18.0) mg/dL Creatinine 1.1 H (0.6-1.0) mg/dL Est Cr Clr Drug Dosing TNP Estimated GFR (MDRD) 47.7 ml/min Glucose 102 (74-106) mg/dL Lactic Acid 1.6 (0.4-2.0) mmol/L Calcium 10.1 (8.5-10.1) mg/dL Phosphorus (2.6-4.7) mg/dL Magnesium (1.8-2.4) mg/dL Total Bilirubin 0.4 (0.2-1.0) mg/dL AST 161 H (15-37) IU/L ALT 220 H (14-63) IU/L Alkaline Phosphatase 142 H (46-116) U/L Total Protein 6.2 L (6.4-8.2) g/dL Albumin 2.8 L (3.4-5.0) g/dL Globulin 3.4 (2.6-4.0) g/dL Albumin/Globulin Ratio 0.8 L (0.9-1.6) Lipase 204 (73-393) U/L Urine Color Urine Appearance Urine pH (5.0-8.0) Ur Specific [place] (1.001-1.035) Urine Protein (NEGATIVE) mg/dL Urine Glucose (UA) (NEGATIVE) mg/dL Urine Ketones (NEGATIVE) mg/dL Urine Occult Blood (NEGATIVE) Urine Nitrite (NEGATIVE) Urine Bilirubin (NEGATIVE) Urine Urobilinogen (<2.0) EU/dL Ur Leukocyte Esterase (NEGATIVE) SARS-CoV-2 RNA (JAE) (NEGATIVE) 03/03/21 03/03/21 03/04/21 Range/Units 13:05 13:05 05:08 WBC 14.68 H (4.0-11.0) K/uL RBC 3.23 L (4.30-5.90) M/uL Hgb 10.1 L (12.0-16.0) g/dL Hct 30.6 L (36.0-46.0) % MCV 94.7 (80.0-98.0) fL MCH 31.3 (27.0-32.0) pg MCHC 33.0 (31.0-37.0) g/dL RDW Std Deviation 53.2 (28.0-62.0) fl RDW Coeff of Erik 16 H (11.0-15.0) % Plt Count 192 (150-400) K/uL MPV 9.90 (7.40-12.00) fL Neut % (Auto) 56.2 (48.0-80.0) % Lymph % (Auto) 39.3 (16.0-40.0) % [place] % (Auto) 4.2 (0.0-15.0) % Eos % (Auto) 0.2 (0.0-7.0) % Baso % (Auto) 0.1 (0.0-1.5) % Neut # (Auto) 8.2 H (1.4-5.7) K/uL Lymph # (Auto) 5.8 H (0.6-2.4) K/uL [place] # (Auto) 0.6 (0.0-0.8) K/uL Eos # (Auto) 0.0 (0.0-0.7) K/uL Baso # (Auto) 0.0 (0.0-0.1) K/uL Nucleated RBC % 0.0 /100WBC Nucleated RBCs # 0 K/uL Sodium (136-145) mmol/L Potassium (3.5-5.1) mmol/L Chloride (98-107) mmol/L Carbon Dioxide (21.0-32.0) mmol/L BUN (7.0-18.0) mg/dL Creatinine (0.6-1.0) mg/dL Est Cr Clr Drug Dosing Estimated GFR (MDRD) ml/min Glucose (74-106) mg/dL Lactic Acid (0.4-2.0) mmol/L Calcium (8.5-10.1) mg/dL Phosphorus (2.6-4.7) mg/dL Magnesium (1.8-2.4) mg/dL Total Bilirubin (0.2-1.0) mg/dL AST (15-37) IU/L ALT (14-63) IU/L Alkaline Phosphatase (46-116) U/L Total Protein (6.4-8.2) g/dL Albumin (3.4-5.0) g/dL Globulin (2.6-4.0) g/dL Albumin/Globulin Ratio (0.9-1.6) Lipase (73-393) U/L Urine Color YELLOW Urine Appearance CLEAR Urine pH 7.0 (5.0-8.0) Ur Specific [place] 1.015 (1.001-1.035) Urine Protein NEGATIVE (NEGATIVE) mg/dL Urine Glucose (UA) NEGATIVE (NEGATIVE) mg/dL Urine Ketones NEGATIVE (NEGATIVE) mg/dL Urine Occult Blood NEGATIVE (NEGATIVE) Urine Nitrite NEGATIVE (NEGATIVE) Urine Bilirubin NEGATIVE (NEGATIVE) Urine Urobilinogen 0.2 (<2.0) EU/dL Ur Leukocyte Esterase NEGATIVE (NEGATIVE) SARS-CoV-2 RNA (JAE) NEGATIVE (NEGATIVE) 03/04/21 Range/Units 05:08 WBC (4.0-11.0) K/uL RBC (4.30-5.90) M/uL Hgb (12.0-16.0) g/dL Hct (36.0-46.0) % MCV (80.0-98.0) fL MCH (27.0-32.0) pg MCHC (31.0-37.0) g/dL RDW Std Deviation (28.0-62.0) fl RDW Coeff of Erik (11.0-15.0) % Plt Count (150-400) K/uL MPV (7.40-12.00) fL Neut % (Auto) (48.0-80.0) % Lymph % (Auto) (16.0-40.0) % [place] % (Auto) (0.0-15.0) % Eos % (Auto) (0.0-7.0) % Baso % (Auto) (0.0-1.5) % Neut # (Auto) (1.4-5.7) K/uL Lymph # (Auto) (0.6-2.4) K/uL [place] # (Auto) (0.0-0.8) K/uL Eos # (Auto) (0.0-0.7) K/uL Baso # (Auto) (0.0-0.1) K/uL Nucleated RBC % /100WBC Nucleated RBCs # K/uL Sodium 140 (136-145) mmol/L Potassium 4.2 (3.5-5.1) mmol/L Chloride 106 (98-107) mmol/L Carbon Dioxide 27.2 (21.0-32.0) mmol/L BUN 31 H (7.0-18.0) mg/dL Creatinine 1.1 H (0.6-1.0) mg/dL Est Cr Clr Drug Dosing TNP Estimated GFR (MDRD) 47.7 ml/min Glucose 79 (74-106) mg/dL Lactic Acid (0.4-2.0) mmol/L Calcium 8.8 (8.5-10.1) mg/dL Phosphorus 4.2 (2.6-4.7) mg/dL Magnesium 1.6 L (1.8-2.4) mg/dL Total Bilirubin 0.7 (0.2-1.0) mg/dL AST 144 H (15-37) IU/L ALT 226 H (14-63) IU/L Alkaline Phosphatase 136 H (46-116) U/L Total Protein 5.2 L (6.4-8.2) g/dL Albumin 2.1 L (3.4-5.0) g/dL Globulin 3.1 (2.6-4.0) g/dL Albumin/Globulin Ratio 0.7 L (0.9-1.6) Lipase (73-393) U/L Urine Color Urine Appearance Urine pH (5.0-8.0) Ur Specific [place] (1.001-1.035) Urine Protein (NEGATIVE) mg/dL Urine Glucose (UA) (NEGATIVE) mg/dL Urine Ketones (NEGATIVE) mg/dL Urine Occult Blood (NEGATIVE) Urine Nitrite (NEGATIVE) Urine Bilirubin (NEGATIVE) Urine Urobilinogen (<2.0) EU/dL Ur Leukocyte Esterase (NEGATIVE) SARS-CoV-2 RNA (JAE) (NEGATIVE) Result Diagrams: 03/04/21 05:08 03/04/21 05:08 Sepsis Event Note - Evaluation Sepsis Screening Result: No Definite Risk - Focused Exam Vital Signs: Vital Signs Temp Pulse Resp BP Pulse Ox 03/04/21 08:00 96.4 F L 69 18 109/52 L 93 L 03/04/21 04:00 97.0 F 16 123/59 L 92 L 03/04/21 00:00 96.4 F L 75 16 127/58 L 94 L - Problem List & Annotations (1) Acute respiratory failure with hypoxia SNOMED Code(s): 62969450, 096136161 Code(s): J96.01 - ACUTE RESPIRATORY FAILURE WITH HYPOXIA Status: Acute Current Visit: Yes (2) Aspiration pneumonia SNOMED Code(s): 589214622 Code(s): J69.0 - PNEUMONITIS DUE TO INHALATION OF FOOD AND VOMIT Status: Acute Current Visit: Yes (3) Cerebral palsy SNOMED Code(s): 457352367 Code(s): G80.9 - CEREBRAL PALSY, UNSPECIFIED Status: Chronic Current Visit: No (4) HTN (hypertension) SNOMED Code(s): 13521635 Code(s): I10 - ESSENTIAL (PRIMARY) HYPERTENSION Status: Chronic Current Visit: No Qualifiers: Hypertension type: essential hypertension Qualified Code(s): I10 - Essential (primary) hypertension - Problem List Review Problem List Initiated/Reviewed/Updated: Yes - My Orders Last 24 Hours: My Active Orders 03/03/21 15:55 Patient Status [ADT] Stat 03/04/21 08:46 Consult to Speech Language Pathology [[employer] Evaluation and Treatment] [CONS] Ro utine - Plan Plan:: 80-year-old female admitted for nausea, vomiting, possible bilateral aspiration pneumonia causing acute hypoxic respiratory failure 1. Bilateral aspiration pneumonia/acute hypoxic respiratory failure -Has been weaned off oxygen currently on room air satting 93% -Continue vancomycin and Zosyn -Breathing treatments as needed -Blood cultures pending -Encourage cough and deep breathing I-S as possible -Speech therapy to evaluate and treat 2. Nausea/vomiting/transaminitis -Transaminitis stable - Ultrasound of the abdomen was nonsignificant for any stone - transaminitis does not improve or trends up will get an MRCP - Surgery has already been contacted for recommendations by ER, no need for urgent ERCP or any kind of surgical intervention per surgery - Continue to monitor LFTs closely -Increase diet to soft diet today monitor for nausea vomiting -Aspiration precautions 3. Hypertension -Hold lisinopril with MONIKA and softer blood pressures VTE prophylaxis: Heparin GI prophylaxis: Protonix CODE STATUS: Full code Dispo: 2 to 3 days pending improvement.
[2021-03-05] MEDS: Heparin Sodium 5,000 Units/ML Vial SUBCUT SCH ×2 (01:50→09:01)
[2021-03-05] MEDS: Piperacillin/Tazobactam 2.25 GM in Sodium Chloride 0.9% 50 ML IV SCH ×2 (01:51→08:54)
[2021-03-05 06:14] LABS: BLOOD UREA NITROGEN,BUN 24 mg/dL (7.0-18.0); CARBON DIOXIDE,CO2 23.4 mmol/L (21.0-32.0); CHLORIDE,CL 105 mmol/L (98-107); GLUCOSE RANDOM 112 mg/dL (74-106); POTASSIUM,K 4.1 mmol/L (3.5-5.1); SODIUM,NA 139 mmol/L (136-145)
[2021-03-05 07:23] VITALS: BP 141/66; PULSE 73
[2021-03-05] MEDS ORDERED: Magnesium Sulfate/Water 4 GM in Premix Bag 1 BAG IV ONE (07:45)
[2021-03-05] MEDS: Pantoprazole 40 MG in Sodium Chloride 0.9% 10 ML IV SCH (08:43)
--- NOTE | 2021-03-05 08:57 | PCM.DCSUM1 ---
Discharge Summary - Hospital Course Brief History: Patient is an 80-year-old female with a history significant for cerebral palsy, TIA in the past, who currently resides at [facility] who presents ER today secondary to episodes of diarrhea and vomiting that started since yesterday. Reportedly patient had few episodes of vomiting a few days back and there was a concern that she might have aspirated a follow-up swallow study was done which which reportedly was normal and a chest x-ray was done which showed evidence of aspiration but no pneumonia so no treatment for aspiration pneumonia was started. No specific treatment for aspiration pneumonia was started. Patient denies any current abdominal pain. Patient reports that she does have some shortness of breath with some occasional coughing over the last couple days. Patient denies any fevers ,any urinary complaints, abdominal pain or discomfort. Patient reports that she been tolerating p.o. solids and liquids well. Caregiver reports that she is currently at her baseline mentation. In the ER an ultrasound and CT scan was done, CT scan showed concern of CBD stone but no associated blockage or inflammation. Ultrasound of the abdomen was done which did not reveal any stone, and no acute cholecystitis but did show gallstones. The findings of the CAT scan were discussed with the on-call surgeon Dr. Adorno who stated that the patient at this time does not require any urgent surgical intervention. Patient was also found to be hypoxic saturating 88% on room air and had to be started on oxygen in the ER. Patient was admitted to the hospital for further management of her symptoms. Diagnosis: Stroke: No - Discharge Data Discharge Date: 03/05/21 Discharge Disposition: DC/Tfer to [facility] Condition: Stable - Referral to Home Health Primary Care Physician: Jabari Teran MD - Discharge Diagnosis/Problem(s) (1) Acute respiratory failure with hypoxia SNOMED Code(s): 78568100, 264342357 ICD Code: J96.01 - ACUTE RESPIRATORY FAILURE WITH HYPOXIA Status: Acute Current Visit: Yes (2) Aspiration pneumonia SNOMED Code(s): 318566371 ICD Code: J69.0 - PNEUMONITIS DUE TO INHALATION OF FOOD AND VOMIT Status: Acute Current Visit: Yes (3) Cerebral palsy SNOMED Code(s): 094296298 ICD Code: G80.9 - CEREBRAL PALSY, UNSPECIFIED Status: Chronic Current Visit: No (4) HTN (hypertension) SNOMED Code(s): 09156848 ICD Code: I10 - ESSENTIAL (PRIMARY) HYPERTENSION Status: Chronic Current Visit: No Qualifiers: Hypertension type: essential hypertension Qualified Code(s): I10 - Essential (primary) hypertension - Patient Summary/Data Consults: Consultations 03/04/21 08:46 Consult to Speech Language Pathology [KILN [facility]OKER Evaluation and Treatment] [CONS] Routine Hospital Course: Admission diagnoses acute hypoxic respiratory failure Aspiration pneumonia Transaminitis Discharge diagnoses Acute hypoxic respiratory failure resolved Aspiration pneumonia Transaminitis stable Other PMH Cerebral palsy Luba Webb was admitted secondary to acute hypoxic respiratory failure found to have aspiration pneumonia. Patient had nausea vomiting at home and likely aspirated during a vomiting episode. Patient was treated vancomycin and Zosyn and was weaned off oxygen therapy within the first day of admission. Patient was noted to have transaminitis on admission. CT of the belly showed concern for possible common bile duct stone but no blockage or inflammation. Ultrasound did not reveal the stone and patient remained asymptomatic with no abdominal pain. No acute cholecystitis noted. Surgery was consulted for evaluation no acute concerns currently. Would recommend in the future possible MRCP if patient becomes symptomatic. No hyperbilirubinemia noted. Today patient continues to feel improved. She is eating and drinking appropriately with no nausea vomiting or abdominal pain. Patient remains on room air. White count scratch that leukocytosis has resolved 9000 today. Acute kidney injury has also resolved. Transaminitis stable AST 115 ALT 207 alk phos 131 bilirubin 0.5. Patient will be discharged home on Levaquin 750 mg for 4 more doses. For total of 7-day total course for aspiration pneumonia. Patient will return to [facility] home. She is to return to PCP in 1 week or ER sooner if concerns should arise. - Patient Instructions Diet: Pureed (nectar thick) Activity: No Strenuous Activities Driving: Do Not Drive Showering/Bathing: May Shower Notify Provider of: Fever, Increased Pain, Swelling and Redness, Drainage, Nausea and/or Vomiting - Discharge Plan *PRESCRIPTION DRUG MONITORING PROGRAM REVIEWED*: Not Applicable *COPY OF PRESCRIPTION DRUG MONITORING REPORT IN PATIENT TORIN: Not Applicable Prescriptions/Med Rec: levoFLOXacin [Levaquin] 750 mg PO DAILY #4 tab Home Medications: Home Meds Polyethylene Glycol [Polyox Wsr-[id number]] 17 gm PO DAILY 01/14/20 [History] Ascorbic Acid [Vitamin C] 500 mg PO DAILY 08/21/20 [History] predniSONE 2.5 mg PO DAILY 08/21/20 [History] Calcium Carb, Citrate/Vit D3 [Citracal + D ER] 1 tab PO BID 03/03/21 [History] Multivit with Iron,Minerals [Flintstones Complete] 1 tab PO DAILY 03/03/21 [History] Sulfamethoxazole/Trimethoprim [Bactrim 400-80 MG] 0.5 tab PO BEDTIME 03/03/21 [History] lisinopriL [Lisinopril] 20 mg PO DAILY 03/03/21 [History] levoFLOXacin [Levaquin] 750 mg PO DAILY #4 tab 03/05/21 [Rx] Oxygen Therapy Mode: Room Air Patient Handouts: Levofloxacin tablets, Community-Acquired Pneumonia, Adult, [id number] Referrals: Jabari Teran MD [Primary Care Provider] - 03/17/21 12:30 pm - Discharge Summary/Plan Comment DC Time >30 min.: No - Patient Data Vitals - Most Recent: Last Vital Signs Temp 97.7 F 03/05/21 07:23 Pulse 73 03/05/21 07:23 Resp 16 03/05/21 07:23 BP 141/66 H 03/05/21 07:23 Pulse Ox 93 L 03/05/21 07:23 Weight - Most Recent: 50 kg I&O - Last 24 hours: Intake & Output 03/04/21 03/05/21 03/05/21 22:59 06:59 14:59 Intake Total 2031 320 110 Output Total 300 450 Balance 1731 -130 110 Lab Results - Last 24 hrs: Laboratory Results - last 24 hr 03/05/21 03/05/21 Range/Units 05:30 05:30 WBC 9.09 (4.0-11.0) K/uL RBC 3.04 L (4.30-5.90) M/uL Hgb 9.4 L (12.0-16.0) g/dL Hct 29.1 L (36.0-46.0) % MCV 95.7 (80.0-98.0) fL MCH 30.9 (27.0-32.0) pg MCHC 32.3 (31.0-37.0) g/dL RDW Std Deviation 54.1 (28.0-62.0) fl RDW Coeff of Erik 16 H (11.0-15.0) % Plt Count 170 (150-400) K/uL MPV 9.70 (7.40-12.00) fL Neut % (Auto) 44.8 L (48.0-80.0) % Lymph % (Auto) 48.5 H (16.0-40.0) % [place] % (Auto) 6.2 (0.0-15.0) % Eos % (Auto) 0.3 (0.0-7.0) % Baso % (Auto) 0.2 (0.0-1.5) % Neut # (Auto) 4.1 (1.4-5.7) K/uL Lymph # (Auto) 4.4 H (0.6-2.4) K/uL [place] # (Auto) 0.6 (0.0-0.8) K/uL Eos # (Auto) 0.0 (0.0-0.7) K/uL Baso # (Auto) 0.0 (0.0-0.1) K/uL Nucleated RBC % 0.0 /100WBC Nucleated RBCs # 0 K/uL Sodium 139 (136-145) mmol/L Potassium 4.1 (3.5-5.1) mmol/L Chloride 105 (98-107) mmol/L Carbon Dioxide 23.4 (21.0-32.0) mmol/L BUN 24 H (7.0-18.0) mg/dL Creatinine 1.0 (0.6-1.0) mg/dL Est Cr Clr Drug Dosing TNP Estimated GFR (MDRD) 53.2 ml/min Glucose 112 H (74-106) mg/dL Calcium 8.6 (8.5-10.1) mg/dL Phosphorus 2.8 (2.6-4.7) mg/dL Magnesium 1.4 L (1.8-2.4) mg/dL Total Bilirubin 0.5 (0.2-1.0) mg/dL AST 115 H (15-37) IU/L ALT 207 H (14-63) IU/L Alkaline Phosphatase 131 H (46-116) U/L Total Protein 5.1 L (6.4-8.2) g/dL Albumin 2.1 L (3.4-5.0) g/dL Globulin 3.0 (2.6-4.0) g/dL Albumin/Globulin Ratio 0.7 L (0.9-1.6) Med Orders - Current: Current Medications Albuterol/Ipratropium (Albuterol/Ipratropium 3.0-0.5 Mg/3 Ml Neb Soln) 3 ml NEB Q4HRRT PRN PRN Reason: Shortness Of Breath/wheezing Calcium Carbonate (Calcium Carbonate/Vitamin D3 1500 Mg-400 Units Tab) 1 tab PO BID [facility] Last Admin: 03/04/21 21:58 Dose: 1 tab Documented by: Heparin Sodium (Porcine) (Heparin Sodium 5,000 Units/Ml Vial) 5,000 units SUBCUT Q8H [facility] Last Admin: 03/05/21 01:50 Dose: 5,000 units Documented by: Pantoprazole Sodium 40 mg/ (Sodium Chloride) 10 mls @ 300 mls/hr IV DAILY [facility] Last Admin: 03/05/21 08:43 Dose: 300 mls/hr Documented by: Magnesium Sulfate 4 gm/ Premix 100 mls @ 50 mls/hr IV ONETIME ONE Stop: 03/05/21 09:44 Last Admin: 03/05/21 08:50 Dose: 50 mls/hr Documented by: Levofloxacin (Levofloxacin 750 Mg Tab) 750 mg PO Q24H [facility] Ondansetron HCl (Ondansetron 4 Mg/2 Ml Sdv) 4 mg IVPUSH Q4H PRN PRN Reason: Nausea/Vomiting Sodium Chloride (Sodium Chloride 0.9% 10 Ml Syringe) 10 ml FLUSH ASDIRECTED PRN PRN Reason: Keep Vein Open Last Admin: 03/03/21 09:51 Dose: 10 ml Documented by: Sodium Chloride (Sodium Chloride 0.9% 2.5 Ml Syringe) 2.5 ml FLUSH ASDIRECTED PRN PRN Reason: Keep Vein Open Last Admin: 03/03/21 09:51 Dose: 2.5 ml Documented by: Discontinued Medications Sodium Chloride (Normal Saline) 1,000 mls @ 999 mls/hr IV .Bolus ONE Stop: 03/03/21 10:30 Last Admin: 03/03/21 09:50 Dose: 999 mls/hr Documented by: Piperacillin Sod/Tazobactam (Sod 3.375 gm/ Sodium Chloride) 50 mls @ 100 mls/hr IV ONETIME ONE Stop: 03/03/21 12:59 Last Admin: 03/03/21 13:17 Dose: 100 mls/hr Documented by: Piperacillin Sod/Tazobactam (Sod 3.375 gm/ Sodium Chloride) 50 mls @ 100 mls/hr IV Q8H [facility] Last Admin: 03/03/21 20:18 Dose: Not Given Documented by: Lactated Ringer's (Ringers, Lactated) 1,000 mls @ 125 mls/hr IV ASDIRECTED [facility] Last Admin: 03/04/21 06:57 Dose: 125 mls/hr Documented by: Vancomycin HCl 750 mg/ Sodium (Chloride) 250 mls @ 166.667 mls/hr IV Q24H [facility] Last Admin: 03/04/21 17:33 Dose: Not Given Documented by: Piperacillin Sod/Tazobactam (Sod 2.25 gm/ Sodium Chloride) 50 mls @ 100 mls/hr IV Q6H [facility] Last Admin: 03/05/21 08:54 Dose: 100 mls/hr Documented by: Vancomycin HCl 750 mg/ Sodium (Chloride) 250 mls @ 166.667 mls/hr IV ONETIME ONE Stop: 03/03/21 21:59 Last Admin: 03/03/21 21:25 Dose: 166.667 mls/hr Documented by: Vancomycin HCl 750 mg/ Sodium (Chloride) 250 mls @ 166.667 mls/hr IV Q24H [facility] Last Admin: 03/04/21 17:32 Dose: 166.667 mls/hr Documented by: Ondansetron HCl (Ondansetron 4 Mg/2 Ml Sdv) 4 mg IVPUSH ONETIME ONE Stop: 03/03/21 09:31 Last Admin: 03/03/21 09:51 Dose: 4 mg Documented by: Vancomycin HCl (Pharmacy To Dose - Vancomycin) 0 dose .XX ASDIRECTED [facility]
[2021-03-05] MEDS ORDERED: Levofloxacin 750 MG Tab PO SCH (09:00)
[2021-03-05] MEDS: Calcium Carbonate/Vitamin D3 1500 MG-400 Units Tab PO SCH (09:03)
== END 2021-03-05 12:54 | DRG 177 ==
LOC: MW.ED 09:29 → MW.MS 15:36 → OBSVTOIN 15:55
PROVIDERS: ADMIT Student in an Organized Health Care Education/Training Program; ATTEND Student in an Organized Health Care Education/Training Program
DX: J69.0 Pneumonitis due to inhalation of food and vomit (principal); J96.01 Acute respiratory failure with hypoxia; Z86.73 Personal history of transient ischemic attack (TIA), and cerebral infarction without residual deficits; G80.9 Cerebral palsy, unspecified; I10 Essential (primary) hypertension; R47.9 Unspecified speech disturbances; Z85.42 Personal history of malignant neoplasm of other parts of uterus; R74.01 Elevation of levels of liver transaminase levels; Z79.52 Long term (current) use of systemic steroids; Z79.899 Other long term (current) drug therapy; R09.02 Hypoxemia; R47.01 Aphasia; H54.7 Unspecified visual loss; H52.00 Hypermetropia, unspecified eye; Z90.49 Acquired absence of other specified parts of digestive tract; Z90.710 Acquired absence of both cervix and uterus; Z20.822 Contact with and (suspected) exposure to COVID-19
CPT/HCPCS: 36415; 71046; 74176; 76705; 80053; 81003; 83605; 83690; 85025; 93005; 96365; 96375; 99285; J2405; J2543; J7030; U0002; 83735; 84100; 92610-GN; 99284; A9270-GY; C9113; J1644; J3370; J3475; J7050; J7120

== ENCOUNTER 2021-03-07 07:56 | Emergency (ER) | payer MEDICARE, MEDICAID ==
[2021-03-07] MEDS ORDERED: Sodium Chloride 0.9% 10 ML Syringe FLUSH PRN (08:24)
[2021-03-07] MEDS ORDERED: Sodium Chloride 0.9% 2.5 ML Syringe FLUSH PRN (08:24)
--- NOTE | 2021-03-07 09:11 | CR ---
INDICATION: Low pulse ox COMPARISON: March 03, 2021 TECHNIQUE: Single-view portable chest radiograph FINDINGS: TUBES AND LINES: None. HEART AND MEDIASTINUM: Heart mildly enlarged. Tortuous aorta appear. LUNGS AND PLEURAL SPACES: Patchy airspace disease in the left midlung and left base. However, this appearance has improved.There is no new or progressive finding OSSEOUS STRUCTURES: Age-appropriate appearance. No acute focal finding. IMPRESSION: Patchy airspace disease in the left midlung and left base. However, this appearance has improved since March 03, 2021. Dictated by John Lua MD @ 03/07/2021 9:10:[address] John Lua @ Mar 07 2021 9:10AM
[2021-03-07 09:17] LABS: BLOOD UREA NITROGEN,BUN 13 mg/dL (7.0-18.0); CARBON DIOXIDE,CO2 23.1 mmol/L (21.0-32.0); CHLORIDE,CL 104 mmol/L (98-107); GLUCOSE RANDOM 88 mg/dL (74-106); POTASSIUM,K 3.7 mmol/L (3.5-5.1); SODIUM,NA 138 mmol/L (136-145)
[2021-03-07] MEDS ORDERED: Levofloxacin/Dextrose 5%-Water 500 MG in Premix Bag 1 BAG IV ONE (09:21)
[2021-03-07] MEDS ORDERED: Ondansetron 4 MG/2 ML SDV IVPUSH ONE (09:21)
--- NOTE | 2021-03-07 10:13 | EDM.PDOC ---
ED HPI GENERAL MEDICAL PROBLEM - General Chief Complaint: General Stated Complaint: NO APPETITE, DEHYDRATED, DIARRHEA Time Seen by Provider: 03/07/21 08:03 - History of Present Illness INITIAL COMMENTS - FREE TEXT/NARRATIVE: HISTORY AND PHYSICAL: History of present illness: This is an 80-year-old female with a history significant for cerebral palsy, TIA, who currently resides at the [facility] who was recently disc harged from the hospital on March 05 for treatment and evaluation of vomiting, diarrhea and pneumonia with elevated LFTs. Patient returned to the ED today secondary to concerns from the [facility] regarding an oxygen level of 92% as well as decreased p.o. intake. They report that she is somewhat more sleepy than usual and less active than usual. Patient currently is resting comfortably in bed and is able to answer yes/no questions. Patient reports that she does have some abdominal discomfort, she denies any shortness of breath, she denies any chest pain. Patient's caregiver is at bedside and has verbalized concerns regarding patient's ability to eat and drink and was concerned that she might be dehydrated. She is also concerned that the patient might have difficulty eating foods however patient did have a speech pathology test recently which revealed no evidence or concerns for aspiration. Review of systems: As per history of present illness and below otherwise all systems reviewed and negative. Past medical history: As per history of present illness and as reviewed below otherwise noncontributory. Surgical history: As per history of present illness and as reviewed below otherwise noncontributory. Social history: No reported history of drug abuse. Family history: As per history of present illness and as reviewed below otherwise noncontributory. Physical exam: This patient was seen and evaluated during the 2019 SARS-CoV-2 novel coronavirus pandemic period. Community viral transmission is ongoing at time of this encounter and the emergency department is operating under pandemic response procedures. Constitutional: Appears well-developed and well-nourished. No distress. HEENT: Moist mucous membranes Head: Normocephalic and atraumatic Eyes: Right eye exhibits no discharge. Left eye exhibits no discharge. No scleral icterus Neck: Normal range of motion. No tracheal deviation present. Cardiovascular: Normal rate and regular rhythm. Pulmonary: Effort normal, no respiratory distress. Abdominal: No distention, mild tenderness palpation suprapubic region. Musculoskeletal: No edema Neurologic: Alert and awake and appears to be at baseline Skin: [place], warm and dry. Psychiatric: Normal mood and affect. Behavior is normal. Judgment and thought content normal. Nursing note and vital signs have been reviewed Diagnostics: [] Therapeutics: [] Assessment and plan: 80-year-old female who presents ER today with concerns of dehydration and low oxygen level. Patient currently is clinically and hemodynamically stable here in the ED with normal vital signs. Patient's EKG reveals a heart rate of 78 with atrial flutter which appears to be baseline for the patient. Patient's labs in the ER appear to be within normal limits with improving ALT/AST from her prior hospitalization. Patient's chest x-ray reveals evidence of pneumonia however per radiology report it does appear to be improving than her prior chest x-ray. Patient's urinalysis was normal. Given the patient's clinical presentation, relatively normal examination, normal labs and normal vital signs, I feel that the patient at this time can be discharged home safely with instructions to resume her current plan of care. Although the caregiver did report she has concerns regarding hydration issues, the patient has been home now for approximately 2 days and does not exhibit any signs or symptoms on exam or in labs of dehydration. Patient will be given IV fluids here in the ED as well as a dose of Zofran and her Levaquin IV and will be discharged home with a prescription for Zofran to assist with her nausea. Definitive disposition and diagnosis as appropriate pending reevaluation and review of above. Treatments PARIMUTUEL CLERK: Reports: Other (see below) Other Treatments PARIMUTUEL CLERK: patient has been taking abx - Related Data Allergies Allergy/AdvReac Type Severity Reaction Status Date / Time No Known Allergies Allergy Verified 03/07/21 08:15 Home Meds: Home Meds Polyethylene Glycol [Polyox [id number]] 17 gm PO DAILY 01/14/20 [History] Ascorbic Acid [Vitamin C] 500 mg PO DAILY 08/21/20 [History] predniSONE 2.5 mg PO BID 08/21/20 [History] Calcium Carb, Citrate/Vit D3 [Citracal + D ER] 2 tab PO BID 03/03/21 [History] Multivit with Iron,Minerals [Flintstones Complete] 1 tab PO DAILY 03/03/21 [History] Sulfamethoxazole/Trimethoprim [Bactrim 400-80 MG] 0.5 tab PO BEDTIME 03/03/21 [History] lisinopriL [Lisinopril] 20 mg PO DAILY 03/03/21 [History] levoFLOXacin [Levaquin] 750 mg PO DAILY #4 tab 03/05/21 [Rx] Levofloxacin 500 mg PO DAILY 03/07/21 [History] Ondansetron [Zofran ODT] 4 mg PO Q6H PRN #12 tab.dis 03/07/21 [Rx] Sulfamethoxazole/Trimethoprim [Sulfamethoxazole-Tmp Ds Tablet] 1 each PO 03/07/21 [History] Past Medical History HEENT History: Reports: Impaired Vision, Other (See Below) Other HEENT History: wears glasses; recurrent nasal drainage; hyperopia; astigmatism Cardiovascular History: Reports: Hypertension Respiratory History: Reports: None Gastrointestinal History: Reports: None Genitourinary History: Reports: None Other Genitourinary History: Bladder hyperactivity VIDEO CLERK History: Reports: None Musculoskeletal History: Reports: Other (See Below) Other Musculoskeletal History: drop foot Neurological History: Reports: Cerebral Palsy Psychiatric History: Reports: Developmental Delay, Other (See Below) Other Psychiatric History: speech impairment Endocrine/Metabolic History: Reports: None Hematologic History: Reports: None Immunologic History: Reports: None Oncologic (Cancer) History: Reports: Uterine Dermatologic History: Reports: None - Infectious Disease History Infectious Disease History: Reports: None - Past Surgical History Head Surgeries/Procedures: Reports: None HEENT Surgical History: Reports: None Cardiovascular Surgical History: Reports: None Respiratory Surgical History: Reports: None GI Surgical History: Reports: Appendectomy Female Surgical History: Reports: Breast Biopsy, Hysterectomy Other Female Surgeries/Procedures: Hysterectomy for cancer Endocrine Surgical History: Reports: None Neurological Surgical History: Reports: None Musculoskeletal Surgical History: Reports: Arthroscopic Procedure, Hip Replacement, ORIF Other Musculoskeletal Surgeries/Procedures:: left SIGRID, ORIF right pinky finger with K-Wire Oncologic Surgical History: Reports: Other (See Below) Other Oncologic Surgeries/Procedures: Hysterectomy Dermatological Surgical History: Reports: None Social & Family History - Family History Family Medical History: No Pertinent Family History - Tobacco Use Tobacco Use Status *Q: Never Tobacco User - Caffeine Use Caffeine Use: Reports: None - Recreational Drug Use Recreational Drug Use: No ED ROS GENERAL - Review of Systems Review Of Systems: See Below ED EXAM, GENERAL - Physical Exam Exam: See Below #1 Interpretation EKG Interpretation Comments: EKG: As interpreted by ER physician: Komal: Nonspecific ST-T wave abnormalities Normal axis No evidence of ST elevation ND Atrial flutter with 4-1 AV block at a heart rate of 80 bpm Course - Vital Signs Last Recorded V/S: Last Vital Signs Temp 97.2 F 03/07/21 08:10 Pulse 81 03/07/21 11:25 Resp 18 03/07/21 11:25 BP 152/66 H 03/07/21 11:25 Pulse Ox 93 L 03/07/21 11:25 - Orders/Labs/Meds Labs: Laboratory Tests 03/07/21 03/07/21 03/07/21 Range/Units 08:44 08:44 09:08 WBC 6.85 (4.0-11.0) K/uL RBC 3.45 L (4.30-5.90) M/uL Hgb 10.9 L (12.0-16.0) g/dL Hct 32.6 L (36.0-46.0) % MCV 94.5 (80.0-98.0) fL MCH 31.6 (27.0-32.0) pg MCHC 33.4 (31.0-37.0) g/dL RDW Std Deviation 52.1 (28.0-62.0) fl RDW Coeff of Erik 15 (11.0-15.0) % Plt Count 177 (150-400) K/uL MPV 9.40 (7.40-12.00) fL Neut % (Auto) 57.5 (48.0-80.0) % Lymph % (Auto) 32.6 (16.0-40.0) % [place] % (Auto) 9.5 (0.0-15.0) % Eos % (Auto) 0.3 (0.0-7.0) % Baso % (Auto) 0.1 (0.0-1.5) % Neut # (Auto) 3.9 (1.4-5.7) K/uL Lymph # (Auto) 2.2 (0.6-2.4) K/uL [place] # (Auto) 0.7 (0.0-0.8) K/uL Eos # (Auto) 0.0 (0.0-0.7) K/uL Baso # (Auto) 0.0 (0.0-0.1) K/uL Nucleated RBC % 0.0 /100WBC Nucleated RBCs # 0 K/uL Sodium 138 (136-145) mmol/L Potassium 3.7 (3.5-5.1) mmol/L Chloride 104 (98-107) mmol/L Carbon Dioxide 23.1 (21.0-32.0) mmol/L BUN 13 (7.0-18.0) mg/dL Creatinine 0.9 (0.6-1.0) mg/dL Est Cr Clr Drug Dosing 40.55 mL/min Estimated GFR (MDRD) > 60.0 ml/min Glucose 88 (74-106) mg/dL Calcium 9.0 (8.5-10.1) mg/dL Total Bilirubin 0.4 (0.2-1.0) mg/dL AST 50 H (15-37) IU/L ALT 133 H (14-63) IU/L Alkaline Phosphatase 143 H (46-116) U/L Total Protein 6.0 L (6.4-8.2) g/dL Albumin 2.5 L (3.4-5.0) g/dL Globulin 3.5 (2.6-4.0) g/dL Albumin/Globulin Ratio 0.7 L (0.9-1.6) Urine Color YELLOW Urine Appearance CLEAR Urine pH 7.5 (5.0-8.0) Ur Specific [place] 1.025 (1.001-1.035) Urine Protein NEGATIVE (NEGATIVE) mg/dL Urine Glucose (UA) NEGATIVE (NEGATIVE) mg/dL Urine Ketones 40 H (NEGATIVE) mg/dL Urine Occult Blood NEGATIVE (NEGATIVE) Urine Nitrite NEGATIVE (NEGATIVE) Urine Bilirubin NEGATIVE (NEGATIVE) Urine Urobilinogen 0.2 (<2.0) EU/dL Ur Leukocyte Esterase NEGATIVE (NEGATIVE) Meds: Medications Discontinued Medications Generic Name Dose Route Start Last Admin Trade Name Freq PRN Reason Stop Dose Admin Levofloxacin/Dextrose 500 mg/ 100 mls @ 100 mls/hr 03/07/21 09:21 03/07/21 10:04 Premix IV 03/07/21 10:20 100 mls/hr ONETIME ONE Administration Ondansetron HCl 4 mg 03/07/21 09:21 03/07/21 10:04 Ondansetron 4 Mg/2 Ml Sdv IVPUSH 03/07/21 09:22 4 mg ONETIME ONE Administration Sodium Chloride 10 ml 03/07/21 08:24 03/07/21 10:05 Sodium Chloride 0.9% 10 Ml Syringe FLUSH 10 ml ASDIRECTED PRN Administration Keep Vein Open Sodium Chloride 2.5 ml 03/07/21 08:24 03/07/21 10:05 Sodium Chloride 0.9% 2.5 Ml Syringe FLUSH 2.5 ml ASDIRECTED PRN Administration Keep Vein Open Departure - Departure Time of Disposition: 10:20 Disposition: DC/Tfer to [facility] Condition: Good Clinical Impression: Dehydration, Abdominal pain, Cerebral palsy Pneumonia Qualifiers: Pneumonia type: due to unspecified organism Laterality: bilateral Lung location: lower lobe of lung Qualified Code(s): J18.9 - Pneumonia, unspecified organism - Discharge Information Prescriptions: Ondansetron [Zofran ODT] 4 mg PO Q6H PRN #12 tab.dis PRN Reason: Nausea Instructions: Abdominal Pain, Adult, Dehydration, Elderly Referrals: Jabari Teran MD [Primary Care Provider] - Forms: ED Department Discharge Additional Instructions: You were seen and evaluated in the ER today secondary to concerns of dehydration, pneumonia, and inability to tolerate your antibiotics. In the ER, all your blood tests returned normal with improvements in your liver function tests from your hospital admission. Your chest x-ray does reveal a small amount of pneumonia that is left over however it seems to be significantly improved from the x-ray that he had when you were admitted to the hospital. Your vital signs did not exhibit any signs of dehydration. Your electrolytes including your sodium, potassium, blood sugar, kidney function, urinalysis were all within normal limits. You will be given a dose of Levaquin here in the ED through the IV so you will not have to take it at home. You will be given a prescription for Zofran to help you with your nausea. Please make an appointment to see her family doctor next week to be reevaluated. The following information is given to patients seen in the emergency department who are being discharged to home. This information is to outline your options for follow-up care. We provide all patients seen in our emergency department with a follow-up referral. The need for follow-up, as well as the timing and circumstances, are variable depending upon the specifics of your emergency department visit. If you don't have a primary care physician on staff, we will provide you with a referral. We always advise you to contact your personal physician following an emergency department visit to inform them of the circumstance of the visit and for follow-up with them and/or the need for any referrals to a consulting specialist. The emergency department will also refer you to a specialist when appropriate. This referral assures that you have the opportunity for follow-up care with a specialist. All of these measure are taken in an effort to provide you with optimal care, which includes your follow-up. Under all circumstances we always encourage you to contact your private physician who remains a resource for coordinating your care. When calling for follow-up care, please make the office aware that this follow-up is from your recent emergency room visit. If for any reason you are refused follow-up, please contact the [facility] Emergency Department at and asked to speak to the emergency department charge nurse. [facility] - Primary Care [address] [place] [id number] [facility] [address] [place] [id number] Sepsis Event Note (ED) - Evaluation Sepsis Screening Result: No Definite Risk
[2021-03-07 11:26] VITALS: BP 152/66; PULSE 81
== END 2021-03-07 11:31 ==
LOC: MW.ED 07:56
DX: G80.9 Cerebral palsy, unspecified (principal); J18.9 Pneumonia, unspecified organism; E86.0 Dehydration; I10 Essential (primary) hypertension; Z79.899 Other long term (current) drug therapy
CPT/HCPCS: 36415; 71045; 80053; 81003; 85025; 93005; 96365; 96375; 99284; J1956; J2405

== ENCOUNTER 2021-03-12 11:05 | Emergency (ER) | payer MEDICARE, MEDICAID ==
[2021-03-12] MEDS ORDERED: Acetaminophen 325 MG/10.15 ML ML PO ONE (11:43)
--- NOTE | 2021-03-12 11:43 | EDM.PDOC ---
ED HPI GENERAL MEDICAL PROBLEM - General Chief Complaint: Upper Extremity Injury/Pain Stated Complaint: FELL, POSSIBLY BROKEN LEFT ARM Time Seen by Provider: 03/12/21 11:07 Source of Information: Reports: Patient History Limitations: Reports: No Limitations - History of Present Illness INITIAL COMMENTS - FREE TEXT/NARRATIVE: Patient is a 80-year-old female who is currently at a detention presents today for possible fall. She was found on the ground another rooms and is unclear how she got there. In the past another resident has occasionally brought her into her room and that may have happened but the staff is unsure. They have noticed that her left arm is not moving as much. Patient also per staff has not been eating for the past few years she has been admitted for this before and also seen neurology for a dysphagia work-up and other causes of this. Patient otherwise has no other complaints. - Related Data Allergies Allergy/AdvReac Type Severity Reaction Status Date / Time No Known Allergies Allergy Verified 03/07/21 08:15 Home Meds: Home Meds Polyethylene Glycol [Polyox [id number]] 17 gm PO DAILY 01/14/20 [History] Ascorbic Acid [Vitamin C] 500 mg PO DAILY 08/21/20 [History] predniSONE 2.5 mg PO BID 08/21/20 [History] Calcium Carb, Citrate/Vit D3 [Citracal + D ER] 2 tab PO BID 03/03/21 [History] Multivit with Iron,Minerals [Flintstones Complete] 1 tab PO DAILY 03/03/21 [History] Sulfamethoxazole/Trimethoprim [Bactrim 400-80 MG] 0.5 tab PO BEDTIME 03/03/21 [History] lisinopriL [Lisinopril] 20 mg PO DAILY 03/03/21 [History] levoFLOXacin [Levaquin] 750 mg PO DAILY #4 tab 03/05/21 [Rx] Levofloxacin 500 mg PO DAILY 03/07/21 [History] Ondansetron [Zofran ODT] 4 mg PO Q6H PRN #12 tab.dis 03/07/21 [Rx] Sulfamethoxazole/Trimethoprim [Sulfamethoxazole-Tmp Ds Tablet] 1 each PO 03/07/21 [History] Past Medical History HEENT History: Reports: Impaired Vision, Other (See Below) Other HEENT History: wears glasses; recurrent nasal drainage; hyperopia; astigmatism Cardiovascular History: Reports: Hypertension Respiratory History: Reports: None Gastrointestinal History: Reports: None Genitourinary History: Reports: None Other Genitourinary History: Bladder hyperactivity LAST PULLER History: Reports: None Musculoskeletal History: Reports: Other (See Below) Other Musculoskeletal History: drop foot Neurological History: Reports: Cerebral Palsy Psychiatric History: Reports: Developmental Delay, Other (See Below) Other Psychiatric History: speech impairment Endocrine/Metabolic History: Reports: None Hematologic History: Reports: None Immunologic History: Reports: None Oncologic (Cancer) History: Reports: Uterine Dermatologic History: Reports: None - Infectious Disease History Infectious Disease History: Reports: None - Past Surgical History Head Surgeries/Procedures: Reports: None HEENT Surgical History: Reports: None Cardiovascular Surgical History: Reports: None Respiratory Surgical History: Reports: None GI Surgical History: Reports: Appendectomy Female Surgical History: Reports: Breast Biopsy, Hysterectomy Other Female Surgeries/Procedures: Hysterectomy for cancer Endocrine Surgical History: Reports: None Neurological Surgical History: Reports: None Musculoskeletal Surgical History: Reports: Arthroscopic Procedure, Hip Replacement, ORIF Other Musculoskeletal Surgeries/Procedures:: left SIGRID, ORIF right pinky finger with K-Wire Oncologic Surgical History: Reports: Other (See Below) Other Oncologic Surgeries/Procedures: Hysterectomy Dermatological Surgical History: Reports: None Social & Family History - Family History Family Medical History: No Pertinent Family History - Caffeine Use Caffeine Use: Reports: None Review of Systems - Review of Systems Review Of Systems: See Below Constitutional: Reports: No Symptoms Eyes: Reports: No Symptoms Ears: Reports: No Symptoms Nose: Reports: No Symptoms Mouth/Throat: Reports: No Symptoms Respiratory: Reports: No Symptoms Cardiovascular: Reports: No Symptoms GI/Abdominal: Reports: Decreased Appetite Genitourinary: Reports: No Symptoms Musculoskeletal: Reports: No Symptoms Skin: Reports: No Symptoms Neurological: Reports: No Symptoms Psychiatric: Reports: No Symptoms ED EXAM, GENERAL - Physical Exam Exam: See Below Exam Limited By: Language Barrier General Appearance: Alert, WD/WN, No Apparent Distress Respiratory/Chest: No Respiratory Distress, Lungs Clear, Normal Breath Sounds Cardiovascular: Normal Peripheral Pulses, Regular Rate, Rhythm, No Edema GI/Abdominal: Normal Bowel Sounds, Soft, Non-Tender Extremities: No: Normal Range of Motion (Range of motion of the wrist almost seems to be fused together. Limit range of motion left shoulder due to pain.) Neurological: Alert #1 Interpretation EKG Date: 03/12/21 Time: 13:00 Rhythm: NSR Rate (Beats/Min): 77 ST-T: Normal Course - Vital Signs Last Recorded V/S: Last Vital Signs Temp 97.4 F 03/12/21 11:38 Pulse 71 03/12/21 13:59 Resp 17 03/12/21 13:59 BP 121/55 L 03/12/21 13:59 Pulse Ox 98 03/12/21 13:59 - Orders/Labs/Meds Orders: Active Orders 24 hr Category Date Time Status EKG 12 Lead [EKG Documentation Completion] [RC] STAT Care 03/12/21 12:50 Active Labs: Laboratory Tests 03/12/21 03/12/21 Range/Units 11:52 11:52 WBC 11.89 H (4.0-11.0) K/uL RBC 3.56 L (4.30-5.90) M/uL Hgb 11.3 L (12.0-16.0) g/dL Hct 33.8 L (36.0-46.0) % MCV 94.9 (80.0-98.0) fL MCH 31.7 (27.0-32.0) pg MCHC 33.4 (31.0-37.0) g/dL RDW Std Deviation 53.0 (28.0-62.0) fl RDW Coeff of Erik 15 (11.0-15.0) % Plt Count 230 (150-400) K/uL MPV 9.30 (7.40-12.00) fL Neut % (Auto) 68.7 (48.0-80.0) % Lymph % (Auto) 18.8 (16.0-40.0) % [place]orne % (Auto) 12.4 (0.0-15.0) % Eos % (Auto) 0.0 (0.0-7.0) % Baso % (Auto) 0.1 (0.0-1.5) % Neut # (Auto) 8.2 H (1.4-5.7) K/uL Lymph # (Auto) 2.2 (0.6-2.4) K/uL [place]orne # (Auto) 1.5 H (0.0-0.8) K/uL Eos # (Auto) 0.0 (0.0-0.7) K/uL Baso # (Auto) 0.0 (0.0-0.1) K/uL Nucleated RBC % 0.0 /100WBC Nucleated RBCs # 0 K/uL Sodium 137 (136-145) mmol/L Potassium 4.3 (3.5-5.1) mmol/L Chloride 100 (98-107) mmol/L Carbon Dioxide 32.3 H (21.0-32.0) mmol/L BUN 40 H (7.0-18.0) mg/dL Creatinine 1.6 H (0.6-1.0) mg/dL Est Cr Clr Drug Dosing TNP Estimated GFR (MDRD) 30.9 ml/min Glucose 141 H (74-106) mg/dL Calcium 11.6 H (8.5-10.1) mg/dL Total Bilirubin 0.6 (0.2-1.0) mg/dL AST 23 (15-37) IU/L ALT 44 (14-63) IU/L Alkaline Phosphatase 118 H (46-116) U/L Total Protein 6.6 (6.4-8.2) g/dL Albumin 2.5 L (3.4-5.0) g/dL Globulin 4.1 H (2.6-4.0) g/dL Albumin/Globulin Ratio 0.6 L (0.9-1.6) Meds: Medications Discontinued Medications Generic Name Dose Route Start Last Admin Trade Name Freq PRN Reason Stop Dose Admin Acetaminophen 400 mg 03/12/21 11:43 03/12/21 11:55 Acetaminophen 325 Mg/10.15 Ml Ml PO 03/12/21 11:44 400 mg NOW ONE Administration Sodium Chloride 1,000 mls @ 999 mls/hr 03/12/21 12:00 03/12/21 12:28 Normal Saline IV 03/12/21 13:00 999 mls/hr .BOLUS ONE Administration - Re-Assessments/Exams Free Text/Narrative Re-Assessment/Exam: 03/12/21 14:42 Patient labs and x-ray reviewed. Patient does have some elevated calcium however is not have any symptoms EKG was done as well. We spoke to patient's caregiver about possible goals of care for patient. Patient continues to have difficulty eating will possibly require a PEG tube and she should be evaluated with her primary care physician. Patient will be discharged. Departure - Departure Time of Disposition: 14:43 Disposition: Home, Self-Care 01 Condition: Good Clinical Impression: Decrease in appetite - Discharge Information *PRESCRIPTION DRUG MONITORING PROGRAM REVIEWED*: Not Applicable *COPY OF PRESCRIPTION DRUG MONITORING REPORT IN PATIENT TORIN: Not Applicable Instructions: Dysphagia Eating Plan, Pureed Referrals: Filipe Teran MD [Primary Care Provider] - Forms: ED Department Discharge Additional Instructions: The following information is given to patients seen in the emergency department who are being discharged to home. This information is to outline your options for follow-up care. We provide all patients seen in our emergency department with a follow-up referral. The need for follow-up, as well as the timing and circumstances, are variable depending upon the specifics of your emergency department visit. If you don't have a primary care physician on staff, we will provide you with a referral. We always advise you to contact your personal physician following an emergency department visit to inform them of the circumstance of the visit and for follow-up with them and/or the need for any referrals to a consulting specialist. The emergency department will also refer you to a specialist when appropriate. This referral assures that you have the opportunity for follow-up care with a specialist. All of these measure are taken in an effort to provide you with optimal care, which includes your follow-up. Under all circumstances we always encourage you to contact your private physician who remains a resource for coordinating your care. When calling for follow-up care, please make the office aware that this follow-up is from your recent emergency room visit. If for any reason you are refused follow-up, please contact the [facility] Emergency Department at and asked to speak to the emergency department charge nurse. Please follow up with your primary care physician. If you do not have a primary care physician, see below: [facility] [address] [place] [id number] [facility] [address] [place] [address] You were seen today with her caregiver after possible fall. We did x-rays that showed she had a previous fracture in your left wrist but no new acute fractures. Her caregiver also reported that you have been having some decreased p.o. intake and you were admitted for this recently had a fees swallow that did not show any mechanical cause for your decreased appetite. If you keep having decreased appetite you may need further care and may need to have a feeding tube placed other than something that we discussed with your family. Please in the meantime follow-up with your primary care physician. Sepsis Event Note (ED) - Focused Exam Vital Signs: Vital Signs Temp Pulse Resp BP Pulse Ox 03/12/21 13:59 71 17 121/55 L 98 03/12/21 13:18 75 16 130/57 L 95 03/12/21 11:38 97.4 F 76 17 130/58 L 93 L - My Orders Last 24 Hours: My Active Orders 03/12/21 12:50 EKG 12 Lead [EKG Documentation Completion] [RC] STAT - Assessment/Plan Last 24 Hours: My Active Orders 03/12/21 12:50 EKG 12 Lead [EKG Documentation Completion] [RC] STAT Plan: Patient is 80-year-old female who presents today for possible left arm injury. Unclear how this happened she was found on the ground another resident's room. Patient also is not been eating for the past few weeks almost years. She has been admitted for this before in the past. We will obtain basic labs. X-ray give pain control.
[2021-03-12] MEDS ORDERED: Sodium Chloride 0.9% 1,000 ML IV ONE (12:00)
[2021-03-12 12:23] LABS: BLOOD UREA NITROGEN,BUN 40 mg/dL (7.0-18.0); CARBON DIOXIDE,CO2 32.3 mmol/L (21.0-32.0); CHLORIDE,CL 100 mmol/L (98-107); GLUCOSE RANDOM 141 mg/dL (74-106); POTASSIUM,K 4.3 mmol/L (3.5-5.1); SODIUM,NA 137 mmol/L (136-145)
--- NOTE | 2021-03-12 14:21 | CR ---
Indication: Possible fall. Technique: Left shoulder 4 views. Comparison: Chest radiograph 03/07/2021 and 03/03/2021. Findings: No acute fracture or dislocation. Degenerative changes of the glenohumeral and acromioclavicular joints. The visualized left lung is clear. Soft tissues are unremarkable. Impression: 1. No acute findings. 2. Degenerative changes of the shoulder. Dictated by Kadie Vines MD @ 03/12/2021 2:20:[address] Kadie Vines @ Mar 12 2021 2:20PM
--- NOTE | 2021-03-12 14:34 | CR ---
Indication: Left hand swelling. Limited range of motion. Technique: Left hand 3 views Comparison: None Findings: Bones: No sign of acute fracture or dislocation. A fractured hardware pin is present with the distal fragment partially within the base of the 3rd metacarpal and the proximal fragment in the mid carpus. Joint spaces: Diffuse extensive degenerative changes most severe laterally. Soft tissues: Moderate dorsal soft tissue swelling. Dictated by Ford Cox MD @ 03/12/2021 2:32:[address] Ford Cox @ Mar 12 2021 2:32PM
[2021-03-12 15:48] VITALS: BP 122/72; PULSE 88
== END 2021-03-12 14:57 | disposition home or self-care (01) ==
LOC: MW.ED 11:05
DX: R63.0 Anorexia (principal); I10 Essential (primary) hypertension; Z79.899 Other long term (current) drug therapy
CPT/HCPCS: 36415; 73030; 73130; 80053; 85025; 93005; 99284; A9270; J7030

== ENCOUNTER 2021-05-12 08:38 | Inpatient (IN) | payer MEDICARE, MEDICAID ==
[2021-05-12] MEDS ORDERED: Sodium Chloride 0.9% 1,000 ML IV ONE ×2 (09:03→10:45)
--- NOTE | 2021-05-12 09:18 | EDM.PDOC ---
ED HPI GENERAL MEDICAL PROBLEM - General Chief Complaint: General Stated Complaint: LOTS OF PHLEGM Time Seen by Provider: 05/12/21 08:41 Source of Information: Reports: Patient History Limitations: Reports: No Limitations - History of Present Illness INITIAL COMMENTS - FREE TEXT/NARRATIVE: 80-year-old female past medical history cerebral palsy, osteoarthritis, frequent UTIs on prophylactic Bactrim, frequent pneumonia presents for worsening shortness of breath and chest congestion. Patient is a halfway patient and is nonverbal at baseline. [employer] notes that for the last few days she has had worsening gurgling respirations and worsening cough. She had an episode of emesis yesterday. No fevers that they are aware of. Patient does not wear oxygen at baseline. - Related Data Allergies Allergy/AdvReac Type Severity Reaction Status Date / Time No Known Allergies Allergy Verified 05/12/21 08:59 Home Meds: Home Meds Polyethylene Glycol [Polyox [id number]] 17 gm PO DAILY 01/14/20 [History] Ascorbic Acid [Vitamin C] 500 mg PO DAILY 08/21/20 [History] predniSONE 2.5 mg PO BID 08/21/20 [History] Calcium Carb, Citrate/Vit D3 [Citracal + D ER] 2 tab PO BID 03/03/21 [History] Multivit with Iron,Minerals [Flintstones Complete] 1 tab PO DAILY 03/03/21 [History] Sulfamethoxazole/Trimethoprim [Bactrim 400-80 MG] 0.5 tab PO BEDTIME 03/03/21 [History] lisinopriL [Lisinopril] 20 mg PO DAILY 03/03/21 [History] levoFLOXacin [Levaquin] 750 mg PO DAILY #4 tab 03/05/21 [Rx] Levofloxacin 500 mg PO DAILY 03/07/21 [History] Ondansetron [Zofran ODT] 4 mg PO Q6H PRN #12 tab.dis 03/07/21 [Rx] Sulfamethoxazole/Trimethoprim [Sulfamethoxazole-Tmp Ds Tablet] 1 each PO 03/07/21 [History] Past Medical History HEENT History: Reports: Impaired Vision, Other (See Below) Other HEENT History: wears glasses; recurrent nasal drainage; hyperopia; astigmatism Cardiovascular History: Reports: Hypertension Respiratory History: Reports: None Gastrointestinal History: Reports: None Genitourinary History: Reports: None Other Genitourinary History: Bladder hyperactivity [employer] History: Reports: None Musculoskeletal History: Reports: Other (See Below) Other Musculoskeletal History: drop foot Neurological History: Reports: Cerebral Palsy Psychiatric History: Reports: Developmental Delay, Other (See Below) Other Psychiatric History: speech impairment Endocrine/Metabolic History: Reports: None Hematologic History: Reports: None Immunologic History: Reports: None Oncologic (Cancer) History: Reports: Uterine Dermatologic History: Reports: None - Infectious Disease History Infectious Disease History: Reports: None - Past Surgical History Head Surgeries/Procedures: Reports: None HEENT Surgical History: Reports: None Cardiovascular Surgical History: Reports: None Respiratory Surgical History: Reports: None GI Surgical History: Reports: Appendectomy Female Surgical History: Reports: Breast Biopsy, Hysterectomy Other Female Surgeries/Procedures: Hysterectomy for cancer Endocrine Surgical History: Reports: None Neurological Surgical History: Reports: None Musculoskeletal Surgical History: Reports: Arthroscopic Procedure, Hip Re placement, ORIF Other Musculoskeletal Surgeries/Procedures:: left SIGRID, ORIF right pinky finger with K-Wire Oncologic Surgical History: Reports: Other (See Below) Other Oncologic Surgeries/Procedures: Hysterectomy Dermatological Surgical History: Reports: None Social & Family History - Family History Family Medical History: No Pertinent Family History - Tobacco Use Tobacco Use Status *Q: Never Tobacco User - Caffeine Use Caffeine Use: Reports: None - Recreational Drug Use Recreational Drug Use: No ED ROS GENERAL - Review of Systems Review Of Systems: Comprehensive ROS is negative, except as noted in HPI. ED EXAM, GENERAL - Physical Exam Exam: See Below Exam Limited By: No Limitations General Appearance: Alert, WD/WN, No Apparent Distress Ears: Hearing Grossly Normal Throat/Mouth: No Airway Compromise Head: Atraumatic, Normocephalic Neck: Normal Inspection Respiratory/Chest: No Respiratory Distress, No Accessory Muscle Use, Other (b/l rhonchi/gurgling respirations) Cardiovascular: Normal Peripheral Pulses, Regular Rate, Rhythm, No Edema GI/Abdominal: Soft, Non-Tender Extremities: Normal Inspection Neurological: Alert Psychiatric: Normal Affect, Normal Mood Skin Exam: Warm, Dry, Intact, Normal Color #1 Interpretation EKG Date: 05/12/21 Time: 09:43 Rhythm: NSR Rate (Beats/Min): 77 [place]: Normal P-Wave: Present QRS: Normal ST-T: Normal QT: Normal WV/PQ Interval: 169 EKG Interpretation Comments: Unremarkable EKG Course - Vital Signs Last Recorded V/S: Last Vital Signs Temp 97.3 F 05/12/21 09:00 Pulse 79 05/12/21 10:09 Resp 16 05/12/21 09:00 BP 80/37 L 05/12/21 10:09 Pulse Ox 92 L 05/12/21 10:09 - Orders/Labs/Meds Orders: Active Orders 24 hr Category Date Time Status Cardiac Monitoring [RC] . DIRECTED Care 05/12/21 09:04 Active Insert Urinary Catheter [OM.PC] Q24H Care 05/12/21 10:45 Ordered Pulse Oximetry [RC] ASDIRECTED Care 05/12/21 09:04 Active Urinary Catheter Assessment [RC] ASDIRECTED Care 05/12/21 10:33 Active CULTURE BLOOD [BC] Stat Lab 05/12/21 09:33 Received CULTURE BLOOD [BC] Stat Lab 05/12/21 09:40 Received UA W/RHEA RFLX IF INDICATED [URIN] Stat Lab 05/12/21 09:04 Ordered Cefepime [Maxipime in D5W 2 GM/50 ML] 2 gm Med 05/12/21 10:32 Active Premix Bag 1 bag IV ONETIME Sodium Chloride 0.9% [Normal Saline] 1,000 ml Med 05/12/21 10:45 Active IV .Bolus Blood Culture x2 Reflex Set [OM.PC] Stat Oth 05/12/21 09:19 Ordered Saline Lock Insert [OM.PC] Stat Oth 05/12/21 09:04 Ordered Medication Orders Cefepime HCl 2 gm/ Premix 50 mls @ 100 mls/hr IV ONETIME ONE Stop: 05/12/21 11:01 Sodium Chloride (Normal Saline) 1,000 mls @ 999 mls/hr IV .Bolus ONE Stop: 05/12/21 11:45 Last Admin: 05/12/21 10:54 Dose: 999 mls/hr Documented by: ZOEY Labs: Laboratory Tests 05/12/21 05/12/21 05/12/21 Range/Units 09:10 09:10 09:10 WBC 18.27 H (4.0-11.0) K/uL RBC 3.37 L (4.30-5.90) M/uL Hgb 10.9 L (12.0-16.0) g/dL Hct 32.8 L (36.0-46.0) % MCV 97.3 (80.0-98.0) fL MCH 32.3 H (27.0-32.0) pg MCHC 33.2 (31.0-37.0) g/dL RDW Std Deviation 58.7 (28.0-62.0) fl RDW Coeff of Erik 17 H (11.0-15.0) % Plt Count 193 (150-400) K/uL MPV 10.10 (7.40-12.00) fL Neut % (Auto) 72.5 (48.0-80.0) % Lymph % (Auto) 22.3 (16.0-40.0) % [place] % (Auto) 5.0 (0.0-15.0) % Eos % (Auto) 0.1 (0.0-7.0) % Baso % (Auto) 0.1 (0.0-1.5) % Neut # (Auto) 13.2 H (1.4-5.7) K/uL Lymph # (Auto) 4.1 H (0.6-2.4) K/uL [place] # (Auto) 0.9 H (0.0-0.8) K/uL Eos # (Auto) 0.0 (0.0-0.7) K/uL Baso # (Auto) 0.0 (0.0-0.1) K/uL Nucleated RBC % 0.0 /100WBC Nucleated RBCs # 0 K/uL Sodium 139 (136-145) mmol/L Potassium 5.5 H (3.5-5.1) mmol/L Chloride 102 (98-107) mmol/L Carbon Dioxide 30.2 (21.0-32.0) mmol/L BUN 54 H (7.0-18.0) mg/dL Creatinine 2.4 H (0.6-1.0) mg/dL Est Cr Clr Drug Dosing TNP Estimated GFR (MDRD) 19.4 ml/min Glucose 95 (74-106) mg/dL Lactic Acid 1.3 (0.4-2.0) mmol/L Calcium 11.1 H (8.5-10.1) mg/dL Magnesium 2.3 (1.8-2.4) mg/dL Total Bilirubin 0.3 (0.2-1.0) mg/dL AST 43 H (15-37) IU/L ALT 38 (14-63) IU/L Alkaline Phosphatase 83 (46-116) U/L Troponin I < 0.050 (0.000-0.056) ng/mL C-Reactive Protein 21.20 H (0.00-0.90) mg/dL B-Natriuretic Peptide (<100) PG/ML Total Protein 6.1 L (6.4-8.2) g/dL Albumin 2.9 L (3.4-5.0) g/dL Globulin 3.2 (2.6-4.0) g/dL Albumin/Globulin Ratio 0.9 (0.9-1.6) SARS-CoV-2 RNA (JAE) (NEGATIVE) 05/12/21 05/12/21 Range/Units 09:10 09:40 WBC (4.0-11.0) K/uL RBC (4.30-5.90) M/uL Hgb (12.0-16.0) g/dL Hct (36.0-46.0) % MCV (80.0-98.0) fL MCH (27.0-32.0) pg MCHC (31.0-37.0) g/dL RDW Std Deviation (28.0-62.0) fl RDW Coeff of Erik (11.0-15.0) % Plt Count (150-400) K/uL MPV (7.40-12.00) fL Neut % (Auto) (48.0-80.0) % Lymph % (Auto) (16.0-40.0) % [place] % (Auto) (0.0-15.0) % Eos % (Auto) (0.0-7.0) % Baso % (Auto) (0.0-1.5) % Neut # (Auto) (1.4-5.7) K/uL Lymph # (Auto) (0.6-2.4) K/uL [place] # (Auto) (0.0-0.8) K/uL Eos # (Auto) (0.0-0.7) K/uL Baso # (Auto) (0.0-0.1) K/uL Nucleated RBC % /100WBC Nucleated RBCs # K/uL Sodium (136-145) mmol/L Potassium (3.5-5.1) mmol/L Chloride (98-107) mmol/L Carbon Dioxide (21.0-32.0) mmol/L BUN (7.0-18.0) mg/dL Creatinine (0.6-1.0) mg/dL Est Cr Clr Drug Dosing Estimated GFR (MDRD) ml/min Glucose (74-106) mg/dL Lactic Acid (0.4-2.0) mmol/L Calcium (8.5-10.1) mg/dL Magnesium (1.8-2.4) mg/dL Total Bilirubin (0.2-1.0) mg/dL AST (15-37) IU/L ALT (14-63) IU/L Alkaline Phosphatase (46-116) U/L Troponin I (0.000-0.056) ng/mL C-Reactive Protein (0.00-0.90) mg/dL B-Natriuretic Peptide 26 (<100) PG/ML Total Protein (6.4-8.2) g/dL Albumin (3.4-5.0) g/dL Globulin (2.6-4.0) g/dL Albumin/Globulin Ratio (0.9-1.6) SARS-CoV-2 RNA (JAE) NEGATIVE (NEGATIVE) Meds: Medications Generic Name Dose Route Start Last Admin Trade Name Ericq PRN Reason Stop Dose Admin Cefepime HCl 2 gm/ Premix 50 mls @ 100 mls/hr 05/12/21 10:32 IV 05/12/21 11:01 ONETIME ONE Sodium Chloride 1,000 mls @ 999 mls/hr 05/12/21 10:45 05/12/21 10:54 Normal Saline IV 05/12/21 11:45 999 mls/hr .Bolus ONE Administration Discontinued Medications Generic Name Dose Route Start Last Admin Trade Name Freq PRN Reason Stop Dose Admin Calcium Gluconate 1 gm 05/12/21 10:30 Calcium Gluconate 10% 1 Gm/10 Ml Sdv IVPUSH 05/12/21 10:31 ONETIME ONE Dextrose/Water 25 ml 05/12/21 10:30 50% Dextrose In Water 50 Ml Syringe IVPUSH 05/12/21 10:31 ONETIME ONE Sodium Chloride 1,000 mls @ 999 mls/hr 05/12/21 09:03 05/12/21 09:32 Normal Saline IV 05/12/21 10:03 999 mls/hr .Bolus ONE Administration Sodium Chloride 1,000 mls @ 200 mls/hr 05/12/21 10:34 Normal Saline IV 05/12/21 15:33 STAT STA Insulin Human Regular 5 unit 05/12/21 10:30 Insulin Regular, Human 100 Units/Ml 10 Ml Vial IVPUSH 05/12/21 10:31 ONETIME ONE Protocol - Re-Assessments/Exams Free Text/Narrative Re-Assessment/Exam: 05/12/21 09:51 Patient presents with chest congestion, cough, 1 episode of emesis yesterday. She has noted to be hypotensive, IV fluids started. She is also noted to be hypoxic, she improves with 2 L nasal cannula oxygen. Will get labs and imaging and reassess. 05/12/21 10:35 Labs show multiple abnormalities. Patient has leukocytosis to 18. He has a negative lactate. He has evidence of acute kidney injury with hyperkalemia to 5.5. He has a markedly elevated CRP. Chest x-ray does not reveal any overt p neumonia. However given patient's symptoms and lab results will give 2 g of cefepime for possible pneumonia. Blood cultures have been ordered. Patient did get a 1 L IV fluid bolus, will give another liter. BP has improved after 1st liter and is now 101/69. Insulin, dextrose, calcium gluconate ordered for hyperkalemia. No EKG changes noted for hyperkalemia. 05/12/21 10:56 Hospitalist agrees to admit patient. Departure - Departure Time of Disposition: 10:56 Disposition: Admitted As Inpatient 65 Condition: Good Clinical Impression: Pneumonia Qualifiers: Pneumonia type: due to unspecified organism Laterality: bilateral Lung location: lower lobe of lung Qualified Code(s): J18.9 - Pneumonia, unspecified organism - Discharge Information Referrals: Jabari Teran MD [Primary Care Provider] - Forms: ED Department Discharge Critical Care Note - Critical Care Note Total Time (mins): 35 Sepsis Event Note (ED) - Focused Exam Vital Signs: Vital Signs Temp Pulse Resp BP Pulse Ox 05/12/21 10:01 77 83/34 L 95 05/12/21 09:31 79 80/37 L 92 L 05/12/21 09:01 81 85/49 L 94 L 05/12/21 09:00 97.3 F 84 16 73/28 L 88 L - My Orders Last 24 Hours: My Active Orders 05/12/21 09:04 Cardiac Monitoring [RC] . DIRECTED Pulse Oximetry [RC] ASDIRECTED UA W/RHEA RFLX IF INDICATED [URIN] Stat Saline Lock Insert [OM.PC] Stat 05/12/21 09:19 Blood Culture x2 Reflex Set [OM.PC] Stat 05/12/21 09:33 CULTURE BLOOD [BC] Stat 05/12/21 09:40 CULTURE BLOOD [BC] Stat 05/12/21 10:32 Cefepime [Maxipime in D5W 2 GM/50 ML] 2 gm Premix Bag 1 bag IV ONETIME 05/12/21 10:33 Urinary Catheter Assessment [RC] ASDIRECTED 05/12/21 10:45 Insert Urinary Catheter [OM.PC] Q24H Sodium Chloride 0.9% [Normal Saline] 1,000 ml IV .Bolus - Assessment/Plan Last 24 Hours: My Active Orders 05/12/21 09:04 Cardiac Monitoring [RC] . DIRECTED Pulse Oximetry [RC] ASDIRECTED UA W/RHEA RFLX IF INDICATED [URIN] Stat Saline Lock Insert [OM.PC] Stat 05/12/21 09:19 Blood Culture x2 Reflex Set [OM.PC] Stat 05/12/21 09:33 CULTURE BLOOD [BC] Stat 05/12/21 09:40 CULTURE BLOOD [BC] Stat 05/12/21 10:32 Cefepime [Maxipime in D5W 2 GM/50 ML] 2 gm Premix Bag 1 bag IV ONETIME 05/12/21 10:33 Urinary Catheter Assessment [RC] ASDIRECTED 05/12/21 10:45 Insert Urinary Catheter [OM.PC] Q24H Sodium Chloride 0.9% [Normal Saline] 1,000 ml IV .Bolus
--- NOTE | 2021-05-12 09:39 | CR ---
INDICATION: Chest congestion; recent pneumonia. COMPARISON: Portable AP chest March 07, 2021. TECHNIQUE: Portable AP chest. FINDINGS: Mild stable cardiomegaly. Chronic elevation right hemidiaphragm. No acute pneumonic infiltrates or CHF. No pneumothorax or pleural effusion. IMPRESSION: 1. Chronic elevation right hemidiaphragm. 2. No acute pathology. Dictated by Sushil Childers MD @ 05/12/2021 9:38:36 AM (Electronically Signed)
[2021-05-12 09:40] LABS: BLOOD UREA NITROGEN,BUN 54 mg/dL (7.0-18.0); CARBON DIOXIDE,CO2 30.2 mmol/L (21.0-32.0); CHLORIDE,CL 102 mmol/L (98-107); GLUCOSE RANDOM 95 mg/dL (74-106); POTASSIUM,K 5.5 mmol/L (3.5-5.1); SODIUM,NA 139 mmol/L (136-145)
[2021-05-12] MEDS ORDERED: 50% Dextrose in Water 50 ML Syringe IVPUSH ONE (10:30)
[2021-05-12] MEDS ORDERED: Calcium Gluconate 10% 1 GM/10 ML SDV IVPUSH ONE (10:30)
[2021-05-12] MEDS ORDERED: Insulin Regular, Human 100 Units/ML 10 ML Vial IVPUSH ONE (10:30)
[2021-05-12] MEDS ORDERED: Cefepime 2 GM in Premix Bag 1 BAG IV ONE (10:32)
[2021-05-12] MEDS ORDERED: Sodium Chloride 0.9% 1,000 ML IV STA (10:34)
--- NOTE | 2021-05-12 12:14 | PCM.HP.2 ---
H&P History of Present Illness - General Date of Service: 05/12/21 Admit Problem/Dx: Admission Diagnosis/Problem Admission Diagnosis/Problem Pneumonia Source of Information: Old Records, Other (ER records) - History of Present Illness Initial Comments - Free Text/Narative: This 79-year-old female with past medical history of cerebral palsy, hypertension, frequent falls, and frequent UTIs with admissions in the past. Patient lives at the [facility] presented to the ER with complaints of worsening gurgling respirations and cough. History is provided by the bed and breakfast cook who has been noting these last couple days patient is nonverbal at baseline. They report she had an episode of emesis multiple times over the weekend. No fevers patient does not wear oxygen. The caregiver today reports she has been getting her medications over the weekend and saw her this morning and felt as though she was worsening and needed to be evaluated. There has been no episodes of fever the caregiver reports she feels as though she is in pain when they move her. Patient is nonambulatory but does pivot transfer to her wheelchair. She has seemed less spunky and not herself the last couple days. She normally eats a pured nectar thick diet. She has been drooling which is abnormal at baseline and they feel her phlegm is little bit thicker than normal. Caregiver reports patient is a DNR/DNI. In the ER leukocytosis noted at 18,000 hemoglobin 10.9 hematocrit 32.8. Platelets 193,000. Potassium 5.5 BUN 54 creatinine 2.4 which is elevated from baseline. Lactic acid 1.3 calcium 11.1. Which has been elevated in the past. Magnesium 2.3. CRP 21.2. Troponin negative. UA negative Covid swab negative. Chest x-ray shows no acute cardiopulmonary process. Mild stable cardiomegaly. In the ER she was noted to be hypoxic with hypotension. Blood pressures initially 70s over 20s. Blood pressure has improved to 94/43 with IV fluids. Placed on 2 L oxygen has increased to 95%. Heart rates 70s to 80s patient has been afebrile. Patient will be admitted for suspected aspiration pneumonia in the ER she was treated with 2 L IV fluids and cefepime 2 g IV. - Related Data Allergies/Adverse Reactions: Allergies Allergy/AdvReac Type Severity Reaction Status Date / Time No Known Allergies Allergy Verified 05/12/21 08:59 Home Medications: Home Meds Polyethylene Glycol [Polyox [id number]] 17 gm PO DAILY 01/14/20 [History] Ascorbic Acid [Vitamin C] 500 mg PO DAILY 08/21/20 [History] predniSONE 2.5 mg PO BID 08/21/20 [History] Calcium Carb, Citrate/Vit D3 [Citracal + D ER] 1 tab PO BID 03/03/21 [History] Multivit with Iron,Minerals [Flintstones Complete] 1 tab PO DAILY 03/03/21 [History] Sulfamethoxazole/Trimethoprim [Bactrim 400-80 MG] 0.5 tab PO BEDTIME 03/03/21 [History] lisinopriL [Lisinopril] 20 mg PO DAILY 03/03/21 [History] levETIRAcetam [Keppra] 250 mg PO BID 05/12/21 [History] Past Medical History HEENT History: Reports: Impaired Vision, Other (See Below) Other HEENT History: wears glasses; recurrent nasal drainage; hyperopia; a stigmatism Cardiovascular History: Reports: Hypertension Respiratory History: Reports: None Gastrointestinal History: Reports: None Genitourinary History: Reports: None Other Genitourinary History: Bladder hyperactivity FISH FILLETER History: Reports: None Musculoskeletal History: Reports: Other (See Below) Other Musculoskeletal History: drop foot Neurological History: Reports: Cerebral Palsy Psychiatric History: Reports: Developmental Delay, Other (See Below) Other Psychiatric History: speech impairment Endocrine/Metabolic History: Reports: None Hematologic History: Reports: None Immunologic History: Reports: None Oncologic (Cancer) History: Reports: Uterine Dermatologic History: Reports: None - Infectious Disease History Infectious Disease History: Reports: None - Past Surgical History Head Surgeries/Procedures: Reports: None HEENT Surgical History: Reports: None Cardiovascular Surgical History: Reports: None Respiratory Surgical History: Reports: None GI Surgical History: Reports: Appendectomy Female Surgical History: Reports: Breast Biopsy, Hysterectomy Other Female Surgeries/Procedures: Hysterectomy for cancer Endocrine Surgical History: Reports: None Neurological Surgical History: Reports: None Musculoskeletal Surgical History: Reports: Arthroscopic Procedure, Hip Replace ment, ORIF Other Musculoskeletal Surgeries/Procedures:: left SIGRID, ORIF right pinky finger with K-Wire Oncologic Surgical History: Reports: Other (See Below) Other Oncologic Surgeries/Procedures: Hysterectomy Dermatological Surgical History: Reports: None Social & Family History - Family History Family Medical History: No Pertinent Family History - Tobacco Use Tobacco Use Status *Q: Never Tobacco User - Caffeine Use Caffeine Use: Reports: None - Recreational Drug Use Recreational Drug Use: No H&P Review of Systems - Review of Systems: Review Of Systems: Unable To Obtain Reason Not Obtained: Patient unable to provide see HPI for caregiver report. Exam - Exam Exam: See Below - Vital Signs Vital Signs: Last Vital Signs Temp 97.2 F 05/12/21 12:02 Pulse 72 05/12/21 12:02 Resp 13 05/12/21 12:02 BP 94/43 L 05/12/21 12:02 Pulse Ox 99 05/12/21 12:02 - Exam Quality Assessment: DVT Prophylaxis General: Alert, Cooperative, Other (Appears to feel unwell). No: Oriented HEENT: Conjunctiva Clear. No: Mucosa Moist & Waterflow (Dry lips patient is noted to be drooling which again caregiver reports is normal for him is clear) Lungs: Decreased Breath Sounds (Bibasilar), Crackles (Fine crackles bibasilar) Cardiovascular: Regular Rate, Regular Rhythm. No: Systolic Murmur GI/Abdominal Exam: Normal Bowel Sounds, Soft, Non-Tender. No: Guarding, Rigid Back Exam: Normal Inspection, Full Range of Motion Extremities: Normal Inspection, Normal Range of Motion, Non-Tender, No Pedal Jayden ma Skin: Warm, Dry Neuro Extensive - Mental Status: Alert Psychiatric: Alert - Patient Data Lab Results Last 24 hrs: Laboratory Results - last 24 hr 05/12/21 05/12/21 05/12/21 Range/Units 09:10 09:10 09:10 WBC 18.27 H (4.0-11.0) K/uL RBC 3.37 L (4.30-5.90) M/uL Hgb 10.9 L (12.0-16.0) g/dL Hct 32.8 L (36.0-46.0) % MCV 97.3 (80.0-98.0) fL MCH 32.3 H (27.0-32.0) pg MCHC 33.2 (31.0-37.0) g/dL RDW Std Deviation 58.7 (28.0-62.0) fl RDW Coeff of Erik 17 H (11.0-15.0) % Plt Count 193 (150-400) K/uL MPV 10.10 (7.40-12.00) fL Neut % (Auto) 72.5 (48.0-80.0) % Lymph % (Auto) 22.3 (16.0-40.0) % [place] % (Auto) 5.0 (0.0-15.0) % Eos % (Auto) 0.1 (0.0-7.0) % Baso % (Auto) 0.1 (0.0-1.5) % Neut # (Auto) 13.2 H (1.4-5.7) K/uL Lymph # (Auto) 4.1 H (0.6-2.4) K/uL [place] # (Auto) 0.9 H (0.0-0.8) K/uL Eos # (Auto) 0.0 (0.0-0.7) K/uL Baso # (Auto) 0.0 (0.0-0.1) K/uL Nucleated RBC % 0.0 /100WBC Nucleated RBCs # 0 K/uL Sodium 139 (136-145) mmol/L Potassium 5.5 H (3.5-5.1) mmol/L Chloride 102 (98-107) mmol/L Carbon Dioxide 30.2 (21.0-32.0) mmol/L BUN 54 H (7.0-18.0) mg/dL Creatinine 2.4 H (0.6-1.0) mg/dL Est Cr Clr Drug Dosing TNP Estimated GFR (MDRD) 19.4 ml/min Glucose 95 (74-106) mg/dL Lactic Acid 1.3 (0.4-2.0) mmol/L Calcium 11.1 H (8.5-10.1) mg/dL Magnesium 2.3 (1.8-2.4) mg/dL Total Bilirubin 0.3 (0.2-1.0) mg/dL AST 43 H (15-37) IU/L ALT 38 (14-63) IU/L Alkaline Phosphatase 83 (46-116) U/L Troponin I < 0.050 (0.000-0.056) ng/mL C-Reactive Protein 21.20 H (0.00-0.90) mg/dL B-Natriuretic Peptide (<100) PG/ML Total Protein 6.1 L (6.4-8.2) g/dL Albumin 2.9 L (3.4-5.0) g/dL Globulin 3.2 (2.6-4.0) g/dL Albumin/Globulin Ratio 0.9 (0.9-1.6) Urine Color Urine Appearance Urine pH (5.0-8.0) Ur Specific [place] (1.001-1.035) Urine Protein (NEGATIVE) mg/dL Urine Glucose (UA) (NEGATIVE) mg/dL Urine Ketones (NEGATIVE) mg/dL Urine Occult Blood (NEGATIVE) Urine Nitrite (NEGATIVE) Urine Bilirubin (NEGATIVE) Urine Urobilinogen (<2.0) EU/dL Ur Leukocyte Esterase (NEGATIVE) SARS-CoV-2 RNA (JAE) (NEGATIVE) 05/12/21 05/12/21 05/12/21 Range/Units 09:10 09:40 11:17 WBC (4.0-11.0) K/uL RBC (4.30-5.90) M/uL Hgb (12.0-16.0) g/dL Hct (36.0-46.0) % MCV (80.0-98.0) fL MCH (27.0-32.0) pg MCHC (31.0-37.0) g/dL RDW Std Deviation (28.0-62.0) fl RDW Coeff of Erik (11.0-15.0) % Plt Count (150-400) K/uL MPV (7.40-12.00) fL Neut % (Auto) (48.0-80.0) % Lymph % (Auto) (16.0-40.0) % [place] % (Auto) (0.0-15.0) % Eos % (Auto) (0.0-7.0) % Baso % (Auto) (0.0-1.5) % Neut # (Auto) (1.4-5.7) K/uL Lymph # (Auto) (0.6-2.4) K/uL [place] # (Auto) (0.0-0.8) K/uL Eos # (Auto) (0.0-0.7) K/uL Baso # (Auto) (0.0-0.1) K/uL Nucleated RBC % /100WBC Nucleated RBCs # K/uL Sodium (136-145) mmol/L Potassium (3.5-5.1) mmol/L Chloride (98-107) mmol/L Carbon Dioxide (21.0-32.0) mmol/L BUN (7.0-18.0) mg/dL Creatinine (0.6-1.0) mg/dL Est Cr Clr Drug Dosing Estimated GFR (MDRD) ml/min Glucose (74-106) mg/dL Lactic Acid (0.4-2.0) mmol/L Calcium (8.5-10.1) mg/dL Magnesium (1.8-2.4) mg/dL Total Bilirubin (0.2-1.0) mg/dL AST (15-37) IU/L ALT (14-63) IU/L Alkaline Phosphatase (46-116) U/L Troponin I (0.000-0.056) ng/mL C-Reactive Protein (0.00-0.90) mg/dL B-Natriuretic Peptide 26 (<100) PG/ML Total Protein (6.4-8.2) g/dL Albumin (3.4-5.0) g/dL Globulin (2.6-4.0) g/dL Albumin/Globulin Ratio (0.9-1.6) Urine Color YELLOW Urine Appearance CLEAR Urine pH 5.5 (5.0-8.0) Ur Specific [place] >= 1.030 (1.001-1.035) Urine Protein NEGATIVE (NEGATIVE) mg/dL Urine Glucose (UA) NEGATIVE (NEGATIVE) mg/dL Urine Ketones TRACE H (NEGATIVE) mg/dL Urine Occult Blood NEGATIVE (NEGATIVE) Urine Nitrite NEGATIVE (NEGATIVE) Urine Bilirubin NEGATIVE (NEGATIVE) Urine Urobilinogen 0.2 (<2.0) EU/dL Ur Leukocyte Esterase NEGATIVE (NEGATIVE) SARS-CoV-2 RNA (JAE) NEGATIVE (NEGATIVE) Result Diagrams: 05/12/21 09:10 05/12/21 14:20 Sepsis Event Note - Focused Exam Vital Signs: Vital Signs Temp Pulse Resp BP Pulse Ox 05/12/21 12:02 97.2 F 72 13 94/43 L 99 05/12/21 10:01 77 83/34 L 95 05/12/21 09:31 79 80/37 L 92 L 05/12/21 09:01 81 85/49 L 94 L 05/12/21 09:00 97.3 F 84 16 73/28 L 88 L - Problem List (1) Acute respiratory failure with hypoxia SNOMED Code(s): 79663768, 802451996 ICD Code: J96.01 - ACUTE RESPIRATORY FAILURE WITH HYPOXIA Status: Acute Current Visit: No (2) Aspiration pneumonia SNOMED Code(s): 402150951 ICD Code: J69.0 - PNEUMONITIS DUE TO INHALATION OF FOOD AND VOMIT Status: Suspected Current Visit: No (3) MONIKA (acute kidney injury) SNOMED Code(s): 63569925, 82263433 ICD Code: N17.9 - ACUTE KIDNEY FAILURE, UNSPECIFIED Status: Acute Current Visit: Yes (4) Hypotension SNOMED Code(s): 06690467 ICD Code: I95.9 - HYPOTENSION, UNSPECIFIED Status: Acute Current Visit: Yes (5) Cerebral palsy SNOMED Code(s): 162918603 ICD Code: G80.9 - CEREBRAL PALSY, UNSPECIFIED Status: Chronic Current Visit: No (6) HTN (hypertension) SNOMED Code(s): 26332565 ICD Code: I10 - ESSENTIAL (PRIMARY) HYPERTENSION Status: Chronic Current Visit: No Qualifiers: Hypertension type: essential hypertension (7) Vomiting SNOMED Code(s): 152767698 ICD Code: R11.10 - VOMITING, UNSPECIFIED Status: Acute Current Visit: No (8) Leukocytosis SNOMED Code(s): 540511495, 031525679 ICD Code: D72.829 - ELEVATED WHITE BLOOD CELL COUNT, UNSPECIFIED Status: Acute Current Visit: Yes (9) Hyperkalemia SNOMED Code(s): 58202779 ICD Code: E87.5 - HYPERKALEMIA Status: Acute Current Visit: Yes Problem List Initiated/Reviewed/Updated: Yes Orders Last 24hrs: Active Orders 24 hr Category Date Time Status Patient Status [ADT] Routine ADT 05/12/21 10:57 Active Cardiac Monitoring [RC] . DIRECTED Care 05/12/21 09:04 Active Insert Urinary Catheter [OM.PC] Q24H Care 05/12/21 10:45 Ordered Pulse Oximetry [RC] ASDIRECTED Care 05/12/21 09:04 Active Urinary Catheter Assessment [RC] ASDIRECTED Care 05/12/21 10:33 Active CULTURE BLOOD [BC] Stat Lab 05/12/21 09:33 Received CULTURE BLOOD [BC] Stat Lab 05/12/21 09:40 Received Blood Culture x2 Reflex Set [OM.PC] Stat Oth 05/12/21 09:19 Ordered Saline Lock Insert [OM.PC] Stat Oth 05/12/21 09:04 Ordered Assessment/Plan Comment:: This 80-year-old female admitted with acute hypoxic respiratory failure suspected aspiration pneumonia, nausea vomiting, MONIKA and hyperkalemia 1. Acute hypoxic respiratory failure, suspected aspiration pneumonia -Keep oxygen sats greater than 90% wean as possible -We will start empiric treatment for possible aspiration pneumonia with cefepime and azithromycin -Chest x-ray negative at this time consider CT of chest -DuoNebs as needed -Leukocytosis could be due to dehydration and nausea and vomiting that has been occurring over the weekend repeat in a.m. -No sepsis at this time is no confirmed source of infection noted. -Patient treated with 2 L IV fluids in the ER for hypotension -Speech therapy to evaluate and treat for swallow evaluation -Bedside nursing swallow patient is on nectar thick and pured diet at home 2. MONIKA -Elevated above baseline -Hold nephrotoxic medications -Given IV fluids in the ER will hold off and be cautious on IV fluids due to cardiomegaly and CHF history 3. Hyperkalemia -5.5 in the ER with no EKG changes -Given calcium gluconate along with dextrose and insulin -Recheck this afternoon 4. Hypotension -Hold blood pressure medications -Monitor closely, bolus as needed 5. Cerebral palsy: -Continue home medications VTE prophylaxis Heparin GI prophylaxis: Protonix CODE STATUS: DNR/DNI as confirmed by caregiver at bedside Dispo: 2 to 3 days pending improvement.
[2021-05-12] MEDS ORDERED: Azithromycin 500 MG in Sodium Chloride 0.9% 250 ML IV SCH (14:00)
[2021-05-12] MEDS ORDERED: Ondansetron 4 MG/2 ML SDV IVPUSH PRN (15:02)
[2021-05-12] MEDS ORDERED: Acetaminophen 325 MG Tab PO PRN (15:02)
[2021-05-12] MEDS ORDERED: Sodium Chloride 0.9% 2.5 ML Syringe FLUSH PRN (15:02)
[2021-05-12] MEDS ORDERED: Pantoprazole 40 MG Vial IV SCH (15:15)
[2021-05-12] MEDS ORDERED: Heparin Sodium 5,000 Units/ML Vial SUBCUT SCH (15:15)
[2021-05-12] MEDS: Cefepime 2 GM in Premix Bag 1 BAG IV SCH (17:30)
[2021-05-12] MEDS: Azithromycin 500 MG in Sodium Chloride 0.9% 250 ML IV SCH (20:32)
[2021-05-12] MEDS: Pantoprazole 40 MG Vial IV SCH (21:51)
[2021-05-12] MEDS: Heparin Sodium 5,000 Units/ML Vial SUBCUT SCH (21:52)
[2021-05-12] MEDS: levETIRAcetam 500 MG Tab PO SCH (21:52)
[2021-05-12] MEDS: predniSONE 5 MG Tab PO SCH (21:52)
[2021-05-13 06:30] LABS: CARBON DIOXIDE,CO2 24.9 mmol/L (21.0-32.0); POTASSIUM,K 4.9 mmol/L (3.5-5.1)
--- NOTE | 2021-05-13 08:04 | PCM.PN ---
- General Info Date of Service: 05/13/21 Admission Dx/Problem (Free Text): Admission Diagnosis/Problem Admission Diagnosis/Problem Pneumonia Subjective Update: Patient more alert today. Had some hypoglycemia this morning. Patient has not been eating much due to nausea and vomiting. Patient's not had any vomiting will increase diet. After D50 given patient much more alert. Patient is otherwise nonverbal but signaling that she is uncomfortable the nurse and I reposition patient and she signaled again that he felt better and more comfortable. Patient shakes her head no if she is having any chest pain or shortness of breath. Continues to have drooling which is noted to be at baseline. Functional Status: Reports: Pain Controlled, Tolerating Diet, Ambulating - Review of Systems General: Reports: Weakness. Denies: Fatigue, Malaise HEENT: Reports: No Symptoms. Denies: Headaches, Sore Throat, Visual Changes Pulmonary: Reports: Shortness of Breath. Denies: Cough Cardiovascular: Reports: No Symptoms. Denies: Chest Pain Gastrointestinal: Reports: No Symptoms. Denies: Abdominal Pain, Nausea, Vomiting - Patient Data Vitals - Most Recent: Last Vital Signs Temp 96.7 F L 05/13/21 07:22 Pulse 79 05/13/21 07:22 Resp 16 05/13/21 07:22 BP 128/74 05/13/21 07:22 Pulse Ox 98 05/13/21 07:22 Weight - Most Recent: 50.349 kg I&O - Last 24 Hours: Intake & Output 05/12/21 05/13/21 05/13/21 22:59 06:59 14:59 Intake Total 340 Output Total 550 Balance -210 Lab Results Last 24 Hours: Laboratory Results - last 24 hr 05/12/21 05/12/21 05/12/21 Range/Units 09:10 09:10 09:10 WBC 18.27 H (4.0-11.0) K/uL RBC 3.37 L (4.30-5.90) M/uL Hgb 10.9 L (12.0-16.0) g/dL Hct 32.8 L (36.0-46.0) % MCV 97.3 (80.0-98.0) fL MCH 32.3 H (27.0-32.0) pg MCHC 33.2 (31.0-37.0) g/dL RDW Std Deviation 58.7 (28.0-62.0) fl RDW Coeff of Erik 17 H (11.0-15.0) % Plt Count 193 (150-400) K/uL MPV 10.10 (7.40-12.00) fL Neut % (Auto) 72.5 (48.0-80.0) % Lymph % (Auto) 22.3 (16.0-40.0) % Obion % (Auto) 5.0 (0.0-15.0) % Eos % (Auto) 0.1 (0.0-7.0) % Baso % (Auto) 0.1 (0.0-1.5) % Neut # (Auto) 13.2 H (1.4-5.7) K/uL Lymph # (Auto) 4.1 H (0.6-2.4) K/uL Obion # (Auto) 0.9 H (0.0-0.8) K/uL Eos # (Auto) 0.0 (0.0-0.7) K/uL Baso # (Auto) 0.0 (0.0-0.1) K/uL Nucleated RBC % 0.0 /100WBC Nucleated RBCs # 0 K/uL Sodium 139 (136-145) mmol/L Potassium 5.5 H (3.5-5.1) mmol/L Chloride 102 (98-107) mmol/L Carbon Dioxide 30.2 (21.0-32.0) mmol/L BUN 54 H (7.0-18.0) mg/dL Creatinine 2.4 H (0.6-1.0) mg/dL Est Cr Clr Drug Dosing TNP Estimated GFR (MDRD) 19.4 ml/min Glucose 95 (74-106) mg/dL Lactic Acid 1.3 (0.4-2.0) mmol/L Calcium 11.1 H (8.5-10.1) mg/dL Magnesium 2.3 (1.8-2.4) mg/dL Total Bilirubin 0.3 (0.2-1.0) mg/dL AST 43 H (15-37) IU/L ALT 38 (14-63) IU/L Alkaline Phosphatase 83 (46-116) U/L Troponin I < 0.050 (0.000-0.056) ng/mL C-Reactive Protein 21.20 H (0.00-0.90) mg/dL B-Natriuretic Peptide (<100) PG/ML Total Protein 6.1 L (6.4-8.2) g/dL Albumin 2.9 L (3.4-5.0) g/dL Globulin 3.2 (2.6-4.0) g/dL Albumin/Globulin Ratio 0.9 (0.9-1.6) Urine Color Urine Appearance Urine pH (5.0-8.0) Ur Specific Brandon (1.001-1.035) Urine Protein (NEGATIVE) mg/dL Urine Glucose (UA) (NEGATIVE) mg/dL Urine Ketones (NEGATIVE) mg/dL Urine Occult Blood (NEGATIVE) Urine Nitrite (NEGATIVE) Urine Bilirubin (NEGATIVE) Urine Urobilinogen (<2.0) EU/dL Ur Leukocyte Esterase (NEGATIVE) SARS-CoV-2 RNA (JAE) (NEGATIVE) 05/12/21 05/12/21 05/12/21 Range/Units 09:10 09:40 11:17 WBC (4.0-11.0) K/uL RBC (4.30-5.90) M/uL Hgb (12.0-16.0) g/dL Hct (36.0-46.0) % MCV (80.0-98.0) fL MCH (27.0-32.0) pg MCHC (31.0-37.0) g/dL RDW Std Deviation (28.0-62.0) fl RDW Coeff of Erik (11.0-15.0) % Plt Count (150-400) K/uL MPV (7.40-12.00) fL Neut % (Auto) (48.0-80.0) % Lymph % (Auto) (16.0-40.0) % Obion % (Auto) (0.0-15.0) % Eos % (Auto) (0.0-7.0) % Baso % (Auto) (0.0-1.5) % Neut # (Auto) (1.4-5.7) K/uL Lymph # (Auto) (0.6-2.4) K/uL Obion # (Auto) (0.0-0.8) K/uL Eos # (Auto) (0.0-0.7) K/uL Baso # (Auto) (0.0-0.1) K/uL Nucleated RBC % /100WBC Nucleated RBCs # K/uL Sodium (136-145) mmol/L Potassium (3.5-5.1) mmol/L Chloride (98-107) mmol/L Carbon Dioxide (21.0-32.0) mmol/L BUN (7.0-18.0) mg/dL Creatinine (0.6-1.0) mg/dL Est Cr Clr Drug Dosing Estimated GFR (MDRD) ml/min Glucose (74-106) mg/dL Lactic Acid (0.4-2.0) mmol/L Calcium (8.5-10.1) mg/dL Magnesium (1.8-2.4) mg/dL Total Bilirubin (0.2-1.0) mg/dL AST (15-37) IU/L ALT (14-63) IU/L Alkaline Phosphatase (46-116) U/L Troponin I (0.000-0.056) ng/mL C-Reactive Protein (0.00-0.90) mg/dL B-Natriuretic Peptide 26 (<100) PG/ML Total Protein (6.4-8.2) g/dL Albumin (3.4-5.0) g/dL Globulin (2.6-4.0) g/dL Albumin/Globulin Ratio (0.9-1.6) Urine Color YELLOW Urine Appearance CLEAR Urine pH 5.5 (5.0-8.0) Ur Specific Brandon >= 1.030 (1.001-1.035) Urine Protein NEGATIVE (NEGATIVE) mg/dL Urine Glucose (UA) NEGATIVE (NEGATIVE) mg/dL Urine Ketones TRACE H (NEGATIVE) mg/dL Urine Occult Blood NEGATIVE (NEGATIVE) Urine Nitrite NEGATIVE (NEGATIVE) Urine Bilirubin NEGATIVE (NEGATIVE) Urine Urobilinogen 0.2 (<2.0) EU/dL Ur Leukocyte Esterase NEGATIVE (NEGATIVE) SARS-CoV-2 RNA (JAE) NEGATIVE (NEGATIVE) 05/12/21 05/13/21 05/13/21 Range/Units 14:20 05:00 05:00 WBC 10.24 (4.0-11.0) K/uL RBC 2.96 L (4.30-5.90) M/uL Hgb 9.5 L (12.0-16.0) g/dL Hct 29.4 L (36.0-46.0) % MCV 99.3 H (80.0-98.0) fL MCH 32.1 H (27.0-32.0) pg MCHC 32.3 (31.0-37.0) g/dL RDW Std Deviation 61.2 (28.0-62.0) fl RDW Coeff of Erik 17 H (11.0-15.0) % Plt Count 179 (150-400) K/uL MPV 10.30 (7.40-12.00) fL Neut % (Auto) 79.2 (48.0-80.0) % Lymph % (Auto) 14.5 L (16.0-40.0) % Obion % (Auto) 6.0 (0.0-15.0) % Eos % (Auto) 0.1 (0.0-7.0) % Baso % (Auto) 0.2 (0.0-1.5) % Neut # (Auto) 8.1 H (1.4-5.7) K/uL Lymph # (Auto) 1.5 (0.6-2.4) K/uL Ob[place] # (Auto) 0.6 (0.0-0.8) K/uL Eos # (Auto) 0.0 (0.0-0.7) K/uL Baso # (Auto) 0.0 (0.0-0.1) K/uL Nucleated RBC % 0.0 /100WBC Nucleated RBCs # 0 K/uL Sodium 141 (136-145) mmol/L Potassium 4.6 4.9 (3.5-5.1) mmol/L Chloride 110 H (98-107) mmol/L Carbon Dioxide 24.9 (21.0-32.0) mmol/L BUN 45 H (7.0-18.0) mg/dL Creatinine 1.2 H (0.6-1.0) mg/dL Est Cr Clr Drug Dosing 26.41 Estimated GFR (MDRD) 43.1 ml/min Glucose 70 L (74-106) mg/dL Lactic Acid (0.4-2.0) mmol/L Calcium 9.1 (8.5-10.1) mg/dL Magnesium 1.7 L (1.8-2.4) mg/dL Total Bilirubin (0.2-1.0) mg/dL AST (15-37) IU/L ALT (14-63) IU/L Alkaline Phosphatase (46-116) U/L Troponin I (0.000-0.056) ng/mL C-Reactive Protein (0.00-0.90) mg/dL B-Natriuretic Peptide (<100) PG/ML Total Protein (6.4-8.2) g/dL Albumin (3.4-5.0) g/dL Globulin (2.6-4.0) g/dL Albumin/Globulin Ratio (0.9-1.6) Urine Color Urine Appearance Urine pH (5.0-8.0) Ur Specific Brandon (1.001-1.035) Urine Protein (NEGATIVE) mg/dL Urine Glucose (UA) (NEGATIVE) mg/dL Urine Ketones (NEGATIVE) mg/dL Urine Occult Blood (NEGATIVE) Urine Nitrite (NEGATIVE) Urine Bilirubin (NEGATIVE) Urine Urobilinogen (<2.0) EU/dL Ur Leukocyte Esterase (NEGATIVE) SARS-CoV-2 RNA (JAE) (NEGATIVE) Med Orders - Current: Current Medications Acetaminophen (Acetaminophen 325 Mg Tab) 650 mg PO Q4H PRN PRN Reason: Pain (Mild 1-3)/fever Heparin Sodium (Porcine) (Heparin Sodium 5,000 Units/Ml Vial) 5,000 units SUBCUT Q12H [facility] Last Admin: 05/12/21 21:52 Dose: 5,000 units Documented by: Cefepime HCl 2 gm/ Premix 50 mls @ 0 mls/hr IV Q24H [facility] Last Admin: 05/12/21 17:30 Dose: 100 mls/hr Documented by: Azithromycin 500 mg/ Sodium (Chloride) 250 mls @ 250 mls/hr IV DAILY@1900 [facility] Last Admin: 05/12/21 20:32 Dose: 250 mls/hr Documented by: Levetiracetam (Levetiracetam 500 Mg Tab) 250 mg PO BID [facility] Last Admin: 05/12/21 21:52 Dose: 250 mg Documented by: Ondansetron HCl (Ondansetron 4 Mg/2 Ml Sdv) 4 mg IVPUSH Q4H PRN PRN Reason: Nausea Pantoprazole Sodium (Pantoprazole 40 Mg Vial) 40 mg IV BEDTIME [facility] Last Admin: 05/12/21 21:51 Dose: 40 mg Documented by: Prednisone (Prednisone 5 Mg Tab) 2.5 mg PO BID [facility] Last Admin: 05/12/21 21:52 Dose: 2.5 mg Documented by: Sodium Chloride (Sodium Chloride 0.9% 2.5 Ml Syringe) 2.5 ml FLUSH ASDIRECTED PRN PRN Reason: Keep Vein Open Discontinued Medications Calcium Gluconate (Calcium Gluconate 10% 1 Gm/10 Ml Sdv) 1 gm IVPUSH ONETIME ONE Stop: 05/12/21 10:31 Last Admin: 05/12/21 10:56 Dose: 1 gm Documented by: Dextrose/Water (50% Dextrose In Water 50 Ml Syringe) 25 ml IVPUSH ONETIME ONE Stop: 05/12/21 10:31 Last Admin: 05/12/21 10:56 Dose: 25 ml Documented by: Heparin Sodium (Porcine) (Heparin Sodium 5,000 Units/Ml Vial) 5,000 units SUBCUT Q12H [facility] Last Admin: 05/12/21 18:49 Dose: Not Given Documented by: Sodium Chloride (Normal Saline) 1,000 mls @ 999 mls/hr IV .Bolus ONE Stop: 05/12/21 10:03 Last Admin: 05/12/21 09:32 Dose: 999 mls/hr Documented by: Cefepime HCl 2 gm/ Premix 50 mls @ 100 mls/hr IV ONETIME ONE Stop: 05/12/21 11:01 Last Admin: 05/12/21 11:48 Dose: 100 mls/hr Documented by: Sodium Chloride (Normal Saline) 1,000 mls @ 200 mls/hr IV STAT STA Stop: 05/12/21 15:33 Last Admin: 05/12/21 10:57 Dose: Not Given Documented by: Sodium Chloride (Normal Saline) 1,000 mls @ 999 mls/hr IV .Bolus ONE Stop: 05/12/21 11:45 Last Admin: 05/12/21 10:54 Dose: 999 mls/hr Documented by: Azithromycin 500 mg/ Sodium (Chloride) 250 mls @ 250 mls/hr IV DAILY [facility] Last Admin: 05/12/21 18:48 Dose: Not Given Documented by: Azithromycin 500 mg/ Sodium (Chloride) 250 mls @ 250 mls/hr IV DAILY [facility] Insulin Human Regular (Insulin Regular, Human 100 Units/Ml 10 Ml Vial) 5 unit IVPUSH ONETIME ONE; Protocol Stop: 05/12/21 10:31 Last Admin: 05/12/21 10:56 Dose: 5 unit Documented by: Pantoprazole Sodium (Pantoprazole 40 Mg Vial) 40 mg IV Q24H [facility] Last Admin: 05/12/21 18:49 Dose: Not Given Documented by: - Exam Quality Assessment: Supplemental Oxygen (1 L with O2 saturations at 99%) Urinary Catheter Total Time: 0Days 0Hours General: Alert, Oriented, Cooperative, No Acute Distress Lungs: Clear to Auscultation, Normal Respiratory Effort Cardiovascular: Regular Rate, Regular Rhythm GI/Abdominal Exam: Normal Bowel Sounds, Soft, Non-Tender Extremities: Normal Inspection, Normal Range of Motion, Non-Tender, No Pedal Edema Neurological: No New Focal Deficit Psy/Mental Status: Alert, Normal Affect, Normal Mood - Patient Data Lab Results Last 24 hrs: Laboratory Results - last 24 hr 05/12/21 05/12/21 05/12/21 Range/Units 09:10 09:10 09:10 WBC 18.27 H (4.0-11.0) K/uL RBC 3.37 L (4.30-5.90) M/uL Hgb 10.9 L (12.0-16.0) g/dL Hct 32.8 L (36.0-46.0) % MCV 97.3 (80.0-98.0) fL MCH 32.3 H (27.0-32.0) pg MCHC 33.2 (31.0-37.0) g/dL RDW Std Deviation 58.7 (28.0-62.0) fl RDW Coeff of Erik 17 H (11.0-15.0) % Plt Count 193 (150-400) K/uL MPV 10.10 (7.40-12.00) fL Neut % (Auto) 72.5 (48.0-80.0) % Lymph % (Auto) 22.3 (16.0-40.0) % Obion % (Auto) 5.0 (0.0-15.0) % Eos % (Auto) 0.1 (0.0-7.0) % Baso % (Auto) 0.1 (0.0-1.5) % Neut # (Auto) 13.2 H (1.4-5.7) K/uL Lymph # (Auto) 4.1 H (0.6-2.4) K/uL [place] # (Auto) 0.9 H (0.0-0.8) K/uL Eos # (Auto) 0.0 (0.0-0.7) K/uL Baso # (Auto) 0.0 (0.0-0.1) K/uL Nucleated RBC % 0.0 /100WBC Nucleated RBCs # 0 K/uL Sodium 139 (136-145) mmol/L Potassium 5.5 H (3.5-5.1) mmol/L Chloride 102 (98-107) mmol/L Carbon Dioxide 30.2 (21.0-32.0) mmol/L BUN 54 H (7.0-18.0) mg/dL Creatinine 2.4 H (0.6-1.0) mg/dL Est Cr Clr Drug Dosing TNP Estimated GFR (MDRD) 19.4 ml/min Glucose 95 (74-106) mg/dL Lactic Acid 1.3 (0.4-2.0) mmol/L Calcium 11.1 H (8.5-10.1) mg/dL Magnesium 2.3 (1.8-2.4) mg/dL Total Bilirubin 0.3 (0.2-1.0) mg/dL AST 43 H (15-37) IU/L ALT 38 (14-63) IU/L Alkaline Phosphatase 83 (46-116) U/L Troponin I < 0.050 (0.000-0.056) ng/mL C-Reactive Protein 21.20 H (0.00-0.90) mg/dL B-Natriuretic Peptide (<100) PG/ML Total Protein 6.1 L (6.4-8.2) g/dL Albumin 2.9 L (3.4-5.0) g/dL Globulin 3.2 (2.6-4.0) g/dL Albumin/Globulin Ratio 0.9 (0.9-1.6) Urine Color Urine Appearance Urine pH (5.0-8.0) Ur Specific Brandon (1.001-1.035) Urine Protein (NEGATIVE) mg/dL Urine Glucose (UA) (NEGATIVE) mg/dL Urine Ketones (NEGATIVE) mg/dL Urine Occult Blood (NEGATIVE) Urine Nitrite (NEGATIVE) Urine Bilirubin (NEGATIVE) Urine Urobilinogen (<2.0) EU/dL Ur Leukocyte Esterase (NEGATIVE) SARS-CoV-2 RNA (JAE) (NEGATIVE) 05/12/21 05/12/21 05/12/21 Range/Units 09:10 09:40 11:17 WBC (4.0-11.0) K/uL RBC (4.30-5.90) M/uL Hgb (12.0-16.0) g/dL Hct (36.0-46.0) % MCV (80.0-98.0) fL MCH (27.0-32.0) pg MCHC (31.0-37.0) g/dL RDW Std Deviation (28.0-62.0) fl RDW Coeff of Erik (11.0-15.0) % Plt Count (150-400) K/uL MPV (7.40-12.00) fL Neut % (Auto) (48.0-80.0) % Lymph % (Auto) (16.0-40.0) % [place] % (Auto) (0.0-15.0) % Eos % (Auto) (0.0-7.0) % Baso % (Auto) (0.0-1.5) % Neut # (Auto) (1.4-5.7) K/uL Lymph # (Auto) (0.6-2.4) K/uL [place] # (Auto) (0.0-0.8) K/uL Eos # (Auto) (0.0-0.7) K/uL Baso # (Auto) (0.0-0.1) K/uL Nucleated RBC % /100WBC Nucleated RBCs # K/uL Sodium (136-145) mmol/L Potassium (3.5-5.1) mmol/L Chloride (98-107) mmol/L Carbon Dioxide (21.0-32.0) mmol/L BUN (7.0-18.0) mg/dL Creatinine (0.6-1.0) mg/dL Est Cr Clr Drug Dosing Estimated GFR (MDRD) ml/min Glucose (74-106) mg/dL Lactic Acid (0.4-2.0) mmol/L Calcium (8.5-10.1) mg/dL Magnesium (1.8-2.4) mg/dL Total Bilirubin (0.2-1.0) mg/dL AST (15-37) IU/L ALT (14-63) IU/L Alkaline Phosphatase (46-116) U/L Troponin I (0.000-0.056) ng/mL C-Reactive Protein (0.00-0.90) mg/dL B-Natriuretic Peptide 26 (<100) PG/ML Total Protein (6.4-8.2) g/dL Albumin (3.4-5.0) g/dL Globulin (2.6-4.0) g/dL Albumin/Globulin Ratio (0.9-1.6) Urine Color YELLOW Urine Appearance CLEAR Urine pH 5.5 (5.0-8.0) Ur Specific Brandon >= 1.030 (1.001-1.035) Urine Protein NEGATIVE (NEGATIVE) mg/dL Urine Glucose (UA) NEGATIVE (NEGATIVE) mg/dL Urine Ketones TRACE H (NEGATIVE) mg/dL Urine Occult Blood NEGATIVE (NEGATIVE) Urine Nitrite NEGATIVE (NEGATIVE) Urine Bilirubin NEGATIVE (NEGATIVE) Urine Urobilinogen 0.2 (<2.0) EU/dL Ur Leukocyte Esterase NEGATIVE (NEGATIVE) SARS-CoV-2 RNA (JAE) NEGATIVE (NEGATIVE) 05/12/21 05/13/21 05/13/21 Range/Units 14:20 05:00 05:00 WBC 10.24 (4.0-11.0) K/uL RBC 2.96 L (4.30-5.90) M/uL Hgb 9.5 L (12.0-16.0) g/dL Hct 29.4 L (36.0-46.0) % MCV 99.3 H (80.0-98.0) fL MCH 32.1 H (27.0-32.0) pg MCHC 32.3 (31.0-37.0) g/dL RDW Std Deviation 61.2 (28.0-62.0) fl RDW Coeff of Erik 17 H (11.0-15.0) % Plt Count 179 (150-400) K/uL MPV 10.30 (7.40-12.00) fL Neut % (Auto) 79.2 (48.0-80.0) % Lymph % (Auto) 14.5 L (16.0-40.0) % [place] % (Auto) 6.0 (0.0-15.0) % Eos % (Auto) 0.1 (0.0-7.0) % Baso % (Auto) 0.2 (0.0-1.5) % Neut # (Auto) 8.1 H (1.4-5.7) K/uL Lymph # (Auto) 1.5 (0.6-2.4) K/uL [place] # (Auto) 0.6 (0.0-0.8) K/uL Eos # (Auto) 0.0 (0.0-0.7) K/uL Baso # (Auto) 0.0 (0.0-0.1) K/uL Nucleated RBC % 0.0 /100WBC Nucleated RBCs # 0 K/uL Sodium 141 (136-145) mmol/L Potassium 4.6 4.9 (3.5-5.1) mmol/L Chloride 110 H (98-107) mmol/L Carbon Dioxide 24.9 (21.0-32.0) mmol/L BUN 45 H (7.0-18.0) mg/dL Creatinine 1.2 H (0.6-1.0) mg/dL Est Cr Clr Drug Dosing 26.41 Estimated GFR (MDRD) 43.1 ml/min Glucose 70 L (74-106) mg/dL Lactic Acid (0.4-2.0) mmol/L Calcium 9.1 (8.5-10.1) mg/dL Magnesium 1.7 L (1.8-2.4) mg/dL Total Bilirubin (0.2-1.0) mg/dL AST (15-37) IU/L ALT (14-63) IU/L Alkaline Phosphatase (46-116) U/L Troponin I (0.000-0.056) ng/mL C-Reactive Protein (0.00-0.90) mg/dL B-Natriuretic Peptide (<100) PG/ML Total Protein (6.4-8.2) g/dL Albumin (3.4-5.0) g/dL Globulin (2.6-4.0) g/dL Albumin/Globulin Ratio (0.9-1.6) Urine Color Urine Appearance Urine pH (5.0-8.0) Ur Specific Brandon (1.001-1.035) Urine Protein (NEGATIVE) mg/dL Urine Glucose (UA) (NEGATIVE) mg/dL Urine Ketones (NEGATIVE) mg/dL Urine Occult Blood (NEGATIVE) Urine Nitrite (NEGATIVE) Urine Bilirubin (NEGATIVE) Urine Urobilinogen (<2.0) EU/dL Ur Leukocyte Esterase (NEGATIVE) SARS-CoV-2 RNA (JAE) (NEGATIVE) Result Diagrams: 05/13/21 05:00 05/13/21 05:00 Sepsis Event Note - Evaluation Sepsis Screening Result: No Definite Risk - Focused Exam Vital Signs: Vital Signs Temp Pulse Resp BP Pulse Ox 05/13/21 07:22 96.7 F L 79 16 128/74 98 05/13/21 04:42 96.9 F 72 17 125/72 95 05/13/21 00:00 96.0 F L 74 20 121/55 L 95 - Problem List & Annotations (1) Acute respiratory failure with hypoxia SNOMED Code(s): 96807714, 482513992 Code(s): J96.01 - ACUTE RESPIRATORY FAILURE WITH HYPOXIA Status: Acute Current Visit: No (2) Aspiration pneumonia SNOMED Code(s): 665766163 Code(s): J69.0 - PNEUMONITIS DUE TO INHALATION OF FOOD AND VOMIT Status: Suspected Current Visit: No (3) MONIKA (acute kidney injury) SNOMED Code(s): 26601489, 51471519 Code(s): N17.9 - ACUTE KIDNEY FAILURE, UNSPECIFIED Status: Acute Current Visit: Yes (4) Hypotension SNOMED Code(s): 01232440 Code(s): I95.9 - HYPOTENSION, UNSPECIFIED Status: Acute Current Visit: Yes (5) Cerebral palsy SNOMED Code(s): 782580073 Code(s): G80.9 - CEREBRAL PALSY, UNSPECIFIED Status: Chronic Current Visit: No (6) HTN (hypertension) SNOMED Code(s): 61315756 Code(s): I10 - ESSENTIAL (PRIMARY) HYPERTENSION Status: Chronic Current Visit: No Qualifiers: Hypertension type: essential hypertension (7) Vomiting SNOMED Code(s): 296454413 Code(s): R11.10 - VOMITING, UNSPECIFIED Status: Acute Current Visit: No (8) Leukocytosis SNOMED Code(s): 217724884, 315573493 Code(s): D72.829 - ELEVATED WHITE BLOOD CELL COUNT, UNSPECIFIED Status: Acute Current Visit: Yes (9) Hyperkalemia SNOMED Code(s): 12308933 Code(s): E87.5 - HYPERKALEMIA Status: Acute Current Visit: Yes (10) Gram-positive bacteremia SNOMED Code(s): 623159996896 Code(s): R78.81 - BACTEREMIA Status: Acute Current Visit: Yes - Problem List Review Problem List Initiated/Reviewed/Updated: Yes - My Orders Last 24 Hours: My Active Orders 05/12/21 14:03 Telemetry Monitoring [Cardiac Monitoring] [RC] Q8H 05/12/21 15:02 Height and Weight [RC] DAILY Oxygen Therapy [RC] PRN Up to Chair [RC] ASDIRECTED VTE/DVT Education [RC] PER UNIT ROUTINE Vital Signs [RC] Q4H Acetaminophen [TylenoL] 650 mg PO Q4H PRN Ondansetron [Zofran] 4 mg IVPUSH Q4H PRN Sodium Chloride 0.9% [Saline Flush] 2.5 ml FLUSH ASDIRECTED PRN Saline Lock Insert [OM.PC] Routine Resuscitation Status Routine 05/12/21 15:03 Intake and Output [RC] QSHIFT 05/12/21 Dinner Clear Liquid Diet [DIET] 05/12/21 17:00 Cefepime [Maxipime in D5W 2 GM/50 ML] 2 gm Premix Bag 1 bag IV Q24H 05/12/21 19:00 Azithromycin [Zithromax] 500 mg Sodium Chloride 0.9% [Normal Saline (AdvBag)] 250 ml IV DAILY@1900 05/12/21 21:00 Heparin Sodium 5,000 units SUBCUT Q12H Pantoprazole [ProTONIX IV] 40 mg IV BEDTIME levETIRAcetam [Keppra] 250 mg PO BID predniSONE 2.5 mg PO BID 05/13/21 08:03 Blood Glucose Check, Bedside [RC] STAT - Plan Plan:: This 80-year-old female admitted with acute hypoxic respiratory failure suspected aspiration pneumonia, nausea vomiting, MONIKA and hyperkalemia 1. Acute hypoxic respiratory failure, suspected aspiration pneumonia -Keep oxygen sats greater than 90% wean as possible -1 out of 4 bottles returned with gram-positive cocci in clusters we will start vancomycin -Continue cefepime and azithromycin -Chest x-ray negative -DuoNebs as needed -Leukocytosis improved -Bedside nursing swallow patient is on nectar thick and pured diet at home 2. MONIKA -Improved overnight with IV fluid resuscitation in the ER -Hold nephrotoxic medications -Continue to monitor -Remove [place] today 3. Hyperkalemia - 4.9 today continue to monitor -Recheck this afternoon 4. Hypotension -Hold blood pressure medications -Monitor closely, bolus as needed 5. Cerebral palsy: -Continue home medications VTE prophylaxis Heparin GI prophylaxis: Protonix CODE STATUS: DNR/DNI as confirmed by caregiver at bedside Dispo: 2 to 3 days pending improvement.
[2021-05-13] MEDS ORDERED: 50% Dextrose in Water 50 ML Syringe IVPUSH PRN (08:30)
[2021-05-13] MEDS ORDERED: 50% Dextrose in Water 50 ML Syringe IVPUSH ONE (08:30)
[2021-05-13] MEDS: Heparin Sodium 5,000 Units/ML Vial SUBCUT SCH ×2 (08:47→23:12)
[2021-05-13] MEDS ORDERED: Azithromycin 500 MG in Sodium Chloride 0.9% 250 ML IV SCH (09:00)
[2021-05-13] MEDS: predniSONE 5 MG Tab PO SCH ×2 (09:19→23:10)
[2021-05-13] MEDS: levETIRAcetam 500 MG Tab PO SCH ×2 (09:20→23:08)
[2021-05-13] MEDS: Cefepime 2 GM in Premix Bag 1 BAG IV SCH (16:16)
[2021-05-13] MEDS: Azithromycin 500 MG in Sodium Chloride 0.9% 250 ML IV SCH (20:03)
[2021-05-13] MEDS: Pantoprazole 40 MG Vial IV SCH (23:04)
[2021-05-14 07:02] LABS: BLOOD UREA NITROGEN,BUN 34 mg/dL (7.0-18.0); CARBON DIOXIDE,CO2 23.9 mmol/L (21.0-32.0); CHLORIDE,CL 111 mmol/L (98-107); GLUCOSE RANDOM 68 mg/dL (74-106); POTASSIUM,K 4.2 mmol/L (3.5-5.1); SODIUM,NA 141 mmol/L (136-145)
--- NOTE | 2021-05-14 08:11 | PCM.PN ---
- General Info Date of Service: 05/14/21 Admission Dx/Problem (Free Text): Admission Diagnosis/Problem Admission Diagnosis/Problem Pneumonia Subjective Update: Much more alert today. Hypoglycemic this morning given D50 patient telling nurses she has to urinate patient able to shake head yes and no for simple answers patient denies any pain reports she is tired. - Review of Systems General: Reports: Fatigue Pulmonary: Reports: No Symptoms. Denies: Shortness of Breath Cardiovascular: Reports: No Symptoms. Denies: Chest Pain Gastrointestinal: Denies: Abdominal Pain, Nausea, Vomiting - Patient Data Vitals - Most Recent: Last Vital Signs Temp 96.8 F L 05/14/21 04:00 Pulse 72 05/14/21 04:00 Resp 15 05/14/21 04:00 BP 130/70 05/14/21 04:00 Pulse Ox 93 L 05/14/21 04:00 Weight - Most Recent: 52.5 kg Lab Results Last 24 Hours: Laboratory Results - last 24 hr 05/13/21 05/13/21 05/13/21 Range/Units 08:07 08:26 09:43 WBC (4.0-11.0) K/uL RBC (4.30-5.90) M/uL Hgb (12.0-16.0) g/dL Hct (36.0-46.0) % MCV (80.0-98.0) fL MCH (27.0-32.0) pg MCHC (31.0-37.0) g/dL RDW Std Deviation (28.0-62.0) fl RDW Coeff of Erik (11.0-15.0) % Plt Count (150-400) K/uL MPV (7.40-12.00) fL Neut % (Auto) (48.0-80.0) % Lymph % (Auto) (16.0-40.0) % [place] % (Auto) (0.0-15.0) % Eos % (Auto) (0.0-7.0) % Baso % (Auto) (0.0-1.5) % Neut # (Auto) (1.4-5.7) K/uL Lymph # (Auto) (0.6-2.4) K/uL [place] # (Auto) (0.0-0.8) K/uL Eos # (Auto) (0.0-0.7) K/uL Baso # (Auto) (0.0-0.1) K/uL Nucleated RBC % /100WBC Nucleated RBCs # K/uL Sodium (136-145) mmol/L Potassium (3.5-5.1) mmol/L Chloride (98-107) mmol/L Carbon Dioxide (21.0-32.0) mmol/L BUN (7.0-18.0) mg/dL Creatinine (0.6-1.0) mg/dL Est Cr Clr Drug Dosing mL/min Estimated GFR (MDRD) ml/min Glucose (74-106) mg/dL POC Glucose 64 L 69 L 145 H (70-99) mg/dL Calcium (8.5-10.1) mg/dL Magnesium (1.8-2.4) mg/dL 05/14/21 05/14/21 Range/Units 05:30 05:30 WBC 6.42 (4.0-11.0) K/uL RBC 2.79 L (4.30-5.90) M/uL Hgb 8.9 L (12.0-16.0) g/dL Hct 27.4 L (36.0-46.0) % MCV 98.2 H (80.0-98.0) fL MCH 31.9 (27.0-32.0) pg MCHC 32.5 (31.0-37.0) g/dL RDW Std Deviation 60.2 (28.0-62.0) fl RDW Coeff of Erik 17 H (11.0-15.0) % Plt Count 150 (150-400) K/uL MPV 10.00 (7.40-12.00) fL Neut % (Auto) 63.0 (48.0-80.0) % Lymph % (Auto) 31.5 (16.0-40.0) % [place] % (Auto) 4.7 (0.0-15.0) % Eos % (Auto) 0.6 (0.0-7.0) % Baso % (Auto) 0.2 (0.0-1.5) % Neut # (Auto) 4.1 (1.4-5.7) K/uL Lymph # (Auto) 2.0 (0.6-2.4) K/uL [place] # (Auto) 0.3 (0.0-0.8) K/uL Eos # (Auto) 0.0 (0.0-0.7) K/uL Baso # (Auto) 0.0 (0.0-0.1) K/uL Nucleated RBC % 0.0 /100WBC Nucleated RBCs # 0 K/uL Sodium 141 (136-145) mmol/L Potassium 4.2 (3.5-5.1) mmol/L Chloride 111 H (98-107) mmol/L Carbon Dioxide 23.9 (21.0-32.0) mmol/L BUN 34 H (7.0-18.0) mg/dL Creatinine 0.8 (0.6-1.0) mg/dL Est Cr Clr Drug Dosing 39.61 mL/min Estimated GFR (MDRD) > 60.0 ml/min Glucose 68 L (74-106) mg/dL POC Glucose (70-99) mg/dL Calcium 8.6 (8.5-10.1) mg/dL Magnesium 1.6 L (1.8-2.4) mg/dL [place] Results Last 24 Hours: Microbiology 05/12/21 09:33 Blood Culture Identification Panel - Preliminary Blood Staphylococcus Coagulase Neg 05/12/21 09:33 Bacteria Detection (PCR) - Final Blood 05/12/21 09:33 Aerobic Blood Culture - Preliminary Blood - Venous Anaerobic Blood Culture - Preliminary NO GROWTH AFTER 1 DAY 05/12/21 09:40 Aerobic Blood Culture - Preliminary Blood - Venous - Lab Draw NO GROWTH AFTER 1 DAY Anaerobic Blood Culture - Preliminary NO GROWTH AFTER 1 DAY Med Orders - Current: Current Medications Acetaminophen (Acetaminophen 325 Mg Tab) 650 mg PO Q4H PRN PRN Reason: Pain (Mild 1-3)/fever Last Admin: 05/13/21 16:19 Dose: 650 mg Documented by: Dextrose/Water (50% Dextrose In Water 50 Ml Syringe) 50 ml IVPUSH ASDIRECTED PRN PRN Reason: Hypoglycemia Heparin Sodium (Porcine) (Heparin Sodium 5,000 Units/Ml Vial) 5,000 units SUBCUT Q12H SUE Last Admin: 05/13/21 23:12 Dose: 5,000 units Documented by: Cefepime HCl 2 gm/ Premix 50 mls @ 0 mls/hr IV Q24H SUE Last Admin: 05/13/21 16:16 Dose: 100 mls/hr Documented by: Azithromycin 500 mg/ Sodium (Chloride) 250 mls @ 250 mls/hr IV DAILY@1900 [facility] Last Admin: 05/13/21 20:03 Dose: 250 mls/hr Documented by: Vancomycin HCl 1 gm/ Sodium (Chloride) 250 mls @ 166.667 mls/hr IV Q24H [facility] Last Admin: 05/13/21 13:08 Dose: 166.667 mls/hr Documented by: Levetiracetam (Levetiracetam 500 Mg Tab) 250 mg PO BID [facility] Last Admin: 05/13/21 23:08 Dose: 250 mg Documented by: Ondansetron HCl (Ondansetron 4 Mg/2 Ml Sdv) 4 mg IVPUSH Q4H PRN PRN Reason: Nausea Pantoprazole Sodium (Pantoprazole 40 Mg Vial) 40 mg IV BEDTIME [facility] Last Admin: 05/13/21 23:04 Dose: 40 mg Documented by: Prednisone (Prednisone 5 Mg Tab) 2.5 mg PO BID [facility] Last Admin: 05/13/21 23:10 Dose: 2.5 mg Documented by: Sodium Chloride (Sodium Chloride 0.9% 2.5 Ml Syringe) 2.5 ml FLUSH ASDIRECTED PRN PRN Reason: Keep Vein Open Vancomycin HCl (Pharmacy To Dose - Vancomycin) 1 dose .XX ASDIRECTED SUE Discontinued Medications Calcium Gluconate (Calcium Gluconate 10% 1 Gm/10 Ml Sdv) 1 gm IVPUSH ONETIME ONE Stop: 05/12/21 10:31 Last Admin: 05/12/21 10:56 Dose: 1 gm Documented by: Dextrose/Water (50% Dextrose In Water 50 Ml Syringe) 25 ml IVPUSH ONETIME ONE Stop: 05/12/21 10:31 Last Admin: 05/12/21 10:56 Dose: 25 ml Documented by: Dextrose/Water (50% Dextrose In Water 50 Ml Syringe) 25 ml IVPUSH ONETIME ONE Stop: 05/13/21 08:31 Last Admin: 05/13/21 08:42 Dose: 25 ml Documented by: Heparin Sodium (Porcine) (Heparin Sodium 5,000 Units/Ml Vial) 5,000 units SUBCUT Q12H [facility] Last Admin: 05/12/21 18:49 Dose: Not Given Documented by: Sodium Chloride (Normal Saline) 1,000 mls @ 999 mls/hr IV .Bolus ONE Stop: 05/12/21 10:03 Last Admin: 05/12/21 09:32 Dose: 999 mls/hr Documented by: Cefepime HCl 2 gm/ Premix 50 mls @ 100 mls/hr IV ONETIME ONE Stop: 05/12/21 11:01 Last Admin: 05/12/21 11:48 Dose: 100 mls/hr Documented by: Sodium Chloride (Normal Saline) 1,000 mls @ 200 mls/hr IV STAT STA Stop: 05/12/21 15:33 Last Admin: 05/12/21 10:57 Dose: Not Given Documented by: Sodium Chloride (Normal Saline) 1,000 mls @ 999 mls/hr IV .Bolus ONE Stop: 05/12/21 11:45 Last Admin: 05/12/21 10:54 Dose: 999 mls/hr Documented by: Azithromycin 500 mg/ Sodium (Chloride) 250 mls @ 250 mls/hr IV DAILY [facility] Last Admin: 05/12/21 18:48 Dose: Not Given Documented by: Azithromycin 500 mg/ Sodium (Chloride) 250 mls @ 250 mls/hr IV DAILY [facility] Insulin Human Regular (Insulin Regular, Human 100 Units/Ml 10 Ml Vial) 5 unit IVPUSH ONETIME ONE; Protocol Stop: 05/12/21 10:31 Last Admin: 05/12/21 10:56 Dose: 5 unit Documented by: Pantoprazole Sodium (Pantoprazole 40 Mg Vial) 40 mg IV Q24H [facility] Last Admin: 05/12/21 18:49 Dose: Not Given Documented by: - Exam Quality Assessment: Supplemental Oxygen Urinary Catheter Total Time: 0Days 22Hours General: Alert, Cooperative, No Acute Distress. No: Oriented (At baseline) Lungs: Clear to Auscultation, Normal Respiratory Effort Cardiovascular: Regular Rate, Regular Rhythm GI/Abdominal Exam: Normal Bowel Sounds, Soft, Non-Tender Extremities: Normal Inspection, Normal Range of Motion, Non-Tender, No Pedal Edema Neurological: No New Focal Deficit Psy/Mental Status: Alert, Normal Affect, Normal Mood - Patient Data Lab Results Last 24 hrs: Laboratory Results - last 24 hr 05/13/21 05/13/21 05/13/21 Range/Units 08:07 08:26 09:43 WBC (4.0-11.0) K/uL RBC (4.30-5.90) M/uL Hgb (12.0-16.0) g/dL Hct (36.0-46.0) % MCV (80.0-98.0) fL MCH (27.0-32.0) pg MCHC (31.0-37.0) g/dL RDW Std Deviation (28.0-62.0) fl RDW Coeff of Erik (11.0-15.0) % Plt Count (150-400) K/uL MPV (7.40-12.00) fL Neut % (Auto) (48.0-80.0) % Lymph % (Auto) (16.0-40.0) % [place] % (Auto) (0.0-15.0) % Eos % (Auto) (0.0-7.0) % Baso % (Auto) (0.0-1.5) % Neut # (Auto) (1.4-5.7) K/uL Lymph # (Auto) (0.6-2.4) K/uL [place] # (Auto) (0.0-0.8) K/uL Eos # (Auto) (0.0-0.7) K/uL Baso # (Auto) (0.0-0.1) K/uL Nucleated RBC % /100WBC Nucleated RBCs # K/uL Sodium (136-145) mmol/L Potassium (3.5-5.1) mmol/L Chloride (98-107) mmol/L Carbon Dioxide (21.0-32.0) mmol/L BUN (7.0-18.0) mg/dL Creatinine (0.6-1.0) mg/dL Est Cr Clr Drug Dosing mL/min Estimated GFR (MDRD) ml/min Glucose (74-106) mg/dL POC Glucose 64 L 69 L 145 H (70-99) mg/dL Calcium (8.5-10.1) mg/dL Magnesium (1.8-2.4) mg/dL 05/14/21 05/14/21 Range/Units 05:30 05:30 WBC 6.42 (4.0-11.0) K/uL RBC 2.79 L (4.30-5.90) M/uL Hgb 8.9 L (12.0-16.0) g/dL Hct 27.4 L (36.0-46.0) % MCV 98.2 H (80.0-98.0) fL MCH 31.9 (27.0-32.0) pg MCHC 32.5 (31.0-37.0) g/dL RDW Std Deviation 60.2 (28.0-62.0) fl RDW Coeff of Erik 17 H (11.0-15.0) % Plt Count 150 (150-400) K/uL MPV 10.00 (7.40-12.00) fL Neut % (Auto) 63.0 (48.0-80.0) % Lymph % (Auto) 31.5 (16.0-40.0) % [place] % (Auto) 4.7 (0.0-15.0) % Eos % (Auto) 0.6 (0.0-7.0) % Baso % (Auto) 0.2 (0.0-1.5) % Neut # (Auto) 4.1 (1.4-5.7) K/uL Lymph # (Auto) 2.0 (0.6-2.4) K/uL [place] # (Auto) 0.3 (0.0-0.8) K/uL Eos # (Auto) 0.0 (0.0-0.7) K/uL Baso # (Auto) 0.0 (0.0-0.1) K/uL Nucleated RBC % 0.0 /100WBC Nucleated RBCs # 0 K/uL Sodium 141 (136-145) mmol/L Potassium 4.2 (3.5-5.1) mmol/L Chloride 111 H (98-107) mmol/L Carbon Dioxide 23.9 (21.0-32.0) mmol/L BUN 34 H (7.0-18.0) mg/dL Creatinine 0.8 (0.6-1.0) mg/dL Est Cr Clr Drug Dosing 39.61 mL/min Estimated GFR (MDRD) > 60.0 ml/min Glucose 68 L (74-106) mg/dL POC Glucose (70-99) mg/dL Calcium 8.6 (8.5-10.1) mg/dL Magnesium 1.6 L (1.8-2.4) mg/dL Result Diagrams: 05/14/21 05:30 05/14/21 05:30 [place] Results Last 24 hrs: Microbiology 05/12/21 09:33 Blood Culture Identification Panel - Preliminary Blood Staphylococcus Coagulase Neg 05/12/21 09:33 Bacteria Detection (PCR) - Final Blood 05/12/21 09:33 Aerobic Blood Culture - Preliminary Blood - Venous Anaerobic Blood Culture - Preliminary NO GROWTH AFTER 1 DAY 05/12/21 09:40 Aerobic Blood Culture - Preliminary Blood - Venous - Lab Draw NO GROWTH AFTER 1 DAY Anaerobic Blood Culture - Preliminary NO GROWTH AFTER 1 DAY Sepsis Event Note - Evaluation Sepsis Screening Result: No Definite Risk - Focused Exam Vital Signs: Vital Signs Temp Pulse Resp BP Pulse Ox 05/14/21 04:00 96.8 F L 72 15 130/70 93 L 05/13/21 23:05 96.9 F 73 16 136/72 95 - Problem List & Annotations (1) Acute respiratory failure with hypoxia SNOMED Code(s): 33270966, 548265581 Code(s): J96.01 - ACUTE RESPIRATORY FAILURE WITH HYPOXIA Status: Acute Current Visit: No (2) Aspiration pneumonia SNOMED Code(s): 976138529 Code(s): J69.0 - PNEUMONITIS DUE TO INHALATION OF FOOD AND VOMIT Status: Suspected Current Visit: No (3) MONIKA (acute kidney injury) SNOMED Code(s): 34704635, 09613428 Code(s): N17.9 - ACUTE KIDNEY FAILURE, UNSPECIFIED Status: Acute Current Visit: Yes (4) Hypotension SNOMED Code(s): 35887987 Code(s): I95.9 - HYPOTENSION, UNSPECIFIED Status: Acute Current Visit: Yes (5) Cerebral palsy SNOMED Code(s): 029284641 Code(s): G80.9 - CEREBRAL PALSY, UNSPECIFIED Status: Chronic Current Visit: No (6) HTN (hypertension) SNOMED Code(s): 08486634 Code(s): I10 - ESSENTIAL (PRIMARY) HYPERTENSION Status: Chronic Current Visit: No Qualifiers: Hypertension type: essential hypertension (7) Vomiting SNOMED Code(s): 511330543 Code(s): R11.10 - VOMITING, UNSPECIFIED Status: Acute Current Visit: No (8) Leukocytosis SNOMED Code(s): 915494887, 914211467 Code(s): D72.829 - ELEVATED WHITE BLOOD CELL COUNT, UNSPECIFIED Status: Acute Current Visit: Yes (9) Hyperkalemia SNOMED Code(s): 02291687 Code(s): E87.5 - HYPERKALEMIA Status: Acute Current Visit: Yes (10) Gram-positive bacteremia SNOMED Code(s): 332130256621 Code(s): R78.81 - BACTEREMIA Status: Acute Current Visit: Yes - Problem List Review Problem List Initiated/Reviewed/Updated: Yes - My Orders Last 24 Hours: My Active Orders 05/13/21 08:03 Blood Glucose Check, Bedside [RC] STAT 05/13/21 08:30 Dextrose 50% in Water 50 ml IVPUSH ASDIRECTED PRN 05/13/21 Lunch Pureed Diet [DIET] 05/13/21 11:30 Pharmacy to Dose - Vancomycin 1 dose .XX ASDIRECTED 05/13/21 12:24 Remove Palma Catheter [Urinary Catheter Removal] [RC] PER UNIT ROUTINE 05/15/21 05:11 BASIC METABOLIC PANEL,BMP [CHEM] AM CBC WITH AUTO DIFF [HEME] AM MAGNESIUM [CHEM] AM 05/16/21 05:11 BASIC METABOLIC PANEL,BMP [CHEM] AM CBC WITH AUTO DIFF [HEME] AM MAGNESIUM [CHEM] AM - Plan Plan:: This 80-year-old female admitted with acute hypoxic respiratory failure suspected aspiration pneumonia, nausea vomiting, MONIKA and hyperkalemia 1. Acute hypoxic respiratory failure, suspected aspiration pneumonia -Keep oxygen sats greater than 90% wean as possible -1 out of 4 bottles returned with gram-positive cocci in clusters we will start vancomycin, returned coag negative staph likely contaminated sample as it is in 1 out of 4 bottles -Continue cefepime and azithromycin -Chest x-ray negative -DuoNebs as needed -Leukocytosis improved -Bedside nursing swallow patient is on nectar thick and pured diet at home 2. MONIKA -Improved -Continue to monitor -Remove Palma today 3. Hyperkalemia -Improved 4. Hypotension -Blood pressure much improved continue to hold lisinopril at this time due to recent MONIKA 5. Cerebral palsy: -Continue home medications VTE prophylaxis Heparin GI prophylaxis: Protonix CODE STATUS: DNR/DNI as confirmed by caregiver at bedside Dispo: 2 to 3 days pending improvement.
[2021-05-14] MEDS: predniSONE 5 MG Tab PO SCH ×2 (09:12→21:55)
[2021-05-14] MEDS: levETIRAcetam 500 MG Tab PO SCH ×2 (09:12→21:55)
[2021-05-14] MEDS ORDERED: Magnesium Sulfate/Water 2 GM in Premix Bag 1 BAG IV ONE (15:47)
[2021-05-14] MEDS: Cefepime 2 GM in Premix Bag 1 BAG IV SCH (18:27)
[2021-05-14] MEDS: Azithromycin 500 MG in Sodium Chloride 0.9% 250 ML IV SCH (19:04)
[2021-05-14] MEDS: Pantoprazole 40 MG Vial IV SCH (21:55)
[2021-05-15 06:49] LABS: BLOOD UREA NITROGEN,BUN 27 mg/dL (7.0-18.0); CARBON DIOXIDE,CO2 26.2 mmol/L (21.0-32.0); CHLORIDE,CL 108 mmol/L (98-107); GLUCOSE RANDOM 96 mg/dL (74-106); POTASSIUM,K 4.1 mmol/L (3.5-5.1); SODIUM,NA 141 mmol/L (136-145)
--- NOTE | 2021-05-15 08:10 | PCM.PN ---
- General Info Date of Service: 05/15/21 Admission Dx/Problem (Free Text): Admission Diagnosis/Problem Admission Diagnosis/Problem Pneumonia Subjective Update: Much more alert today. Sitting up in chair eating breakfast with the help of student nurse. Denies any pain very, tearful she would like to go home when possible. On second rounds caregiver in room. Patient continues to be very alert and caregiver feels she is near baseline. Will have 1 more day and plan on discharge in a.m. Functional Status: Reports: Pain Controlled, Tolerating Diet, Urinating. Denies: Ambulating (Does not ambulate at baseline) - Review of Systems General: Reports: No Symptoms HEENT: Reports: No Symptoms. Denies: Headaches, Sore Throat Pulmonary: Reports: No Symptoms. Denies: Shortness of Breath Cardiovascular: Reports: No Symptoms. Denies: Chest Pain Gastrointestinal: Reports: No Symptoms. Denies: Abdominal Pain, Nausea, Vomiting Genitourinary: Reports: No Symptoms. Denies: Dysuria, Frequency, Burning Musculoskeletal: Reports: No Symptoms Skin: Reports: No Symptoms Neurological: Reports: No Symptoms Psychiatric: Reports: No Symptoms - Patient Data Vitals - Most Recent: Last Vital Signs Temp 98.0 F 05/15/21 07:53 Pulse 65 05/15/21 07:53 Resp 16 05/15/21 07:53 BP 128/68 05/15/21 07:53 Pulse Ox 92 L 05/15/21 07:53 Weight - Most Recent: 52 kg I&O - Last 24 Hours: Intake & Output 05/14/21 05/15/21 05/15/21 22:59 06:59 14:59 Intake Total 720 120 Output Total 200 Balance 520 120 Lab Results Last 24 Hours: Laboratory Results - last 24 hr 05/14/21 05/14/21 05/14/21 Range/Units 08:12 09:59 11:43 WBC (4.0-11.0) K/uL RBC (4.30-5.90) M/uL Hgb (12.0-16.0) g/dL Hct (36.0-46.0) % MCV (80.0-98.0) fL MCH (27.0-32.0) pg MCHC (31.0-37.0) g/dL RDW Std Deviation (28.0-62.0) fl RDW Coeff of Erik (11.0-15.0) % Plt Count (150-400) K/uL MPV (7.40-12.00) fL Neut % (Auto) (48.0-80.0) % Lymph % (Auto) (16.0-40.0) % Craven % (Auto) (0.0-15.0) % Eos % (Auto) (0.0-7.0) % Baso % (Auto) (0.0-1.5) % Neut # (Auto) (1.4-5.7) K/uL Lymph # (Auto) (0.6-2.4) K/uL Craven # (Auto) (0.0-0.8) K/uL Eos # (Auto) (0.0-0.7) K/uL Baso # (Auto) (0.0-0.1) K/uL Nucleated RBC % /100WBC Nucleated RBCs # K/uL Sodium (136-145) mmol/L Potassium (3.5-5.1) mmol/L Chloride (98-107) mmol/L Carbon Dioxide (21.0-32.0) mmol/L BUN (7.0-18.0) mg/dL Creatinine (0.6-1.0) mg/dL Est Cr Clr Drug Dosing mL/min Estimated GFR (MDRD) ml/min Glucose (74-106) mg/dL POC Glucose 67 L 153 H 134 H (70-99) mg/dL Calcium (8.5-10.1) mg/dL Magnesium (1.8-2.4) mg/dL 05/14/21 05/14/21 05/14/21 Range/Units 17:02 18:26 23:18 WBC (4.0-11.0) K/uL RBC (4.30-5.90) M/uL Hgb (12.0-16.0) g/dL Hct (36.0-46.0) % MCV (80.0-98.0) fL MCH (27.0-32.0) pg MCHC (31.0-37.0) g/dL RDW Std Deviation (28.0-62.0) fl RDW Coeff of Erik (11.0-15.0) % Plt Count (150-400) K/uL MPV (7.40-12.00) fL Neut % (Auto) (48.0-80.0) % Lymph % (Auto) (16.0-40.0) % Craven % (Auto) (0.0-15.0) % Eos % (Auto) (0.0-7.0) % Baso % (Auto) (0.0-1.5) % Neut # (Auto) (1.4-5.7) K/uL Lymph # (Auto) (0.6-2.4) K/uL Craven # (Auto) (0.0-0.8) K/uL Eos # (Auto) (0.0-0.7) K/uL Baso # (Auto) (0.0-0.1) K/uL Nucleated RBC % /100WBC Nucleated RBCs # K/uL Sodium (136-145) mmol/L Potassium (3.5-5.1) mmol/L Chloride (98-107) mmol/L Carbon Dioxide (21.0-32.0) mmol/L BUN (7.0-18.0) mg/dL Creatinine (0.6-1.0) mg/dL Est Cr Clr Drug Dosing mL/min Estimated GFR (MDRD) ml/min Glucose (74-106) mg/dL POC Glucose 64 L 103 H 111 H (70-99) mg/dL Calcium (8.5-10.1) mg/dL Magnesium (1.8-2.4) mg/dL 05/15/21 05/15/21 05/15/21 Range/Units 03:00 05:20 05:20 WBC 5.42 (4.0-11.0) K/uL RBC 2.79 L (4.30-5.90) M/uL Hgb 9.0 L (12.0-16.0) g/dL Hct 26.9 L (36.0-46.0) % MCV 96.4 (80.0-98.0) fL MCH 32.3 H (27.0-32.0) pg MCHC 33.5 (31.0-37.0) g/dL RDW Std Deviation 57.6 (28.0-62.0) fl RDW Coeff of Erik 16 H (11.0-15.0) % Plt Count 160 (150-400) K/uL MPV 10.20 (7.40-12.00) fL Neut % (Auto) 47.2 L (48.0-80.0) % Lymph % (Auto) 43.0 H (16.0-40.0) % Craven % (Auto) 8.1 (0.0-15.0) % Eos % (Auto) 1.3 (0.0-7.0) % Baso % (Auto) 0.4 (0.0-1.5) % Neut # (Auto) 2.6 (1.4-5.7) K/uL Lymph # (Auto) 2.3 (0.6-2.4) K/uL Craven # (Auto) 0.4 (0.0-0.8) K/uL Eos # (Auto) 0.1 (0.0-0.7) K/uL Baso # (Auto) 0.0 (0.0-0.1) K/uL Nucleated RBC % 0.0 /100WBC Nucleated RBCs # 0 K/uL Sodium 141 (136-145) mmol/L Potassium 4.1 (3.5-5.1) mmol/L Chloride 108 H (98-107) mmol/L Carbon Dioxide 26.2 (21.0-32.0) mmol/L BUN 27 H (7.0-18.0) mg/dL Creatinine 0.6 (0.6-1.0) mg/dL Est Cr Clr Drug Dosing 52.82 mL/min Estimated GFR (MDRD) > 60.0 ml/min Glucose 96 (74-106) mg/dL POC Glucose 78 (70-99) mg/dL Calcium 8.5 (8.5-10.1) mg/dL Magnesium 2.3 (1.8-2.4) mg/dL 05/15/21 Range/Units 06:23 WBC (4.0-11.0) K/uL RBC (4.30-5.90) M/uL Hgb (12.0-16.0) g/dL Hct (36.0-46.0) % MCV (80.0-98.0) fL MCH (27.0-32.0) pg MCHC (31.0-37.0) g/dL RDW Std Deviation (28.0-62.0) fl RDW Coeff of Erik (11.0-15.0) % Plt Count (150-400) K/uL MPV (7.40-12.00) fL Neut % (Auto) (48.0-80.0) % Lymph % (Auto) (16.0-40.0) % Craven % (Auto) (0.0-15.0) % Eos % (Auto) (0.0-7.0) % Baso % (Auto) (0.0-1.5) % Neut # (Auto) (1.4-5.7) K/uL Lymph # (Auto) (0.6-2.4) K/uL Craven # (Auto) (0.0-0.8) K/uL Eos # (Auto) (0.0-0.7) K/uL Baso # (Auto) (0.0-0.1) K/uL Nucleated RBC % /100WBC Nucleated RBCs # K/uL Sodium (136-145) mmol/L Potassium (3.5-5.1) mmol/L Chloride (98-107) mmol/L Carbon Dioxide (21.0-32.0) mmol/L BUN (7.0-18.0) mg/dL Creatinine (0.6-1.0) mg/dL Est Cr Clr Drug Dosing mL/min Estimated GFR (MDRD) ml/min Glucose (74-106) mg/dL POC Glucose 85 (70-99) mg/dL Calcium (8.5-10.1) mg/dL Magnesium (1.8-2.4) mg/dL [place]ion Results Last 24 Hours: Microbiology 05/12/21 09:33 Blood Culture Identification Panel - Final Blood Staphylococcus Coagulase Neg 05/12/21 09:40 Aerobic Blood Culture - Preliminary Blood - Venous - Lab Draw NO GROWTH AFTER 2 DAYS Anaerobic Blood Culture - Preliminary NO GROWTH AFTER 2 DAYS 05/12/21 09:33 Aerobic Blood Culture - Preliminary Blood - Venous Anaerobic Blood Culture - Preliminary NO GROWTH AFTER 2 DAYS 05/12/21 09:33 Bacteria Detection (PCR) - Final Blood Med Orders - Current: Current Medications Acetaminophen (Acetaminophen 325 Mg Tab) 650 mg PO Q4H PRN PRN Reason: Pain (Mild 1-3)/fever Last Admin: 05/13/21 16:19 Dose: 650 mg Documented by: Dextrose/Water (50% Dextrose In Water 50 Ml Syringe) 50 ml IVPUSH ASDIRECTED PRN PRN Reason: Hypoglycemia Last Admin: 05/14/21 08:20 Dose: 50 ml Documented by: Cefepime HCl 2 gm/ Premix 50 mls @ 0 mls/hr IV Q24H [facility] Last Admin: 05/14/21 18:27 Dose: 100 mls/hr Documented by: Azithromycin 500 mg/ Sodium (Chloride) 250 mls @ 250 mls/hr IV DAILY@1900 [facility] Last Admin: 05/14/21 19:04 Dose: 250 mls/hr Documented by: Vancomycin HCl 1 gm/ Sodium (Chloride) 250 mls @ 166.667 mls/hr IV Q24H [facility] Last Admin: 05/14/21 12:24 Dose: 166.667 mls/hr Documented by: Levetiracetam (Levetiracetam 500 Mg Tab) 250 mg PO BID [facility] Last Admin: 05/14/21 21:55 Dose: 250 mg Documented by: Ondansetron HCl (Ondansetron 4 Mg/2 Ml Sdv) 4 mg IVPUSH Q4H PRN PRN Reason: Nausea Pantoprazole Sodium (Pantoprazole 40 Mg Vial) 40 mg IV BEDTIME [facility] Last Admin: 05/14/21 21:55 Dose: 40 mg Documented by: Prednisone (Prednisone 5 Mg Tab) 2.5 mg PO BID [facility] Last Admin: 05/14/21 21:55 Dose: 2.5 mg Documented by: Sodium Chloride (Sodium Chloride 0.9% 2.5 Ml Syringe) 2.5 ml FLUSH ASDIRECTED PRN PRN Reason: Keep Vein Open Vancomycin HCl (Pharmacy To Dose - Vancomycin) 1 dose .XX ASDIRECTED [facility] Discontinued Medications Calcium Gluconate (Calcium Gluconate 10% 1 Gm/10 Ml Sdv) 1 gm IVPUSH ONETIME ONE Stop: 05/12/21 10:31 Last Admin: 05/12/21 10:56 Dose: 1 gm Documented by: Dextrose/Water (50% Dextrose In Water 50 Ml Syringe) 25 ml IVPUSH ONETIME ONE Stop: 05/12/21 10:31 Last Admin: 05/12/21 10:56 Dose: 25 ml Documented by: Dextrose/Water (50% Dextrose In Water 50 Ml Syringe) 25 ml IVPUSH ONETIME ONE Stop: 05/13/21 08:31 Last Admin: 05/13/21 08:42 Dose: 25 ml Documented by: Heparin Sodium (Porcine) (Heparin Sodium 5,000 Units/Ml Vial) 5,000 units SUBCUT Q12H [facility] Last Admin: 05/12/21 18:49 Dose: Not Given Documented by: Heparin Sodium (Porcine) (Heparin Sodium 5,000 Units/Ml Vial) 5,000 units SUBCUT Q12H [facility] Last Admin: 05/13/21 23:12 Dose: 5,000 units Documented by: Sodium Chloride (Normal Saline) 1,000 mls @ 999 mls/hr IV .Bolus ONE Stop: 05/12/21 10:03 Last Admin: 05/12/21 09:32 Dose: 999 mls/hr Documented by: Cefepime HCl 2 gm/ Premix 50 mls @ 100 mls/hr IV ONETIME ONE Stop: 05/12/21 11:01 Last Admin: 05/12/21 11:48 Dose: 100 mls/hr Documented by: Sodium Chloride (Normal Saline) 1,000 mls @ 200 mls/hr IV STAT STA Stop: 05/12/21 15:33 Last Admin: 05/12/21 10:57 Dose: Not Given Documented by: Sodium Chloride (Normal Saline) 1,000 mls @ 999 mls/hr IV .Bolus ONE Stop: 05/12/21 11:45 Last Admin: 05/12/21 10:54 Dose: 999 mls/hr Documented by: Azithromycin 500 mg/ Sodium (Chloride) 250 mls @ 250 mls/hr IV DAILY [facility] Last Admin: 05/12/21 18:48 Dose: Not Given Documented by: Azithromycin 500 mg/ Sodium (Chloride) 250 mls @ 250 mls/hr IV DAILY [facility] Magnesium Sulfate 2 gm/ Premix 50 mls @ 25 mls/hr IV ONETIME ONE Stop: 05/14/21 17:46 Last Admin: 05/14/21 16:27 Dose: 25 mls/hr Documented by: Insulin Human Regular (Insulin Regular, Human 100 Units/Ml 10 Ml Vial) 5 unit IVPUSH ONETIME ONE; Protocol Stop: 05/12/21 10:31 Last Admin: 05/12/21 10:56 Dose: 5 unit Documented by: Pantoprazole Sodium (Pantoprazole 40 Mg Vial) 40 mg IV Q24H [facility] Last Admin: 05/12/21 18:49 Dose: Not Given Documented by: - Exam Quality Assessment: No: Supplemental Oxygen Urinary Catheter Total Time: 0Days 22Hours General: Alert, Oriented, Cooperative Lungs: Clear to Auscultation, Normal Respiratory Effort Cardiovascular: Regular Rate, Regular Rhythm GI/Abdominal Exam: Normal Bowel Sounds, Soft, Non-Tender Extremities: Normal Inspection, Normal Range of Motion, Non-Tender, Pedal Edema (+1 nonpitting edema) Neurological: No New Focal Deficit Psy/Mental Status: Alert, Normal Affect, Normal Mood - Patient Data Lab Results Last 24 hrs: Laboratory Results - last 24 hr 05/14/21 05/14/21 05/14/21 Range/Units 08:12 09:59 11:43 WBC (4.0-11.0) K/uL RBC (4.30-5.90) M/uL Hgb (12.0-16.0) g/dL Hct (36.0-46.0) % MCV (80.0-98.0) fL MCH (27.0-32.0) pg MCHC (31.0-37.0) g/dL RDW Std Deviation (28.0-62.0) fl RDW Coeff of Erik (11.0-15.0) % Plt Count (150-400) K/uL MPV (7.40-12.00) fL Neut % (Auto) (48.0-80.0) % Lymph % (Auto) (16.0-40.0) % Craven % (Auto) (0.0-15.0) % Eos % (Auto) (0.0-7.0) % Baso % (Auto) (0.0-1.5) % Neut # (Auto) (1.4-5.7) K/uL Lymph # (Auto) (0.6-2.4) K/uL Craven # (Auto) (0.0-0.8) K/uL Eos # (Auto) (0.0-0.7) K/uL Baso # (Auto) (0.0-0.1) K/uL Nucleated RBC % /100WBC Nucleated RBCs # K/uL Sodium (136-145) mmol/L Potassium (3.5-5.1) mmol/L Chloride (98-107) mmol/L Carbon Dioxide (21.0-32.0) mmol/L BUN (7.0-18.0) mg/dL Creatinine (0.6-1.0) mg/dL Est Cr Clr Drug Dosing mL/min Estimated GFR (MDRD) ml/min Glucose (74-106) mg/dL POC Glucose 67 L 153 H 134 H (70-99) mg/dL Calcium (8.5-10.1) mg/dL Magnesium (1.8-2.4) mg/dL 05/14/21 05/14/21 05/14/21 Range/Units 17:02 18:26 23:18 WBC (4.0-11.0) K/uL RBC (4.30-5.90) M/uL Hgb (12.0-16.0) g/dL Hct (36.0-46.0) % MCV (80.0-98.0) fL MCH (27.0-32.0) pg MCHC (31.0-37.0) g/dL RDW Std Deviation (28.0-62.0) fl RDW Coeff of Erik (11.0-15.0) % Plt Count (150-400) K/uL MPV (7.40-12.00) fL Neut % (Auto) (48.0-80.0) % Lymph % (Auto) (16.0-40.0) % Craven % (Auto) (0.0-15.0) % Eos % (Auto) (0.0-7.0) % Baso % (Auto) (0.0-1.5) % Neut # (Auto) (1.4-5.7) K/uL Lymph # (Auto) (0.6-2.4) K/uL Craven # (Auto) (0.0-0.8) K/uL Eos # (Auto) (0.0-0.7) K/uL Baso # (Auto) (0.0-0.1) K/uL Nucleated RBC % /100WBC Nucleated RBCs # K/uL Sodium (136-145) mmol/L Potassium (3.5-5.1) mmol/L Chloride (98-107) mmol/L Carbon Dioxide (21.0-32.0) mmol/L BUN (7.0-18.0) mg/dL Creatinine (0.6-1.0) mg/dL Est Cr Clr Drug Dosing mL/min Estimated GFR (MDRD) ml/min Glucose (74-106) mg/dL POC Glucose 64 L 103 H 111 H (70-99) mg/dL Calcium (8.5-10.1) mg/dL Magnesium (1.8-2.4) mg/dL 05/15/21 05/15/21 05/15/21 Range/Units 03:00 05:20 05:20 WBC 5.42 (4.0-11.0) K/uL RBC 2.79 L (4.30-5.90) M/uL Hgb 9.0 L (12.0-16.0) g/dL Hct 26.9 L (36.0-46.0) % MCV 96.4 (80.0-98.0) fL MCH 32.3 H (27.0-32.0) pg MCHC 33.5 (31.0-37.0) g/dL RDW Std Deviation 57.6 (28.0-62.0) fl RDW Coeff of Erik 16 H (11.0-15.0) % Plt Count 160 (150-400) K/uL MPV 10.20 (7.40-12.00) fL Neut % (Auto) 47.2 L (48.0-80.0) % Lymph % (Auto) 43.0 H (16.0-40.0) % Craven % (Auto) 8.1 (0.0-15.0) % Eos % (Auto) 1.3 (0.0-7.0) % Baso % (Auto) 0.4 (0.0-1.5) % Neut # (Auto) 2.6 (1.4-5.7) K/uL Lymph # (Auto) 2.3 (0.6-2.4) K/uL Craven # (Auto) 0.4 (0.0-0.8) K/uL Eos # (Auto) 0.1 (0.0-0.7) K/uL Baso # (Auto) 0.0 (0.0-0.1) K/uL Nucleated RBC % 0.0 /100WBC Nucleated RBCs # 0 K/uL Sodium 141 (136-145) mmol/L Potassium 4.1 (3.5-5.1) mmol/L Chloride 108 H (98-107) mmol/L Carbon Dioxide 26.2 (21.0-32.0) mmol/L BUN 27 H (7.0-18.0) mg/dL Creatinine 0.6 (0.6-1.0) mg/dL Est Cr Clr Drug Dosing 52.82 mL/min Estimated GFR (MDRD) > 60.0 ml/min Glucose 96 (74-106) mg/dL POC Glucose 78 (70-99) mg/dL Calcium 8.5 (8.5-10.1) mg/dL Magnesium 2.3 (1.8-2.4) mg/dL 05/15/21 Range/Units 06:23 WBC (4.0-11.0) K/uL RBC (4.30-5.90) M/uL Hgb (12.0-16.0) g/dL Hct (36.0-46.0) % MCV (80.0-98.0) fL MCH (27.0-32.0) pg MCHC (31.0-37.0) g/dL RDW Std Deviation (28.0-62.0) fl RDW Coeff of Erik (11.0-15.0) % Plt Count (150-400) K/uL MPV (7.40-12.00) fL Neut % (Auto) (48.0-80.0) % Lymph % (Auto) (16.0-40.0) % Craven % (Auto) (0.0-15.0) % Eos % (Auto) (0.0-7.0) % Baso % (Auto) (0.0-1.5) % Neut # (Auto) (1.4-5.7) K/uL Lymph # (Auto) (0.6-2.4) K/uL Craven # (Auto) (0.0-0.8) K/uL Eos # (Auto) (0.0-0.7) K/uL Baso # (Auto) (0.0-0.1) K/uL Nucleated RBC % /100WBC Nucleated RBCs # K/uL Sodium (136-145) mmol/L Potassium (3.5-5.1) mmol/L Chloride (98-107) mmol/L Carbon Dioxide (21.0-32.0) mmol/L BUN (7.0-18.0) mg/dL Creatinine (0.6-1.0) mg/dL Est Cr Clr Drug Dosing mL/min Estimated GFR (MDRD) ml/min Glucose (74-106) mg/dL POC Glucose 85 (70-99) mg/dL Calcium (8.5-10.1) mg/dL Magnesium (1.8-2.4) mg/dL Result Diagrams: 05/15/21 05:20 05/15/21 05:20 [place]ion Results Last 24 hrs: Microbiology 05/12/21 09:33 Blood Culture Identification Panel - Final Blood Staphylococcus Coagulase Neg 05/12/21 09:40 Aerobic Blood Culture - Preliminary Blood - Venous - Lab Draw NO GROWTH AFTER 2 DAYS Anaerobic Blood Culture - Preliminary NO GROWTH AFTER 2 DAYS 05/12/21 09:33 Aerobic Blood Culture - Preliminary Blood - Venous Anaerobic Blood Culture - Preliminary NO GROWTH AFTER 2 DAYS 05/12/21 09:33 Bacteria Detection (PCR) - Final Blood Sepsis Event Note - Evaluation Sepsis Screening Result: No Definite Risk - Focused Exam Vital Signs: Vital Signs Temp Pulse Resp BP Pulse Ox 05/15/21 07:53 98.0 F 65 16 128/68 92 L 05/15/21 04:00 97 F 67 16 127/57 L 95 05/15/21 00:00 96.1 F L 65 16 143/67 H 95 - Problem List & Annotations (1) Acute respiratory failure with hypoxia SNOMED Code(s): 97538815, 007132432 Code(s): J96.01 - ACUTE RESPIRATORY FAILURE WITH HYPOXIA Status: Acute Current Visit: No (2) Aspiration pneumonia SNOMED Code(s): 703557042 Code(s): J69.0 - PNEUMONITIS DUE TO INHALATION OF FOOD AND VOMIT Status: Suspected Current Visit: No (3) MONIKA (acute kidney injury) SNOMED Code(s): 50026531, 69641307 Code(s): N17.9 - ACUTE KIDNEY FAILURE, UNSPECIFIED Status: Acute Current Visit: Yes (4) Hypotension SNOMED Code(s): 08345944 Code(s): I95.9 - HYPOTENSION, UNSPECIFIED Status: Acute Current Visit: Yes (5) Cerebral palsy SNOMED Code(s): 151529887 Code(s): G80.9 - CEREBRAL PALSY, UNSPECIFIED Status: Chronic Current Visit: No (6) HTN (hypertension) SNOMED Code(s): 11543900 Code(s): I10 - ESSENTIAL (PRIMARY) HYPERTENSION Status: Chronic Current Visit: No Qualifiers: Hypertension type: essential hypertension (7) Vomiting SNOMED Code(s): 327211139 Code(s): R11.10 - VOMITING, UNSPECIFIED Status: Acute Current Visit: No (8) Leukocytosis SNOMED Code(s): 485362656, 888723022 Code(s): D72.829 - ELEVATED WHITE BLOOD CELL COUNT, UNSPECIFIED Status: Acute Current Visit: Yes (9) Hyperkalemia SNOMED Code(s): 27757757 Code(s): E87.5 - HYPERKALEMIA Status: Acute Current Visit: Yes (10) Gram-positive bacteremia SNOMED Code(s): 958937522852 Code(s): R78.81 - BACTEREMIA Status: Acute Current Visit: Yes - Problem List Review Problem List Initiated/Reviewed/Updated: Yes - My Orders Last 24 Hours: My Active Orders 05/14/21 08:14 Blood Glucose Check, Bedside [RC] Q4H 05/14/21 11:37 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 Acute hypoxic respiratory failure, suspected aspiration pneumonia -Keep oxygen sats greater than 90% wean as possible - blood cultures 1 out of 4 returned with coag negative staph likely contaminated sample will discontinue vancomycin -Continue cefepime and azithromycin -Chest x-ray negative -DuoNebs as needed -Leukocytosis improved -Bedside nursing swallow patient is on nectar thick and pured diet at home 2. HTN -With recent MONIKA holding lisinopril -Likely restart on discharge 3. Cerebral palsy: -Continue home medications VTE prophylaxis SCDs GI prophylaxis: Protonix CODE STATUS: DNR/DNI as confirmed by caregiver at bedside Dispo: Home in a.m.
[2021-05-15] MEDS: predniSONE 5 MG Tab PO SCH ×2 (08:36→21:25)
[2021-05-15] MEDS: levETIRAcetam 500 MG Tab PO SCH ×2 (08:38→21:24)
[2021-05-15] MEDS: Cefepime 2 GM in Premix Bag 1 BAG IV SCH (16:43)
[2021-05-15] MEDS: Azithromycin 500 MG in Sodium Chloride 0.9% 250 ML IV SCH (18:43)
[2021-05-15] MEDS: Pantoprazole 40 MG Vial IV SCH (21:24)
[2021-05-16 06:20] LABS: BLOOD UREA NITROGEN,BUN 21 mg/dL (7.0-18.0); CARBON DIOXIDE,CO2 25.5 mmol/L (21.0-32.0); CHLORIDE,CL 108 mmol/L (98-107); GLUCOSE RANDOM 86 mg/dL (74-106); POTASSIUM,K 4.1 mmol/L (3.5-5.1); SODIUM,NA 140 mmol/L (136-145)
[2021-05-16] MEDS ORDERED: Levofloxacin 750 MG Tab PO SCH (08:00)
[2021-05-16] MEDS: predniSONE 5 MG Tab PO SCH (08:35)
[2021-05-16] MEDS: levETIRAcetam 500 MG Tab PO SCH (08:35)
--- NOTE | 2021-05-16 09:21 | PCM.DCSUM1 ---
Discharge Summary - Hospital Course Brief History: This 79-year-old female with past medical history of cerebral palsy, hypertension, frequent falls, and frequent UTIs with admissions in the past. Patient lives at the [facility] presented to the ER with complaints of worsening gurgling respirations and cough. History is provided by the automatic spinning lathe operator who has been noting these last couple days patient is nonverbal at baseline. They report she had an episode of emesis multiple times over the weekend. No fevers patient does not wear oxygen. The caregiver today reports she has been getting her medications over the weekend and saw her this morning and felt as though she was worsening and needed to be evaluated. There has been no episodes of fever the caregiver reports she feels as though she is in pain when they move her. Patient is nonambulatory but does pivot transfer to her wheelchair. She has seemed less spunky and not herself the last couple days. She normally eats a pured nectar thick diet. She has been drooling which is abnormal at baseline and they feel her phlegm is little bit thicker than normal. Caregiver reports patient is a DNR/DNI. In the ER leukocytosis noted at 18,000 hemoglobin 10.9 hematocrit 32.8. Platelets 193,000. Potassium 5.5 BUN 54 creatinine 2.4 which is elevated from baseline. Lactic acid 1.3 calcium 11.1. Which has been elevated in the past. Magnesium 2.3. CRP 21.2. Troponin negative. UA negative Covid swab negative. Chest x-ray shows no acute cardiopulmonary process. Mild stable cardiomegaly. In the ER she was noted to be hypoxic with hypotension. Blood pressures initially 70s over 20s. Blood pressure has improved to 94/43 with IV fluids. Placed on 2 L oxygen has increased to 95%. Heart rates 70s to 80s patient has been afebrile. Patient will be admitted for suspected aspiration pneumonia in the ER she was treated with 2 L IV fluids and cefepime 2 g IV. - Discharge Data Discharge Date: 05/16/21 Discharge Disposition: DC/Tfer to [facility] Condition: Stable - Referral to Home Health Primary Care Physician: Jabari Teran MD - Discharge Diagnosis/Problem(s) (1) Acute respiratory failure with hypoxia SNOMED Code(s): 40462881, 115329640 ICD Code: J96.01 - ACUTE RESPIRATORY FAILURE WITH HYPOXIA Status: Acute (2) Aspiration pneumonia SNOMED Code(s): 748779822 ICD Code: J69.0 - PNEUMONITIS DUE TO INHALATION OF FOOD AND VOMIT Status: Suspected (3) MONIKA (acute kidney injury) SNOMED Code(s): 06815740, 61684482 ICD Code: N17.9 - ACUTE KIDNEY FAILURE, UNSPECIFIED Status: Acute (4) Hypotension SNOMED Code(s): 26142154 ICD Code: I95.9 - HYPOTENSION, UNSPECIFIED Status: Acute (5) Cerebral palsy SNOMED Code(s): 778656367 ICD Code: G80.9 - CEREBRAL PALSY, UNSPECIFIED Status: Chronic (6) HTN (hypertension) SNOMED Code(s): 95889568 ICD Code: I10 - ESSENTIAL (PRIMARY) HYPERTENSION Status: Chronic Qualifiers: Hypertension type: essential hypertension (7) Vomiting SNOMED Code(s): 680981092 ICD Code: R11.10 - VOMITING, UNSPECIFIED Status: Acute (8) Leukocytosis SNOMED Code(s): 666405276, 538456449 ICD Code: D72.829 - ELEVATED WHITE BLOOD CELL COUNT, UNSPECIFIED Status: Acute (9) Hyperkalemia SNOMED Code(s): 69649433 ICD Code: E87.5 - HYPERKALEMIA Status: Acute (10) Gram-positive bacteremia SNOMED Code(s): 364905400555 ICD Code: R78.81 - BACTEREMIA Status: Acute - Patient Summary/Data Hospital Course: Admission diagnoses Acute respiratory failure with hypoxia Aspiration pneumonia MONIKA Hypotension Discharge diagnoses acute hypoxic respiratory failure resolved Aspiration ammonia MONIKA resolved Hypotension resolved Other PMH cerebral palsy HTN Patient was admitted secondary to acute hypoxic respiratory failure with likely suspected aspiration pneumonia. Patient was treated with broad-spectrum antibiotics of cefepime and azithromycin. Patient was treated with IV fluids in the ER with significant improvement in blood pressure. Blood cultures did return with 1 out of 4 gram-positive cocci but this was coag negative staph likely contaminated sample. Patient continued to improve daily. Leukocytosis improved hyperkalemia improved. MONIKA improved. Today patient much more alert and conversational which is near baseline. Patient automatic spinning lathe operator was in room yesterday and felt patient was definitely at baseline. Patient will be discharged home today with Levaquin 750 mg daily for total of 7-day treatment. She is to follow-up with PCP in 7 to 10 days. Hypercalcemia noted on arrival which has been noted in the past as well. Patient to stop taking vitamin D and calcium supplement and have PCP monitor lab work as an outpatient. - Patient Instructions Diet: Pureed (nectar thick liquids) Activity: As Tolerated, No Strenuous Activities Showering/Bathing: May Shower Notify Provider of: Fever, Increased Pain, Swelling and Redness, Drainage, Nausea and/or Vomiting - Discharge Plan Prescriptions/Med Rec: levoFLOXacin [Levaquin] 750 mg PO DAILY #2 tab Home Medications: Home Meds Polyethylene Glycol [Polyox Wsr-301] 17 gm PO DAILY 01/14/20 [History] Ascorbic Acid [Vitamin C] 500 mg PO DAILY 08/21/20 [History] predniSONE 2.5 mg PO BID 08/21/20 [History] Multivit with Iron,Minerals [Flintstones Complete] 1 tab PO DAILY 03/03/21 [History] lisinopriL [Lisinopril] 20 mg PO DAILY 03/03/21 [History] levETIRAcetam [Keppra] 250 mg PO BID 05/12/21 [History] Sulfamethoxazole/Trimethoprim [Bactrim 400-80 MG] 0.5 tab PO BEDTIME #0 05/15/21 [Rx] levoFLOXacin [Levaquin] 750 mg PO DAILY #2 tab 05/15/21 [Rx] Oxygen Therapy Mode: Room Air Patient Handouts: Levofloxacin tablets, Aspiration Pneumonia, Adult Referrals: Jabari Teran MD [Primary Care Provider] - 05/21/21 12:30 pm - Discharge Summary/Plan Comment DC Time >30 min.: No Total # of Minutes for Discharge Time: 25 - Patient Data Vitals - Most Recent: Last Vital Signs Temp 97.5 F 05/16/21 05:00 Pulse 62 05/16/21 05:00 Resp 17 05/16/21 05:00 BP 130/62 05/16/21 05:00 Pulse Ox 95 05/16/21 05:00 Weight - Most Recent: 52.3 kg I&O - Last 24 hours: Intake & Output 05/15/21 05/16/21 05/16/21 22:59 06:59 14:59 Intake Total 100 Balance 100 Lab Results - Last 24 hrs: Laboratory Results - last 24 hr 05/15/21 05/15/21 05/15/21 Range/Units 09:53 17:35 22:56 WBC (4.0-11.0) K/uL RBC (4.30-5.90) M/uL Hgb (12.0-16.0) g/dL Hct (36.0-46.0) % MCV (80.0-98.0) fL MCH (27.0-32.0) pg MCHC (31.0-37.0) g/dL RDW Std Deviation (28.0-62.0) fl RDW Coeff of Erik (11.0-15.0) % Plt Count (150-400) K/uL MPV (7.40-12.00) fL Neut % (Auto) (48.0-80.0) % Lymph % (Auto) (16.0-40.0) % [place] % (Auto) (0.0-15.0) % Eos % (Auto) (0.0-7.0) % Baso % (Auto) (0.0-1.5) % Neut # (Auto) (1.4-5.7) K/uL Lymph # (Auto) (0.6-2.4) K/uL [place] # (Auto) (0.0-0.8) K/uL Eos # (Auto) (0.0-0.7) K/uL Baso # (Auto) (0.0-0.1) K/uL Nucleated RBC % /100WBC Nucleated RBCs # K/uL Sodium (136-145) mmol/L Potassium (3.5-5.1) mmol/L Chloride (98-107) mmol/L Carbon Dioxide (21.0-32.0) mmol/L BUN (7.0-18.0) mg/dL Creatinine (0.6-1.0) mg/dL Est Cr Clr Drug Dosing mL/min Estimated GFR (MDRD) ml/min Glucose (74-106) mg/dL POC Glucose 86 103 H 102 H (70-99) mg/dL Calcium (8.5-10.1) mg/dL Magnesium (1.8-2.4) mg/dL 05/16/21 05/16/21 05/16/21 Range/Units 02:45 05:05 05:05 WBC 5.10 (4.0-11.0) K/uL RBC 2.89 L (4.30-5.90) M/uL Hgb 9.4 L (12.0-16.0) g/dL Hct 27.7 L (36.0-46.0) % MCV 95.8 (80.0-98.0) fL MCH 32.5 H (27.0-32.0) pg MCHC 33.9 (31.0-37.0) g/dL RDW Std Deviation 57.8 (28.0-62.0) fl RDW Coeff of Erik 17 H (11.0-15.0) % Plt Count 163 (150-400) K/uL MPV 10.40 (7.40-12.00) fL Neut % (Auto) 38.0 L (48.0-80.0) % Lymph % (Auto) 52.4 H (16.0-40.0) % [place] % (Auto) 8.0 (0.0-15.0) % Eos % (Auto) 1.4 (0.0-7.0) % Baso % (Auto) 0.2 (0.0-1.5) % Neut # (Auto) 1.9 (1.4-5.7) K/uL Lymph # (Auto) 2.7 H (0.6-2.4) K/uL [place] # (Auto) 0.4 (0.0-0.8) K/uL Eos # (Auto) 0.1 (0.0-0.7) K/uL Baso # (Auto) 0.0 (0.0-0.1) K/uL Nucleated RBC % 0.5 /100WBC Nucleated RBCs # 0 K/uL Sodium 140 (136-145) mmol/L Potassium 4.1 (3.5-5.1) mmol/L Chloride 108 H (98-107) mmol/L Carbon Dioxide 25.5 (21.0-32.0) mmol/L BUN 21 H (7.0-18.0) mg/dL Creatinine 0.6 (0.6-1.0) mg/dL Est Cr Clr Drug Dosing 52.82 mL/min Estimated GFR (MDRD) > 60.0 ml/min Glucose 86 (74-106) mg/dL POC Glucose 91 (70-99) mg/dL Calcium 8.2 L (8.5-10.1) mg/dL Magnesium 2.0 (1.8-2.4) mg/dL 05/16/21 Range/Units 06:35 WBC (4.0-11.0) K/uL RBC (4.30-5.90) M/uL Hgb (12.0-16.0) g/dL Hct (36.0-46.0) % MCV (80.0-98.0) fL MCH (27.0-32.0) pg MCHC (31.0-37.0) g/dL RDW Std Deviation (28.0-62.0) fl RDW Coeff of Erik (11.0-15.0) % Plt Count (150-400) K/uL MPV (7.40-12.00) fL Neut % (Auto) (48.0-80.0) % Lymph % (Auto) (16.0-40.0) % [place] % (Auto) (0.0-15.0) % Eos % (Auto) (0.0-7.0) % Baso % (Auto) (0.0-1.5) % Neut # (Auto) (1.4-5.7) K/uL Lymph # (Auto) (0.6-2.4) K/uL [place] # (Auto) (0.0-0.8) K/uL Eos # (Auto) (0.0-0.7) K/uL Baso # (Auto) (0.0-0.1) K/uL Nucleated RBC % /100WBC Nucleated RBCs # K/uL Sodium (136-145) mmol/L Potassium (3.5-5.1) mmol/L Chloride (98-107) mmol/L Carbon Dioxide (21.0-32.0) mmol/L BUN (7.0-18.0) mg/dL Creatinine (0.6-1.0) mg/dL Est Cr Clr Drug Dosing mL/min Estimated GFR (MDRD) ml/min Glucose (74-106) mg/dL POC Glucose 77 (70-99) mg/dL Calcium (8.5-10.1) mg/dL Magnesium (1.8-2.4) mg/dL RHEA Results - Last 24 hrs: Microbiology 05/12/21 09:40 Aerobic Blood Culture - Preliminary Blood - Venous - Lab Draw NO GROWTH AFTER 3 DAYS Anaerobic Blood Culture - Preliminary NO GROWTH AFTER 3 DAYS 05/12/21 09:33 Aerobic Blood Culture - Preliminary Blood - Venous Anaerobic Blood Culture - Preliminary NO GROWTH AFTER 3 DAYS 05/12/21 09:33 Blood Culture Identification Panel - Final Blood Staphylococcus Coagulase Neg Med Orders - Current: Current Medications Acetaminophen (Acetaminophen 325 Mg Tab) 650 mg PO Q4H PRN PRN Reason: Pain (Mild 1-3)/fever Last Admin: 05/13/21 16:19 Dose: 650 mg Documented by: Dextrose/Water (50% Dextrose In Water 50 Ml Syringe) 50 ml IVPUSH ASDIRECTED PRN PRN Reason: Hypoglycemia Last Admin: 05/14/21 08:20 Dose: 50 ml Documented by: Levetiracetam (Levetiracetam 500 Mg Tab) 250 mg PO BID [facility] Last Admin: 05/16/21 08:35 Dose: 250 mg Documented by: Levofloxacin (Levofloxacin 750 Mg Tab) 750 mg PO Q24H [facility] Last Admin: 05/16/21 08:35 Dose: 750 mg Documented by: Ondansetron HCl (Ondansetron 4 Mg/2 Ml Sdv) 4 mg IVPUSH Q4H PRN PRN Reason: Nausea Pantoprazole Sodium (Pantoprazole 40 Mg Vial) 40 mg IV BEDTIME [facility] Last Admin: 05/15/21 21:24 Dose: 40 mg Documented by: Prednisone (Prednisone 5 Mg Tab) 2.5 mg PO BID [facility] Last Admin: 05/16/21 08:35 Dose: 2.5 mg Documented by: Sodium Chloride (Sodium Chloride 0.9% 2.5 Ml Syringe) 2.5 ml FLUSH ASDIRECTED PRN PRN Reason: Keep Vein Open Discontinued Medications Calcium Gluconate (Calcium Gluconate 10% 1 Gm/10 Ml Sdv) 1 gm IVPUSH ONETIME ONE Stop: 05/12/21 10:31 Last Admin: 05/12/21 10:56 Dose: 1 gm Documented by: Dextrose/Water (50% Dextrose In Water 50 Ml Syringe) 25 ml IVPUSH ONETIME ONE Stop: 05/12/21 10:31 Last Admin: 05/12/21 10:56 Dose: 25 ml Documented by: Dextrose/Water (50% Dextrose In Water 50 Ml Syringe) 25 ml IVPUSH ONETIME ONE Stop: 05/13/21 08:31 Last Admin: 05/13/21 08:42 Dose: 25 ml Documented by: Heparin Sodium (Porcine) (Heparin Sodium 5,000 Units/Ml Vial) 5,000 units SUBCUT Q12H [facility] Last Admin: 05/12/21 18:49 Dose: Not Given Documented by: Heparin Sodium (Porcine) (Heparin Sodium 5,000 Units/Ml Vial) 5,000 units SUBCUT Q12H [facility] Last Admin: 05/13/21 23:12 Dose: 5,000 units Documented by: Sodium Chloride (Normal Saline) 1,000 mls @ 999 mls/hr IV .Bolus ONE Stop: 05/12/21 10:03 Last Admin: 05/12/21 09:32 Dose: 999 mls/hr Documented by: Cefepime HCl 2 gm/ Premix 50 mls @ 100 mls/hr IV ONETIME ONE Stop: 05/12/21 11:01 Last Admin: 05/12/21 11:48 Dose: 100 mls/hr Documented by: Sodium Chloride (Normal Saline) 1,000 mls @ 200 mls/hr IV STAT STA Stop: 05/12/21 15:33 Last Admin: 05/12/21 10:57 Dose: Not Given Documented by: Sodium Chloride (Normal Saline) 1,000 mls @ 999 mls/hr IV .Bolus ONE Stop: 05/12/21 11:45 Last Admin: 05/12/21 10:54 Dose: 999 mls/hr Documented by: Azithromycin 500 mg/ Sodium (Chloride) 250 mls @ 250 mls/hr IV DAILY [facility] Last Admin: 05/12/21 18:48 Dose: Not Given Documented by: Azithromycin 500 mg/ Sodium (Chloride) 250 mls @ 250 mls/hr IV DAILY [facility] Cefepime HCl 2 gm/ Premix 50 mls @ 0 mls/hr IV Q24H [facility] Last Admin: 05/15/21 16:43 Dose: 100 mls/hr Documented by: Azithromycin 500 mg/ Sodium (Chloride) 250 mls @ 250 mls/hr IV DAILY@1900 [facility] Last Admin: 05/15/21 18:43 Dose: 250 mls/hr Documented by: Vancomycin HCl 1 gm/ Sodium (Chloride) 250 mls @ 166.667 mls/hr IV Q24H [facility] Last Admin: 05/14/21 12:24 Dose: 166.667 mls/hr Documented by: Magnesium Sulfate 2 gm/ Premix 50 mls @ 25 mls/hr IV ONETIME ONE Stop: 05/14/21 17:46 Last Admin: 05/14/21 16:27 Dose: 25 mls/hr Documented by: Insulin Human Regular (Insulin Regular, Human 100 Units/Ml 10 Ml Vial) 5 unit IVPUSH ONETIME ONE; Protocol Stop: 05/12/21 10:31 Last Admin: 05/12/21 10:56 Dose: 5 unit Documented by: Pantoprazole Sodium (Pantoprazole 40 Mg Vial) 40 mg IV Q24H [facility] Last Admin: 05/12/21 18:49 Dose: Not Given Documented by: Vancomycin HCl (Pharmacy To Dose - Vancomycin) 1 dose .XX ASDIRECTED SUE
[2021-05-16 11:01] VITALS: BP 110/82; PULSE 65
== END 2021-05-16 10:45 | DRG 177 ==
LOC: MW.ED 08:38 → MW.MS 10:57
PROVIDERS: ADMIT Internal Medicine; ATTEND Internal Medicine
DX: J18.9 Pneumonia, unspecified organism (principal); J69.0 Pneumonitis due to inhalation of food and vomit; J96.01 Acute respiratory failure with hypoxia; N17.9 Acute kidney failure, unspecified; H54.7 Unspecified visual loss; R62.50 Unspecified lack of expected normal physiological development in childhood; R47.9 Unspecified speech disturbances; Z85.42 Personal history of malignant neoplasm of other parts of uterus; Z66 Do not resuscitate; G80.9 Cerebral palsy, unspecified; I10 Essential (primary) hypertension; R29.6 Repeated falls; Z20.822 Contact with and (suspected) exposure to COVID-19; I95.9 Hypotension, unspecified; E87.5 Hyperkalemia; Z79.52 Long term (current) use of systemic steroids; Z87.440 Personal history of urinary (tract) infections; Z79.899 Other long term (current) drug therapy
CPT/HCPCS: 36415; 71045; 80053; 83605; 83735; 83880; 84484; 85025; 86140; 87040 ×2; 87077; 87150; 87186; 93005; 96374; 99285; J0610; J7030 ×2; U0002; 80048; 81003; 82947; 84132; 96375; A9270-GY; C9113; J0456; J0692; J1644; J1815-GY; J3370; J3475; J7050; J7512

== ENCOUNTER 2021-06-01 14:45 | Inpatient (IN) | payer MEDICARE, MEDICAID ==
--- NOTE | 2021-06-01 15:13 | EDM.PDOC ---
ED HPI GENERAL MEDICAL PROBLEM - General Chief Complaint: General Stated Complaint: UNRESPONSIVE Time Seen by Provider: 06/01/21 14:54 - History of Present Illness INITIAL COMMENTS - FREE TEXT/NARRATIVE: History of present illness: [] This patient lives in assisted living at a home for people that require assistance with activities of daily living for [place] behavior issues. She was noted to be less responsive than usual and even thought to be perhaps unconscious. Paramedics found her conscious. She has been complaining off and on for least 1 day of pain. When asked about it she points to her abdomen. The patient had a DO NOT RESUSCITATE Comfort Care only from the niece Rachael at area code [phone]. I called Rachael because she is the power of regulatory attorney. She said that she wanted to find out what is going on with the patient and would alter the resuscitation status for the immediate time. For a evaluate and treat any treatable cause of the problem that might cause her discomfort. Review of systems: As per history of present illness and below otherwise all systems reviewed and negative. Past medical history: As per history of present illness and as reviewed below otherwise noncontributory. Surgical history: As per history of present illness and as reviewed below otherwise noncontributory. Social history: No reported history of drug or alcohol abuse. Family history: As per history of present illness and as reviewed below otherwise noncontributory. Physical exam: Constitutional - well developed, well-nourished and in no acute distress HEENT - normocephalic, no evidence of trauma - external nose and mouth normal - no mass in neck and no JVD - mucosae moist EYES - full EOM, PERRL, no icterus - no evidence of inflammation, injection, or drainage Respiratory - no respiratory distress, equal bilateral expansion, lungs clear to auscultation and no abnormal lung sounds Cardiovascular - Regular Rhythm with S1 and S2 appreciated and no murmur, gallop or rub. GI -guards right lower quadrant. Abdomen soft without distension or organomegaly - normal bowel sounds - no rebound Musculoskeletal no gross deformity of long bones or joints - no tenderness, swelling or edema Neurologic - Alert and nonverbal but at her baseline state. Makes eye in contact and and knowledges questions. - CN II-XII grossly intact - motor sensory and coordination symmetrically normal Psychiatric - appropriate mood and affect with normal thought content Hematologic - No petechiae or purpura - mucosa appropriate color and sclera not pale - normal nail bed color and refill Integument - no rash or evidence of trauma - normal turgor Diagnostics: [] Therapeutics: [] Impression: [] Plan: [] Definitive disposition and diagnosis as appropriate pending reevaluation and review of above. - Related Data Allergies Allergy/AdvReac Type Severity Reaction Status Date / Time No Known Allergies Allergy Verified 06/01/21 15:03 Home Meds: Home Meds Polyethylene Glycol [Polyox [id number]] 17 gm PO DAILY 01/14/20 [History] Ascorbic Acid [Vitamin C] 500 mg PO DAILY 08/21/20 [History] predniSONE 2.5 mg PO BID 08/21/20 [History] Multivit with Iron,Minerals [Flintstones Complete] 1 tab PO DAILY 03/03/21 [History] lisinopriL [Lisinopril] 20 mg PO DAILY 03/03/21 [History] levETIRAcetam [Keppra] 250 mg PO BID 05/12/21 [History] Sulfamethoxazole/Trimethoprim [Bactrim 400-80 MG] 0.5 tab PO BEDTIME #0 05/15/21 [Rx] levoFLOXacin [Levaquin] 750 mg PO DAILY #2 tab 05/15/21 [Rx] Past Medical History HEENT History: Reports: Impaired Vision, Other (See Below) Other HEENT History: wears glasses; recurrent nasal drainage; hyperopia; astigmatism Cardiovascular History: Reports: Hypertension Respiratory History: Reports: None Gastrointestinal History: Reports: None Genitourinary History: Reports: None Other Genitourinary History: Bladder hyperactivity RISK CONTROL REPRESENTATIVE History: Reports: None Musculoskeletal History: Reports: Other (See Below) Other Musculoskeletal History: drop foot Neurological History: Reports: Cerebral Palsy Psychiatric History: Reports: Developmental Delay, Other (See Below) Other Psychiatric History: speech impairment Endocrine/Metabolic History: Reports: None Hematologic History: Reports: None Immunologic History: Reports: None Oncologic (Cancer) History: Reports: Uterine Dermatologic History: Reports: None - Infectious Disease History Infectious Disease History: Reports: None - Past Surgical History Head Surgeries/Procedures: Reports: None HEENT Surgical History: Reports: None Cardiovascular Surgical History: Reports: None Respiratory Surgical History: Reports: None GI Surgical History: Reports: Appendectomy Female Surgical History: Reports: Breast Biopsy, Hysterectomy Other Female Surgeries/Procedures: Hysterectomy for cancer Endocrine Surgical History: Reports: None Neurological Surgical History: Reports: None Musculoskeletal Surgical History: Reports: Arthroscopic Procedure, Hip Replacement, ORIF Other Musculoskeletal Surgeries/Procedures:: left SIGRID, ORIF right pinky finger with K-Wire Oncologic Surgical History: Reports: Other (See Below) Other Oncologic Surgeries/Procedures: Hysterectomy Dermatological Surgical History: Reports: None Social & Family History - Family History Family Medical History: No Pertinent Family History - Tobacco Use Tobacco Use Status *Q: Never Tobacco User - Caffeine Use Caffeine Use: Reports: None - Recreational Drug Use Recreational Drug Use: No ED ROS GENERAL - Review of Systems Review Of Systems: Comprehensive ROS is negative, except as noted in HPI. ED EXAM, GENERAL - Physical Exam Exam: See Below Free Text/Narrative:: Physical exam is in the HPI Course - Vital Signs Text/Narrative:: 5:40 PM the patient has blood pressure adequate to be safely taken to CAT scan. She also could safely have some pain medicine which was ordered. The creatinine was 3.5 and her elevation of BUN and creatinine are significant when compared to the creatinine of 0.5 on the 10th of this month. CT notified not to use contrast at this point we will continue aggressive hydration. 710 discussed with the power of regulatory attorney Rachael and she agreed to let the patient be hydrated overnight recheck her labs get an ultrasound of the gallbladder and discuss with palliative care what the appropriate management and condition should be after this. Discussed with Dr. Rai and he agreed. Patient admitted Last Recorded V/S: Last Vital Signs Temp 35.7 C L 06/01/21 14:54 Pulse 88 06/01/21 19:00 Resp 20 06/01/21 19:00 BP 104/62 06/01/21 19:00 Pulse Ox 95 06/01/21 19:00 - Orders/Labs/Meds Orders: Active Orders 24 hr Category Date Time Status Admission Status [Patient Status] [ADT] Stat ADT 06/01/21 19:22 Ordered Blood Pressure Mgt: Sepsis [RC] Q15MX2 Care 06/01/21 15:15 Active CORONAVIRUS COVID-19 JAE [MOLEC] Stat Lab 06/01/21 19:06 Received CULTURE BLOOD [BC] Stat Lab 06/01/21 15:27 Received CULTURE BLOOD [BC] Stat Lab 06/01/21 15:38 Received CULTURE URINE [MREF] Stat Lab 06/01/21 15:14 Ordered UA W/MICROSCOPIC [URIN] Stat Lab 06/01/21 15:14 Ordered Sodium Chloride 0.9% [Saline Flush] Med 06/01/21 15:14 Active 10 ml FLUSH ASDIRECTED PRN Sodium Chloride 0.9% [Saline Flush] Med 06/01/21 15:14 Active 2.5 ml FLUSH ASDIRECTED PRN Blood Culture x2 Reflex Set [OM.PC] Stat Oth 06/01/21 15:14 Ordered Saline Lock Insert [OM.PC] Stat Oth 06/01/21 15:14 Ordered Severe Sepsis Onset Time [OM.PC] Stat Oth 06/01/21 15:14 Ordered Medication Orders Sodium Chloride (Sodium Chloride 0.9% 10 Ml Syringe) 10 ml FLUSH ASDIRECTED PRN PRN Reason: Keep Vein Open Last Admin: 06/01/21 15:44 Dose: 10 ml Documented by: JIMMY Sodium Chloride (Sodium Chloride 0.9% 2.5 Ml Syringe) 2.5 ml FLUSH ASDIRECTED PRN PRN Reason: Keep Vein Open Last Admin: 06/01/21 15:44 Dose: 2.5 ml Documented by: JIMMY Labs: Laboratory Tests 06/01/21 06/01/21 06/01/21 Range/Units 14:55 14:55 15:38 WBC 12.33 H (4.0-11.0) K/uL RBC 3.39 L (4.30-5.90) M/uL Hgb 10.8 L (12.0-16.0) g/dL Hct 32.7 L (36.0-46.0) % MCV 96.5 (80.0-98.0) fL MCH 31.9 (27.0-32.0) pg MCHC 33.0 (31.0-37.0) g/dL RDW Std Deviation 54.3 (28.0-62.0) fl RDW Coeff of Erik 16 H (11.0-15.0) % Plt Count 317 (150-400) K/uL MPV 9.80 (7.40-12.00) fL Neut % (Auto) 67.6 (48.0-80.0) % Lymph % (Auto) 23.5 (16.0-40.0) % [place] % (Auto) 8.5 (0.0-15.0) % Eos % (Auto) 0.2 (0.0-7.0) % Baso % (Auto) 0.2 (0.0-1.5) % Neut # (Auto) 8.3 H (1.4-5.7) K/uL Lymph # (Auto) 2.9 H (0.6-2.4) K/uL [place] # (Auto) 1.1 H (0.0-0.8) K/uL Eos # (Auto) 0.0 (0.0-0.7) K/uL Baso # (Auto) 0.0 (0.0-0.1) K/uL Nucleated RBC % 0.0 /100WBC Nucleated RBCs # 0 K/uL Sodium 140 (136-145) mmol/L Potassium 4.3 (3.5-5.1) mmol/L Chloride 99 (98-107) mmol/L Carbon Dioxide 30.6 (21.0-32.0) mmol/L BUN 103 H (7.0-18.0) mg/dL Creatinine 3.4 H (0.6-1.0) mg/dL Est Cr Clr Drug Dosing 11.21 mL/min Estimated GFR (MDRD) 13.0 ml/min Glucose 131 H (74-106) mg/dL Lactic Acid 1.3 (0.4-2.0) mmol/L Calcium 9.5 (8.5-10.1) mg/dL Total Bilirubin 0.5 (0.2-1.0) mg/dL AST 42 H (15-37) IU/L ALT 29 (14-63) IU/L Alkaline Phosphatase 190 H (46-116) U/L Troponin I < 0.050 (0.000-0.056) ng/mL Total Protein 7.3 (6.4-8.2) g/dL Albumin 2.3 L (3.4-5.0) g/dL Globulin 5.0 H (2.6-4.0) g/dL Albumin/Globulin Ratio 0.5 L (0.9-1.6) Lipase 234 (73-393) U/L Meds: Medications Generic Name Dose Route Start Last Admin Trade Name Freq PRN Reason Stop Dose Admin Sodium Chloride 10 ml 06/01/21 15:14 06/01/21 15:44 Sodium Chloride 0.9% 10 Ml Syringe FLUSH 10 ml ASDIRECTED PRN Administration Keep Vein Open Sodium Chloride 2.5 ml 06/01/21 15:14 06/01/21 15:44 Sodium Chloride 0.9% 2.5 Ml Syringe FLUSH 2.5 ml ASDIRECTED PRN Administration Keep Vein Open Discontinued Medications Generic Name Dose Route Start Last Admin Trade Name Ericq PRN Reason Stop Dose Admin Fentanyl 25 mcg 06/01/21 16:01 06/01/21 16:10 Fentanyl 50 Mcg/Ml Sdv IVPUSH 06/01/21 16:02 25 mcg ONETIME ONE Administration Piperacillin Sod/Tazobactam 100 mls @ 100 mls/hr 06/01/21 15:14 06/01/21 15:45 Sod 4.5 gm/ Sodium Chloride IV 06/01/21 16:13 100 mls/hr STAT ONE Administration Sodium Chloride 1,000 mls @ 1,000 mls/hr 06/01/21 15:14 06/01/21 17:05 Normal Saline IV 06/01/21 16:13 1,000 mls/hr BOLUS ONE Administration Protocol Sodium Chloride 1,000 mls @ 999 mls/hr 06/01/21 15:17 06/01/21 15:44 Normal Saline IV 06/01/21 16:17 999 mls/hr .BOLUS ONE Administration Departure - Departure Time of Disposition: 19:10 Disposition: Admitted As Inpatient 65 Condition: Poor Clinical Impression: Dehydration, Renal failure, acute - Discharge Information Referrals: Jabari Teran MD [Primary Care Provider] - Forms: ED Department Discharge Sepsis Event Note (ED) - Evaluation Sepsis Screening Result: No Definite Risk - Focused Exam Vital Signs: Vital Signs Temp Pulse Resp BP Pulse Ox 06/01/21 19:00 88 20 104/62 95 06/01/21 18:33 84 20 105/52 L 96 06/01/21 18:04 81 20 86/45 L 96 06/01/21 17:29 72 20 54/29 L 95 06/01/21 17:04 71 20 62/32 L 98 06/01/21 16:40 70 20 100/48 L 95 06/01/21 16:15 67 20 97/58 L 94 L 06/01/21 16:00 93/49 L 06/01/21 15:30 78/42 L 06/01/21 15:15 89/40 L 06/01/21 14:54 35.7 C L 86 16 59/37 L 98 - My Orders Last 24 Hours: My Active Orders 06/01/21 15:14 CULTURE URINE [MREF] Stat UA W/MICROSCOPIC [URIN] Stat Sodium Chloride 0.9% [Saline Flush] 10 ml FLUSH ASDIRECTED PRN Sodium Chloride 0.9% [Saline Flush] 2.5 ml FLUSH ASDIRECTED PRN Blood Culture x2 Reflex Set [OM.PC] Stat Saline Lock Insert [OM.PC] Stat Severe Sepsis Onset Time [OM.PC] Stat 06/01/21 15:15 Blood Pressure Mgt: Sepsis [RC] Q15MX2 06/01/21 15:27 CULTURE BLOOD [BC] Stat 06/01/21 15:38 CULTURE BLOOD [BC] Stat 06/01/21 19:06 CORONAVIRUS COVID-19 JAE [MOLEC] Stat 06/01/21 19:22 Admission Status [Patient Status] [ADT] Stat - Assessment/Plan Last 24 Hours: My Active Orders 06/01/21 15:14 CULTURE URINE [MREF] Stat UA W/MICROSCOPIC [URIN] Stat Sodium Chloride 0.9% [Saline Flush] 10 ml FLUSH ASDIRECTED PRN Sodium Chloride 0.9% [Saline Flush] 2.5 ml FLUSH ASDIRECTED PRN Blood Culture x2 Reflex Set [OM.PC] Stat Saline Lock Insert [OM.PC] Stat Severe Sepsis Onset Time [OM.PC] Stat 06/01/21 15:15 Blood Pressure Mgt: Sepsis [RC] Q15MX2 06/01/21 15:27 CULTURE BLOOD [BC] Stat 06/01/21 15:38 CULTURE BLOOD [BC] Stat 06/01/21 19:06 CORONAVIRUS COVID-19 JAE [MOLEC] Stat 06/01/21 19:22 Admission Status [Patient Status] [ADT] Stat
[2021-06-01] MEDS ORDERED: Sodium Chloride 0.9% 1,000 ML IV ONE ×2 (15:14→15:17)
[2021-06-01] MEDS ORDERED: Piperacillin/Tazobactam 4.5 GM in Sodium Chloride 0.9% 100 ML IV ONE (15:14)
[2021-06-01] MEDS ORDERED: Sodium Chloride 0.9% 2.5 ML Syringe FLUSH PRN (15:14)
[2021-06-01] MEDS ORDERED: Sodium Chloride 0.9% 10 ML Syringe FLUSH PRN (15:14)
[2021-06-01 15:34] LABS: BLOOD UREA NITROGEN,BUN 103 mg/dL (7.0-18.0); CARBON DIOXIDE,CO2 30.6 mmol/L (21.0-32.0); CHLORIDE,CL 99 mmol/L (98-107); GLUCOSE RANDOM 131 mg/dL (74-106); LIPASE 234 U/L (73-393); POTASSIUM,K 4.3 mmol/L (3.5-5.1); SODIUM,NA 140 mmol/L (136-145)
[2021-06-01] MEDS ORDERED: fentaNYL 50 MCG/ML SDV IVPUSH ONE (16:01)
--- NOTE | 2021-06-01 16:50 | CR ---
INDICATION: Sepsis TECHNIQUE: Chest 1 view. COMPARISON: Chest x-ray 05/12/2021 FINDINGS: The heart is normal in size. The pulmonary vasculature is within normal limits. Possible small left pleural effusion. Negative for focal consolidation. The right costophrenic angle is sharp. Negative for pneumothorax. The bones are unremarkable. IMPRESSION: Possible small left pleural effusion. Otherwise no acute process. Dictated by Bibiana Lewis MD @ 06/01/2021 4:49:01 PM (Electronically Signed)
--- NOTE | 2021-06-01 18:43 | CT ---
Indication: Sepsis. Technique: Multiple contiguous axial images were obtained from the lung bases to the symphysis pubis without intravenous contrast enhancement. Please note that all CT scans at this facility use dose modulation, iterative reconstruction, and/or weight-based dosing when appropriate to reduce radiation dose to as low as reasonably achievable. Comparison: March 03, 2021 Findings: Bibasilar atelectasis is identified. The heart is borderline in size. Gallstones are identified. The gallbladder is distended. The unenhanced liver, spleen, pancreas, adrenals, and kidneys are normal. No intrahepatic biliary ductal dilatation is identified. No hydronephrosis is identified. In the pelvis, streak artifact from patient`s left hip arthroplasty degrades multiple images. The urinary bladder is grossly normal. The small and large bowel are normal in caliber. Colonic diverticulosis is identified. There is no evidence of diverticulitis. The aorta is normal in caliber. No free fluid or free air is identified within the abdomen or pelvis. Degenerative changes of the spine are identified. No lytic or blastic lesions are identified. Impression: Bibasilar atelectasis. Dilatation of the gallbladder with gallstones. Please note that all CT scans at this facility use dose modulation, iterative reconstruction, and/or weight-based dosing when appropriate to reduce radiation dose to as low as reasonably achievable. Dictated by Jossy Richard MD @ 06/01/2021 6:41:55 PM (Electronically Signed)
[2021-06-01] MEDS: Sodium Chloride 0.9% 1,000 ML IV SCH (22:23)
[2021-06-01] MEDS: Acetaminophen 325 MG Tab PO PRN (22:30)
--- NOTE | 2021-06-01 23:30 | PCM.HP.2 ---
H&P History of Present Illness - General Date of Service: 06/01/21 Admit Problem/Dx: Admission Diagnosis/Problem Admission Diagnosis/Problem Altered mental status - History of Present Illness Initial Comments - Free Text/Narative: 80-year-old female with past medical history of cerebral palsy, hypertension, frequent falls, and frequent UTIs who was discharged 16 days ago after being admitted for aspiration pneumonia. Patient presents again today after not eating and drinking much for a week. She presents with lethargy and some concern of abdominal pain. Patient is noverbal. Creatinine was noted to be 3.4 up from 0.[address] scan of abdomen reported distended gallblader with stones - Related Data Allergies/Adverse Reactions: Allergies Allergy/AdvReac Type Severity Reaction Status Date / Time No Known Allergies Allergy Verified 06/01/21 15:03 Home Medications: Home Meds RX: Polyethylene Glycol [Polyox [id number]] 17 gm PO DAILY 01/14/20 [History] RX: Ascorbic Acid [Vitamin C] 500 mg PO DAILY 08/21/20 [History] RX: predniSONE 2.5 mg PO BID 08/21/20 [History] RX: Multivit with Iron,Minerals [Flintstones Complete] 1 tab PO DAILY 03/03/21 [History] RX: lisinopriL [Lisinopril] 20 mg PO DAILY 03/03/21 [History] RX: levETIRAcetam [Keppra] 250 mg PO BID 05/12/21 [History] RX: Sulfamethoxazole/Trimethoprim [Bactrim 400-80 MG] 0.5 tab PO BEDTIME #0 05/15/21 [Rx] Calcium Carb, Citrate/Vit D3 [Citracal + D ER] 1 tab PO BID 06/02/21 [History] Past Medical History HEENT History: Reports: Impaired Vision, Other (See Below) Other HEENT History: wears glasses; recurrent nasal drainage; hyperopia; astigmatism Cardiovascular History: Reports: Hypertension Respiratory History: Reports: None Gastrointestinal History: Reports: None Genitourinary History: Reports: None Other Genitourinary History: Bladder hyperactivity [employer]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: Reports: None Musculoskeletal History: Reports: Other (See Below) Other Musculoskeletal History: drop foot Neurological History: Reports: Cerebral Palsy Psychiatric History: Reports: Developmental Delay, Other (See Below) Other Psychiatric History: speech impairment Endocrine/Metabolic History: Reports: None Hematologic History: Reports: None Immunologic History: Reports: None Oncologic (Cancer) History: Reports: Uterine Dermatologic History: Reports: None - Infectious Disease History Infectious Disease History: Reports: None - Past Surgical History Head Surgeries/Procedures: Reports: None HEENT Surgical History: Reports: None Cardiovascular Surgical History: Reports: None Respiratory Surgical History: Reports: None GI Surgical History: Reports: Appendectomy Female Surgical History: Reports: Breast Biopsy, Hysterectomy Other Female Surgeries/Procedures: Hysterectomy for cancer Endocrine Surgical History: Reports: None Neurological Surgical History: Reports: None Musculoskeletal Surgical History: Reports: Arthroscopic Procedure, Hip Replacement, ORIF Other Musculoskeletal Surgeries/Procedures:: left SIGRID, ORIF right pinky finger with K-Wire Oncologic Surgical History: Reports: Other (See Below) Other Oncologic Surgeries/Procedures: Hysterectomy Dermatological Surgical History: Reports: None Social & Family History - Family History Family Medical History: No Pertinent Family History - Tobacco Use Tobacco Use Status *Q: Never Tobacco User - Caffeine Use Caffeine Use: Reports: None - Recreational Drug Use Recreational Drug Use: No H&P Review of Systems - Review of Systems: Review Of Systems: Unable To Obtain Reason Not Obtained: nonverbal Exam - Exam Exam: See Below - Vital Signs Vital Signs: Last Vital Signs Temp 36.1 C 06/01/21 21:00 Pulse 88 06/01/21 21:00 Resp 18 06/01/21 21:00 BP 124/58 L 06/01/21 21:00 Pulse Ox 96 06/01/21 21:00 Weight: 58.967 kg - Exam General: Lethargic Lungs: Clear to Auscultation, Normal Respiratory Effort Cardiovascular: Regular Rate, Regular Rhythm GI/Abdominal Exam: Normal Bowel Sounds, Soft, Non-Tender Extremities: Non-Tender, No Pedal Edema Skin: Warm, Dry, Intact Neurological: No: Focal Deficit - Patient Data Lab Results Last 24 hrs: Laboratory Results - last 24 hr 06/01/21 06/01/21 06/01/21 Range/Units 14:55 14:55 15:38 WBC 12.33 H (4.0-11.0) K/uL RBC 3.39 L (4.30-5.90) M/uL Hgb 10.8 L (12.0-16.0) g/dL Hct 32.7 L (36.0-46.0) % MCV 96.5 (80.0-98.0) fL MCH 31.9 (27.0-32.0) pg MCHC 33.0 (31.0-37.0) g/dL RDW Std Deviation 54.3 (28.0-62.0) fl RDW Coeff of Erik 16 H (11.0-15.0) % Plt Count 317 (150-400) K/uL MPV 9.80 (7.40-12.00) fL Neut % (Auto) 67.6 (48.0-80.0) % Lymph % (Auto) 23.5 (16.0-40.0) % Sheridan % (Auto) 8.5 (0.0-15.0) % Eos % (Auto) 0.2 (0.0-7.0) % Baso % (Auto) 0.2 (0.0-1.5) % Neut # (Auto) 8.3 H (1.4-5.7) K/uL Lymph # (Auto) 2.9 H (0.6-2.4) K/uL Sheridan # (Auto) 1.1 H (0.0-0.8) K/uL Eos # (Auto) 0.0 (0.0-0.7) K/uL Baso # (Auto) 0.0 (0.0-0.1) K/uL Nucleated RBC % 0.0 /100WBC Nucleated RBCs # 0 K/uL Sodium 140 (136-145) mmol/L Potassium 4.3 (3.5-5.1) mmol/L Chloride 99 (98-107) mmol/L Carbon Dioxide 30.6 (21.0-32.0) mmol/L BUN 103 H (7.0-18.0) mg/dL Creatinine 3.4 H (0.6-1.0) mg/dL Est Cr Clr Drug Dosing 11.21 mL/min Estimated GFR (MDRD) 13.0 ml/min Glucose 131 H (74-106) mg/dL Lactic Acid 1.3 (0.4-2.0) mmol/L Calcium 9.5 (8.5-10.1) mg/dL Total Bilirubin 0.5 (0.2-1.0) mg/dL AST 42 H (15-37) IU/L ALT 29 (14-63) IU/L Alkaline Phosphatase 190 H (46-116) U/L Troponin I < 0.050 (0.000-0.056) ng/mL Total Protein 7.3 (6.4-8.2) g/dL Albumin 2.3 L (3.4-5.0) g/dL Globulin 5.0 H (2.6-4.0) g/dL Albumin/Globulin Ratio 0.5 L (0.9-1.6) Lipase 234 (73-393) U/L SARS-CoV-2 RNA (JAE) (NEGATIVE) 06/01/21 Range/Units 19:06 WBC (4.0-11.0) K/uL RBC (4.30-5.90) M/uL Hgb (12.0-16.0) g/dL Hct (36.0-46.0) % MCV (80.0-98.0) fL MCH (27.0-32.0) pg MCHC (31.0-37.0) g/dL RDW Std Deviation (28.0-62.0) fl RDW Coeff of Erik (11.0-15.0) % Plt Count (150-400) K/uL MPV (7.40-12.00) fL Neut % (Auto) (48.0-80.0) % Lymph % (Auto) (16.0-40.0) % Sheridan % (Auto) (0.0-15.0) % Eos % (Auto) (0.0-7.0) % Baso % (Auto) (0.0-1.5) % Neut # (Auto) (1.4-5.7) K/uL Lymph # (Auto) (0.6-2.4) K/uL Sheridan # (Auto) (0.0-0.8) K/uL Eos # (Auto) (0.0-0.7) K/uL Baso # (Auto) (0.0-0.1) K/uL Nucleated RBC % /100WBC Nucleated RBCs # K/uL Sodium (136-145) mmol/L Potassium (3.5-5.1) mmol/L Chloride (98-107) mmol/L Carbon Dioxide (21.0-32.0) mmol/L BUN (7.0-18.0) mg/dL Creatinine (0.6-1.0) mg/dL Est Cr Clr Drug Dosing mL/min Estimated GFR (MDRD) ml/min Glucose (74-106) mg/dL Lactic Acid (0.4-2.0) mmol/L Calcium (8.5-10.1) mg/dL Total Bilirubin (0.2-1.0) mg/dL AST (15-37) IU/L ALT (14-63) IU/L Alkaline Phosphatase (46-116) U/L Troponin I (0.000-0.056) ng/mL Total Protein (6.4-8.2) g/dL Albumin (3.4-5.0) g/dL Globulin (2.6-4.0) g/dL Albumin/Globulin Ratio (0.9-1.6) Lipase (73-393) U/L SARS-CoV-2 RNA (JAE) NEGATIVE (NEGATIVE) Result Diagrams: 06/02/21 06:00 06/02/21 21:09 Sepsis Event Note - Focused Exam Vital Signs: Vital Signs Temp Pulse Resp BP Pulse Ox 06/01/21 21:00 36.1 C 88 18 124/58 L 96 06/01/21 19:00 88 20 104/62 95 06/01/21 18:33 84 20 105/52 L 96 06/01/21 18:04 81 20 86/45 L 96 06/01/21 17:29 72 20 54/29 L 95 06/01/21 17:04 71 20 62/32 L 98 06/01/21 16:40 70 20 100/48 L 95 06/01/21 16:15 67 20 97/58 L 94 L 06/01/21 16:00 93/49 L 06/01/21 15:30 78/42 L 06/01/21 15:15 89/40 L 06/01/21 14:54 35.7 C L 86 16 59/37 L 98 Problem List Initiated/Reviewed/Updated: Yes Orders Last 24hrs: Active Orders 24 hr Category Date Time Status Admission Status [Patient Status] [ADT] Stat ADT 06/01/21 19:22 Active Antiembolic Devices [RC] PER UNIT ROUTINE Care 06/01/21 23:25 Active Blood Pressure Mgt: Sepsis [RC] [id number] Care 06/01/21 15:15 Active Palma Catheter Insertion [Insert Urinary Catheter] [OM. Care 06/01/21 23:30 Ordered PC] Q24H Oxygen Therapy [RC] PRN Care 06/01/21 23:24 Active Up ad Clarita [RC] ASDIRECTED Care 06/01/21 23:24 Active Urinary Catheter Assessment [RC] ASDIRECTED Care 06/01/21 23:23 Active VTE/DVT Education [RC] PER UNIT ROUTINE Care 06/01/21 23:24 Active Vital Signs [RC] Q4H Care 06/01/21 23:24 Active PT Evaluation and Treatment [CONS] Routine Cons 06/01/21 23:24 Active Regular Diet [DIET] Diet 06/02/21 Breakfast Active BASIC METABOLIC PANEL,BMP [CHEM] AM Lab 06/02/21 05:11 Ordered CBC WITH AUTO DIFF [HEME] AM Lab 06/02/21 05:11 Ordered CULTURE BLOOD [BC] Stat Lab 06/01/21 15:27 Received CULTURE BLOOD [BC] Stat Lab 06/01/21 15:38 Received CULTURE URINE [MREF] Stat Lab 06/01/21 15:14 Ordered UA W/MICROSCOPIC [URIN] Stat Lab 06/01/21 15:14 Ordered Acetaminophen [TylenoL] Med 06/01/21 22:18 Active 650 mg PO Q6H PRN Heparin Sodium Med 06/01/21 23:30 Active 5,000 units SUBCUT Q12H Sodium Chloride 0.9% [Normal Saline] 1,000 ml Med 06/01/21 22:30 Active IV ASDIRECTED Sodium Chloride 0.9% [Saline Flush] Med 06/01/21 15:14 Active 10 ml FLUSH ASDIRECTED PRN Sodium Chloride 0.9% [Saline Flush] Med 06/01/21 15:14 Active 2.5 ml FLUSH ASDIRECTED PRN levETIRAcetam Med 06/02/21 09:00 Ordered 250 mg PO BID predniSONE Med 06/02/21 09:00 Ordered 2.5 mg PO BID Blood Culture x2 Reflex Set [OM.PC] Stat Oth 06/01/21 15:14 Ordered Saline Lock Insert [OM.PC] Stat Oth 06/01/21 15:14 Ordered Sequential Compression Device [OM.PC] Per Unit Routine Oth 06/01/21 23:24 Ordered Severe Sepsis Onset Time [OM.PC] Stat Oth 06/01/21 15:14 Ordered Resuscitation Status Routine Resus Stat 06/01/21 23:24 Ordered Medication Orders Acetaminophen (Acetaminophen 325 Mg Tab) 650 mg PO Q6H PRN PRN Reason: Pain Last Admin: 06/01/21 22:30 Dose: 650 mg Documented by: ONUR Heparin Sodium (Porcine) (Heparin Sodium 5,000 Units/Ml Vial) 5,000 units SUBCUT Q12H SUE Sodium Chloride (Normal Saline) 1,000 mls @ 125 mls/hr IV ASDIRECTED SUE Last Admin: 06/01/21 22:23 Dose: 125 mls/hr Documented by: ONUR Levetiracetam (Levetiracetam 500 Mg Tab) 250 mg PO BID SUE Prednisone (Prednisone 5 Mg Tab) 2.5 mg PO BID SUE Sodium Chloride (Sodium Chloride 0.9% 10 Ml Syringe) 10 ml FLUSH ASDIRECTED PRN PRN Reason: Keep Vein Open Last Admin: 06/01/21 15:44 Dose: 10 ml Documented by: JIMMY Sodium Chloride (Sodium Chloride 0.9% 2.5 Ml Syringe) 2.5 ml FLUSH ASDIRECTED PRN PRN Reason: Keep Vein Open Last Admin: 06/01/21 15:44 Dose: 2.5 ml Documented by: JIMMY Assessment/Plan Comment:: 80 yo female admitted for dehydration with acute kidney injury. We will hydrate overnight and check ultrasound of abdomen in morning.
[2021-06-02] MEDS: Heparin Sodium 5,000 Units/ML Vial SUBCUT SCH ×2 (00:08→11:20)
[2021-06-02 06:31] LABS: CARBON DIOXIDE,CO2 25.3 mmol/L (21.0-32.0); POTASSIUM,K 3.5 mmol/L (3.5-5.1)
[2021-06-02] MEDS: predniSONE 5 MG Tab PO SCH ×2 (08:15→21:23)
[2021-06-02] MEDS: levETIRAcetam 500 MG Tab PO SCH ×2 (08:15→21:23)
[2021-06-02] MEDS: Acetaminophen 325 MG Tab PO PRN ×2 (08:41→16:43)
[2021-06-02] MEDS: Sodium Chloride 0.9% 1,000 ML IV SCH (08:49)
[2021-06-02] MEDS ORDERED: Lactated Ringers 1,000 ML IV SCH ×2 (09:45→22:30)
--- NOTE | 2021-06-02 10:05 | US ---
INDICATION: Cholelithiasis and distended gallbladder. Abnormal CT exam. TECHNIQUE: Ultrasound abdomen limited. Sonographic images of the right upper quadrant were obtained using el-scale and color Doppler images. COMPARISON: CT abdomen pelvis June 01, 2021. FINDINGS: Liver: Normal in size and echotexture. No masses. No intrahepatic biliary dilatation. Gallbladder: Gallbladder contains stones and is moderately distended. Normal wall thickness. No pericholecystic fluid. Positive Garcia sign was elicited. Common bile duct: 13 mm. At least 1 stone is present in the common bile duct. Pancreas: Unremarkable. Right kidney: Normal in size. Normal echotexture and cortex. No suspicious masses, stones, or hydronephrosis. IMPRESSION: Cholelithiasis and choledocholithiasis are present. There is also dilatation of the gallbladder and common bile duct. No other specific signs of acute cholecystitis. Dictated by Ford Cox MD @ 06/02/2021 10:03:29 AM (Electronically Signed)
[2021-06-02 14:12] LABS: BILIRUBIN INDIRECT 0.1
--- NOTE | 2021-06-02 19:16 | PCM.PN ---
- General Info Date of Service: 06/02/21 Subjective Update: 80-year-old female with history of cerebral palsy, developmental delay. Patient does respond to simple questioning such as "are you in pain ". Patient states a bdominal pain via pointing to her stomach when questioned. No vomiting or diarrhea noted. Patient in no acute distress at the time of examination. - Review of Systems General: Denies: Fever, Chills Pulmonary: Denies: Shortness of Breath Cardiovascular: Denies: Chest Pain, Edema Gastrointestinal: Reports: Abdominal Pain. Denies: Diarrhea, Nausea, Vomiting Neurological: Denies: Confusion Psychiatric: Reports: Confusion - Patient Data Vitals - Most Recent: Last Vital Signs Temp 96.6 F L 06/02/21 16:32 Pulse 72 06/02/21 16:32 Resp 16 06/02/21 16:32 BP 145/60 H 06/02/21 16:32 Pulse Ox 95 06/02/21 16:32 Weight - Most Recent: 130 lb I&O - Last 24 Hours: Intake & Output 06/02/21 06/02/21 06/02/21 06:59 14:59 22:59 Intake Total 638 Output Total 450 Balance 188 Lab Results Last 24 Hours: Laboratory Results - last 24 hr 06/01/21 06/02/21 06/02/21 Range/Units 19:06 00:50 06:00 WBC 8.84 (4.0-11.0) K/uL RBC 2.66 L (4.30-5.90) M/uL Hgb 8.4 L (12.0-16.0) g/dL Hct 25.7 L (36.0-46.0) % MCV 96.6 (80.0-98.0) fL MCH 31.6 (27.0-32.0) pg MCHC 32.7 (31.0-37.0) g/dL RDW Std Deviation 54.7 (28.0-62.0) fl RDW Coeff of Erik 16 H (11.0-15.0) % Plt Count 274 (150-400) K/uL MPV 9.30 (7.40-12.00) fL Neut % (Auto) 53.6 (48.0-80.0) % Lymph % (Auto) 38.7 (16.0-40.0) % Plumas % (Auto) 6.4 (0.0-15.0) % Eos % (Auto) 1.0 (0.0-7.0) % Baso % (Auto) 0.3 (0.0-1.5) % Neut # (Auto) 4.7 (1.4-5.7) K/uL Lymph # (Auto) 3.4 H (0.6-2.4) K/uL [place] # (Auto) 0.6 (0.0-0.8) K/uL Eos # (Auto) 0.1 (0.0-0.7) K/uL Baso # (Auto) 0.0 (0.0-0.1) K/uL Nucleated RBC % 0.0 /100WBC Nucleated RBCs # 0 K/uL Sodium (136-145) mmol/L Potassium (3.5-5.1) mmol/L Chloride (98-107) mmol/L Carbon Dioxide (21.0-32.0) mmol/L BUN (7.0-18.0) mg/dL Creatinine (0.6-1.0) mg/dL Est Cr Clr Drug Dosing mL/min Estimated GFR (MDRD) ml/min Glucose (74-106) mg/dL Calcium (8.5-10.1) mg/dL Total Bilirubin (0.2-1.0) mg/dL Direct Bilirubin (0.0-0.5) mg/dL Indirect Bilirubin AST (15-37) IU/L ALT (14-63) IU/L Alkaline Phosphatase (46-116) U/L Total Protein (6.4-8.2) g/dL Albumin (3.4-5.0) g/dL Globulin (2.6-4.0) g/dL Albumin/Globulin Ratio (0.9-1.6) Urine Color YELLOW Urine Appearance CLEAR Urine pH 5.5 (5.0-8.0) Ur Specific Thatcher 1.020 (1.001-1.035) Urine Protein NEGATIVE (NEGATIVE) mg/dL Urine Glucose (UA) NEGATIVE (NEGATIVE) mg/dL Urine Ketones NEGATIVE (NEGATIVE) mg/dL Urine Occult Blood NEGATIVE (NEGATIVE) Urine Nitrite NEGATIVE (NEGATIVE) Urine Bilirubin NEGATIVE (NEGATIVE) Urine Urobilinogen 0.2 (<2.0) EU/dL Ur Leukocyte Esterase NEGATIVE (NEGATIVE) Urine RBC 0-2 (0-2/HPF) Urine WBC 0-2 (0-5/HPF) Ur Epithelial Cells RARE (NONE-FEW) Urine Bacteria RARE (NEGATIVE) SARS-CoV-2 RNA (JAE) NEGATIVE (NEGATIVE) 06/02/21 06/02/21 Range/Units 06:00 06:00 WBC (4.0-11.0) K/uL RBC (4.30-5.90) M/uL Hgb (12.0-16.0) g/dL Hct (36.0-46.0) % MCV (80.0-98.0) fL MCH (27.0-32.0) pg MCHC (31.0-37.0) g/dL RDW Std Deviation (28.0-62.0) fl RDW Coeff of Erik (11.0-15.0) % Plt Count (150-400) K/uL MPV (7.40-12.00) fL Neut % (Auto) (48.0-80.0) % Lymph % (Auto) (16.0-40.0) % Plumas % (Auto) (0.0-15.0) % Eos % (Auto) (0.0-7.0) % Baso % (Auto) (0.0-1.5) % Neut # (Auto) (1.4-5.7) K/uL Lymph # (Auto) (0.6-2.4) K/uL [place] # (Auto) (0.0-0.8) K/uL Eos # (Auto) (0.0-0.7) K/uL Baso # (Auto) (0.0-0.1) K/uL Nucleated RBC % /100WBC Nucleated RBCs # K/uL Sodium 147 H (136-145) mmol/L Potassium 3.5 (3.5-5.1) mmol/L Chloride 111 H (98-107) mmol/L Carbon Dioxide 25.3 (21.0-32.0) mmol/L BUN 77 H (7.0-18.0) mg/dL Creatinine 1.8 H (0.6-1.0) mg/dL Est Cr Clr Drug Dosing 21.17 mL/min Estimated GFR (MDRD) 27.0 ml/min Glucose 90 (74-106) mg/dL Calcium 7.0 L (8.5-10.1) mg/dL Total Bilirubin 0.2 (0.2-1.0) mg/dL Direct Bilirubin 0.10 (0.0-0.5) mg/dL Indirect Bilirubin 0.10 AST 29 (15-37) IU/L ALT 22 (14-63) IU/L Alkaline Phosphatase 129 H (46-116) U/L Total Protein 5.3 L (6.4-8.2) g/dL Albumin 1.7 L (3.4-5.0) g/dL Globulin 3.6 (2.6-4.0) g/dL Albumin/Globulin Ratio 0.5 L (0.9-1.6) Urine Color Urine Appearance Urine pH (5.0-8.0) Ur Specific Thatcher (1.001-1.035) Urine Protein (NEGATIVE) mg/dL Urine Glucose (UA) (NEGATIVE) mg/dL Urine Ketones (NEGATIVE) mg/dL Urine Occult Blood (NEGATIVE) Urine Nitrite (NEGATIVE) Urine Bilirubin (NEGATIVE) Urine Urobilinogen (<2.0) EU/dL Ur Leukocyte Esterase (NEGATIVE) Urine RBC (0-2/HPF) Urine WBC (0-5/HPF) Ur Epithelial Cells (NONE-FEW) Urine Bacteria (NEGATIVE) SARS-CoV-2 RNA (JAE) (NEGATIVE) [place]arrion Results Last 24 Hours: Microbiology 06/01/21 15:38 Aerobic Blood Culture - Preliminary Blood - Venous - Lab Draw NO GROWTH AFTER 1 DAY Anaerobic Blood Culture - Preliminary NO GROWTH AFTER 1 DAY 06/01/21 15:27 Aerobic Blood Culture - Preliminary Blood - Venous NO GROWTH AFTER 1 DAY Anaerobic Blood Culture - Preliminary NO GROWTH AFTER 1 DAY Med Orders - Current: Current Medications Acetaminophen (Acetaminophen 325 Mg Tab) 650 mg PO Q6H PRN PRN Reason: Pain Last Admin: 06/02/21 16:43 Dose: 650 mg Documented by: Heparin Sodium (Porcine) (Heparin Sodium 5,000 Units/Ml Vial) 5,000 units SUBCUT Q12H [facility] Last Admin: 06/02/21 11:20 Dose: 5,000 units Documented by: Lactated Ringer's (Ringers, Lactated) 1,000 mls @ 100 mls/hr IV ASDIRECTED [facility] Stop: 06/02/21 19:44 Last Admin: 06/02/21 10:45 Dose: 100 mls/hr Documented by: Levetiracetam (Levetiracetam 500 Mg Tab) 250 mg PO BID [facility] Last Admin: 06/02/21 08:15 Dose: 250 mg Documented by: Prednisone (Prednisone 5 Mg Tab) 2.5 mg PO BID [facility] Last Admin: 06/02/21 08:15 Dose: 2.5 mg Documented by: Sodium Chloride (Sodium Chloride 0.9% 10 Ml Syringe) 10 ml FLUSH ASDIRECTED PRN PRN Reason: Keep Vein Open Last Admin: 06/01/21 15:44 Dose: 10 ml Documented by: Sodium Chloride (Sodium Chloride 0.9% 2.5 Ml Syringe) 2.5 ml FLUSH ASDIRECTED PRN PRN Reason: Keep Vein Open Last Admin: 06/01/21 15:44 Dose: 2.5 ml Documented by: Discontinued Medications Fentanyl (Fentanyl 50 Mcg/Ml Sdv) 25 mcg IVPUSH ONETIME ONE Stop: 06/01/21 16:02 Last Admin: 06/01/21 16:10 Dose: 25 mcg Documented by: Piperacillin Sod/Tazobactam (Sod 4.5 gm/ Sodium Chloride) 100 mls @ 100 mls/hr IV STAT ONE Stop: 06/01/21 16:13 Last Admin: 06/01/21 15:45 Dose: 100 mls/hr Documented by: Sodium Chloride (Normal Saline) 1,000 mls @ 1,000 mls/hr IV BOLUS ONE; Protocol Stop: 06/01/21 16:13 Last Admin: 06/01/21 17:05 Dose: 1,000 mls/hr Documented by: Sodium Chloride (Normal Saline) 1,000 mls @ 999 mls/hr IV .BOLUS ONE Stop: 06/01/21 16:17 Last Admin: 06/01/21 15:44 Dose: 999 mls/hr Documented by: Sodium Chloride (Normal Saline) 1,000 mls @ 125 mls/hr IV ASDIRECTED [facility] Last Admin: 06/02/21 08:49 Dose: 125 mls/hr Documented by: - Exam Urinary Catheter Total Time: 0Days 0Hours General: Alert Lungs: Clear to Auscultation, Normal Respiratory Effort Cardiovascular: Regular Rate, Regular Rhythm GI/Abdominal Exam: Soft, Non-Tender Extremities: No Pedal Edema Psy/Mental Status: Alert - Patient Data Lab Results Last 24 hrs: Laboratory Results - last 24 hr 06/01/21 06/02/21 06/02/21 Range/Units 19:06 00:50 06:00 WBC 8.84 (4.0-11.0) K/uL RBC 2.66 L (4.30-5.90) M/uL Hgb 8.4 L (12.0-16.0) g/dL Hct 25.7 L (36.0-46.0) % MCV 96.6 (80.0-98.0) fL MCH 31.6 (27.0-32.0) pg MCHC 32.7 (31.0-37.0) g/dL RDW Std Deviation 54.7 (28.0-62.0) fl RDW Coeff of Erik 16 H (11.0-15.0) % Plt Count 274 (150-400) K/uL MPV 9.30 (7.40-12.00) fL Neut % (Auto) 53.6 (48.0-80.0) % Lymph % (Auto) 38.7 (16.0-40.0) % [place] % (Auto) 6.4 (0.0-15.0) % Eos % (Auto) 1.0 (0.0-7.0) % Baso % (Auto) 0.3 (0.0-1.5) % Neut # (Auto) 4.7 (1.4-5.7) K/uL Lymph # (Auto) 3.4 H (0.6-2.4) K/uL [place] # (Auto) 0.6 (0.0-0.8) K/uL Eos # (Auto) 0.1 (0.0-0.7) K/uL Baso # (Auto) 0.0 (0.0-0.1) K/uL Nucleated RBC % 0.0 /100WBC Nucleated RBCs # 0 K/uL Sodium (136-145) mmol/L Potassium (3.5-5.1) mmol/L Chloride (98-107) mmol/L Carbon Dioxide (21.0-32.0) mmol/L BUN (7.0-18.0) mg/dL Creatinine (0.6-1.0) mg/dL Est Cr Clr Drug Dosing mL/min Estimated GFR (MDRD) ml/min Glucose (74-106) mg/dL Calcium (8.5-10.1) mg/dL Total Bilirubin (0.2-1.0) mg/dL Direct Bilirubin (0.0-0.5) mg/dL Indirect Bilirubin AST (15-37) IU/L ALT (14-63) IU/L Alkaline Phosphatase (46-116) U/L Total Protein (6.4-8.2) g/dL Albumin (3.4-5.0) g/dL Globulin (2.6-4.0) g/dL Albumin/Globulin Ratio (0.9-1.6) Urine Color YELLOW Urine Appearance CLEAR Urine pH 5.5 (5.0-8.0) Ur Specific Thatcher 1.020 (1.001-1.035) Urine Protein NEGATIVE (NEGATIVE) mg/dL Urine Glucose (UA) NEGATIVE (NEGATIVE) mg/dL Urine Ketones NEGATIVE (NEGATIVE) mg/dL Urine Occult Blood NEGATIVE (NEGATIVE) Urine Nitrite NEGATIVE (NEGATIVE) Urine Bilirubin NEGATIVE (NEGATIVE) Urine Urobilinogen 0.2 (<2.0) EU/dL Ur Leukocyte Esterase NEGATIVE (NEGATIVE) Urine RBC 0-2 (0-2/HPF) Urine WBC 0-2 (0-5/HPF) Ur Epithelial Cells RARE (NONE-FEW) Urine Bacteria RARE (NEGATIVE) SARS-CoV-2 RNA (JAE) NEGATIVE (NEGATIVE) 06/02/21 06/02/21 Range/Units 06:00 06:00 WBC (4.0-11.0) K/uL RBC (4.30-5.90) M/uL Hgb (12.0-16.0) g/dL Hct (36.0-46.0) % MCV (80.0-98.0) fL MCH (27.0-32.0) pg MCHC (31.0-37.0) g/dL RDW Std Deviation (28.0-62.0) fl RDW Coeff of Erik (11.0-15.0) % Plt Count (150-400) K/uL MPV (7.40-12.00) fL Neut % (Auto) (48.0-80.0) % Lymph % (Auto) (16.0-40.0) % [place] % (Auto) (0.0-15.0) % Eos % (Auto) (0.0-7.0) % Baso % (Auto) (0.0-1.5) % Neut # (Auto) (1.4-5.7) K/uL Lymph # (Auto) (0.6-2.4) K/uL [place] # (Auto) (0.0-0.8) K/uL Eos # (Auto) (0.0-0.7) K/uL Baso # (Auto) (0.0-0.1) K/uL Nucleated RBC % /100WBC Nucleated RBCs # K/uL Sodium 147 H (136-145) mmol/L Potassium 3.5 (3.5-5.1) mmol/L Chloride 111 H (98-107) mmol/L Carbon Dioxide 25.3 (21.0-32.0) mmol/L BUN 77 H (7.0-18.0) mg/dL Creatinine 1.8 H (0.6-1.0) mg/dL Est Cr Clr Drug Dosing 21.17 mL/min Estimated GFR (MDRD) 27.0 ml/min Glucose 90 (74-106) mg/dL Calcium 7.0 L (8.5-10.1) mg/dL Total Bilirubin 0.2 (0.2-1.0) mg/dL Direct Bilirubin 0.10 (0.0-0.5) mg/dL Indirect Bilirubin 0.10 AST 29 (15-37) IU/L ALT 22 (14-63) IU/L Alkaline Phosphatase 129 H (46-116) U/L Total Protein 5.3 L (6.4-8.2) g/dL Albumin 1.7 L (3.4-5.0) g/dL Globulin 3.6 (2.6-4.0) g/dL Albumin/Globulin Ratio 0.5 L (0.9-1.6) Urine Color Urine Appearance Urine pH (5.0-8.0) Ur Specific Thatcher (1.001-1.035) Urine Protein (NEGATIVE) mg/dL Urine Glucose (UA) (NEGATIVE) mg/dL Urine Ketones (NEGATIVE) mg/dL Urine Occult Blood (NEGATIVE) Urine Nitrite (NEGATIVE) Urine Bilirubin (NEGATIVE) Urine Urobilinogen (<2.0) EU/dL Ur Leukocyte Esterase (NEGATIVE) Urine RBC (0-2/HPF) Urine WBC (0-5/HPF) Ur Epithelial Cells (NONE-FEW) Urine Bacteria (NEGATIVE) SARS-CoV-2 RNA (JAE) (NEGATIVE) Result Diagrams: 06/02/21 06:00 06/02/21 06:00 Darrion Results Last 24 hrs: Microbiology 06/01/21 15:38 Aerobic Blood Culture - Preliminary Blood - Venous - Lab Draw NO GROWTH AFTER 1 DAY Anaerobic Blood Culture - Preliminary NO GROWTH AFTER 1 DAY 06/01/21 15:27 Aerobic Blood Culture - Preliminary Blood - Venous NO GROWTH AFTER 1 DAY Anaerobic Blood Culture - Preliminary NO GROWTH AFTER 1 DAY Sepsis Event Note - Evaluation Sepsis Screening Result: Possible Sepsis Risk - Focused Exam Vital Signs: Vital Signs Temp Pulse Resp BP Pulse Ox 06/02/21 16:32 96.6 F L 72 16 145/60 H 95 06/02/21 12:15 96.2 F L 66 15 103/55 L 95 06/02/21 07:59 96.2 F L 67 16 137/63 98 - Problem List & Annotations (1) Dehydration SNOMED Code(s): 59493573 Code(s): E86.0 - DEHYDRATION Status: Acute Current Visit: Yes (2) MONIKA (acute kidney injury) SNOMED Code(s): 41379895, 20296726 Code(s): N17.9 - ACUTE KIDNEY FAILURE, UNSPECIFIED Status: Acute Current Visit: No (3) Abdominal pain SNOMED Code(s): 30165505 Code(s): R10.9 - UNSPECIFIED ABDOMINAL PAIN Status: Acute Current Visit: No (4) Cholelithiasis SNOMED Code(s): 212432844 Code(s): K80.20 - CALCULUS OF GALLBLADDER W/O CHOLECYSTITIS W/O OBSTRUCTION Status: Acute Current Visit: No Qualifiers: Cholelithiasis location: gallbladder Cholecystitis presence: without cholecystitis Biliary obstruction: without biliary obstruction Qualified Code(s): K80.20 - Calculus of gallbladder without cholecystitis without obstruction (5) Decrease in appetite SNOMED Code(s): 07262011 Code(s): R63.0 - ANOREXIA Status: Acute Current Visit: No - Problem List Review Problem List Initiated/Reviewed/Updated: Yes - My Orders Last 24 Hours: My Active Orders 06/02/21 09:45 Lactated Ringers [Ringers, Lactated] 1,000 ml IV ASDIRECTED - Plan Plan:: Cholelithiasis with choledocholithiasis- Confirmed via US Abdo. Have attempted to contact [facility] in [place], with no response. Have contacted [facility] in [place] and was told that they do not have coverage to perform ERCP this week. We will attempt to contact [facility] or facilities in [place] tomorrow. 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 MONIKA:Secondary to dehydration, LR 100mls/hr, Monitor AM BMP CT abdomen revealed diverticulosis with no signs of diverticulitis. Will reevaluate patient's white blood cell count in the morning start antibiotics as necessary.
[2021-06-02] MEDS ORDERED: Piperacillin/Tazobactam 3.375 GM in Sodium Chloride 0.9% 50 ML IV SCH (21:00)
[2021-06-02] MEDS: Piperacillin/Tazobactam 2.25 GM in Sodium Chloride 0.9% 50 ML IV SCH (21:22)
[2021-06-02 21:29] LABS: CARBON DIOXIDE,CO2 26.7 mmol/L (21.0-32.0); POTASSIUM,K 3.6 mmol/L (3.5-5.1)
[2021-06-03] MEDS: Heparin Sodium 5,000 Units/ML Vial SUBCUT SCH ×2 (00:35→10:58)
--- NOTE | 2021-06-03 00:39 | PCM.SN.2 ---
- Free Text/Narrative Note: Due to patient's choledocholithiasis, numerous facilities including [facility] in [place] and both [facility] in [place] were contacted. Beds and or services not available available at those locations. [facility] in [place] is willing to accept patient pending bed availability. If bed is available patient set to be transferred on 928-21 morning. Time Documentation
[2021-06-03] MEDS: Piperacillin/Tazobactam 2.25 GM in Sodium Chloride 0.9% 50 ML IV SCH ×3 (04:28→15:38)
[2021-06-03 06:44] LABS: BLOOD UREA NITROGEN,BUN 40 mg/dL (7.0-18.0); CARBON DIOXIDE,CO2 29.6 mmol/L (21.0-32.0); CHLORIDE,CL 111 mmol/L (98-107); GLUCOSE RANDOM 83 mg/dL (74-106); POTASSIUM,K 3.6 mmol/L (3.5-5.1); SODIUM,NA 147 mmol/L (136-145)
[2021-06-03] MEDS: Acetaminophen 325 MG Tab PO PRN ×2 (08:59→16:15)
[2021-06-03] MEDS: predniSONE 5 MG Tab PO SCH (09:00)
[2021-06-03] MEDS: levETIRAcetam 500 MG Tab PO SCH (09:00)
--- NOTE | 2021-06-03 10:58 | PCM.DCSUM1 ---
Discharge Summary - Hospital Course Free Text/Narrative:: 80-year-old female with past medical history of cerebral palsy, developmental delays currently residing in assisted living home for people that require assistance with activities of daily living for [place] behavior issues. Per ER documentation patient was found to be less responsive than normal, when paramedics arrived patient was conscious. Patient had complaints of abdominal pain for roughly 1 day. Patient also noted to have poor oral intake of fluids and food. Patient's field contact technician is her niece, Barbara [phone]. Patient admitted to medical unit on for dehydration, MONIKA, abdominal pain. Patient did have elevated white count of 12.33 on admission, hemoglobin 10.8, BUN 103, creatinine 3.4. Ultrasound of abdomen: no intrahepatic biliary dilatation. Gallbladder contains stones and is moderately distended. Normal wall thickness. No pericholecystic fluid. Common bile duct, 13 mm. At least 1 stone is present in the common bile duct. Impression, cholelithiasis and choledocholithiasis are present. CT abdomen revealed diverticulosis with no signs of diverticulitis. At discharge patient's white blood cell count reduced to 8.8, hemoglobin 8.4, BUN 55, creatinine 1.0. Patient was treated with IV fluids and IV Zosyn during admission. Vital signs at discharge, 97.2 Fahrenheit, pulse 79, blood pressure 1 2070, respiratory rate 16, oxygen saturation 95% on room air. Patient to be transferred to [facility] to undergo evaluation and treatment for choledocholithiasis. Patient to be transported via ground ambulance. Have attempted to contact [facility] in [place], no beds available. Have contacted [facility] in [place] and was told that they do not have coverage to perform ERCP this week. I have contacted [facility] in [place], no beds available. [facility] has accepted patient. Patient has been discussed with and accepted by both internal medicine and GI physician, Dr Shahid. - Discharge Data Discharge Date: 06/03/21 Discharge Disposition: DC/Tfer to Acute Hospital 02 Condition: Good - Referral to Home Health Primary Care Physician: Jabari Teran MD - Discharge Diagnosis/Problem(s) (1) Dehydration SNOMED Code(s): 05097045 ICD Code: E86.0 - DEHYDRATION Status: Acute Current Visit: Yes (2) MONIKA (acute kidney injury) SNOMED Code(s): 05510273, 93051050 ICD Code: N17.9 - ACUTE KIDNEY FAILURE, UNSPECIFIED Status: Acute Current Visit: No (3) Abdominal pain SNOMED Code(s): 72353512 ICD Code: R10.9 - UNSPECIFIED ABDOMINAL PAIN Status: Acute Current Visit: No (4) Cholelithiasis SNOMED Code(s): 254518894 ICD Code: K80.20 - CALCULUS OF GALLBLADDER W/O CHOLECYSTITIS W/O OBSTRUCTION Status: Acute Current Visit: No Qualifiers: Cholelithiasis location: gallbladder Cholecystitis presence: without cholecystitis Biliary obstruction: without biliary obstruction Qualified Code(s): K80.20 - Calculus of gallbladder without cholecystitis without obstruction (5) Decrease in appetite SNOMED Code(s): 43913745 ICD Code: R63.0 - ANOREXIA Status: Acute Current Visit: No - Patient Summary/Data Consults: Consultations 06/01/21 23:24 PT Evaluation and Treatment [CONS] Routine 06/01/21 23:38 Consult to Hospice [CONS] Routine - Patient Instructions Activity: As Tolerated Notify Provider of: Fever, Increased Pain, Nausea and/or Vomiting Other/Special Instructions: Patient is being transferred to [facility] in [place]. Accepting medical team to evaluate and treat patient appropriately. Patient's primary contact is Barbara Cao- [phone] - Discharge Plan Home Medications: Home Meds Polyethylene Glycol [Polyox [id number]] 17 gm PO DAILY 01/14/20 [History] Ascorbic Acid [Vitamin C] 500 mg PO DAILY 08/21/20 [History] predniSONE 2.5 mg PO BID 08/21/20 [History] Multivit with Iron,Minerals [Flintstones Complete] 1 tab PO DAILY 03/03/21 [History] lisinopriL [Lisinopril] 20 mg PO DAILY 03/03/21 [History] levETIRAcetam [Keppra] 250 mg PO BID 05/12/21 [History] Sulfamethoxazole/Trimethoprim [Bactrim 400-80 MG] 0.5 tab PO BEDTIME #0 05/15/21 [Rx] Calcium Carb, Citrate/Vit D3 [Citracal + D ER] 1 tab PO BID 06/02/21 [History] Forms: ED Department Discharge Referrals: Jabari Teran MD [Primary Care Provider] - - Discharge Summary/Plan Comment DC Time >30 min.: Yes Total # of Minutes for Discharge Time: 60 - General Info Date of Service: 06/03/21 Subjective Update: Questioning is difficult due to patient's history she reports he intermittently. However when asked if patient is in pain patient shakes her head no. Per nursing no fever, no vomiting, no diarrhea noted. - Review of Systems General: Denies: Fever Pulmonary: Denies: Shortness of Breath, Cough Gastrointestinal: Denies: Abdominal Pain, Diarrhea, Vomiting - Patient Data Vitals - Most Recent: Last Vital Signs Temp 97.2 F 06/03/21 08:00 Pulse 79 06/03/21 08:00 Resp 16 06/03/21 08:00 BP 120/70 06/03/21 08:00 Pulse Ox 95 06/03/21 08:00 Weight - Most Recent: 130 lb I&O - Last 24 hours: Intake & Output 06/02/21 06/03/21 06/03/21 22:59 06:59 14:59 Intake Total 300 663 50 Output Total 800 650 Balance -500 13 50 Lab Results - Last 24 hrs: Laboratory Results - last 24 hr 06/02/21 06/02/21 06/03/21 Range/Units 06:00 21:09 05:40 WBC 8.32 (4.0-11.0) K/uL RBC 2.62 L (4.30-5.90) M/uL Hgb 8.4 L (12.0-16.0) g/dL Hct 25.5 L (36.0-46.0) % MCV 97.3 (80.0-98.0) fL MCH 32.1 H (27.0-32.0) pg MCHC 32.9 (31.0-37.0) g/dL RDW Std Deviation 55.3 (28.0-62.0) fl RDW Coeff of Erik 16 H (11.0-15.0) % Plt Count 315 (150-400) K/uL MPV 9.60 (7.40-12.00) fL Neut % (Auto) 56.8 (48.0-80.0) % Lymph % (Auto) 33.5 (16.0-40.0) % Moody % (Auto) 8.4 (0.0-15.0) % Eos % (Auto) 1.1 (0.0-7.0) % Baso % (Auto) 0.2 (0.0-1.5) % Neut # (Auto) 4.7 (1.4-5.7) K/uL Lymph # (Auto) 2.8 H (0.6-2.4) K/uL Moody # (Auto) 0.7 (0.0-0.8) K/uL Eos # (Auto) 0.1 (0.0-0.7) K/uL Baso # (Auto) 0.0 (0.0-0.1) K/uL Nucleated RBC % 0.0 /100WBC Nucleated RBCs # 0 K/uL Sodium 146 H (136-145) mmol/L Potassium 3.6 (3.5-5.1) mmol/L Chloride 109 H (98-107) mmol/L Carbon Dioxide 26.7 (21.0-32.0) mmol/L BUN 55 H (7.0-18.0) mg/dL Creatinine 1.0 (0.6-1.0) mg/dL Est Cr Clr Drug Dosing 38.10 mL/min Estimated GFR (MDRD) 53.2 ml/min Glucose 174 H (74-106) mg/dL Calcium 7.8 L (8.5-10.1) mg/dL Total Bilirubin 0.2 (0.2-1.0) mg/dL Direct Bilirubin 0.10 (0.0-0.5) mg/dL Indirect Bilirubin 0.10 AST 29 (15-37) IU/L ALT 22 (14-63) IU/L Alkaline Phosphatase 129 H (46-116) U/L Total Protein 5.3 L (6.4-8.2) g/dL Albumin 1.7 L (3.4-5.0) g/dL Globulin 3.6 (2.6-4.0) g/dL Albumin/Globulin Ratio 0.5 L (0.9-1.6) 06/03/21 Range/Units 05:40 WBC (4.0-11.0) K/uL RBC (4.30-5.90) M/uL Hgb (12.0-16.0) g/dL Hct (36.0-46.0) % MCV (80.0-98.0) fL MCH (27.0-32.0) pg MCHC (31.0-37.0) g/dL RDW Std Deviation (28.0-62.0) fl RDW Coeff of Erik (11.0-15.0) % Plt Count (150-400) K/uL MPV (7.40-12.00) fL Neut % (Auto) (48.0-80.0) % Lymph % (Auto) (16.0-40.0) % Moody % (Auto) (0.0-15.0) % Eos % (Auto) (0.0-7.0) % Baso % (Auto) (0.0-1.5) % Neut # (Auto) (1.4-5.7) K/uL Lymph # (Auto) (0.6-2.4) K/uL Moody # (Auto) (0.0-0.8) K/uL Eos # (Auto) (0.0-0.7) K/uL Baso # (Auto) (0.0-0.1) K/uL Nucleated RBC % /100WBC Nucleated RBCs # K/uL Sodium 147 H (136-145) mmol/L Potassium 3.6 (3.5-5.1) mmol/L Chloride 111 H (98-107) mmol/L Carbon Dioxide 29.6 (21.0-32.0) mmol/L BUN 40 H (7.0-18.0) mg/dL Creatinine 0.8 (0.6-1.0) mg/dL Est Cr Clr Drug Dosing 47.62 mL/min Estimated GFR (MDRD) > 60.0 ml/min Glucose 83 (74-106) mg/dL Calcium 7.2 L (8.5-10.1) mg/dL Total Bilirubin 0.3 (0.2-1.0) mg/dL Direct Bilirubin (0.0-0.5) mg/dL Indirect Bilirubin AST 31 (15-37) IU/L ALT 26 (14-63) IU/L Alkaline Phosphatase 126 H (46-116) U/L Total Protein 5.3 L (6.4-8.2) g/dL Albumin 1.6 L (3.4-5.0) g/dL Globulin 3.7 (2.6-4.0) g/dL Albumin/Globulin Ratio 0.4 L (0.9-1.6) RHEA Results - Last 24 hrs: Microbiology 06/01/21 15:38 Aerobic Blood Culture - Preliminary Blood - Venous - Lab Draw NO GROWTH AFTER 1 DAY Anaerobic Blood Culture - Preliminary NO GROWTH AFTER 1 DAY 06/01/21 15:27 Aerobic Blood Culture - Preliminary Blood - Venous NO GROWTH AFTER 1 DAY Anaerobic Blood Culture - Preliminary NO GROWTH AFTER 1 DAY Med Orders - Current: Current Medications Acetaminophen (Acetaminophen 325 Mg Tab) 650 mg PO Q6H PRN PRN Reason: Pain Last Admin: 06/03/21 08:59 Dose: 650 mg Documented by: Heparin Sodium (Porcine) (Heparin Sodium 5,000 Units/Ml Vial) 5,000 units SUB CUT Q12H [facility] Last Admin: 06/03/21 00:35 Dose: 5,000 units Documented by: Piperacillin Sod/Tazobactam (Sod 2.25 gm/ Sodium Chloride) 50 mls @ 100 mls/hr IV Q6H [facility] Last Admin: 06/03/21 09:00 Dose: 100 mls/hr Documented by: Levetiracetam (Levetiracetam 500 Mg Tab) 250 mg PO BID [facility] Last Admin: 06/03/21 09:00 Dose: 250 mg Documented by: Prednisone (Prednisone 5 Mg Tab) 2.5 mg PO BID [facility] Last Admin: 06/03/21 09:00 Dose: 2.5 mg Documented by: Sodium Chloride (Sodium Chloride 0.9% 10 Ml Syringe) 10 ml FLUSH ASDIRECTED PRN PRN Reason: Keep Vein Open Last Admin: 06/01/21 15:44 Dose: 10 ml Documented by: Sodium Chloride (Sodium Chloride 0.9% 2.5 Ml Syringe) 2.5 ml FLUSH ASDIRECTED PRN PRN Reason: Keep Vein Open Last Admin: 06/01/21 15:44 Dose: 2.5 ml Documented by: Discontinued Medications Fentanyl (Fentanyl 50 Mcg/Ml Sdv) 25 mcg IVPUSH ONETIME ONE Stop: 06/01/21 16:02 Last Admin: 06/01/21 16:10 Dose: 25 mcg Documented by: Piperacillin Sod/Tazobactam (Sod 4.5 gm/ Sodium Chloride) 100 mls @ 100 mls/hr IV STAT ONE Stop: 06/01/21 16:13 Last Admin: 06/01/21 15:45 Dose: 100 mls/hr Documented by: Sodium Chloride (Normal Saline) 1,000 mls @ 1,000 mls/hr IV BOLUS ONE; Protocol Stop: 06/01/21 16:13 Last Admin: 06/01/21 17:05 Dose: 1,000 mls/hr Documented by: Sodium Chloride (Normal Saline) 1,000 mls @ 999 mls/hr IV .BOLUS ONE Stop: 06/01/21 16:17 Last Admin: 06/01/21 15:44 Dose: 999 mls/hr Documented by: Sodium Chloride (Normal Saline) 1,000 mls @ 125 mls/hr IV ASDIRECTED [facility] Last Admin: 06/02/21 08:49 Dose: 125 mls/hr Documented by: Lactated Ringer's (Ringers, Lactated) 1,000 mls @ 100 mls/hr IV ASDIRECTED [facility] Stop: 06/02/21 19:44 Last Admin: 06/02/21 10:45 Dose: 100 mls/hr Documented by: Piperacillin Sod/Tazobactam (Sod 3.375 gm/ Sodium Chloride) 50 mls @ 100 mls/hr IV Q6H [facility] Last Admin: 06/03/21 03:13 Dose: Not Given Documented by: Lactated Ringer's (Ringers, Lactated) 1,000 mls @ 100 mls/hr IV ASDIRECTED [facility] Stop: 06/03/21 08:29 Last Admin: 06/03/21 00:39 Dose: 100 mls/hr Documented by: - Exam General: Reports: Alert Lungs: Reports: Clear to Auscultation, Normal Respiratory Effort Cardiovascular: Reports: Regular Rate, Regular Rhythm GI/Abdominal Exam: Soft, Non-Tender, No Distention. No: Distended, Guarding Extremities: No Pedal Edema
--- NOTE | 2021-06-03 11:32 | MR ---
INDICATION: Abdominal pain. Distended gallbladder on ultrasound. Cholelithiasis. Rule out choledocholithiasis. TECHNIQUE: An MRCP, including 2D, 3D and maximum intensity projection imaging, was performed. COMPARISON: Right upper quadrant ultrasound performed yesterday. FINDINGS: The common bile duct is smoothly marginated and measures up to 5 mm in diameter. No filling defect is evident. The intrahepatic ducts are normal in caliber and appear to branch and taper in a grossly normal fashion. The gallbladder is distended but not technically hydropic. Stones are demonstrated in the gallbladder, including a stone lodged in the gallbladder neck. No gallbladder wall thickening or pericholecystic fluid is identified. The pancreatic duct is normal. The liver is normal in size, shape and signal. The spleen, pancreas, adrenal glands and kidneys are within normal limits. The bowel is unremarkable except for colonic diverticulosis. No lymphadenopathy or free fluid is evident. IMPRESSION: 1. Cholelithiasis with stone lodged in the gallbladder neck and gallbladder distension. No additional evidence of acute cholecystitis. 2. Negative for choledocholithiasis. Dictated by Timoteo Payne MD @ 06/03/2021 11:30:04 AM (Electronically Signed)
[2021-06-03 16:41] VITALS: BP 108/54; PULSE 75
== END 2021-06-03 16:30 | DRG 641 ==
LOC: MW.ED 14:45 → MW.MS 19:22 → UNDOADMIN 20:00 → MW.MS 20:00
PROVIDERS: ADMIT Internal Medicine; ATTEND Internal Medicine
DX: E86.0 Dehydration (principal); N17.9 Acute kidney failure, unspecified; K80.20 Calculus of gallbladder without cholecystitis without obstruction; K80.70 Calculus of gallbladder and bile duct without cholecystitis without obstruction; N32.81 Overactive bladder; H54.7 Unspecified visual loss; R47.9 Unspecified speech disturbances; R62.50 Unspecified lack of expected normal physiological development in childhood; Z85.42 Personal history of malignant neoplasm of other parts of uterus; Z79.899 Other long term (current) drug therapy; I10 Essential (primary) hypertension; G80.9 Cerebral palsy, unspecified; Z96.642 Presence of left artificial hip joint; Z20.822 Contact with and (suspected) exposure to COVID-19; Z90.710 Acquired absence of both cervix and uterus; Z90.49 Acquired absence of other specified parts of digestive tract
CPT/HCPCS: 36415; 71045; 74176; 80053; 83605; 83690; 84484; 85025; 87040 ×2; J2543; J3010; J7030 ×2; U0002; 51702; 74181; 74181-26; 76705; 76705-26; 80048; 80076; 81001; 87086; 96365; 96375; 97163-GP; 99285-25; A9270-GY; J1644; J7120; J7512